=== PATIENT | male | born 1995 | race African-American/Black ===

== ENCOUNTER 2018-06-25 09:51 | Inpatient (IN) ==
[2018-06-25] MEDS ORDERED: ALBUT/IPRATROP 3MG/0.5MG NEB 3 ML VIAL INH STA (10:15)
[2018-06-25 10:41] LABS: Basophils # (auto) 0.03 K/uL (0-0.2); Basophils % (auto) 0.3 %; Eosinophils # (auto) 0.12 K/uL (0-0.5); Eosinophils % (auto) 1.2 %; Hematocrit (blood only) 40.5 % (42-52); Hemoglobin 12.8 g/dL (14.0-18.0); Immature Granulocytes # (auto) 0.03 K/uL (0.00-0.02); Immature Granulocytes % (auto) 0.3 %; Lymphocytes # (auto) 1.23 K/uL (1.2-3.4); Lymphocytes % (auto) 11.9 %; Mean Corpuscular Hgb Conc 31.6 g/dL (32-36); Mean Corpuscular Volume 82.3 fL (80-100); Mean Platelet Volume 8.8 fL (7.4-10.4); Monocytes # (auto) 0.84 K/uL (0.11-0.59); Monocytes % (auto) 8.1 %; Neutrophils # (auto) 8.06 K/uL (1.4-6.5); Neutrophils % (auto) 78.2 %; Platelet Count 241 K/uL (130-400); RDW Coefficient of Variation 14.3 % (11.5-14.5); RDW Standard Deviation 42.3 fL (36.4-46.3); Red Blood Count 4.92 M/uL (4.7-6.1); White Blood Count 10.31 K/uL (4.8-10.8)
[2018-06-25] MEDS: methylPREDNISolone 125 MG/2 ML VIAL IV STA ×2 (10:46→14:14)
[2018-06-25 10:47] LABS: Base Excess VBG 6.4 mEq/L; HCO3 VBG 36 mmol/L; PCO2 VBG 74 mmHg (38-50); PO2 VBG 30 mmHg
[2018-06-25 10:48] LABS: Oxygen Saturation VBG < 60.0 %
[2018-06-25 10:50] LABS: iSTAT Creatinine 0.5 mg/dl (0.6-1.3); iSTAT Hemoglobin 14.6 g/dl (14.0-18.0); iSTAT Ionized Calcium 1.01 mmol/l (1.12-1.32); iSTAT Potassium 4.1 mEq/L (3.3-5.0)
--- NOTE | 2018-06-25 10:53 | Emergency Department Note ---
History of Present Illness General Chief complaint: Shortness of Breath/Dyspnea Stated complaint: chest pain/ jose crawford Time Seen by Provider: 06/25/18 10:07 History of Present Illness Maximum Pain Intensity: 6 22-year-old male JOSE Crawford [place] inmate, history of cystic fibrosis, asthma and diabetes, who presents to emergency department with difficulty breathing and low oxygen saturation levels. The patient reports that he has had a mild nonproductive cough over the past 2 weeks. He did not have any wheezing at that time. After the ball dropped for celebration, the patient started to develop shortness of breath and chest pain. According to EMS personnel, the patient was administered a DuoNeb around 6 AM after he was found to have an O2 saturation of 68% on room air. When the patient's symptoms did not improve, EMS was called. He was given an additional DuoNeb treatment and placed on nasal cannula at 4 L/min, restoring his O2 saturation to 96%. The patient was brought to the emergency department, and as [facility], his oxygen saturation again dropped to 75% as they were transferring him from a portable oxygen tank to the [facility] unit. He was then placed on both nasal cannula and oxygen mask, maintaining his oxygen saturation at 96%. The patient initially reported that he has never been hospitalized for asthma or cystic fibrosis; however, through conversation in the room at a later time, the patient does admit that he has been intubated in the past. He currently denies any chest pain. Home Medications Home Medications Medication Instructions Recorded Confirmed Type azithromycin 500 mg PO DAILY 06/25/18 06/25/18 History dornase montez [Pulmozyme] 2.5 mg INHALATION DAILY PRN 06/25/18 06/25/18 History fluticasone-salmeterol [Advair 1 inh INHALATION BID 06/25/18 06/25/18 History Diskus] insulin NPH isoph U-100 human 5 unit SUBCUT QAM 06/25/18 06/25/18 History [Humulin N NPH U-100 Insulin] ipratropium-albuterol 3 ml INHALATION QID PRN 06/25/18 06/25/18 History levalbuterol tartrate [Xopenex HFA] 2 puff INHALATION QID PRN 06/25/18 06/25/18 History oumuhd-puxqsofr-qlsifwq [Creon] 3 cap PO UD 06/25/18 06/25/18 History cskgxp-uywvsqcl-sywwkmq [Creon] 5 cap PO TID 06/25/18 06/25/18 History montelukast [Singulair] 10 mg PO PM 06/25/18 06/25/18 History therapeutic multivitamin [Thera] 1 tab PO DAILY 06/25/18 06/25/18 History tobramycin 300 mg INHALATION BID PRN 06/25/18 06/25/18 History Allergies Allergy/AdvReac Type Severity Reaction Status Date / Time No Known Allergies Allergy Unverified 06/25/18 10:19 Past Med/Surg History Medical History Acute respiratory failure with hypoxia (Acute) Multifocal pneumonia (Acute) DM II (diabetes mellitus, type II), controlled (Acute) Asthma (Acute) Cystic fibrosis (Acute) Asthma Cystic fibrosis Diabetes Surgical History No significant past surgical history Family History Other No significant family history Social History marital status: Single Current Living Situation: Other Current Living Situation Comment: Incarcerated Other Information That Helps Us Care for You: No Feels Safe at Home: Yes Safety Concerns: Feels Safe At This Time Smoking Status: Never smoker Do You Dip or Chew Tobacco: No Second Hand Exposure: No Tobacco Cessation Education Requested by Patient: No Hx Alcohol Use: No Hx Substance Use: No Beliefs That Will Affect Care: None Preferred Language: Mosotho Communication Ability: Effective Distribution Dispatcher Required: No Review of Systems HEENT: Denies dizziness, visual problems, hearing loss, tinnitus. Denies difficulty swallowing or oral lesions. PULMONARY: See HPI. CARDIOVASCULAR: Reports mild generalized chest pain recent palpitations, dyspnea on exertion, orthopnea or peripheral edema. GASTROINTESTINAL: Denies diarrhea, constipation, nausea, vomiting, or abdominal pain. GENITOURINARY: Denies dysuria, frequency, urgency or nocturia. NEUROLOGIC: Denies history of epilepsy, CVA, TIA or chronic headaches. MUSCULOSKELETAL: Denies history of joint tenderness/swelling. SKIN: Denies rashes or lesions. PSYCHIATRIC: Denies history of depression or mental illness. ENDOCRINE: History of diabetes. Denies thyroid disorders. Physical Exam Vital Signs Vital Signs - 24 hr 06/25/18 10:00 06/25/18 10:01 06/25/18 10:05 Temperature 36.8 C Temperature Source Oral Sepsis Recent Fever Within 48 Hours No Sepsis New/Unexplained Change in Mental Status No Sepsis Action Taken by Nursing No Action Required Pulse Rate 98 H 101 H 96 H Pulse Rate [Apical] Respiratory Rate 26 H 37 H 32 H Respiratory Effort / Characteristics Respiratory Depth Respiratory Pattern Blood Pressure 129/80 129/75 129/80 Blood Pressure Mean 96 93 96 Pulse Oximetry 99 Oxygen Delivery Method Oxymask Oxygen Flow Rate 15 06/25/18 10:10 06/25/18 10:20 06/25/18 10:29 Temperature Temperature Source Sepsis Recent Fever Within 48 Hours Sepsis New/Unexplained Change in Mental Status Sepsis Action Taken by Nursing Pulse Rate 94 H 89 Pulse Rate [Apical] 97 H Respiratory Rate 41 H 33 H 24 Respiratory Effort / Characteristics Spontaneous Respiratory Depth Respiratory Pattern Blood Pressure Blood Pressure Mean Pulse Oximetry 98 98 97 Oxygen Delivery Method Oxymask Oxygen Flow Rate 15 06/25/18 10:30 06/25/18 10:31 06/25/18 10:40 Temperature Temperature Source Sepsis Recent Fever Within 48 Hours Sepsis New/Unexplained Change in Mental Status Sepsis Action Taken by Nursing Pulse Rate 104 H 98 H 105 H Pulse Rate [Apical] Respiratory Rate 33 H 37 H 28 H Respiratory Effort / Characteristics Respiratory Depth Respiratory Pattern Blood Pressure 119/79 Blood Pressure Mean 92 Pulse Oximetry 97 97 Oxygen Delivery Method Oxygen Flow Rate 06/25/18 10:50 06/25/18 11:00 06/25/18 11:01 Temperature Temperature Source Sepsis Recent Fever Within 48 Hours Sepsis New/Unexplained Change in Mental Status Sepsis Action Taken by Nursing Pulse Rate 102 H 101 H 100 H Pulse Rate [Apical] Respiratory Rate 48 H 20 22 Respiratory Effort / Characteristics Respiratory Depth Respiratory Pattern Blood Pressure 130/75 Blood Pressure Mean 93 Pulse Oximetry 93 95 93 Oxygen Delivery Method Oxygen Flow Rate 06/25/18 11:10 06/25/18 11:33 06/25/18 11:40 Temperature Temperature Source Sepsis Recent Fever Within 48 Hours Sepsis New/Unexplained Change in Mental Status Sepsis Action Taken by Nursing Pulse Rate 96 H 109 H 108 H Pulse Rate [Apical] Respiratory Rate 22 24 24 Respiratory Effort / Characteristics Respiratory Depth Respiratory Pattern Blood Pressure Blood Pressure Mean Pulse Oximetry 93 89 L 93 Oxygen Delivery Method Oxygen Flow Rate 06/25/18 11:48 06/25/18 11:50 06/25/18 12:00 Temperature Temperature Source Sepsis Recent Fever Within 48 Hours Sepsis New/Unexplained Change in Mental Status Sepsis Action Taken by Nursing Pulse Rate 101 H 101 H 105 H Pulse Rate [Apical] Respiratory Rate 20 22 24 Respiratory Effort / Characteristics Respiratory Depth Respiratory Pattern Blood Pressure 130/79 Blood Pressure Mean 96 Pulse Oximetry 93 93 93 Oxygen Delivery Method Oxygen Flow Rate 06/25/18 12:01 06/25/18 12:10 06/25/18 12:15 Temperature Temperature Source Sepsis Recent Fever Within 48 Hours Sepsis New/Unexplained Change in Mental Status Sepsis Action Taken by Nursing Pulse Rate 103 H 102 H Pulse Rate [Apical] Respiratory Rate 41 H 38 H 24 Respiratory Effort / Characteristics Accessory Muscle Use Labored Nasal Flaring Short of Breath SOB on Exertion Respiratory Depth Shallow Respiratory Pattern Regular Blood Pressure 124/75 Blood Pressure Mean 91 Pulse Oximetry 91 86 L 93 Oxygen Delivery Method Oxymask Oxygen Flow Rate 15 06/25/18 12:20 06/25/18 12:30 06/25/18 12:31 Temperature Temperature Source Sepsis Recent Fever Within 48 Hours Sepsis New/Unexplained Change in Mental Status Sepsis Action Taken by Nursing Pulse Rate 111 H 108 H 110 H Pulse Rate [Apical] Respiratory Rate 36 H 41 H 23 Respiratory Effort / Characteristics Respiratory Depth Respiratory Pattern Blood Pressure 127/76 Blood Pressure Mean 93 Pulse Oximetry 91 91 91 Oxygen Delivery Method Oxygen Flow Rate 06/25/18 12:40 06/25/18 12:50 06/25/18 13:00 Temperature Temperature Source Sepsis Recent Fever Within 48 Hours Sepsis New/Unexplained Change in Mental Status Sepsis Action Taken by Nursing Pulse Rate 110 H 108 H 112 H Pulse Rate [Apical] Respiratory Rate 36 H 24 24 Respiratory Effort / Characteristics Respiratory Depth Respiratory Pattern Blood Pressure Blood Pressure Mean Pulse Oximetry 91 Oxygen Delivery Method Oxygen Flow Rate 06/25/18 13:01 06/25/18 13:10 06/25/18 13:20 Temperature Temperature Source Sepsis Recent Fever Within 48 Hours Sepsis New/Unexplained Change in Mental Status Sepsis Action Taken by Nursing Pulse Rate 109 H Pulse Rate [Apical] Respiratory Rate 19 Respiratory Effort / Characteristics Respiratory Depth Respiratory Pattern Blood Pressure 134/88 Blood Pressure Mean 103 Pulse Oximetry 91 92 Oxygen Delivery Method Oxygen Flow Rate 06/25/18 13:32 Temperature Temperature Source Sepsis Recent Fever Within 48 Hours Sepsis New/Unexplained Change in Mental Status Sepsis Action Taken by Nursing Pulse Rate 106 H Pulse Rate [Apical] Respiratory Rate 22 Respiratory Effort / Characteristics Respiratory Depth Respiratory Pattern Blood Pressure 133/78 Blood Pressure Mean Pulse Oximetry 93 Oxygen Delivery Method Oxymask Oxygen Flow Rate 6 CONSTITUTIONAL: Healthy and well nourished. Alert and oriented X 3. Patient is currently wearing an oxygen mask with nasal cannula, and saturating at 96%. He does not appear in any acute respiratory distress. HEENT: Normocephalic, atraumatic. Pupils equal, round and reactive. Ears and nares are clear. No posterior pharyngeal erythema. No scleral icterus or conjunctival injection/pallor. NECK: Full active range of motion without discomfort. No JVD or obvious carotid bruits. RESPIRATORY: Patient has crackles chong, without any obvious wheezing, rhonchi or stridor. CARDIOVASCULAR: Regular rate and rhythm with no murmurs, rubs or gallops. GASTROINTESTINAL: Bowel sounds present in all quadrants. Abdomen is soft and nontender to palpation. MUSCULOSKELETAL: Full range of motion of all joints without discomfort. INTEGUMENTARY: No rash or other significant dermatologic conditions noted. HEMATOLOGIC: No ecchymosis or petechiae. NEUROLOGIC: Cranial nerves II-XII grossly intact. No focal neurologic deficits noted. PSYCHIATRIC: Positive affect. Course Patient history and physical exam were performed. Nurse's notes were reviewed. As indicated in the HPI section, the patient did have several episodes of hypoxia while at the intermediate, during transportation and in the emergency department. IV access was established prior to arrival. The patient was administered IV Solu-Medrol. Labs were drawn. An ECG was normal. The portable chest x-ray shows a possible left upper lobe pneumonia with notable bronchiectasis consistent with patient history of cystic fibrosis. Review of labs shows a hyponatremia of 128. White count is normal with left shift and bandemia. Glucose is stable at 120. [id number]-[id number] lactate is normal. Troponin was normal. The patient was administered an hour long DuoNeb treatment. D-dimer was elevated. Urine drug screen is negative. PCR influenza screen was negative. Venous blood gases shows respiratory acidosis. Chest CT angiography shows a multifocal pneumonia. The patient was started on cefepime and Levaquin IV antibiotics. The case was further discussed with Dr. Ventura, ED attending physician who recommended hospitalist consultation. The case was then discussed with Dr. Vann for further reevaluation. Please see hospitalist dictations for further treatment and final disposition. Administered Medications Ioversol (Optiray 320 125ml) 96 ml IV ONCE PRN PRN Reason: Interaction Checking Stop: 06/29/18 11:26 Last Admin: 06/25/18 11:28 Dose: 96 ml Discontinued Medications Albuterol (Duoneb) 12 ml INH ONE STA Stop: 06/25/18 10:16 Last Admin: 06/25/18 10:27 Dose: 12 ml Cefepime HCl (Maxipime) 2,000 mg in 12.5 mls @ 3.125 mls/min IV NOW STA Stop: 06/25/18 12:05 Last Admin: 06/25/18 12:12 Dose: 3.125 mls/min Levofloxacin/Dextrose (Levaquin/D5w) 750 mg in 150 mls @ 100 mls/hr IV NOW STA Stop: 06/25/18 13:31 Last Admin: 06/25/18 12:15 Dose: 100 mls/hr Methylprednisolone (Solumedrol) 125 mg IV NOW STA Stop: 06/25/18 10:16 Last Admin: 06/25/18 10:46 Dose: 125 mg Medical Decision Making Laboratory Data Result diagrams: 06/25/18 10:24 06/25/18 10:24 Lab Results 06/25/18 06/25/18 06/25/18 Range/Units 10:03 10:20 10:24 WBC 10.31 (4.8-10.8) K/uL RBC 4.92 (4.7-6.1) M/uL Hgb 12.8 L (14.0-18.0) g/dL POC Hgb (14.0-18.0) g/dl Hct 40.5 L (42-52) % POC Hct (42-52) % MCV 82.3 (80-100) fL MCH 26.0 (25-34) pg MCHC 31.6 L (32-36) g/dL RDW Std Deviation 42.3 (36.4-46.3) fL RDW Coeff of Jerry 14.3 (11.5-14.5) % Plt Count 241 (130-400) K/uL MPV 8.8 (7.4-10.4) fL Immature Gran % (Auto) 0.3 % Neut % (Auto) 78.2 % Lymph % (Auto) 11.9 % [place] % (Auto) 8.1 % Eos % (Auto) 1.2 % Baso % (Auto) 0.3 % Immature Gran # (Auto) 0.03 H (0.00-0.02) K/uL Neut # (Auto) 8.06 H (1.4-6.5) K/uL Lymph # (Auto) 1.23 (1.2-3.4) K/uL [place] # (Auto) 0.84 H (0.11-0.59) K/uL Eos # (Auto) 0.12 (0-0.5) K/uL Baso # (Auto) 0.03 (0-0.2) K/uL PT (9.0-12.0) Seconds INR (0.9-1.1) APTT (21.0-31.0) Seconds PTT Ratio POC D-Dimer (0-450) ng/mlFEU VBG pH (7.36-7.41) VBG pCO2 (38-50) mmHg VBG pO2 mmHg VBG HCO3 mmol/L VBG O2 Saturation % VBG Base Excess mEq/L Barometric Pressure mm/Hg POC Sodium (135-144) mEq/L Sodium (136-145) mmol/L POC Potassium (3.3-5.0) mEq/L Potassium (3.5-5.1) mmol/L POC Chloride (101-112) mEq/L Chloride (98-107) mmol/L Carbon Dioxide (21-32) mmol/L POC Total CO2 (24-31) mEq/l Anion Gap (3-11) POC Anion Gap (16-25) mmol/L POC BUN (7-18) mg/dl BUN (7-18) mg/dl Creatinine (0.6-1.4) mg/dl POC Creatinine (0.6-1.3) mg/dl Est Cr Clr Drug Dosing ml/min Est GFR ( Amer) Est GFR (Non-Af Amer) BUN/Creatinine Ratio (10-20) Glucose (70-99) mg/dl POC Glucose 107 H (70-99) POC Glucose (other) (70-99) mg/dl POC Lactic Acid Tato (0.90-1.70) mmol/L Calcium (8.5-10.1) mg/dl POC Ioniz Calcium Kalyani (1.12-1.32) mmol/l Magnesium (1.8-2.4) mg/dl Total Bilirubin (0.2-1) mg/dl AST (15-37) U/L ALT (12-78) U/L Alkaline Phosphatase (45-117) U/L POC Troponin I (0-0.045) ng/ml Total Protein (6.4-8.2) gm/dl Albumin (3.4-5.0) gm/dl Globulin (2.5-4.0) gm/dl Albumin/Globulin Ratio (0.9-2) Urine Opiates Screen (Neg) Ur Methadone, Qual (Neg) Urine Barbiturates (Neg) Ur Phencyclidine (PCP) (Neg) U Amphetamin/Meth Scrn (Neg) MDMA (Ecstasy) Screen (Neg) U Benzodiazepines Scrn (Neg) Ur Cocaine Metabolite (Neg) U Marijuana (THC) Screen (Neg) Influenza Type A (PCR) Neg for Influ A (Neg) Influenza Type B (PCR) Neg for Influ B (Neg) 06/25/18 06/25/18 06/25/18 Range/Units 10:24 10:24 10:24 WBC (4.8-10.8) K/uL RBC (4.7-6.1) M/uL Hgb (14.0-18.0) g/dL POC Hgb (14.0-18.0) g/dl Hct (42-52) % POC Hct (42-52) % MCV (80-100) fL MCH (25-34) pg MCHC (32-36) g/dL RDW Std Deviation (36.4-46.3) fL RDW Coeff of Jerry (11.5-14.5) % Plt Count (130-400) K/uL MPV (7.4-10.4) fL Immature Gran % (Auto) % Neut % (Auto) % Lymph % (Auto) % [place] % (Auto) % Eos % (Auto) % Baso % (Auto) % Immature Gran # (Auto) (0.00-0.02) K/uL Neut # (Auto) (1.4-6.5) K/uL Lymph # (Auto) (1.2-3.4) K/uL [place] # (Auto) (0.11-0.59) K/uL Eos # (Auto) (0-0.5) K/uL Baso # (Auto) (0-0.2) K/uL PT 11.9 (9.0-12.0) Seconds INR 1.2 H (0.9-1.1) APTT 27.9 (21.0-31.0) Seconds PTT Ratio 1.1 POC D-Dimer (0-450) ng/mlFEU VBG pH 7.30 L (7.36-7.41) VBG pCO2 74 H (38-50) mmHg VBG pO2 30 mmHg VBG HCO3 36 mmol/L VBG O2 Saturation < 60.0 % VBG Base Excess 6.4 mEq/L Barometric Pressure 731.7 mm/Hg POC Sodium (135-144) mEq/L Sodium 128 L (136-145) mmol/L POC Potassium (3.3-5.0) mEq/L Potassium 4.0 (3.5-5.1) mmol/L POC Chloride (101-112) mEq/L Chloride 91 L (98-107) mmol/L Carbon Dioxide 35 H (21-32) mmol/L POC Total CO2 (24-31) mEq/l Anion Gap 2.0 L (3-11) POC Anion Gap (16-25) mmol/L POC BUN (7-18) mg/dl BUN 5 L (7-18) mg/dl Creatinine 0.67 (0.6-1.4) mg/dl POC Creatinine (0.6-1.3) mg/dl Est Cr Clr Drug Dosing 144.0 ml/min Est GFR ( Amer) > 150.0 Est GFR (Non-Af Amer) 134.5 BUN/Creatinine Ratio 8.1 L (10-20) Glucose 120 H (70-99) mg/dl POC Glucose (70-99) POC Glucose (other) (70-99) mg/dl POC Lactic Acid Tato (0.90-1.70) mmol/L Calcium 8.2 L (8.5-10.1) mg/dl POC Ioniz Calcium Kalyani (1.12-1.32) mmol/l Magnesium 1.9 (1.8-2.4) mg/dl Total Bilirubin 0.3 (0.2-1) mg/dl AST 10 L (15-37) U/L ALT 17 (12-78) U/L Alkaline Phosphatase 101 (45-117) U/L POC Troponin I (0-0.045) ng/ml Total Protein 10.1 H (6.4-8.2) gm/dl Albumin 2.5 L (3.4-5.0) gm/dl Globulin 7.6 H (2.5-4.0) gm/dl Albumin/Globulin Ratio 0.3 L (0.9-2) Urine Opiates Screen (Neg) Ur Methadone, Qual (Neg) Urine Barbiturates (Neg) Ur Phencyclidine (PCP) (Neg) U Amphetamin/Meth Scrn (Neg) MDMA (Ecstasy) Screen (Neg) U Benzodiazepines Scrn (Neg) Ur Cocaine Metabolite (Neg) U Marijuana (THC) Screen (Neg) Influenza Type A (PCR) (Neg) Influenza Type B (PCR) (Neg) 06/25/18 06/25/18 06/25/18 Range/Units 10:31 10:33 10:35 WBC (4.8-10.8) K/uL RBC (4.7-6.1) M/uL Hgb (14.0-18.0) g/dL POC Hgb 14.6 (14.0-18.0) g/dl Hct (42-52) % POC Hct 43 (42-52) % MCV (80-100) fL MCH (25-34) pg MCHC (32-36) g/dL RDW Std Deviation (36.4-46.3) fL RDW Coeff of Jerry (11.5-14.5) % Plt Count (130-400) K/uL MPV (7.4-10.4) fL Immature Gran % (Auto) % Neut % (Auto) % Lymph % (Auto) % [place] % (Auto) % Eos % (Auto) % Baso % (Auto) % Immature Gran # (Auto) (0.00-0.02) K/uL Neut # (Auto) (1.4-6.5) K/uL Lymph # (Auto) (1.2-3.4) K/uL [place] # (Auto) (0.11-0.59) K/uL Eos # (Auto) (0-0.5) K/uL Baso # (Auto) (0-0.2) K/uL PT (9.0-12.0) Seconds INR (0.9-1.1) APTT (21.0-31.0) Seconds PTT Ratio POC D-Dimer > 450 H* (0-450) ng/mlFEU VBG pH (7.36-7.41) VBG pCO2 (38-50) mmHg VBG pO2 mmHg VBG HCO3 mmol/L VBG O2 Saturation % VBG Base Excess mEq/L Barometric Pressure mm/Hg POC Sodium 132 L (135-144) mEq/L Sodium (136-145) mmol/L POC Potassium 4.1 (3.3-5.0) mEq/L Potassium (3.5-5.1) mmol/L POC Chloride 89 L (101-112) mEq/L Chloride (98-107) mmol/L Carbon Dioxide (21-32) mmol/L POC Total CO2 32 H (24-31) mEq/l Anion Gap (3-11) POC Anion Gap 15.0 L (16-25) mmol/L POC BUN 4 L (7-18) mg/dl BUN (7-18) mg/dl Creatinine (0.6-1.4) mg/dl POC Creatinine 0.5 L (0.6-1.3) mg/dl Est Cr Clr Drug Dosing ml/min Est GFR ( Amer) Est GFR (Non-Af Amer) BUN/Creatinine Ratio (10-20) Glucose (70-99) mg/dl POC Glucose (70-99) POC Glucose (other) 129 H (70-99) mg/dl POC Lactic Acid Tato 1.05 (0.90-1.70) mmol/L Calcium (8.5-10.1) mg/dl POC Ioniz Calcium Kalyani 1.01 L (1.12-1.32) mmol/l Magnesium (1.8-2.4) mg/dl Total Bilirubin (0.2-1) mg/dl AST (15-37) U/L ALT (12-78) U/L Alkaline Phosphatase (45-117) U/L POC Troponin I < 0.03 (0-0.045) ng/ml Total Protein (6.4-8.2) gm/dl Albumin (3.4-5.0) gm/dl Globulin (2.5-4.0) gm/dl Albumin/Globulin Ratio (0.9-2) Urine Opiates Screen (Neg) Ur Methadone, Qual (Neg) Urine Barbiturates (Neg) Ur Phencyclidine (PCP) (Neg) U Amphetamin/Meth Scrn (Neg) MDMA (Ecstasy) Screen (Neg) U Benzodiazepines Scrn (Neg) Ur Cocaine Metabolite (Neg) U Marijuana (THC) Screen (Neg) Influenza Type A (PCR) (Neg) Influenza Type B (PCR) (Neg) 06/25/18 Range/Units 10:45 WBC (4.8-10.8) K/uL RBC (4.7-6.1) M/uL Hgb (14.0-18.0) g/dL POC Hgb (14.0-18.0) g/dl Hct (42-52) % POC Hct (42-52) % MCV (80-100) fL MCH (25-34) pg MCHC (32-36) g/dL RDW Std Deviation (36.4-46.3) fL RDW Coeff of Jerry (11.5-14.5) % Plt Count (130-400) K/uL MPV (7.4-10.4) fL Immature Gran % (Auto) % Neut % (Auto) % Lymph % (Auto) % [place] % (Auto) % Eos % (Auto) % Baso % (Auto) % Immature Gran # (Auto) (0.00-0.02) K/uL Neut # (Auto) (1.4-6.5) K/uL Lymph # (Auto) (1.2-3.4) K/uL [place] # (Auto) (0.11-0.59) K/uL Eos # (Auto) (0-0.5) K/uL Baso # (Auto) (0-0.2) K/uL PT (9.0-12.0) Seconds INR (0.9-1.1) APTT (21.0-31.0) Seconds PTT Ratio POC D-Dimer (0-450) ng/mlFEU VBG pH (7.36-7.41) VBG pCO2 (38-50) mmHg VBG pO2 mmHg VBG HCO3 mmol/L VBG O2 Saturation % VBG Base Excess mEq/L Barometric Pressure mm/Hg POC Sodium (135-144) mEq/L Sodium (136-145) mmol/L POC Potassium (3.3-5.0) mEq/L Potassium (3.5-5.1) mmol/L POC Chloride (101-112) mEq/L Chloride (98-107) mmol/L Carbon Dioxide (21-32) mmol/L POC Total CO2 (24-31) mEq/l Anion Gap (3-11) POC Anion Gap (16-25) mmol/L POC BUN (7-18) mg/dl BUN (7-18) mg/dl Creatinine (0.6-1.4) mg/dl POC Creatinine (0.6-1.3) mg/dl Est Cr Clr Drug Dosing ml/min Est GFR ( Amer) Est GFR (Non-Af Amer) BUN/Creatinine Ratio (10-20) Glucose (70-99) mg/dl POC Glucose (70-99) POC Glucose (other) (70-99) mg/dl POC Lactic Acid Tato (0.90-1.70) mmol/L Calcium (8.5-10.1) mg/dl POC Ioniz Calcium Kalyani (1.12-1.32) mmol/l Magnesium (1.8-2.4) mg/dl Total Bilirubin (0.2-1) mg/dl AST (15-37) U/L ALT (12-78) U/L Alkaline Phosphatase (45-117) U/L POC Troponin I (0-0.045) ng/ml Total Protein (6.4-8.2) gm/dl Albumin (3.4-5.0) gm/dl Globulin (2.5-4.0) gm/dl Albumin/Globulin Ratio (0.9-2) Urine Opiates Screen Neg (Neg) Ur Methadone, Qual Neg (Neg) Urine Barbiturates Neg (Neg) Ur Phencyclidine (PCP) Neg (Neg) U Amphetamin/Meth Scrn Neg (Neg) MDMA (Ecstasy) Screen Neg (Neg) U Benzodiazepines Scrn Neg (Neg) Ur Cocaine Metabolite Neg (Neg) U Marijuana (THC) Screen Neg (Neg) Influenza Type A (PCR) (Neg) Influenza Type B (PCR) (Neg) Imaging Data Attestation: I personally reviewed and interpreted this imaging study as follows : My Impression: My interpretation of a portable chest x-ray shows a left upper lobe consolidation. No obvious pneumothorax is noted. Radiologist report was reviewed. Chest CT angiography Radiologist's Impression: XR chest 1V portable CLINICAL HISTORY: Dyspnea. COMPARISON STUDY: Chest radiograph January 19, 2017. FINDINGS: There is no pneumothorax. There is a possible trace left pleural effusion. Diffuse bronchiectasis is noted. Left upper lobe volume loss with opacity has developed since exam of January 19, 2017. There may be patchy additional upper lobe opacities. Cardiac size is normal. Lucencies within the left lung apex could reflect cavities or bronchiectasis IMPRESSION: 1. Severe bronchiectasis. Although nonspecific, cystic fibrosis is favored. 2. Interval development of left upper lobe volume loss and airspace opacity since radiographs of January 19, 2017. This may reflect superimposed pneumonia. Lucencies within the opacity may reflect bronchiectasis or cavities. A central obstructing mass is considered unlikely given the patient's age however radiographic follow up is recommended. 3. Trace left pleural effusion. CT ANGIOGRAPHY OF THE CHEST, PULMONARY EMBOLUS PROTOCOL CLINICAL HISTORY: PE - hypoxia, SOB, h/o asthma, CF COMPARISON STUDY: Chest radiograph June 25, 2018 and January 11, 2017. TECHNIQUE: Following IV administration of 96 mL of Optiray-320, helical axial images of the chest were obtained utilizing the pulmonary embolus protocol. Maximal intensity projections and sagittal and coronal reformats were viewed on an independent 3D workstation. IV contrast was administered without complication. Automated exposure control was utilized for the study. A dose lowering technique was utilized adhering to the principles of ALARA. CT DOSE: 194.14 mGy.cm FINDINGS: No pulmonary emboli are identified. There is no evidence for thoracic aortic dissection. The size of the heart is normal. There is no pericardial effusion. Mild to moderate bilateral hilar and mediastinal lymphadenopathy is present. A 4 x 2.6 cm anterior mediastinal soft tissue density may reflect a prominent thymus. Severe upper lobe predominant bronchiectasis is noted. There are groundglass opacities throughout the lungs with multifocal irregular opacities as well. There is left upper lobe volume loss with severe bronchiectasis and cavity formation. A small left pleural effusion is present. There is no right pleural effusion. There is no pneumothorax. Bony thorax is unremarkable. Fatty replacement of visualized portions of the pancreas is noted within the upper abdomen. IMPRESSION: 1. No pulmonary emboli identified. 2. Severe upper lobe bronchiectasis consistent with history of cystic fibrosis. Left upper lobe volume loss, airspace opacity and severe bronchiectasis and multifocal cavity formation. 3. Multifocal irregular airspace opacities and groundglass opacities throughout the lungs which suggest superimposed multifocal pneumonia. 4. Small left pleural effusion. 5. Mild to moderate mediastinal and bilateral hilar lymphadenopathy which is likely reactive. 4 x 2.6 cm left anterior mediastinal soft tissue density which is nonspecific but may reflect a prominent thymus. A follow-up chest CT in 3 months to ensure stability is recommended. ECG Data Indication: chest pain and SOB/dyspnea Rate (beats per minute): 94 Rhythm: normal sinus Comparison ECG Date: no prior available MDM Narrative Patient presents to emergency department with complaint of difficulty breathing. He was found to be hypoxic at the intermediate. The patient reports that he has had a cough for the past [address] scan does show evidence for a multifocal pneumonia. Patient also has a significant history of cystic fibrosis. He is currently in acute respiratory failure with hypoxia. CT scan does not show any obvious pulmonary emboli. ECG and troponin are normal and not suggestive of myocardial infarction. Impression & Plan Acute respiratory failure with hypoxia, Cystic fibrosis, Asthma, DM II ( diabetes mellitus, type II), controlled, Multifocal pneumonia Critical Care Time I have personally spent greater than 30 minutes of critical care time in the direct management of this patient. This includes bedside care, interpretation of diagnostic studies, and testing, discussion with consultants, patient, and family members, and other required patient management activities. This 30 minutes is in excess of all separately billable procedures. The patient has had persistent stable hypoxia while in emergency department, and had to be supported with oxygen therapy. Critical Care Time: Yes Total Critical Care Time: 35 Discharge Plan Visit Data *Final* Discharge Date/Time: 06/25/18 13:32 Chief Complaint: Shortness of Breath/Dyspnea Stated Complaint: chest pain/ sci rudy ED Provider: Giovanni Ventura ED Midlevel Provider: Brendan Waite Discharge Problem: Acute respiratory failure with hypoxia, Cystic fibrosis, Asthma, DM II ( diabetes mellitus, type II), controlled, Multifocal pneumonia Patient Disposition: Admitted As Inpatient Discharge Instructions Interventions: ED Discharge Assessment Last Done: 06/25/18 13:32
[2018-06-25 10:55] LABS: INR 1.2 (0.9-1.1); Partial Thromboplastin Ratio 1.1; Partial Thromboplastin Time 27.9 Seconds (21.0-31.0); Prothrombin Time 11.9 Seconds (9.0-12.0)
--- NOTE | 2018-06-25 10:58 | XRay Report ---
XR chest 1V portable CLINICAL HISTORY: Dyspnea. COMPARISON STUDY: Chest radiograph January 19, 2017. FINDINGS: There is no pneumothorax. There is a possible trace left pleural effusion. Diffuse bronchie ctasis is noted. Left upper lobe volume loss with opacity has developed since exam of January 19, 2017. There may be patchy additional upper lobe opacities. Cardiac size is normal. Lucencies within the lef t lung apex could reflect cavities or bronchiectasis IMPRESSION: 1. Severe bronchiectasis. Although nonspecific, cystic fibrosis is favored. 2. Interval development of left upper lobe volume loss and airspace opacity since radiographs of January 19, 2017. This may reflect superimposed pneumonia. Lucencies within the opacity may reflect bronchie ctasis or cavities. A central obstructing mass is considered unlikely given the patient's age however radiographic follow up is recommended. 3. Trace left pleural effusion. Electronically signed by: Romario Estrada M.D. 06/25/2018 10:57 AM
[2018-06-25 10:59] LABS: Alanine Aminotransferase 17 U/L (12-78); Albumin Level 2.5 gm/dl (3.4-5.0); Aspartate Aminotransferase 10 U/L (15-37); BUN Creatinine Ratio 8.1 (10-20); Blood Urea Nitrogen 5 mg/dl (7-18); Calcium 8.2 mg/dl (8.5-10.1); Carbon Dioxide 35 mmol/L (21-32); Chloride 91 mmol/L (98-107); Est GFR (African American) > 150.0; Est GFR (Non-African American) 134.5; Glucose 120 mg/dl (70-99); Magnesium 1.9 mg/dl (1.8-2.4); Sodium 128 mmol/L (136-145)
[2018-06-25 11:02] LABS: Albumin Globulin Ratio 0.3 (0.9-2); Alkaline Phosphatase 101 U/L (45-117); Bilirubin,Total 0.3 mg/dl (0.2-1); Globulin 7.6 gm/dl (2.5-4.0); Total Protein 10.1 gm/dl (6.4-8.2)
[2018-06-25 11:17] LABS: Amphetamines+Metham, Urine Neg (Neg); Barbiturates, Urine Neg (Neg); Benzodiazepine, Urine Neg (Neg); Cocaine, Urine Neg (Neg); MDMA (Ecstacy), Urine Neg (Neg); Methadone, Urine Neg (Neg); Opiate, Urine Neg (Neg); Phencyclidine, Urine Neg (Neg)
[2018-06-25 11:23] LABS: Influenza A virus by PCR Neg for Influ A (Neg); Influenza B virus by PCR Neg for Influ B (Neg)
[2018-06-25] MEDS ORDERED: OPTIRAY 320 125ml IV PRN (11:27)
--- NOTE | 2018-06-25 11:45 | CT Scan Report ---
CT ANGIOGRAPHY OF THE CHEST, PULMONARY EMBOLUS PROTOCOL CLINICAL HISTORY: PE - hypoxia, SOB, h/o asthma, CF COMPARISON STUDY: Chest radiograph June 25, 2018 and January 11, 2017. TECHNIQUE: Following IV administration of 96 mL of Optiray-320, helical axial images of the chest wer e obtained utilizing the pulmonary embolus protocol. Maximal intensity projections and sagittal and coronal reformats were viewed on an independent 3D workstation. IV contrast was administered without complication. Automated exposure control was utilized for the study. A dose lowering technique was utilized adhering to the principles of ALARA. CT DOSE: 194.14 mGy.cm FINDINGS: No pulmonary emboli are identified. There is no evidence for thoracic aortic dissection. The size of the heart is normal. There is no pericardial effusion. Mild to moderate bilateral hilar and mediastin al lymphadenopathy is present. A 4 x 2.6 cm anterior mediastinal soft tissue density may reflect a pr ominent thymus. Severe upper lobe predominant bronchiectasis is noted. There are groundglass opacitie s throughout the lungs with multifocal irregular opacities as well. There is left upper lobe volume l oss with severe bronchiectasis and cavity formation. A small left pleural effusion is present. There is no right pleural effusion. There is no pneumothorax. Bony thorax is unremarkable. Fatty replacemen t of visualized portions of the pancreas is noted within the upper abdomen. IMPRESSION: 1. No pulmonary emboli identified. 2. Severe upper lobe bronchiectasis consistent with history of cystic fibrosis. Left upper lobe volum e loss, airspace opacity and severe bronchiectasis and multifocal cavity formation. 3. Multifocal irregular airspace opacities and groundglass opacities throughout the lungs which sugge st superimposed multifocal pneumonia. 4. Small left pleural effusion. 5. Mild to moderate mediastinal and bilateral hilar lymphadenopathy which is likely reactive. 4 x 2.6 cm left anterior mediastinal soft tissue density which is nonspecific but may reflect a prominent th ymus. A follow-up chest CT in 3 months to ensure stability is recommended. Electronically signed by: Romario Estrada M.D. 06/25/2018 11:43 AM
[2018-06-25] MEDS ORDERED: LEVOFLOXACIN/D5W 750 MG/150 ML BAG IV STA (12:02)
[2018-06-25] MEDS ORDERED: CEFEPIME 2,000 MG/12.5 ML VIAL IV STA (12:02)
--- NOTE | 2018-06-25 12:15 | History & Physical Report ---
Date of Service June 25, 2018 Assessment & Plan (1) Acute respiratory failure with hypoxia: (2) Multifocal pneumonia: - Admit to pcu/tele - Continue cefepime, levaquin and add vancomycin for MRSA coverage with current incarceration - pt has home med of azithromycin prescribed as well but does not have this. - Pt recieved dose of solumedrol 125 mg in the ER - will hold on further glucocorticoid at this time. - Supportive therapy with mucinex, O2 prn - Tobramycin inh., pulmozyme inh scheduled - pt has not been taking this as outpatient - Pulmonology consult - Dr. Nuñez . Pt does not follow with a CF specialist but needs to establish with someone upon discharge. (3) Cystic fibrosis: - Needs to establish care with a specialist as outpatient, would need to consider placement at different correctional facility if care not available? - Pt provides information for Dr. Terrell in [place] as outpatient but has not followed up as outpatient for over 4 years. (4) Asthma: - Cont supportive care and inhalers as above (5) DM II (diabetes mellitus, type II), controlled: - Continue insulin NPH 5 U - ISS with accuchecks - Check A1C with am labs - diabetic diet - Continue Creon capsules for supplementation, 5 Caps with meals and 3 Caps with snacks. (6) DVT prophylaxis: - lovenox subq History of Present Illness Chief Complaint: Shortness of breath Primary Care Provider: MARIO Crawford This is a 22 yo male with PMHx of asthma and cystic fibrosis, DM II, currently incarcerated at [facility], who presents with acute onset of shortness of breath last evening around midnight. He was reported to be hypoxic with O2 sats in the 60s at the care home, and upon transitioning him from DC to oximask he dropped down into the 70s in the ER here. Patient states "I feel like $h*!". Pt noticed an increased wheezing in his breath earlier in the day, and it progressed to where he was unable to fall asleep last night. He has a cough which is nonproductive but worsening, and has difficulty with deep breaths. He has a slight tightness in his chest which is worsened with deep inspiration. He denies any fever, chills, sweats, known sick contacts. He denies increased fatigue and decreased exercise tolerance. Diet has not changed, and is unaware if he has lost weight. Pt has not been taking home medications including Azithromycin, Pulmozyme or Tobramycin. He does take Creon capsules, Advair inhaler routinely, and the xopenex if needed. He also does use insulin NPH and got it this morning. Pt has not seen a cystic fibrosis specialist since 2013, but had followed with Dr. Terrell in [place] back then. He was once hospitalized for a CF exacerbation in 2013 where he was intubated for a 3 week period. The patient has 11 siblings, none of which have CF. He was diagnosed as an infant. He also has been incarcerated for 4 years, with a get out date set for 2022. Allergies Allergy/AdvReac Type Severity Reaction Status Date / Time No Known Allergies Allergy Unverified 06/25/18 10:19 Home Medications Home Medications Medication Instructions Recorded Confirmed Type azithromycin 500 mg PO DAILY 06/25/18 06/25/18 History dornase montez [Pulmozyme] 2.5 mg INHALATION DAILY PRN 06/25/18 06/25/18 History fluticasone-salmeterol [Advair 1 inh INHALATION BID 06/25/18 06/25/18 History Diskus] insulin NPH isoph U-100 human 5 unit SUBCUT QAM 06/25/18 06/25/18 History [Humulin N NPH U-100 Insulin] ipratropium-albuterol 3 ml INHALATION QID PRN 06/25/18 06/25/18 History levalbuterol tartrate [Xopenex HFA] 2 puff INHALATION QID PRN 06/25/18 06/25/18 History czgufh-vzqlnzkd-yaqvjla [Creon] 3 cap PO UD 06/25/18 06/25/18 History rlxzqx-jykbsixr-lzvnktj [Creon] 5 cap PO TID 06/25/18 06/25/18 History montelukast [Singulair] 10 mg PO PM 06/25/18 06/25/18 History therapeutic multivitamin [Thera] 1 tab PO DAILY 06/25/18 06/25/18 History tobramycin 300 mg INHALATION BID PRN 06/25/18 06/25/18 History Past Med/Surg History Medical History Acute respiratory failure with hypoxia (Acute) Multifocal pneumonia (Acute) DM II (diabetes mellitus, type II), controlled (Acute) Asthma (Acute) Cystic fibrosis (Acute) Asthma Cystic fibrosis Diabetes Surgical History No significant past surgical history Family History Other No significant family history Social History marital status: Single Current Living Situation: Other Current Living Situation Comment: Incarcerated Other Information That Helps Us Care for You: No Feels Safe at Home: Yes Safety Concerns: Feels Safe At This Time Smoking Status: Never smoker Do You Dip or Chew Tobacco: No Second Hand Exposure: No Tobacco Cessation Education Requested by Patient: No Hx Alcohol Use: No Hx Substance Use: No Beliefs That Will Affect Care: None Preferred Language: Irish Communication Ability: Effective Network Manager Required: No Review of Systems Constitutional: no fever, no chills, no sweats and no fatigue Eyes: no diplopia and no worsening vision Ear, Nose, Mouth, Throat: no dizziness, no nasal discharge, no facial pain and no sore throat Respiratory: as per Subjective / HPI, + cough, + dyspnea, + dyspnea on exertion , + pain on inspiration and + wheezing; no change in sputum and no hemoptysis Cardiovascular: no chest pain, no palpitations, no lightheadedness and no syncope Gastrointestinal: no nausea, no vomiting and no constipation no diarrhea Genitourinary (Male): no dysuria, no urinary frequency, no urinary hesitancy and no hematuria Musculoskeletal: no back pain, no joint pain, no swelling and no muscle weakness Integumentary: no rash, no lesions and no wounds Neurologic: no gait abnormality, no falls, no numbness, no dizziness and no syncope Psychiatric: no depression and no anxiety Endocrine: no fatigue Physical Exam 2 Vital Signs (Past 24 Hours): Last Vital Signs Temp 36.8 C 06/25/18 10:05 Pulse 105 H 06/25/18 12:00 Resp 24 06/25/18 12:00 BP 130/79 06/25/18 11:48 Pulse Ox 93 06/25/18 12:00 Physical Exam: General: awake, alert, no apparent distress, , multiple tattoos, thin Head: Normocephalic, atraumatic ENT: PERRL, EOMI, no pharyngeal exudate, mucous membranes slightly dry Chest: On an oximask at 15L/min, + cough, + coarse breath sounds in all chong Cardiac: Tachycardic, no murmur, no JVD, normal peripheral pulses, good capillary refill Abdominal: NABS x 4 quadrants, soft, nontender to palpation, no rebound, guarding or tenderness Extremities: Normal inspection, no peripheral edema or erythema, calfs nontender to palpation Psych: Normal mood and affect Neuro: AAO x 3, strength intact bilaterally and related 5/5, no motor deficits, speech is clear, no peripheral sensory deficits Results & Data Diagnostic Findings CT ANGIOGRAPHY OF THE CHEST, PULMONARY EMBOLUS PROTOCOL CLINICAL HISTORY: PE - hypoxia, SOB, h/o asthma, CF COMPARISON STUDY: Chest radiograph June 25, 2018 and January 11, 2017. TECHNIQUE: Following IV administration of 96 mL of Optiray-320, helical axial images of the chest were obtained utilizing the pulmonary embolus protocol. Maximal intensity projections and sagittal and coronal reformats were viewed on an independent 3D workstation. IV contrast was administered without complication. Automated exposure control was utilized for the study. A dose lowering technique was utilized adhering to the principles of ALARA. CT DOSE: 194.14 mGy.cm FINDINGS: No pulmonary emboli are identified. There is no evidence for thoracic aortic dissection. The size of the heart is normal. There is no pericardial effusion. Mild to moderate bilateral hilar and mediastinal lymphadenopathy is present. A 4 x 2.6 cm anterior mediastinal soft tissue density may reflect a prominent thymus. Severe upper lobe predominant bronchiectasis is noted. There are groundglass opacities throughout the lungs with multifocal irregular opacities as well. There is left upper lobe volume loss with severe bronchiectasis and cavity formation. A small left pleural effusion is present. There is no right pleural effusion. There is no pneumothorax. Bony thorax is unremarkable. Fatty replacement of visualized portions of the pancreas is noted within the upper abdomen. IMPRESSION: 1. No pulmonary emboli identified. 2. Severe upper lobe bronchiectasis consistent with history of cystic fibrosis. Left upper lobe volume loss, airspace opacity and severe bronchiectasis and multifocal cavity formation. 3. Multifocal irregular airspace opacities and groundglass opacities throughout the lungs which suggest superimposed multifocal pneumonia. 4. Small left pleural effusion. 5. Mild to moderate mediastinal and bilateral hilar lymphadenopathy which is likely reactive. 4 x 2.6 cm left anterior mediastinal soft tissue density which is nonspecific but may reflect a prominent thymus. A follow-up chest CT in 3 months to ensure stability is recommended. XR chest 1V portable CLINICAL HISTORY: Dyspnea. COMPARISON STUDY: Chest radiograph January 19, 2017. FINDINGS: There is no pneumothorax. There is a possible trace left pleural effusion. Diffuse bronchiectasis is noted. Left upper lobe volume loss with opacity has developed since exam of January 19, 2017. There may be patchy additional upper lobe opacities. Cardiac size is normal. Lucencies within the left lung apex could reflect cavities or bronchiectasis IMPRESSION: 1. Severe bronchiectasis. Although nonspecific, cystic fibrosis is favored. 2. Interval development of left upper lobe volume loss and airspace opacity since radiographs of January 19, 2017. This may reflect superimposed pneumonia. Lucencies within the opacity may reflect bronchiectasis or cavities. A central obstructing mass is considered unlikely given the patient's age however radiographic follow up is recommended. 3. Trace left pleural effusion. Code Status & VTE Plan Code Status Full Supervising Physician Co-Signing Physician Notes Patient seen and examined, chart reviewed, case discussed with GABRIEL Lopez and I agree with her assessment and plan as documented above. Briefly, patient is a 22yo male with history of CF, asthma, DM presenting with acute episode of SOB and hypoxia (sas in the 70's) as well as wheezing. Patient is non- compliant with his medication regimen. He does not follow routinely with CF specialist as he is presently incarcerated at [facility]. On physical exam he is afebrile, tachycardic at 105bpm, RR of 24 with 93% on 7L oxymask General: thin, resting comfortably, visibly tachypneic but speaking in complete sentences, no retractions or accessory muscle use Skin: no rash HEENT: NC/AT, PERRL, MMM, neck supple, no JVD Heart: +S1/S2, regular, tachycardic, no m/r/g Lungs: equal air entry bilaterally, coarse breath sounds and crackles in bilateral lung chong with diffuse wheezing Abd: soft, NT/ND Ext: clubbing of digits Labs and images reviewed. VB.3/74/30/36. Qp=544 Cl=89 CO2=35 CTA with severe upper lobe bronchiectasis, UMU volume loss, severe bronchiectasis and multifocal cavity formation. Multiple irregular airspace opacities and groundglass opacities througout the lungs suggesting multifocal PNA, small left pleural effusion. Assessment/Plan: 22yo male with CF presenting with SOB and hypoxia, most likely from CF exacerbation secondary to multifocal PNA -Admit to PCU, supplemental O2 as needed. -Duonebs. Pulmozyme. Inhaled tobramycin. Aggressive pulmonary toilet -Broad spectrum antibiotics -Pulmonary consultation - appreciate assistance with this case
[2018-06-25] MEDS ORDERED: BENZONATATE 100 MG CAPSULE PO SCH (14:00)
[2018-06-25] MEDS ORDERED: LEVALBUTEROL 1.25MG/0.5ML NEB NEB SCH (14:01)
[2018-06-25] MEDS ORDERED: VANCOMYCIN CONSULT ACTIVE PRN (14:01)
[2018-06-25] MEDS ORDERED: ONDANSETRON INJ 2 MG/ML 2 ML VIAL IV PRN (14:01)
[2018-06-25] MEDS: ALBUT/IPRATROP 3MG/0.5MG NEB 3 ML VIAL INH SCH ×3 (14:43→19:40)
[2018-06-25] MEDS ORDERED: LEVALBUTEROL 1.25MG/0.5ML NEB NEB PRN (14:51)
[2018-06-25] MEDS ORDERED: VANCOMYCIN HCL 1,500 MG in SODIUM CHLORIDE 0.9% 500 ML IV ONE (15:30)
[2018-06-25] MEDS ORDERED: DEXTROSE 50% 50 ML SYRINGE IV PRN (16:00)
[2018-06-25] MEDS ORDERED: GLUCAGON FOR INJ 1 MG VIAL SQ PRN (16:00)
[2018-06-25] MEDS ORDERED: GLUCOSE 10 TABS/TUBE PO PRN (16:00)
[2018-06-25] MEDS ORDERED: PANCREAZE (LIPASE 10,500U) CAP PO PRN (16:00)
--- NOTE | 2018-06-25 16:20 | Pharmacy Report ---
Pharmacy Abx Initial Consult - Date of Service June 25, 2018 - Pharmacy Dosing Scope Date of Consult: 06/25/18 Consultation requested by: Chanelle Lopez PA-C Pharmacy is consulted to initiate Vancomycin IV dosing therapy, order appropriate labs and adjust drug dose/frequency. - Subjective The patient is a 22 year old M admitted on 06/25/18 12:51. - Objective Height: 5 ft 11 in Weight: 59.9 kg Vital Signs (Past 12hrs): Vital Signs Temp Pulse Pulse Pulse Resp BP BP 06/25/18 15:30 36.8 C 103 H 18 137/73 06/25/18 14:46 94 H 18 06/25/18 14:00 36.6 C 105 H 26 H 06/25/18 13:32 106 H 22 133/78 06/25/18 13:20 06/25/18 13:10 06/25/18 13:01 109 H 19 134/88 06/25/18 13:00 112 H 24 06/25/18 12:50 108 H 24 06/25/18 12:40 110 H 36 H 06/25/18 12:31 110 H 23 127/76 06/25/18 12:30 108 H 41 H 06/25/18 12:20 111 H 36 H 06/25/18 12:15 24 06/25/18 12:10 102 H 38 H 06/25/18 12:01 103 H 41 H 124/75 06/25/18 12:00 105 H 24 06/25/18 11:50 101 H 22 06/25/18 11:48 101 H 20 130/79 06/25/18 11:40 108 H 24 06/25/18 11:33 109 H 24 06/25/18 11:10 96 H 22 06/25/18 11:01 100 H 22 130/75 06/25/18 11:00 101 H 20 06/25/18 10:50 102 H 48 H 06/25/18 10:40 105 H 28 H 06/25/18 10:31 98 H 37 H 119/79 06/25/18 10:30 104 H 33 H 06/25/18 10:29 97 H 24 06/25/18 10:20 89 33 H 06/25/18 10:10 94 H 41 H 06/25/18 10:05 36.8 C 96 H 32 H 129/80 01/01/19 10:01 101 H 37 H 129/75 06/25/18 10:00 98 H 26 H 129/80 BP Pulse Ox 06/25/18 15:30 93 06/25/18 14:46 94 06/25/18 14:00 115/71 90 06/25/18 13:32 93 06/25/18 13:20 92 06/25/18 13:10 91 06/25/18 13:01 06/25/18 13:00 06/25/18 12:50 91 06/25/18 12:40 06/25/18 12:31 91 06/25/18 12:30 91 06/25/18 12:20 91 06/25/18 12:15 93 06/25/18 12:10 86 L 06/25/18 12:01 91 06/25/18 12:00 93 06/25/18 11:50 93 06/25/18 11:48 93 06/25/18 11:40 93 06/25/18 11:33 89 L 06/25/18 11:10 93 06/25/18 11:01 93 06/25/18 11:00 95 06/25/18 10:50 93 06/25/18 10:40 06/25/18 10:31 97 06/25/18 10:30 97 06/25/18 10:29 97 06/25/18 10:20 98 06/25/18 10:10 98 06/25/18 10:05 99 06/25/18 10:01 06/25/18 10:00 Lab Results (24hrs): Laboratory Tests (24 Hours) 06/25/18 06/25/18 10:24 10:24 WBC 10.31 Neut # (Auto) 8.06 H Creatinine 0.67 Est Cr Clr Drug Dosing 144.0 Micro Results: 06/25/18 15:00 Gram Stain - Pending Sputum, Expectorated Sputum Culture - Pending - Risk Factors for Resistance * Patient currently incarcerated. * Patient has a history of cystic fibrosis but has not seen a specialist is over 4 years. He takes Pulmozyme and inhaled tobramycin. * Antibiotic use within the last 90 days; patient on Azithromycin daily as outpatient. - Assessment & Plan Assessment 22 year old M with h/o of asthma and cystic fibrosis, T2DM, currently incarcerated, presents with acute onset of SOB last night around midnight. Plan Vancomycin for empiric treatment of possible multi-focal pneumonia. Vancomycin IV * Estimated PK Parameters: Vd 0.7 L/kg, Alfredo 0.012 hr-1, t1/2 6 hr * Loading dose: 1500 mg (25 mg/kg) * Maintenance dose: 1000 mg IV (15 mg/kg) every 8 hours * Goal trough level : 15 to 20 mcg/mL * Trough/Random level ordered for 06/26/18 before 1600 dose. Pharmacy will continue to follow and will adjust dose/frequency as necessary. Thank you.
[2018-06-25] MEDS ORDERED: BENZONATATE 100 MG CAPSULE PO PRN (16:34)
[2018-06-25] MEDS ORDERED: PANCREAZE (LIPASE 16,800U) CAP PO PRN (16:55)
[2018-06-25] MEDS ORDERED: PANCREAZE (LIPASE 10,500U) CAP PO SCH (17:00)
[2018-06-25] MEDS: INSULIN ASPART 100 UNITS/ML 3 ML PEN SC SCH ×2 (17:03→21:11)
--- NOTE | 2018-06-25 17:07 | Pulmonary Consultation ---
Date of Consultation June 25, 2018 Assessment & Plan (1) Acute respiratory failure with hypoxia: Impression: 1. Acute exacerbation of cystic fibrosis, almost always related to infectious process. 2. Although the patient has a history of asthma, I am not sure if it is superimposed on his current illness. 3. 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 4. Acute on chronic hypercapnic respiratory failure. Plan: 1. Agree with your current management including Pulmozyme, total B, bronchodilators, broad-spectrum antibiotic. 2. Obtain sputum culture. 3. If the patient does not improve, a bronchoscopy for pulmonary toilet and sampling would be indicated. However it carries a risk of sedation given the fact that his PCO2 is already 70. 4. Hemoptysis is very common, usually is none gross, treatment of the pathogen should improve his overall picture. 5. Systemic steroids if his clinical picture persist and the wheezing sustained. 6. Once he is improved, will be beneficiary for him to follow in the pulmonary clinic to start him on CFTR modulator. Thank you for the kind referral, will follow. History of Present Illness Reason for Consultation: Multilobar pneumonia in a patient with cystic fibrosis. Requesting Physician: Dr. Vann. Attending Physician: Adrienne Vann, DO History of Present Illness Dear Dr. Vann: Thank you for the kind referral Mr. Sevilla to pulmonary service. This is a 22- year-old gentleman with history of cystic fibrosis, since , has been maintained on inhaled therapy with Pulmozyme and DELORES, has been treated in the past in 2014 for ARDS requiring intubation for 2 weeks, the patient has not had any follow-up as he was incarcerated in retirement for the past 4 years, he was followed at [facility] in [place]. The patient presented to the hospital with increasing shortness of breath accompanied with cough and blood- tinged sputum. He was found to be tachypneic and hypoxic requiring 6 L of oxygen via facemask. The patient did not have any chest pain according to him. He appeared to be acutely ill and using somewhat accessory muscles. He denies any abdominal pain or nausea or vomiting, no difficulty swallowing. He has no diarrhea and no increased swelling in his lower extremities. His ambulation level has been very limited in the past few months. The patient denies any admission to the hospital recently and he has not been taking antibiotics as I will than what being prescribed. He has not been on CFTR yet as he has been incarcerated. Did not have an access to follow with cystic fibrosis clinic. The rest of his review of system otherwise was unremarkable. His past medical history significant for asthma, chronic pancreatic insufficiency as part of his cystic fibrosis, secondary diabetes. His family history is not consistent with cystic fibrosis in the first-degree siblings. He denies any history of smoking, no secondhand exposure to smoking. No previous surgical history. Allergies Allergy/AdvReac Type Severity Reaction Status Date / Time No Known Allergies Allergy Unverified 06/25/18 10:19 Home Medications Home Medications Medication Instructions Recorded Confirmed Type azithromycin 500 mg PO DAILY 06/25/18 06/25/18 History dornase montez [Pulmozyme] 2.5 mg INHALATION DAILY PRN 06/25/18 06/25/18 History fluticasone-salmeterol [Advair 1 inh INHALATION BID 06/25/18 06/25/18 History Diskus] insulin NPH isoph U-100 human 5 unit SUBCUT QAM 06/25/18 06/25/18 History [Humulin N NPH U-100 Insulin] ipratropium-albuterol 3 ml INHALATION QID PRN 06/25/18 06/25/18 History levalbuterol tartrate [Xopenex HFA] 2 puff INHALATION QID PRN 06/25/18 06/25/18 History bwqjth-wzlqlqnm-vbjkofw [Creon] 3 cap PO UD 06/25/18 06/25/18 History mwswel-lhkpejmw-xiuanup [Creon] 5 cap PO TID 06/25/18 06/25/18 History montelukast [Singulair] 10 mg PO PM 06/25/18 06/25/18 History therapeutic multivitamin [Thera] 1 tab PO DAILY 06/25/18 06/25/18 History tobramycin 300 mg INHALATION BID PRN 06/25/18 06/25/18 History Patient History Medical History Acute respiratory failure with hypoxia (Acute) Multifocal pneumonia (Acute) DM II (diabetes mellitus, type II), controlled (Acute) Asthma (Acute) Cystic fibrosis (Acute) Asthma Cystic fibrosis Diabetes Surgical History No significant past surgical history Family History Other No significant family history Social History marital status: Single Current Living Situation: Other Current Living Situation Comment: Incarcerated Other Information That Helps Us Care for You: No Feels Safe at Home: Yes Safety Concerns: Feels Safe At This Time Smoking Status: Never smoker Do You Dip or Chew Tobacco: No Second Hand Exposure: No Tobacco Cessation Education Requested by Patient: No Hx Alcohol Use: No Hx Substance Use: No Beliefs That Will Affect Care: None Preferred Language: Slovenian Communication Ability: Effective 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 Physical Exam 2 Vital Signs (Past 24 Hours): Last Vital Signs Temp 36.8 C 06/25/18 15:30 Pulse 103 H 06/25/18 15:30 Resp 18 06/25/18 15:30 BP 137/73 06/25/18 15:30 Pulse Ox 93 06/25/18 15:30 Physical Exam: Young gentleman, appears to be in mild respiratory distress, bilateral wheezing and crackles, S1-S2 regular rate and rhythm, abdomen is benign, he has no edema in the periphery. Neurologically he is nonfocal. Clubbing was noted. No swelling in his joints and no rash. No mucosal changes. Results & Data Laboratory Results Labs were consistent with acute on chronic hypercapnic respiratory failure, no leukocytosis, left shift and mild bandemia. Diagnostic Findings CAT scan of the chest showed multiple cystic changes mainly affecting the left upper lobe, and bronchiectatic changes with groundglass opacities affecting almost all the segments bilaterally.
[2018-06-25] MEDS: PANCREAZE (LIPASE 16,800U) CAP PO SCH (17:11)
[2018-06-25] MEDS ORDERED: TOBRAMYCIN 300 MG/5 ML INH SCH (20:00)
[2018-06-25] MEDS ORDERED: INFLUENZA ADMINISTRATION CHARGE ONE (21:00)
[2018-06-25] MEDS ORDERED: INFLUENZA VIRUS QUAD VACCINE 0.5 ML SYR IM ONE (21:00)
[2018-06-25] MEDS: CEFEPIME 2,000 MG in SYRINGE 7.5 ML IV SCH (21:10)
[2018-06-25] MEDS: FLUTICASONE/SALMETEROL 250/50 (ADVAIR) 14 PUFF/1 INHALER INH SCH (21:10)
[2018-06-25] MEDS: MONTELUKAST SODIUM 10 MG TABLET PO SCH (21:11)
--- NOTE | 2018-06-25 21:17 | Progress Note ---
Date of Service June 25, 2018 9:12 pm Received text page that the patient was having some EKG changes on the monitor. Brief chart review: Admitted this evening for multifocal pneumonia in the setting of cystic fibrosis and asthma. Saw patient at bedside. He was sound asleep. Spoke with his guards who said before he fell asleep he said that his breathing felt better. They said he was not complaining of any pain. Spoke with patient's nurse as well. She also mentioned the patient was not complaining of any pain. Exam: Patient was sound asleep. He is satting 92% on his oxymask. +S1S2 regular but borderline tachycardic. Coarse breath sounds in all chong. Plan: - Discussed case with Dr. Vann, his admitting physician. Reviewed the stat EKG which showed a normal sinus rhythm, rate 96, with some questionable ST elevations in V3 through V6 more consistent with early repolarization. - Given his lack of chest pain and reported improvement in his breathing, we will not pursue any further cardiac evaluation at this time. - Of course, if any new chest pain, vital signs changes, or other signs of acute worsening will likely repeat EKG and obtain cardiac enzymes. Ortiz Campbell MD PGY2 overnight call Physical Exam 2 Vital Signs (Past 24 Hours): Last Vital Signs Temp 36.3 C L 06/25/18 19:21 Pulse 98 H 06/25/18 19:40 Resp 16 06/25/18 19:40 BP 113/73 06/25/18 19:21 Pulse Ox 94 06/25/18 19:40
[2018-06-25] MEDS: VANCOMYCIN HCL 1,000 MG in SODIUM CHLORIDE 0.9% 250 ML IV SCH (23:33)
[2018-06-26] MEDS: CEFEPIME 2,000 MG in SYRINGE 7.5 ML IV SCH ×3 (02:56→20:42)
[2018-06-26] MEDS: DORNASE ALFA 2.5 ML AMP INH SCH (06:54)
[2018-06-26] MEDS: ALBUT/IPRATROP 3MG/0.5MG NEB 3 ML VIAL INH SCH ×4 (06:54→19:04)
[2018-06-26] MEDS: TOBRAMYCIN SULFATE INH SCH ×3 (07:05→20:07)
[2018-06-26 07:21] LABS: Basophils # (auto) 0.01 K/uL (0-0.2); Basophils % (auto) 0.1 %; Hematocrit (blood only) 40.8 % (42-52); Hemoglobin 12.4 g/dL (14.0-18.0); Immature Granulocytes # (auto) 0.02 K/uL (0.00-0.02); Immature Granulocytes % (auto) 0.2 %; Lymphocytes # (auto) 1.23 K/uL (1.2-3.4); Lymphocytes % (auto) 13.4 %; Mean Corpuscular Hgb Conc 30.4 g/dL (32-36); Mean Corpuscular Volume 84.6 fL (80-100); Monocytes # (auto) 1.13 K/uL (0.11-0.59); Monocytes % (auto) 12.3 %; Neutrophils # (auto) 6.76 K/uL (1.4-6.5); Platelet Count 258 K/uL (130-400); RDW Coefficient of Variation 14.5 % (11.5-14.5); RDW Standard Deviation 44.4 fL (36.4-46.3); Red Blood Count 4.82 M/uL (4.7-6.1); White Blood Count 9.15 K/uL (4.8-10.8)
[2018-06-26 08:03] LABS: Alanine Aminotransferase 16 U/L (12-78); Albumin Level 2.2 gm/dl (3.4-5.0); Alkaline Phosphatase 77 U/L (45-117); Aspartate Aminotransferase 8 U/L (15-37); Bilirubin Direct < 0.1 mg/dl (0-0.2); Bilirubin,Total 0.2 mg/dl (0.2-1); Magnesium 2.2 mg/dl (1.8-2.4); Total Protein 9.6 gm/dl (6.4-8.2)
[2018-06-26] MEDS: INSULIN ASPART 100 UNITS/ML 3 ML PEN SC SCH ×4 (08:14→20:33)
[2018-06-26] MEDS: VANCOMYCIN HCL 1,000 MG in SODIUM CHLORIDE 0.9% 250 ML IV SCH ×3 (08:14→23:38)
[2018-06-26] MEDS: FLUTICASONE/SALMETEROL 250/50 (ADVAIR) 14 PUFF/1 INHALER INH SCH ×2 (08:15→20:34)
[2018-06-26] MEDS: ENOXAPARIN INJ 30 MG/0.3 ML SYR SQ SCH (08:16)
[2018-06-26] MEDS: PANCREAZE (LIPASE 16,800U) CAP PO SCH ×3 (08:17→16:50)
[2018-06-26] MEDS: CEROVITE ADV FORMULA TAB PO SCH (08:17)
[2018-06-26 08:24] LABS: Estimated Average Glucose 171 mg/dl; Hemoglobin A1C 7.6 % (4.5-5.6)
[2018-06-26] MEDS ORDERED: INSULIN HUMAN NPH SC SCH (09:00)
[2018-06-26] MEDS: CARBOHYDRATES FOR HYPOGLYCEMIA PO PRN (11:45)
[2018-06-26] MEDS: LEVOFLOXACIN/D5W 750 MG/150 ML BAG IV SCH (11:47)
--- NOTE | 2018-06-26 14:01 | Family Medicine Progress Note ---
Date of Service June 26, 2018 Assessment & Plan (1) Cystic fibrosis: Marv Sevilla is a 22 year old man here with a cystic fibrosis exacerbation CF exacerbation - Currently on double pseudomonal and single agent meth resistant staph coverage with Levofloxacin, cefepime, and vanc - Sputum culture showing gram negative rods and gram positive cocci - MRSA nasal swab negative will consider converting Vanc to normal staph coverage - Providing pulmonary exercise and good pulmonary toilet with mucolytics - Patient doing much better today Hypoxia - Doing much better today oxygenating 93 percent on 4L NC - Presented in the s Diabetes - Insulin sliding scale Pancreatic insufficiency - Continuing pancreatic enzyme with meals DVT prophylaxis - Lovenox (2) Multifocal pneumonia: (3) Acute respiratory failure with hypoxia: (4) DM II (diabetes mellitus, type II), controlled: (5) Asthma: (6) DVT prophylaxis: Supervising Physician Co-Signing Physician Notes Attending attestation Pt seen and examined in concert with Dr. Beckwith. In agreement with the documented findings as noted in the resident documentation with any exceptions or additions as noted here. Pt reports considerable improvement in shortness of breath and chest discomfort with abx, inhalers and chest PT. States that he only uses his inhalers if he needs them, but is able to play ~30 minutes of basketball without issue, though following that he may need some considerable recovery time and ?inhaler. Multiple siblings without similar. Unknown testing status. On examination, S1/S2 nl RRR no MCG. Abd NT/ND BS+ve. Lungs are diffusely rhonchorous with some rales at present bilateral LL. Cystic fibrosis exacerbation in the setting of multifocal PNA - continue cefepime, levofloxacin and vancomycin - will consider further taper Cystic fibrosis - continue tobramycin, pulmozyme and chest physiotherapy. Will need outpatient pulmonology w/ CF specialist on d/c Reactive airway disease - monitor for any worsening, continue therapy as noted above DMII - presently on NPH and ISS, would carefully monitor and encourage POI v. reduce NPH dosing while inpatient, likely overshoot 2/2 dietary changes from halfway to hospialization Else see resident documentation as noted. Subjective Marv Sevilla is a 22 year old man here for a cystic fibrosis exacerbation. He is currently a prisoner at [facility] and has very little disease management. He reports he can't recall the last time he saw pulmonology but it was likely after his last hospitalization with intubation in 2013. He reports he currently does not take any of his inhaled medications, but does take his insulin and pancreatic enzyme pills regularly. He has been well recently and his baseline functioning allows him to play basketball and use the track on a daily basis. Constitutional: no fever, no body aches, no fatigue and no weakness Respiratory: + chest congestion, + dyspnea, + pain with cough and + sputum production; no cough and no wheezing Cardiovascular: no chest pain (Occasionally with cough), no lightheadedness, no syncope and no calf pain Gastrointestinal: no abdominal pain, no bloating, no nausea and no vomiting Neurologic: + tremor(s) Physical Exam 2 Vital Signs (Past 24 Hours): Last Vital Signs Temp 36.9 C 06/26/18 11:32 Pulse 99 H 06/26/18 11:32 Resp 20 06/26/18 11:32 BP 97/62 L 06/26/18 11:32 Pulse Ox 94 06/26/18 11:32 Constitutional: + thin, cooperative and comfortable; no acute distress Eyes: PERRL, conjunctivae normal, anicteric sclerae Neck: normal visual inspection Respiratory: normal respiratory effort and able to speak in complete sentences ; no respiratory distress, no labored breathing, no retractions, does not use accessory muscles and no cough Auscultation: + crackles (Bilaterally); no rales, no rhonchi and no wheezes Cardiovascular: RRR, no murmur, no edema Gastrointestinal (Abdomen): normal bowel sounds, soft, nontender, no hepatosplenomegaly _ (1) DM II (diabetes mellitus, type II), controlled Chronic kidney disease stage: Diabetes mellitus complication detail: Diabetes mellitus complication status: Diabetes mellitus intermediate school teacher insulin use : Diabetes mellitus macular edema: Diabetic retinopathy severity: Laterality: Proliferative retinopathy type: (2) Asthma Asthma complication type: Asthma persistence: Asthma severity:
[2018-06-26] MEDS ORDERED: VANCOMYCIN TROUGH ONE (15:30)
--- NOTE | 2018-06-26 20:02 | Pulmonology Progress Note ---
Date of Service June 26, 2018 Assessment & Plan (1) Acute respiratory failure with hypoxia: Impression: 1. Acute exacerbation of cystic fibrosis, almost always related to infectious process. 2. Although the patient has a history of asthma, I am not sure if it is superimposed on his current illness. 3. 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 4. Acute on chronic hypercapnic respiratory failure. Plan: 1. Agree with your current management including Pulmozyme, total B, bronchodilators, broad-spectrum antibiotic. 2. Sputum culture with mixed gram-positive and gram-negative bacteria. Awaiting identification of the gram-negative bacteria mainly to rule out Burkholduria. 3. No need for bronchoscopy at this point. 4. Hemoptysis is improving. 5. If the bacteria is not growing then antibiotics can be downgraded to cefepime IV only. Complete for 7 days. 6. Once he is improved, will be beneficiary for him to follow in the pulmonary clinic to start him on CFTR modulator. Thank you for the kind referral, will follow. Subjective The patient is feeling better today, his sputum become more of a brownish color , no hemoptysis anymore. His O2 saturation has been on 2 L 91%. No new symptoms. No chest pain. No abdominal pain. Tolerating oral intake. No dysphagia. The rest of his review of system was unremarkable. Physical Exam 2 Vital Signs (Past 24 Hours): Last Vital Signs Temp 36.5 C 06/26/18 15:08 Pulse 91 H 06/26/18 19:09 Resp 16 06/26/18 19:09 BP 91/62 L 06/26/18 15:08 Pulse Ox 92 06/26/18 19:09 Physical Exam: Vital signs are stable, S1-S2 regular rate and rhythm, lungs with scattered rhonchi, abdomen is benign, no edema. Results & Data Laboratory Results Labs were reviewed, no leukocytosis. Micro profile showed mixed gram-negative and gram-positive bacteria in the sputum. Diagnostic Findings Chest x-ray was reviewed from previous unchanged from previous as well. Hyperinflated lungs with multiple infiltrates. Compatible with what seen on the CAT scan.
[2018-06-26] MEDS: MONTELUKAST SODIUM 10 MG TABLET PO SCH (20:34)
[2018-06-27] MEDS: CEFEPIME 2,000 MG in SYRINGE 7.5 ML IV SCH ×3 (04:08→20:49)
[2018-06-27] MEDS: ALBUT/IPRATROP 3MG/0.5MG NEB 3 ML VIAL INH SCH ×4 (07:24→19:17)
[2018-06-27] MEDS: VANCOMYCIN HCL 1,000 MG in SODIUM CHLORIDE 0.9% 250 ML IV SCH ×2 (07:58→16:38)
[2018-06-27] MEDS: CEROVITE ADV FORMULA TAB PO SCH (08:00)
[2018-06-27] MEDS: FLUTICASONE/SALMETEROL 250/50 (ADVAIR) 14 PUFF/1 INHALER INH SCH ×2 (08:00→20:50)
[2018-06-27] MEDS: PANCREAZE (LIPASE 16,800U) CAP PO SCH ×3 (08:00→17:01)
[2018-06-27] MEDS: INSULIN HUMAN NPH SC SCH (08:01)
[2018-06-27 08:05] LABS: Basophils # (auto) 0.05 K/uL (0-0.2); Basophils % (auto) 0.6 %; Eosinophils # (auto) 0.35 K/uL (0-0.5); Eosinophils % (auto) 4.2 %; Hematocrit (blood only) 40.2 % (42-52); Hemoglobin 12.6 g/dL (14.0-18.0); Immature Granulocytes # (auto) 0.01 K/uL (0.00-0.02); Immature Granulocytes % (auto) 0.1 %; Lymphocytes # (auto) 2.12 K/uL (1.2-3.4); Lymphocytes % (auto) 25.6 %; Mean Corpuscular Hgb Conc 31.3 g/dL (32-36); Mean Corpuscular Volume 85.5 fL (80-100); Mean Platelet Volume 9.3 fL (7.4-10.4); Monocytes # (auto) 0.71 K/uL (0.11-0.59); Monocytes % (auto) 8.6 %; Neutrophils # (auto) 5.04 K/uL (1.4-6.5); Neutrophils % (auto) 60.9 %; Platelet Count 240 K/uL (130-400); RDW Coefficient of Variation 14.6 % (11.5-14.5); RDW Standard Deviation 45.3 fL (36.4-46.3); White Blood Count 8.28 K/uL (4.8-10.8)
[2018-06-27] MEDS: INSULIN ASPART 100 UNITS/ML 3 ML PEN SC SCH ×4 (08:05→21:00)
[2018-06-27] MEDS: ENOXAPARIN INJ 30 MG/0.3 ML SYR SQ SCH (08:05)
[2018-06-27 08:26] LABS: BUN Creatinine Ratio 20.8 (10-20); Blood Urea Nitrogen 12 mg/dl (7-18); Calcium 8.4 mg/dl (8.5-10.1); Carbon Dioxide 34 mmol/L (21-32); Chloride 97 mmol/L (98-107); Creatinine Clr Calc Pharmacy 162.2 ml/min; Est GFR (African American) > 150.0; Est GFR (Non-African American) 141.7; Glucose 103 mg/dl (70-99); Potassium 4.5 mmol/L (3.5-5.1); Sodium 134 mmol/L (136-145)
--- NOTE | 2018-06-27 08:36 | Pharmacy Report ---
Pharmacy Abx Dose Short Note - Date of Service June 27, 2018 - Assessment & Plan Assessment 22 year old M receiving Vancomycin 1000mg IV Q8 for treatment of pneumonia Day #2 of antimicrobial therapy. Laboratory Tests 06/26/18 15:26 Vancomycin Trough 16.2 Plan Vancomycin * Trough level of 16.2 mcg/mL is therapeutic. * Continue dose of 1000 mg IV every 8 hours * Goal trough level : 15 to 20 mcg/mL * Trough or random level ordered for: 06/28/18 before 0800 dose. Pharmacy will continue to follow and will adjust dose/frequency as necessary. Thank you.
--- NOTE | 2018-06-27 09:18 | Family Medicine Progress Note ---
Date of Service June 27, 2018 Assessment & Plan (1) Cystic fibrosis: Marv Sevilla is a 22 year old man here with a cystic fibrosis exacerbation CF exacerbation - D/C'd Vanc continuing on levofloxacin and cefepime - Sputum culture showing gram negative rods and gram positive cocci - MRSA nasal swab negative - Providing pulmonary exercise and good pulmonary toilet with mucolytics - Patient continuing to improve Hypoxia - oxygen demand decreased 93 percent on 2L today Diabetes - Insulin sliding scale Pancreatic insufficiency - Continuing pancreatic enzyme with meals DVT prophylaxis - Lovenox (2) Multifocal pneumonia: (3) Acute respiratory failure with hypoxia: (4) DM II (diabetes mellitus, type II), controlled: (5) Asthma: (6) DVT prophylaxis: Supervising Physician Co-Signing Physician Notes Attending attestation Pt seen and examined in concert with Dr. Beckwith. In agreement with the documented findings as noted in the resident documentation with any exceptions or additions as noted here. Gradual improvement in oxygen dependance, cough and subjective SOB. Reports no RAMOS, lightheadedness, n/v/d/c, CP, sensation changes. On examination, S1/S2 nl RRR no MCG. Diffusely rhonchorus lung sounds with b/l LL rales, generally improved aeration. Abd NT/ND BS+ve. Hyperflexible thumb digits, apparent fingernail clubbing. Cystic fibrosis exacerbation with multifocal PNA - continue dual agent coverage (d/c vancomycin), tobramycin and pulmozyme. Pulmonology consultation appreciated. Duoneb q4P Reactive airway disease - monitor for any worsening, continue therapy as noted above DMII - presently on NPH and ISS, continue Else see resident documentation as noted. Subjective Marv Sevilla is a 22 year old man here for a cystic fibrosis exacerbation. Patient feels that he is doing much better than he was yesterday. He is coughing up more sputum and his breathing is noisier but he feels much less short of breath. No complaints at this time. Constitutional: no fever, no chills, no sweats, no body aches, no fatigue and no weakness Respiratory: + chest congestion, + dyspnea, + pain with cough and + sputum production; no cough and no wheezing Cardiovascular: no chest pain, no chest pain at rest, no radiating jaw, neck or arm pain and no palpitations Gastrointestinal: no abdominal pain, no nausea and no vomiting Neurologic: + tremor(s) Physical Exam 2 Vital Signs (Past 24 Hours): Last Vital Signs Temp 36.8 C 06/27/18 08:06 Pulse 90 06/27/18 08:06 Resp 18 06/27/18 08:06 BP 109/68 06/27/18 08:06 Pulse Ox 97 06/27/18 08:06 Constitutional: + thin, cooperative and comfortable; no acute distress Eyes: PERRL, conjunctivae normal, anicteric sclerae Neck: normal visual inspection Respiratory: normal respiratory effort and able to speak in complete sentences ; no respiratory distress, no labored breathing, no retractions, does not use accessory muscles and no cough Auscultation: + crackles (Bilaterally); no rales, no rhonchi and no wheezes Cardiovascular: RRR, no murmur, no edema Gastrointestinal (Abdomen): normal bowel sounds, soft, nontender, no hepatosplenomegaly _ (1) DM II (diabetes mellitus, type II), controlled Chronic kidney disease stage: Diabetes mellitus complication detail: Diabetes mellitus complication status: Diabetes mellitus half-way insulin use : Diabetes mellitus macular edema: Diabetic retinopathy severity: Laterality: Proliferative retinopathy type: (2) Asthma Asthma complication type: Asthma persistence: Asthma severity:
[2018-06-27] MEDS: DORNASE ALFA 2.5 ML AMP INH SCH (10:35)
[2018-06-27] MEDS: TOBRAMYCIN SULFATE INH SCH ×2 (10:44→19:18)
[2018-06-27] MEDS: LEVOFLOXACIN/D5W 750 MG/150 ML BAG IV SCH (11:52)
--- NOTE | 2018-06-27 19:51 | Pulmonology Progress Note ---
Date of Service June 27, 2018 Assessment & Plan (1) Acute respiratory failure with hypoxia: Impression: 1. Acute exacerbation of cystic fibrosis, almost always related to infectious process. 2. Although the patient has a history of asthma, I am not sure if it is superimposed on his current illness. 3. 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 4. Acute on chronic hypercapnic respiratory failure. Plan: 1. Agree with your current management including Pulmozyme, total B, bronchodilators, broad-spectrum antibiotic. 2. Sputum culture with mixed gram-positive and gram-negative bacteria. The gram-negative bacilli seems to grow while the gram-positive cocci did not. 3. I will hold off on bronchoscopy, risk of intubation is high. 4. Hemoptysis is resolved, the patient had brownish color sputum. 5. Continue with cefepime, May discontinue Levaquin. No need for double coverage. 6. Trending pulse oximetry on room air in the morning. 7. Treatment with CF TR modulator as an outpatient. Thank you for the kind referral, will follow. Subjective The patient is feeling better, his oxygen requirement continued to be at 6 L, he likes to facemask rather than the nasal cannula due to irritation of his nostrils, he has not been out of bed, denies any chest pain, he continued to have brownish colored sputum. No fever no constitutional symptoms. No leukocytosis. Physical Exam 2 Vital Signs (Past 24 Hours): Last Vital Signs Temp 36.6 C 06/27/18 15:30 Pulse 93 H 06/27/18 19:18 Resp 20 06/27/18 19:18 BP 105/68 06/27/18 15:30 Pulse Ox 89 L 06/27/18 19:18 Physical Exam: Vital signs are stable, S1-S2 regular rate and rhythm, bilateral rhonchi, abdomen is benign, no edema. Neurologically he is intact. Results & Data Laboratory Results His labs were reviewed and his micro profile revealed gram-negative bacilli in the sputum. Diagnostic Findings No new imaging.
[2018-06-27] MEDS: MONTELUKAST SODIUM 10 MG TABLET PO SCH (20:50)
[2018-06-28] MEDS: CEFEPIME 2,000 MG in SYRINGE 7.5 ML IV SCH ×2 (04:05→11:38)
[2018-06-28 06:40] LABS: Hematocrit (blood only) 40.9 % (42-52); Hemoglobin 12.4 g/dL (14.0-18.0); Mean Corpuscular Hgb Conc 30.3 g/dL (32-36); Mean Corpuscular Volume 84.5 fL (80-100); Platelet Count 235 K/uL (130-400); RDW Coefficient of Variation 14.7 % (11.5-14.5); RDW Standard Deviation 44.9 fL (36.4-46.3); Red Blood Count 4.84 M/uL (4.7-6.1); White Blood Count 6.74 K/uL (4.8-10.8)
[2018-06-28] MEDS: ALBUT/IPRATROP 3MG/0.5MG NEB 3 ML VIAL INH SCH ×4 (07:12→19:55)
[2018-06-28 07:24] LABS: Creatinine Clr Calc Pharmacy 142.8 ml/min; Est GFR (African American) > 150.0; Est GFR (Non-African American) 134.5
[2018-06-28] MEDS ORDERED: VANCOMYCIN TROUGH ONE (07:30)
[2018-06-28] MEDS: DORNASE ALFA 2.5 ML AMP INH SCH (07:50)
[2018-06-28] MEDS: TOBRAMYCIN SULFATE INH SCH ×2 (07:50→19:56)
[2018-06-28] MEDS: INSULIN ASPART 100 UNITS/ML 3 ML PEN SC SCH ×4 (08:43→20:51)
[2018-06-28] MEDS: CEROVITE ADV FORMULA TAB PO SCH (08:44)
[2018-06-28] MEDS: PANCREAZE (LIPASE 16,800U) CAP PO SCH ×3 (08:44→17:20)
[2018-06-28] MEDS: INSULIN HUMAN NPH SC SCH (08:45)
[2018-06-28] MEDS: FLUTICASONE/SALMETEROL 250/50 (ADVAIR) 14 PUFF/1 INHALER INH SCH ×2 (08:45→20:52)
[2018-06-28] MEDS: ENOXAPARIN INJ 30 MG/0.3 ML SYR SQ SCH (08:45)
[2018-06-28] MEDS: CARBOHYDRATES FOR HYPOGLYCEMIA PO PRN (11:39)
[2018-06-28] MEDS: LEVOFLOXACIN/D5W 750 MG/150 ML BAG IV SCH (11:40)
[2018-06-28] MEDS: POLYETHYLENE (MIRALAX) 17 GM PACK PO PRN (12:40)
--- NOTE | 2018-06-28 15:59 | Family Medicine Progress Note ---
Date of Service June 28, 2018 Assessment & Plan (1) Cystic fibrosis: Marv Sevilla is a 22 year old man here with a cystic fibrosis exacerbation CF exacerbation Continuing on levofloxacin and cefepime dual antipseudomonal coverage for this CF exacerbation. Currently day 4 of antibiotics Sputum culture showing gram negative rods and gram positive cocci grew out pseumonas and serratia which should be covered by both fluoroquinolone and cephalosporin MRSA nasal swab negative Providing pulmonary exercise and good pulmonary toilet with mucolytics Patient continuing to improve Hypoxia oxygen demand decreased 94 percent on room air today Diabetes Insulin sliding scale Pancreatic insufficiency Continuing pancreatic enzyme with meals DVT prophylaxis - Lovenox (2) Multifocal pneumonia: (3) Acute respiratory failure with hypoxia: (4) DM II (diabetes mellitus, type II), controlled: (5) Asthma: (6) DVT prophylaxis: Supervising Physician Co-Signing Physician Notes ATTENDING NOTE Attending attestation I saw and examined the patient with Dr. Beckwith. I confirmed sanz portions of the history and exam and I agree with the impression and plan as noted. Upon exam, speaks without shortness of breath or need to pause. Lungs B/L rhonchi CV regular CF Exacerbation Continue antibiotics, will discuss de-escalation with pulmonary medicine Continue resp treatments and supplemental oxygen Subjective Marv Sevilla is a 22 year old man here for a cystic fibrosis exacerbation. Patient complaining of abdominal pain and says he has yet to have a bowel movement since his admission. He is also complaining of a sore throat from all the coughing. He states that he is breathing well and hasn't had any shortness of breath overnight. Constitutional: no fever, no chills, no sweats, no body aches and no fatigue Respiratory: + chest congestion, + dyspnea, + pain with cough and + sputum production; no cough and no wheezing Cardiovascular: no chest pain, no orthopnea, no syncope and no edema Gastrointestinal: + abdominal pain and + constipation; no nausea and no vomiting Neurologic: + tremor(s) Physical Exam 2 Vital Signs (Past 24 Hours): Last Vital Signs Temp 36.7 C 06/28/18 11:52 Pulse 95 H 06/28/18 11:52 Resp 18 06/28/18 11:52 BP 128/63 06/28/18 11:52 Pulse Ox 95 06/28/18 11:52 Constitutional: + thin, cooperative and comfortable; no acute distress Eyes: PERRL, conjunctivae normal, anicteric sclerae Neck: normal visual inspection Respiratory: normal respiratory effort and able to speak in complete sentences ; no respiratory distress, no labored breathing, no retractions, does not use accessory muscles and no cough Auscultation: + crackles (Bilaterally); no rales, no rhonchi and no wheezes Cardiovascular: RRR, no murmur, no edema Gastrointestinal (Abdomen): Inspection/Auscultation: abdomen normal to inspection; abdomen not distended Percussion/Palpation: + abdomen tender (LLQ ) and abdomen soft _ (1) DM II (diabetes mellitus, type II), controlled Chronic kidney disease stage: Diabetes mellitus complication detail: Diabetes mellitus complication status: Diabetes mellitus fdc insulin use : Diabetes mellitus macular edema: Diabetic retinopathy severity: Laterality: Proliferative retinopathy type: (2) Asthma Asthma complication type: Asthma persistence: Asthma severity:
--- NOTE | 2018-06-28 19:19 | Pulmonology Progress Note ---
Date of Service June 28, 2018 Assessment & Plan (1) Acute respiratory failure with hypoxia: Impression: 1. Acute exacerbation of cystic fibrosis, almost always related to infectious process. 2. Although the patient has a history of asthma, I am not sure if it is superimposed on his current illness. 3. 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 4. Acute on chronic hypercapnic respiratory failure. Plan: 1. Continue with vibrating vest and Pulmozyme. 2. The sputum showed Serratia and Pseudomonas species which is pansensitive, more sensitive to Levaquin surprisingly then to cefepime. 3. I will hold off on bronchoscopy, risk of intubation is high. 4. Hemoptysis is resolved, the patient had brownish color sputum. 5. Discontinue cefepime and continue with Levaquin. 6. Desaturated on ambulation, he would need oxygen at 3 L/min continuously. Even upon discharge. The patient is reluctant to use it. 7. Treatment with CF TR modulator as an outpatient. Thank you for the kind referral, will follow. Subjective The patient continues to have cough with brownish colored sputum, he denies any increased shortness of breath, he is improving, he was ambulatory today and desaturated to 80%, he claimed that for the past 10 years this has been his norm. No new symptoms. No events overnight. Physical Exam 2 Vital Signs (Past 24 Hours): Last Vital Signs Temp 37.2 C 06/28/18 16:30 Pulse 93 H 06/28/18 16:30 Resp 18 06/28/18 16:30 BP 98/60 L 06/28/18 16:30 Pulse Ox 92 06/28/18 16:30 Physical Exam: Vital signs are stable, O2 saturation 92% on 3 L, S1-S2 regular rate and rhythm, lungs with bilateral rhonchi, abdomen is benign, no edema. Neurologically he is intact. No skin changes. No oral changes. Results & Data Laboratory Results Labs showed normal leukocytes. Diagnostic Findings No new imaging.
[2018-06-28] MEDS: MONTELUKAST SODIUM 10 MG TABLET PO SCH (20:52)
[2018-06-29 06:16] LABS: Basophils # (auto) 0.04 K/uL (0-0.2); Basophils % (auto) 0.5 %; Eosinophils # (auto) 0.51 K/uL (0-0.5); Eosinophils % (auto) 6.7 %; Hematocrit (blood only) 40.2 % (42-52); Hemoglobin 12.2 g/dL (14.0-18.0); Immature Granulocytes # (auto) 0.02 K/uL (0.00-0.02); Immature Granulocytes % (auto) 0.3 %; Lymphocytes # (auto) 1.79 K/uL (1.2-3.4); Lymphocytes % (auto) 23.4 %; Mean Corpuscular Hgb Conc 30.3 g/dL (32-36); Mean Corpuscular Volume 83.9 fL (80-100); Mean Platelet Volume 8.7 fL (7.4-10.4); Monocytes # (auto) 0.55 K/uL (0.11-0.59); Monocytes % (auto) 7.2 %; Neutrophils # (auto) 4.73 K/uL (1.4-6.5); Neutrophils % (auto) 61.9 %; Platelet Count 233 K/uL (130-400); RDW Coefficient of Variation 14.6 % (11.5-14.5); RDW Standard Deviation 44.7 fL (36.4-46.3); Red Blood Count 4.79 M/uL (4.7-6.1); White Blood Count 7.64 K/uL (4.8-10.8)
[2018-06-29 06:48] LABS: BUN Creatinine Ratio 18.6 (10-20); Blood Urea Nitrogen 13 mg/dl (7-18); Calcium 8.3 mg/dl (8.5-10.1); Carbon Dioxide 37 mmol/L (21-32); Chloride 95 mmol/L (98-107); Creatinine Clr Calc Pharmacy 132.9 ml/min; Est GFR (African American) > 150.0; Est GFR (Non-African American) 130.6; Glucose 105 mg/dl (70-99); Potassium 4.1 mmol/L (3.5-5.1); Sodium 133 mmol/L (136-145)
[2018-06-29] MEDS: ALBUT/IPRATROP 3MG/0.5MG NEB 3 ML VIAL INH SCH ×4 (07:06→19:16)
[2018-06-29] MEDS: DORNASE ALFA 2.5 ML AMP INH SCH (07:14)
[2018-06-29] MEDS: TOBRAMYCIN SULFATE INH SCH ×2 (07:20→19:17)
[2018-06-29] MEDS: FLUTICASONE/SALMETEROL 250/50 (ADVAIR) 14 PUFF/1 INHALER INH SCH ×2 (07:58→19:36)
[2018-06-29] MEDS: CEROVITE ADV FORMULA TAB PO SCH (07:58)
[2018-06-29] MEDS: PANCREAZE (LIPASE 16,800U) CAP PO SCH ×3 (07:59→17:28)
[2018-06-29] MEDS: ENOXAPARIN INJ 30 MG/0.3 ML SYR SQ SCH (07:59)
[2018-06-29] MEDS: INSULIN HUMAN NPH SC SCH (08:00)
[2018-06-29] MEDS: INSULIN ASPART 100 UNITS/ML 3 ML PEN SC SCH ×4 (08:00→20:47)
--- NOTE | 2018-06-29 08:20 | Family Medicine Progress Note ---
Date of Service June 29, 2018 Assessment & Plan (1) Cystic fibrosis: Marv Sevilla is a 22 year old man here with a cystic fibrosis exacerbation CF exacerbation Continuing on levofloxacin and cefepime dual antipseudomonal coverage for this CF exacerbation. Currently day 5 of antibiotics Sputum cultures grew out pseudomonas and serratia which should be covered by both fluoroquinolone and cephalosporin MRSA nasal swab negative Providing pulmonary exercise and good pulmonary toilet with mucolytics Patient continuing to improve Hypoxia oxygen demand increased 91 percent on 3 L overnight Diabetes Insulin sliding scale Pancreatic insufficiency Continuing pancreatic enzyme with meals Constipation Milk of Mag and Miralax FENA: DM Diet DVT PPX: Lovenox Dispo: Longterm FullCode Supervising Physician Co-Signing Physician Notes Attending Note I saw the patient with Dr. Vann and confirmed sanz portions of the history and exam.. I agree with the impression and plan as noted above. Upon exam, speaks without shortness of breath or need to pause. Lungs are improved today compared to yesterday; specifically diffuse rhonchi appreciated yesterday are only minimally auscultated on the right side. CV regular. CF Exacerbation Discontinue cefepime continue Levaquin Continue resp treatments Discussed with nursing to wean oxygen Subjective Patient sleeping in bed this a.m. Pt reports Breathing difficulties overnight requiring O2 requiring 3 l overnight. Now on room air. Still no bowel movement. Reports tolerating diet, and voiding appropriately. no current complaints Physical Exam 2 Vital Signs (Past 24 Hours): Last Vital Signs Temp 36.5 C 06/29/18 07:37 Pulse 79 06/29/18 07:37 Resp 18 06/29/18 07:37 BP 106/70 06/29/18 07:37 Pulse Ox 91 06/29/18 03:38 Constitutional: + thin, cooperative and comfortable; no acute distress Eyes: PERRL, conjunctivae normal, anicteric sclerae Neck: normal visual inspection Respiratory: normal respiratory effort and able to speak in complete sentences ; no respiratory distress, no labored breathing, no retractions, does not use accessory muscles and no cough Auscultation: + crackles (Bilaterally); no rales, no rhonchi and no wheezes Cardiovascular: RRR, no murmur, no edema Gastrointestinal (Abdomen): normal bowel sounds, soft, nontender, no hepatosplenomegaly Inspection/Auscultation: abdomen normal to inspection; abdomen not distended Percussion/Palpation: + abdomen tender (LLQ) and abdomen soft Results & Data Laboratory Results 06/29/18 06/29/18 06/29/18 Range/Units 07:22 06:04 06:04 WBC 7.64 (4.8-10.8) K/uL RBC 4.79 (4.7-6.1) M/uL Hgb 12.2 L (14.0-18.0) g/dL Hct 40.2 L (42-52) % MCV 83.9 (80-100) fL MCH 25.5 (25-34) pg MCHC 30.3 L (32-36) g/dL RDW Std Deviation 44.7 (36.4-46.3) fL RDW Coeff of Jerry 14.6 H (11.5-14.5) % Plt Count 233 (130-400) K/uL MPV 8.7 (7.4-10.4) fL Immature Gran % (Auto) 0.3 % Neut % (Auto) 61.9 % Lymph % (Auto) 23.4 % [place] % (Auto) 7.2 % Eos % (Auto) 6.7 % Baso % (Auto) 0.5 % Immature Gran # (Auto) 0.02 (0.00-0.02) K/uL Neut # (Auto) 4.73 (1.4-6.5) K/uL Lymph # (Auto) 1.79 (1.2-3.4) K/uL [place] # (Auto) 0.55 (0.11-0.59) K/uL Eos # (Auto) 0.51 H (0-0.5) K/uL Baso # (Auto) 0.04 (0-0.2) K/uL Sodium 133 L (136-145) mmol/L Potassium 4.1 (3.5-5.1) mmol/L Chloride 95 L (98-107) mmol/L Carbon Dioxide 37 H (21-32) mmol/L Anion Gap 2.0 L (3-11) BUN 13 (7-18) mg/dl Creatinine 0.72 (0.6-1.4) mg/dl Est Cr Clr Drug Dosing 132.9 ml/min Est GFR ( Amer) > 150.0 Est GFR (Non-Af Amer) 130.6 BUN/Creatinine Ratio 18.6 (10-20) Glucose 105 H (70-99) mg/dl POC Glucose 97 (70-99) Calcium 8.3 L (8.5-10.1) mg/dl 06/28/18 06/28/18 06/28/18 Range/Units 20:29 16:27 11:47 WBC (4.8-10.8) K/uL RBC (4.7-6.1) M/uL Hgb (14.0-18.0) g/dL Hct (42-52) % MCV (80-100) fL MCH (25-34) pg MCHC (32-36) g/dL RDW Std Deviation (36.4-46.3) fL RDW Coeff of Jerry (11.5-14.5) % Plt Count (130-400) K/uL MPV (7.4-10.4) fL Immature Gran % (Auto) % Neut % (Auto) % Lymph % (Auto) % [place] % (Auto) % Eos % (Auto) % Baso % (Auto) % Immature Gran # (Auto) (0.00-0.02) K/uL Neut # (Auto) (1.4-6.5) K/uL Lymph # (Auto) (1.2-3.4) K/uL [place] # (Auto) (0.11-0.59) K/uL Eos # (Auto) (0-0.5) K/uL Baso # (Auto) (0-0.2) K/uL Sodium (136-145) mmol/L Potassium (3.5-5.1) mmol/L Chloride (98-107) mmol/L Carbon Dioxide (21-32) mmol/L Anion Gap (3-11) BUN (7-18) mg/dl Creatinine (0.6-1.4) mg/dl Est Cr Clr Drug Dosing ml/min Est GFR ( Amer) Est GFR (Non-Af Amer) BUN/Creatinine Ratio (10-20) Glucose (70-99) mg/dl POC Glucose 94 101 H 70 (70-99) Calcium (8.5-10.1) mg/dl 06/28/18 06/28/18 Range/Units 11:25 11:24 WBC (4.8-10.8) K/uL RBC (4.7-6.1) M/uL Hgb (14.0-18.0) g/dL Hct (42-52) % MCV (80-100) fL MCH (25-34) pg MCHC (32-36) g/dL RDW Std Deviation (36.4-46.3) fL RDW Coeff of Jerry (11.5-14.5) % Plt Count (130-400) K/uL MPV (7.4-10.4) fL Immature Gran % (Auto) % Neut % (Auto) % Lymph % (Auto) % [place] % (Auto) % Eos % (Auto) % Baso % (Auto) % Immature Gran # (Auto) (0.00-0.02) K/uL Neut # (Auto) (1.4-6.5) K/uL Lymph # (Auto) (1.2-3.4) K/uL [place] # (Auto) (0.11-0.59) K/uL Eos # (Auto) (0-0.5) K/uL Baso # (Auto) (0-0.2) K/uL Sodium (136-145) mmol/L Potassium (3.5-5.1) mmol/L Chloride (98-107) mmol/L Carbon Dioxide (21-32) mmol/L Anion Gap (3-11) BUN (7-18) mg/dl Creatinine (0.6-1.4) mg/dl Est Cr Clr Drug Dosing ml/min Est GFR ( Amer) Est GFR (Non-Af Amer) BUN/Creatinine Ratio (10-20) Glucose (70-99) mg/dl POC Glucose 63 L* 58 L* (70-99) Calcium (8.5-10.1) mg/dl Medications Administered Current Inpatient Medications Albuterol (Duoneb) 3 ml INH QIDR JULIA Stop: 07/25/18 19:59 Last Admin: 06/29/18 07:06 Dose: 3 ml Lipase/Protease/Amylase (Pancreaze 99911 Unit) 7 cap PO TIDM JULIA Stop: 07/25/18 16:59 Last Admin: 06/29/18 07:59 Dose: 7 cap Lipase/Protease/Amylase (Pancreaze 18531 Unit) 4 cap PO BID PRN PRN Reason: SNACKS Stop: 07/25/18 16:54 Dextrose (Dextrose 50%) 25 - 50 ml IV UD PRN; Protocol PRN Reason: Hypoglycemia Protocol Stop: 07/25/18 15:59 Dornase Evans (Pulmozyme) 2.5 ml INH DAILY [facility] Stop: 07/26/18 08:59 Last Admin: 06/29/18 07:14 Dose: 2.5 ml Enoxaparin Sodium (Lovenox) 30 mg SQ QAM JULIA Stop: 07/26/18 08:59 Last Admin: 06/29/18 07:59 Dose: 30 mg Glucagon (Glucagen) 1 mg SQ UD PRN; Protocol PRN Reason: Hypoglycemia Protocol Stop: 07/25/18 15:59 Glucose (Glucose 40%) 15 - 30 gm PO UD PRN; Protocol PRN Reason: Hypoglycemia Protocol Stop: 07/25/18 15:59 Glucose (Dex4 Glucose) 4 - 8 tabs PO UD PRN; Protocol PRN Reason: Hypoglycemia Protocol Stop: 07/25/18 15:59 Levofloxacin/Dextrose (Levaquin/D5w) 750 mg in 150 mls @ 100 mls/hr IV Q24H [facility] Stop: 07/02/18 11:59 Last Infusion: 06/28/18 13:15 Dose: Infused Tobramycin Sulfate 300 mg/ (Syringe) 7.5 mls @ 30 mls/hr INH BIDR [facility] Stop: 07/25/18 19:59 Last Admin: 06/29/18 07:20 Dose: 30 mls/hr Insulin Aspart (Novolog Flexpen) 0 units SC ACHS [facility] Stop: 07/25/18 16:29 Last Admin: 06/29/18 08:00 Dose: 7 units Insulin Human NPH (Novolin N Nph) 5 units SC QAM [facility] Stop: 07/27/18 08:59 Last Admin: 06/29/18 08:00 Dose: 5 units Ioversol (Optiray 320 125ml) 96 ml IV ONCE PRN PRN Reason: Interaction Checking Stop: 06/29/18 11:26 Last Admin: 06/25/18 11:28 Dose: 96 ml Levalbuterol HCl (Xopenex 1.25mg/0.5ml Neb) 1.25 mg NEB Q6H PRN PRN Reason: Shortness Of Breath Stop: 07/25/18 14:50 Miscellaneous (Carbohydrates For Hypoglycemia) 15 - 30 gm PO UD PRN PRN Reason: Hypoglycemia Treatment Stop: 07/25/18 15:59 Last Admin: 06/28/18 11:39 Dose: 15 gm Montelukast Sodium (Singulair) 10 mg PO PM JULIA Stop: 07/25/18 20:59 Last Admin: 06/28/18 20:52 Dose: 10 mg Multivitamins/Minerals (Multivitamin W/ Minerals) 1 tab PO DAILY JULIA Stop: 07/26/18 08:59 Last Admin: 06/29/18 07:58 Dose: 1 tab Ondansetron HCl (Zofran) 4 mg IV Q4H PRN PRN Reason: Nausea And Vomiting Stop: 07/25/18 14:00 Polyethylene Glycol (Miralax Powder Packet) 17 gm PO DAILY PRN PRN Reason: Constipation Stop: 07/28/18 11:51 Last Admin: 06/28/18 12:40 Dose: 17 gm Fluticasone/Salmeterol (Advair Diskus 250/50) 1 puffs INH BID [facility] Stop: 07/25/18 20:59 Last Admin: 06/29/18 07:58 Dose: 1 puffs Resident Activity Tracking Resident Involvement: Resident Care Provided Care Provided: Adult Hospital Medicine
[2018-06-29] MEDS ORDERED: POLYETHYLENE (MIRALAX) 17 GM PACK PO PRN (10:20)
[2018-06-29] MEDS ORDERED: MAGNESIUM HYDROXIDE SUSP 30 ML UDC PO PRN (10:20)
[2018-06-29] MEDS: LEVOFLOXACIN/D5W 750 MG/150 ML BAG IV SCH (12:07)
[2018-06-29] MEDS: MONTELUKAST SODIUM 10 MG TABLET PO SCH (19:37)
[2018-06-29] MEDS: POLYETHYLENE (MIRALAX) 17 GM PACK PO PRN (19:44)
--- NOTE | 2018-06-29 20:53 | Pulmonology Progress Note ---
Date of Service June 29, 2018 Assessment & Plan (1) Acute respiratory failure with hypoxia: Impression: 1. Acute exacerbation of cystic fibrosis, almost always related to infectious process. 2. Although the patient has a history of asthma, I am not sure if it is superimposed on his current illness. 3. 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 4. Acute on chronic hypercapnic respiratory failure. Plan: 1. Continue with vibrating vest and Pulmozyme. 2. Levaquin can be changed to p.o. 750 mg to complete total 14 days course of antibiotics. 3. No need for bronchoscopy at this point. 4. Hemoptysis is resolved, the patient had brownish color sputum. 5. Long discussion took place with the patient in regard of using oxygen, apparently in the community hospital, the patient will not be able to carry a tank or portable oxygen, and he is not interested in staying in his incarcerating cell 15/01 to use oxygen. He declined using oxygen regularly. It would be better to check with the medical team at the correction facility to see what alternative given his condition. The patient will not be allowed to carry a portable oxygen nor portable condenser. 6. I will obtain overnight pulse oximetry on 2 L of oxygen, if he is responsive , he may use oxygen at least nocturnally. 7. Treatment with CF TR modulator as an outpatient. Once outpatient pulmonary follow-up is feasible. Thank you for the kind referral, will follow. Subjective The patient is improving clinically, his cough is much better, sputum production is less, no hemoptysis. No fever and no constitutional symptoms. Physical Exam 2 Vital Signs (Past 24 Hours): Last Vital Signs Temp 37 C 06/29/18 19:37 Pulse 89 06/29/18 19:37 Resp 18 06/29/18 19:37 BP 98/62 L 06/29/18 19:37 Pulse Ox 90 06/29/18 19:37 Physical Exam: Vital signs are stable, O2 saturation is 90% on 3 L, S1-S2 regular rate and rhythm, lungs with rhonchi, much better auscultation to previous. Abdomen is benign, no edema. Results & Data Laboratory Results Serratia and Pseudomonas both are pansensitive in the sputum. No leukocytosis. Diagnostic Findings No new imaging.
[2018-06-30 06:03] LABS: Basophils # (auto) 0.04 K/uL (0-0.2); Basophils % (auto) 0.5 %; Eosinophils # (auto) 0.36 K/uL (0-0.5); Eosinophils % (auto) 4.7 %; Hematocrit (blood only) 39.8 % (42-52); Hemoglobin 12.1 g/dL (14.0-18.0); Immature Granulocytes # (auto) 0.01 K/uL (0.00-0.02); Immature Granulocytes % (auto) 0.1 %; Lymphocytes # (auto) 1.97 K/uL (1.2-3.4); Lymphocytes % (auto) 25.5 %; Mean Corpuscular Hgb Conc 30.4 g/dL (32-36); Mean Corpuscular Volume 83.8 fL (80-100); Monocytes # (auto) 0.46 K/uL (0.11-0.59); Neutrophils # (auto) 4.89 K/uL (1.4-6.5); Neutrophils % (auto) 63.2 %; Platelet Count 231 K/uL (130-400); RDW Coefficient of Variation 14.6 % (11.5-14.5); RDW Standard Deviation 44.5 fL (36.4-46.3); Red Blood Count 4.75 M/uL (4.7-6.1); White Blood Count 7.73 K/uL (4.8-10.8)
[2018-06-30 06:36] LABS: BUN Creatinine Ratio 25.7 (10-20); Blood Urea Nitrogen 17 mg/dl (7-18); Calcium 8.4 mg/dl (8.5-10.1); Carbon Dioxide 35 mmol/L (21-32); Chloride 95 mmol/L (98-107); Creatinine Clr Calc Pharmacy 139.7 ml/min; Est GFR (African American) > 150.0; Est GFR (Non-African American) 134.5; Glucose 96 mg/dl (70-99); Sodium 132 mmol/L (136-145)
[2018-06-30] MEDS: TOBRAMYCIN SULFATE INH SCH (07:11)
[2018-06-30] MEDS: DORNASE ALFA 2.5 ML AMP INH SCH (07:15)
[2018-06-30] MEDS: ALBUT/IPRATROP 3MG/0.5MG NEB 3 ML VIAL INH SCH ×4 (07:15→19:09)
--- NOTE | 2018-06-30 07:44 | Family Medicine Progress Note ---
Date of Service June 30, 2018 Assessment & Plan (1) Cystic fibrosis: Marv Sevilla is a 22 year old man here with a cystic fibrosis exacerbation CF exacerbation Transitioned to oral Levaquin 750mg per pulm Currently day 6 of 14 Sputum cultures grew out pseudomonas and serratia MRSA nasal swab negative Providing pulmonary exercise and good pulmonary toilet with mucolytics, vibrating vest and Pulmozyme. Patient continuing to improve Pulm had discussion with pt regarding using oxygen all of the time, patient is refusing to use O2. Had overnight sleep study results pending. May need to arrange night time O2 for return to correction Will follow up with pulm as an oupt for CF TR modulator therapy Hypoxia oxygen 94 percent on 2 L overnight Diabetes Insulin sliding scale Pancreatic insufficiency Continuing pancreatic enzyme with meals Constipation PRNMilk of Mag and Miralax FENA: DM Diet DVT PPX: Lovenox Dispo: Nursing Home, likely Sunday Full Code Supervising Physician Co-Signing Physician Notes Attending Note I saw the patient with Dr. Vann and confirmed sanz portions of the history and exam. I agree with the impression and plan as noted in his documentation. Upon exam, speaks without shortness of breath or need to pause. He tells me that he feels better compared to yesterday. Lungs are essentially clear CV regular. CF Exacerbation Continue oral Levaquin Continue respiratory treatments Difficulty with discharge is the oxygen. He is currently residing in a state longterm and continuous oxygen will need to be provided in the infirmary. If the thought is this oxygen is going to be permanent he likely would need to be placed in a different longterm. If the thought is this supplemental oxygen is short-term he could likely go back to his current correction for a short infirmary stay before returning to the [facility]. We will see how he does with lower supplemental oxygen and discuss with pulmonary medicine. Subjective Patient doing well this am resting in bed during the exam. Pt reports no acute events overnight, tolerating diet, eating, voiding, and stooling appropriately. Pt reports constipation has resolved. He is reluctant to pursue oxygen therapy while incarcerated in [place]. States prior to incarceration while living on the streets this was his baseline lung function. Pt completes sleep study on 2L of o2 overnight. Physical Exam 2 Vital Signs (Past 24 Hours): Last Vital Signs Temp 37.0 C 06/30/18 06:49 Pulse 84 06/30/18 07:16 Resp 18 06/30/18 07:16 BP 104/62 06/30/18 06:49 Pulse Ox 94 06/30/18 07:16 Constitutional: + thin, cooperative and comfortable; no acute distress Eyes: PERRL, conjunctivae normal, anicteric sclerae Neck: normal visual inspection Respiratory: normal respiratory effort and able to speak in complete sentences ; no respiratory distress, no labored breathing, no retractions, does not use accessory muscles and no cough Auscultation: + crackles (Bilaterally); no rales, no rhonchi and no wheezes Cardiovascular: RRR, no murmur, no edema Gastrointestinal (Abdomen): normal bowel sounds, soft, nontender, no hepatosplenomegaly Inspection/Auscultation: abdomen normal to inspection; abdomen not distended Percussion/Palpation: + abdomen tender (LLQ) and abdomen soft Resident Activity Tracking Resident Involvement: Resident Care Provided Care Provided: Adult Hospital Medicine
[2018-06-30] MEDS: FLUTICASONE/SALMETEROL 250/50 (ADVAIR) 14 PUFF/1 INHALER INH SCH ×2 (08:06→20:31)
[2018-06-30] MEDS: PANCREAZE (LIPASE 16,800U) CAP PO SCH ×3 (08:06→16:55)
[2018-06-30] MEDS: ENOXAPARIN INJ 30 MG/0.3 ML SYR SQ SCH (08:07)
[2018-06-30] MEDS: CEROVITE ADV FORMULA TAB PO SCH (08:07)
[2018-06-30] MEDS: INSULIN ASPART 100 UNITS/ML 3 ML PEN SC SCH ×4 (08:10→20:32)
[2018-06-30] MEDS: INSULIN HUMAN NPH SC SCH (08:10)
[2018-06-30] MEDS: levoFLOXacin 750 MG TAB PO SCH (11:51)
--- NOTE | 2018-06-30 17:16 | Pulmonology Progress Note ---
Date of Service June 30, 2018 Assessment & Plan (1) Acute respiratory failure with hypoxia: Impression: 1. Acute exacerbation of cystic fibrosis, almost always related to infectious process. 2. Although the patient has a history of asthma, I am not sure if it is superimposed on his current illness. 3. 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 4. Acute on chronic hypercapnic respiratory failure. Plan: 1. Continue with vibrating vest and Pulmozyme. 2. Levaquin can be changed to p.o. 750 mg to complete total 14 days course of antibiotics. 3. No need for bronchoscopy at this point. 4. Hemoptysis is resolved, the patient had brownish color sputum. 5. Overnight pulse oximetry showed 14 events of desaturation, the patient will qualify for oxygen at least nocturnally, he declines it. Due to being incarcerated which will bound him to the long-term cell. 6. Discussed in details with the patient. 7. Treatment with CF TR modulator as an outpatient. Arrange for pulmonary appointment as an outpatient. 8. No need for inhaled tobramycin, patient does not show any signs of MDR Pseudomonas. Adding tobramycin code encouraged the development of anti- Pseudomonal resistance. 9. Discharge the patient back to the correctional facility. Thank you for the kind referral, will follow as needed. Subjective Improving clinically, denies any cough or shortness of breath, sputum has been subsiding. No hemoptysis. The patient did not keep the oxygen overnight, his overnight pulse oximetry was reviewed showing 14 events of hypoxia. Physical Exam 2 Vital Signs (Past 24 Hours): Last Vital Signs Temp 36.8 C 06/30/18 15:34 Pulse 91 H 06/30/18 15:34 Resp 18 06/30/18 15:34 BP 101/63 06/30/18 15:34 Pulse Ox 91 06/30/18 15:34 Physical Exam: Vital signs are stable, S1-S2 regular rate and rhythm, lungs are rhonchorous but much improved, abdomen is benign, no edema. Neurologically he is competent and intact. Results & Data Laboratory Results Lab results were reviewed. No evidence of MDR bacteria in the sputum. Diagnostic Findings No new imaging.
[2018-06-30] MEDS ORDERED: TOBRAMYCIN SULFATE 300 MG in SYRINGE 0 ML INH SCH (20:00)
[2018-06-30] MEDS: POLYETHYLENE (MIRALAX) 17 GM PACK PO PRN (20:32)
[2018-06-30] MEDS: MONTELUKAST SODIUM 10 MG TABLET PO SCH (20:32)
[2018-07-01 06:08] LABS: Basophils # (auto) 0.07 K/uL (0-0.2); Eosinophils # (auto) 0.35 K/uL (0-0.5); Eosinophils % (auto) 4.9 %; Hematocrit (blood only) 38.9 % (42-52); Hemoglobin 11.7 g/dL (14.0-18.0); Immature Granulocytes # (auto) 0.01 K/uL (0.00-0.02); Immature Granulocytes % (auto) 0.1 %; Lymphocytes # (auto) 2.21 K/uL (1.2-3.4); Lymphocytes % (auto) 30.8 %; Mean Corpuscular Hgb Conc 30.1 g/dL (32-36); Mean Platelet Volume 9.2 fL (7.4-10.4); Monocytes # (auto) 0.54 K/uL (0.11-0.59); Monocytes % (auto) 7.5 %; Neutrophils # (auto) 3.99 K/uL (1.4-6.5); Neutrophils % (auto) 55.7 %; Platelet Count 249 K/uL (130-400); RDW Coefficient of Variation 14.7 % (11.5-14.5); RDW Standard Deviation 44.8 fL (36.4-46.3); Red Blood Count 4.63 M/uL (4.7-6.1); White Blood Count 7.17 K/uL (4.8-10.8)
[2018-07-01 06:41] LABS: Blood Urea Nitrogen 14 mg/dl (7-18); Calcium 8.5 mg/dl (8.5-10.1); Carbon Dioxide 35 mmol/L (21-32); Chloride 97 mmol/L (98-107); Creatinine Clr Calc Pharmacy 143.5 ml/min; Est GFR (African American) > 150.0; Est GFR (Non-African American) 136.2; Glucose 106 mg/dl (70-99); Potassium 4.2 mmol/L (3.5-5.1); Sodium 134 mmol/L (136-145)
[2018-07-01] MEDS: DORNASE ALFA 2.5 ML AMP INH SCH (07:06)
[2018-07-01] MEDS: ALBUT/IPRATROP 3MG/0.5MG NEB 3 ML VIAL INH SCH ×3 (07:06→15:18)
[2018-07-01] MEDS: INSULIN ASPART 100 UNITS/ML 3 ML PEN SC SCH ×3 (08:04→17:08)
[2018-07-01] MEDS: PANCREAZE (LIPASE 16,800U) CAP PO SCH ×3 (08:05→17:08)
[2018-07-01] MEDS: FLUTICASONE/SALMETEROL 250/50 (ADVAIR) 14 PUFF/1 INHALER INH SCH (08:06)
[2018-07-01] MEDS: ENOXAPARIN INJ 30 MG/0.3 ML SYR SQ SCH (08:08)
[2018-07-01] MEDS: CEROVITE ADV FORMULA TAB PO SCH (08:09)
[2018-07-01] MEDS: INSULIN HUMAN NPH SC SCH (08:14)
[2018-07-01] MEDS: CARBOHYDRATES FOR HYPOGLYCEMIA PO PRN ×2 (11:25→11:40)
[2018-07-01] MEDS: GLUCOSE 40% GEL 15 GM TUBE PO PRN ×2 (11:25→11:40)
--- NOTE | 2018-07-01 11:35 | Family Medicine Progress Note ---
Date of Service July 01, 2018 Assessment & Plan (1) Cystic fibrosis: Mr. Marv Sevilla is a 22 year old man with a past medical history significant for CF with diabetes and pancreatic insufficiency who presents for a CF exacerbation. He is currently incarcerated. Cystic Fibrosis Exacerbation Cultures growing pseudomonas and serratia sensitive to levofloxacin Currently on levoquin 750mg PO daily Still requiring 2L O2 to maintain oxygen saturation (2) Acute respiratory failure with hypoxia: (3) DVT prophylaxis: (4) DM II (diabetes mellitus, type II), controlled: Physical Exam 2 Vital Signs (Past 24 Hours): Last Vital Signs Temp 36.8 C 07/01/18 11:04 Pulse 97 H 07/01/18 11:06 Resp 18 07/01/18 11:06 BP 104/61 07/01/18 11:04 Pulse Ox 98 07/01/18 11:06 _ (1) DM II (diabetes mellitus, type II), controlled Chronic kidney disease stage: Diabetes mellitus complication detail: Diabetes mellitus complication status: Diabetes mellitus long term care pharmacist insulin use : Diabetes mellitus macular edema: Diabetic retinopathy severity: Laterality: Proliferative retinopathy type:
[2018-07-01] MEDS: levoFLOXacin 750 MG TAB PO SCH (12:27)
--- NOTE | 2018-07-01 14:08 | Discharge Summary ---
Date of Service July 01, 2018 Admission HPI Per Admitting Provider This is a 22 yo male with PMHx of asthma and cystic fibrosis, DM II, currently incarcerated at [facility], who presents with acute onset of shortness of breath last evening around midnight. He was reported to be hypoxic with O2 sats in the 60s at the penitentiary, and upon transitioning him from NC to oximask he dropped down into the 70s in the ER here. Patient states "I feel like $h*!". Pt noticed an increased wheezing in his breath earlier in the day, and it progressed to where he was unable to fall asleep last night. He has a cough which is nonproductive but worsening, and has difficulty with deep breaths. He has a slight tightness in his chest which is worsened with deep inspiration. He denies any fever, chills, sweats, known sick contacts. He denies increased fatigue and decreased exercise tolerance. Diet has not changed, and is unaware if he has lost weight. Pt has not been taking home medications including Azithromycin, Pulmozyme or Tobramycin. He does take Creon capsules, Advair inhaler routinely, and the xopenex if needed. He also does use insulin NPH and got it this morning. Pt has not seen a cystic fibrosis specialist since 2013, but had followed with Dr. Terrell in [place] back then. He was once hospitalized for a CF exacerbation in 2013 where he was intubated for a 3 week period. The patient has 11 siblings, none of which have CF. He was diagnosed as an infant. He also has been incarcerated for 4 years, with a get out date set for 2022. Admission Exam Per Admitting Provider Last Vital Signs Temp 36.8 C 06/25/18 10:05 Pulse 105 H 06/25/18 12:00 Resp 24 06/25/18 12:00 BP 130/79 06/25/18 11:48 Pulse Ox 93 06/25/18 12:00 Physical Exam: General: awake, alert, no apparent distress, , multiple tattoos, thin Head: Normocephalic, atraumatic ENT: PERRL, EOMI, no pharyngeal exudate, mucous membranes slightly dry Chest: On an oximask at 15L/min, + cough, + coarse breath sounds in all chong Cardiac: Tachycardic, no murmur, no JVD, normal peripheral pulses, good capillary refill Abdominal: NABS x 4 quadrants, soft, nontender to palpation, no rebound, guarding or tenderness Extremities: Normal inspection, no peripheral edema or erythema, calfs nontender to palpation Psych: Normal mood and affect Neuro: AAO x 3, strength intact bilaterally and related 5/5, no motor deficits, speech is clear, no peripheral sensory deficits Principal Diagnosis CF exacerbation Discharge Exam Constitutional + thin, cooperative and comfortable; no acute distress Eyes PERRL, conjunctivae normal, anicteric sclerae Neck normal visual inspection Respiratory normal respiratory effort and able to speak in complete sentences; no respiratory distress, no labored breathing, no retractions, does not use accessory muscles and no cough Auscultation: + crackles (Bilaterally); no rales, no rhonchi and no wheezes Cardiovascular RRR, no murmur, no edema Gastrointestinal (Abdomen) normal bowel sounds, soft, nontender, no hepatosplenomegaly Inspection/Auscultation: abdomen normal to inspection; abdomen not distended Percussion/Palpation: + abdomen tender (LLQ) and abdomen soft Discharge Data Allergies Allergy/AdvReac Type Severity Reaction Status Date / Time No Known Allergies Allergy Unverified 06/25/18 10:19 Consultations 06/25/18 12:02 ED Decision to Admit Stat 06/25/18 14:01 Consult Pulmonology Routine Ordered Studies 06/25/18 10:56 CT angio chest PE protocol Stat Hospital Course (1) Cystic fibrosis: Mr. Marv Sevilla is a 22 year old man with a past medical history significant for CF with diabetes and pancreatic insufficiency who presented for a CF exacerbation. He is currently incarcerated. Cystic Fibrosis Exacerbation Initially started emprically on double antipseudomonal and single MRSA coverage with levaquin, cefepime, and vancomycin. Negative nasal swab for MRSA so continued on just levaquin and vanc for three days. Cultures growing pseudomonas and serratia sensitive to levofloxacin Currently on levoquin 750mg PO daily will finish fourteen total days of antibiotics with outpatient oral therapy. Still requiring 2L O2 to maintain oxygen saturation This [facility]. Expect his function to continue to improve. Stressed with patient importance of his maintenance therapies, pulmonary toilet, pulmozyme, and pulmonology follow up to preserve lung function. Fully expect patient to wean off of O2 in the near future as tolerated. (2) Acute respiratory failure with hypoxia: (3) DVT prophylaxis: (4) DM II (diabetes mellitus, type II), controlled: Total Time Total Time Spent Total Time Spent (In Minutes): <30 Discharge Plan Discharge Items [facility] Dis[facility] Reason For Visit: PNEUMONIA, CYSTIC FIBROSIS Discharge Diagnosis: Cystic Fibrosis exacerbation with multi focal pneumonia Discharge Goals: Improve disease control and Improve function Activity: Per 'Additional Instructions' section Non-emergency contact: Primary Care Provider Call non-emergency contact if: you have any medication questions Diet: Carb Count or DM1 Addtl Provider Instructions: Ms Marv Sevilla was evaluated and treated here at [facility] for a cystic fibrosis exacerbation with multifocal pneumonia. He was initially treated with IV antibiotics, (cefepime and levoquin for pseudomonal coverage and vanc for MRSA) and his sputum culture grew out pseudomonas and serratia bother sensitive to levoquin. He has been responding to treatment and his shortness of breath has improved tremendously and his oxygen demands have slowly decreased. He will need to be discharged on 2L of Oxygen particularly at night until he is able to maintain his oxygen saturation. He should be allowed to ambulate and recreate as desired as long as he maintains his oxygen saturation. He will continue the levoquin for seven more days for a total of fourteen days of antibiotic therapy. Prescriptions: New levofloxacin 750 mg Tablet 750 mg PO DAILY@1100 8 Days Qty: 8 RF: 0 Continue fluticasone-salmeterol [Advair Diskus] 250-50 mcg/dose Blister With Device 1 inh INHALATION BID RF: 0 ipratropium-albuterol 0.5 mg-3 mg(2.5 mg base)/3 mL Solution For Nebulization 3 ml INHALATION QID PRN (Reason: Shortness Of Breath Or Wheezing) RF: 0 therapeutic multivitamin [Thera] Tablet 1 tab PO DAILY RF: 0 dornase montez [Pulmozyme] 1 mg/mL Solution 2.5 mg INHALATION DAILY PRN (Reason: Shortness Of Breath Or Wheezing) RF: 0 insulin NPH isoph U-100 human [Humulin N NPH U-100 Insulin] 100 unit/mL Suspension 5 unit SUBCUT QAM RF: 0 montelukast [Singulair] 10 mg Tablet 10 mg PO PM RF: 0 azithromycin 500 mg Tablet 500 mg PO DAILY RF: 0 levalbuterol tartrate [Xopenex HFA] 45 mcg/actuation Hfa Aerosol Inhaler 2 puff INHALATION QID PRN (Reason: Shortness Of Breath) RF: 0 [id number]-jclkmojd-fsaunvi [Creon] 24,000-76,000 -120,000 unit Capsule,Delayed Release(Dr/Ec) 5 cap PO TID RF: 0 fxfpud-uukqhtsw-zxvqhml [Creon] 24,000-76,000 -120,000 unit Capsule,Delayed Release(Dr/Ec) 3 cap PO UD RF: 0 tobramycin 300 mg/4 mL Solution For Nebulization 300 mg INHALATION BID PRN (Reason: Shortness Of Breath Or Wheezing) RF: 0 Stand-Alone Forms: [facility] Discharge Orders: Discharge Order (Routine); Ordered 07/01/18 Ordered By: Ernesto Beckwith Admission Data Admit Date/Time: 06/25/18 12:51 Attending Provider: Vish Eastman Admit Provider: Adrienne Vann Primary Care Provider: Yvette MARTIN Other Providers: Sam Nuñez ; Adrienne Vann ; Hima Ellington Service: Telemetry Other Interventions: Discharge Summary Assessment (RN) Last Done: 07/01/18 16:52 DC Date/Time DO NOT enter until pt leaves facility: 07/01/18 17:54 Supervising Physician Co-Signing Physician Notes I personally examined the patient and verified all sanz points of history and exam, discussed case, and agree with decision making with Dr Beckwith. Feeling well enough to return to the present, he still dips his pulse ox on room air, we discussed the need for oxygen right now, but given that he had an acute flareup with culture positive findings, and he had a very high level of functioning prior to this hospitalization, I am optimistic that he will return to his baseline with ongoing treatment. In this I encouraged him to follow instructions in the [facility] and remain on oxygen until he is able to safely have it weaned. Vitals noted, in general he is fatigued appearing but otherwise in no acute distress. HEENT normocephalic atraumatic mucous membranes are moist. Lungs are unlabored no accessory muscle use good effort. Skin shows no rashes, no pallor, no icterus. CF exacerbation-stable to return to community hospital, antibiotics and treatment as above Hypoxiarelated to his CF but probably more due to the acute exacerbation. Continue oxygen for now wean as possible.
--- NOTE | 2018-07-03 11:12 | Coding Query ---
CODING QUERY To promote full compliance with coding requirements relating to patient care, provider participation is requested in all cases of medical biller coder uncertainty. Please assist us with the question(s) below: Coding Question(s): Cystic fibrosis patient admitted with exacerbation and pneumonia. Patient treated initially with IV antibiotics for pseudomonal coverag and vancomycin for MRSA. Sputum grew out pPlseudomonas and serratia. Please document, if known or suspected, the type of pneumonia you were treating. Thanks for your help!! Dilshad Calderon [facility] Physician's Response(s): Pneumonia specifically related to CF, caused by Pseudomonas and Serratia. If needing to fit into a more common overriding category of pneumonia, it would be reasonable to call it healthcare associated Principal Diagnosis: "that condition established after study, to be chiefly responsible for occasioning the admission of the patient to the hospital for care." Co-Existing Principal Diagnosis: "when two or more diagnoses equally meet the criteria for principal diagnosis as determined by the circumstances of admission , diagnostic work up, and/or therapy provided, and the Alphabetic Index, Tabular List, or another coding guideline does not provide sequencing direction , any one of the diagnoses may be sequenced first." "When the physician has documented what appears to be a current diagnosis in the body of the record, but has not included the diagnosis in the final diagnostic statement, the physician should be asked whether the diagnosis should be added." (Source Coding Clinic 2 QTR90. p3-4) LARISSA
== END 2018-07-01 17:54 | DRG 177 ==
LOC: ED 09:51 → 2S 12:51 → SUATTDRO 12:51 → 2S 13:32

== ENCOUNTER 2019-08-18 12:01 | Inpatient (IN) ==
--- OUTSIDE RECORDS SUMMARY | 2019-08-18 12:05 | External Medical Summary | Continuity of Care Document ---
:1995 Author Name Gene Chavez, Provider Address Unavailable Unavailable , Care Team Providers Name Role Phone Jacques Coppola DO Unavailable [email or web address] RYANN [place] Unavailable Unavailable Assessments Assessed Problems:Cystic fibrosisAsthma Problems Cystic fibrosis (277.00) (E84.9) Asthma (493.90) (J45.909) Allergies and Adverse Reactions No Known Drug Allergies (Allergy) Medications Multi-Vitamin TABS Refills: 0 Minocycline HCl CAPS Refills: 0 Creon CPEP Refills: 0 Procedures Procedures not documented Immunizations Immunizations not documented Social History - Smoking Status Occasional tobacco smoker Interventions Discussion/SummaryThe patient looks comfortable at rest. However he is not doing well. His pulmonary functions are severely abnormal and they have declined. His oxygenation is low. He definitively needs somewhat more aggressive treatment. My suggestions are the followin. It is advised that he be referred to a cystic fibrosis specialist as soon as possible. I personally do pulmonary Medicine but I do not have cystic fibrosis patients in my practice.2. I am suggesting that he be given nebulizer treatments with albuterol/ipratropium 4 times a day everardo regular basis.3. I advised that a new chest x-ray be done. He states he has not had 1 for a couple of years. The cards who accompanied him told me that the x- rays would need to be done at [facility].4. Advise sputum culture5. Recommended a trial of Singulair 10 milligrams 1 daily6. Recommend vibration vest to assist with sputum clearanceI did call [facility] an attempted to speak to Dr. Giovanni Batista. I was told that he was not on the premises. I was also told that the PA & SEO STRATEGIST for the medical division were not available. I was told that is not in tomorrow. I would like to speak with him as soon as feasible regarding this patient and discussed my recommendations as noted. Plan of Treatment Planned Observations Planned Goals not documented Results No Known Results Results not documented Encounters Appointment; Jacques Coppola DO 21-Dec-2016 14:30 Encounter Diagnosis: Problem not documented
[2019-08-18] MEDS ORDERED: SODIUM CHLORIDE 0.9% 500 ML IV ONE (12:16)
--- NOTE | 2019-08-18 12:31 | XRay Report ---
XR chest 1V portable CLINICAL HISTORY: SEPSIS COMPARISON STUDY: 06/25/2018 FINDINGS: There is persistent upper lobe bronchiectasis and volume loss. There are by apical airspace opacities left greater than right, similar to the preceding study.[The findings suggest underlying c ystic fibrosis. IMPRESSION: 1. Chest x-ray finding suggesting underlying cystic fibrosis. Clinical correlation in this regard is advocated 2. Bilateral upper lobe volume loss, bronchiectasis, and airspace opacities left greater than right. The findings remain similar to the prior June 2018 study. ACT 112: Negative or not required by law. Electronically signed by: Nick Douglas M.D. 08/18/2019 12:30 PM
[2019-08-18] MEDS ORDERED: ALBUT/IPRATROP 3MG/0.5MG NEB 3 ML VIAL NEB STA (12:34)
--- NOTE | 2019-08-18 12:37 | Emergency Department Note ---
Entered by Miguel Verdin acting as a scribe for Navjot Medley DO History of Present Illness General Chief complaint: Shortness of Breath/Dyspnea Stated complaint: sob Time Seen by Provider: 08/18/19 12:15 Source: patient Limitations: no limitations History of Present Illness Onset (ago): day(s) (earlier today) Location: chest Pain Consistency: + intermittent Quality: + other (blood from cough) Treatments prior to arrival: other (Levaquin and Solu-MEDROL) The patient is a 24 year old male who presents to the Emergency Room with complaints of a intermittent and worsening cough that started today. The patient states he has cystic fibrosis. He states he has a chronic cough, but states he started coughing up blood this morning. He states he got a TB test a couple months ago and states it was okay. He notes he was started on Levaquin yesterday and was recently started on Solu-MEDROL. He states the last time he got a CAT scan of his chest was over a year ago. He states he does not wear oxygen at home. He notes he did not get the flu shot this year. Home Medications Home Medications Medication Instructions Recorded Confirmed Type Creon 3 cap PO UD 06/25/18 08/18/19 History Creon 5 cap PO TID 06/25/18 08/18/19 History Pulmozyme 2.5 mg INHALATION DAILY PRN 06/25/18 08/18/19 History Thera 1 tab PO DAILY 06/25/18 08/18/19 History azithromycin 500 mg PO MOWEFR 06/25/18 08/18/19 History fluticasone propion-salmeterol 1 inh INHALATION BID 06/25/18 08/18/19 History [Advair Diskus] ipratropium-albuterol 3 ml INHALATION QID PRN 06/25/18 08/18/19 History levalbuterol tartrate [Xopenex HFA] 2 puff INHALATION QID PRN 06/25/18 08/18/19 History montelukast [Singulair] 10 mg PO HS 06/25/18 08/18/19 History tobramycin 300 mg INHALATION BID 06/25/18 08/18/19 History ergocalciferol (vitamin D2) 1,250 mcg PO MO@0700 08/18/19 08/18/19 History [Vitamin D2] insulin regular human [Novolin R 5 unit SUBCUT QAM 08/18/19 08/18/19 History Flexpen] levofloxacin [Levaquin] 500 mg PO DAILY 08/18/19 08/18/19 History methylprednisolone sod suc(PF) 40 mg IM QAM 08/18/19 08/18/19 History Allergies Allergy/AdvReac Type Severity Reaction Status Date / Time No Known Allergies Allergy Unverified 08/18/19 14:42 Past Med/Surg History Medical History Acute respiratory failure with hypoxia (Acute) Asthma Asthma (Acute) Cystic fibrosis Cystic fibrosis (Acute) Diabetes DM II (diabetes mellitus, type II), controlled (Acute) Multifocal pneumonia (Acute) Surgical History No significant past surgical history Family History Other No significant family history Social History Preferred Language: Greek Communication Ability: Effective Authors Motivational Required: No Beliefs That Will Affect Care: None marital status: Single Current Living Situation: Other Current Living Situation Comment: [facility] Other Information That Helps Us Care for You: No Feels Safe at Home: Yes Safety Concerns: Feels Safe At This Time Smoking Status: Former smoker Second Hand Exposure: No ; Hx Alcohol Use: No Hx Substance Use: No Review of Systems See HPI for pertinent positives & negatives. and A total of 10 systems reviewed and were otherwise negative Physical Exam Vital Signs Vital Signs - 24 hr 08/18/19 12:14 08/18/19 12:21 08/18/19 12:22 Temperature 36.8 C Temperature Source Oral Pulse Rate 110 H 95 H Pulse Rate [Apical] Pulse Rate from SpO2 Sensor 97 H Pulse Rhythm Regular Pulse Strength Normal Respiratory Rate 20 32 H Respiratory Effort / Characteristics Spontaneous Short of Breath Respiratory Depth Normal Respiratory Pattern Regular Blood Pressure 111/70 110/68 Blood Pressure Mean 83 81 Blood Pressure Position Lying Pulse Oximetry 92 89 L 92 Oxygen Delivery Method Nasal Cannula Nasal Cannula Nasal Cannula Oxygen Flow Rate 4 4 4 Sepsis Recent Fever Within 48 Hours No Sepsis New/Unexplained Change in Mental Status No Sepsis Action Taken by Nursing No Action Required 08/18/19 12:27 08/18/19 12:28 08/18/19 12:30 Temperature Temperature Source Pulse Rate 99 H 100 H 98 H Pulse Rate [Apical] Pulse Rate from SpO2 Sensor 101 H 98 H 101 H Pulse Rhythm Pulse Strength Respiratory Rate 25 H 25 H 18 Respiratory Effort / Characteristics Respiratory Depth Respiratory Pattern Blood Pressure 98/68 L 99/66 L Blood Pressure Mean 74 72 Blood Pressure Position Pulse Oximetry 89 L 90 Oxygen Delivery Method Nasal Cannula Nasal Cannula Oxygen Flow Rate 4 4 Sepsis Recent Fever Within 48 Hours Sepsis New/Unexplained Change in Mental Status Sepsis Action Taken by Nursing 08/18/19 12:31 08/18/19 12:45 08/18/19 12:48 Temperature Temperature Source Pulse Rate 96 H 94 H Pulse Rate [Apical] 100 H Pulse Rate from SpO2 Sensor 97 H 93 H Pulse Rhythm Pulse Strength Respiratory Rate 39 H 37 H 22 Respiratory Effort / Characteristics Non-Labored Spontaneous Respiratory Depth Respiratory Pattern Blood Pressure Blood Pressure Mean Blood Pressure Position Pulse Oximetry 93 91 92 Oxygen Delivery Method Nasal Cannula Nasal Cannula Nasal Cannula Oxygen Flow Rate 4 4 4 Sepsis Recent Fever Within 48 Hours Sepsis New/Unexplained Change in Mental Status Sepsis Action Taken by Nursing 08/18/19 13:00 08/18/19 13:15 08/18/19 13:48 Temperature Temperature Source Pulse Rate 95 H 95 H Pulse Rate [Apical] Pulse Rate from SpO2 Sensor 94 H 97 H 95 H Pulse Rhythm Pulse Strength Respiratory Rate 32 H 44 H Respiratory Effort / Characteristics Respiratory Depth Respiratory Pattern Blood Pressure 83/51 L Blood Pressure Mean 74 Blood Pressure Position Pulse Oximetry 94 96 94 Oxygen Delivery Method Nasal Cannula Nasal Cannula Nasal Cannula Oxygen Flow Rate 5 5 5 Sepsis Recent Fever Within 48 Hours Sepsis New/Unexplained Change in Mental Status Sepsis Action Taken by Nursing 08/18/19 13:49 08/18/19 14:00 08/18/19 14:01 Temperature Temperature Source Pulse Rate 95 H 87 89 Pulse Rate [Apical] Pulse Rate from SpO2 Sensor 94 H 87 90 Pulse Rhythm Pulse Strength Respiratory Rate 24 27 H 36 H Respiratory Effort / Characteristics Respiratory Depth Respiratory Pattern Blood Pressure 101/63 Blood Pressure Mean 73 Blood Pressure Position Pulse Oximetry 92 96 95 Oxygen Delivery Method Nasal Cannula Nasal Cannula Nasal Cannula Oxygen Flow Rate 5 4 4 Sepsis Recent Fever Within 48 Hours Sepsis New/Unexplained Change in Mental Status Sepsis Action Taken by Nursing 08/18/19 14:15 08/18/19 14:16 08/18/19 14:30 Temperature Temperature Source Pulse Rate 87 88 84 Pulse Rate [Apical] Pulse Rate from SpO2 Sensor 89 88 84 Pulse Rhythm Pulse Strength Respiratory Rate 31 H 36 H 33 H Respiratory Effort / Characteristics Respiratory Depth Respiratory Pattern Blood Pressure 101/66 101/66 Blood Pressure Mean 75 75 Blood Pressure Position Pulse Oximetry 96 96 98 Oxygen Delivery Method Nasal Cannula Nasal Cannula Nasal Cannula Oxygen Flow Rate 4 4 4 Sepsis Recent Fever Within 48 Hours Sepsis New/Unexplained Change in Mental Status Sepsis Action Taken by Nursing 08/18/19 14:31 08/18/19 14:45 08/18/19 14:46 Temperature Temperature Source Pulse Rate 84 81 87 Pulse Rate [Apical] Pulse Rate from SpO2 Sensor 86 81 83 Pulse Rhythm Pulse Strength Respiratory Rate 26 H 37 H 32 H Respiratory Effort / Characteristics Respiratory Depth Respiratory Pattern Blood Pressure 102/61 Blood Pressure Mean 73 Blood Pressure Position Pulse Oximetry 98 97 93 Oxygen Delivery Method Nasal Cannula Nasal Cannula Nasal Cannula Oxygen Flow Rate 4 4 4 Sepsis Recent Fever Within 48 Hours Sepsis New/Unexplained Change in Mental Status Sepsis Action Taken by Nursing 08/18/19 15:00 08/18/19 15:01 08/18/19 15:15 Temperature Temperature Source Pulse Rate 79 103 H 83 Pulse Rate [Apical] Pulse Rate from SpO2 Sensor 78 80 81 Pulse Rhythm Pulse Strength Respiratory Rate 34 H 25 H 38 H Respiratory Effort / Characteristics Respiratory Depth Respiratory Pattern Blood Pressure 95/68 L 103/64 Blood Pressure Mean 75 73 Blood Pressure Position Pulse Oximetry 95 98 96 Oxygen Delivery Method Nasal Cannula Nasal Cannula Nasal Cannula Oxygen Flow Rate 4 4 4 Sepsis Recent Fever Within 48 Hours Sepsis New/Unexplained Change in Mental Status Sepsis Action Taken by Nursing 08/18/19 15:16 08/18/19 15:30 08/18/19 15:31 Temperature Temperature Source Pulse Rate 80 82 83 Pulse Rate [Apical] Pulse Rate from SpO2 Sensor 82 83 81 Pulse Rhythm Pulse Strength Respiratory Rate 45 H 33 H 26 H Respiratory Effort / Characteristics Respiratory Depth Respiratory Pattern Blood Pressure 100/65 Blood Pressure Mean 77 Blood Pressure Position Pulse Oximetry 96 97 98 Oxygen Delivery Method Nasal Cannula Nasal Cannula Nasal Cannula Oxygen Flow Rate 4 4 4 Sepsis Recent Fever Within 48 Hours Sepsis New/Unexplained Change in Mental Status Sepsis Action Taken by Nursing 08/18/19 15:45 08/18/19 15:46 08/18/19 16:00 Temperature Temperature Source Pulse Rate 73 86 80 Pulse Rate [Apical] Pulse Rate from SpO2 Sensor 75 82 81 Pulse Rhythm Pulse Strength Respiratory Rate 36 H 26 H 27 H Respiratory Effort / Characteristics Respiratory Depth Respiratory Pattern Blood Pressure 96/61 L 97/57 L Blood Pressure Mean 74 69 Blood Pressure Position Pulse Oximetry 100 97 97 Oxygen Delivery Method Nasal Cannula Nasal Cannula Nasal Cannula Oxygen Flow Rate 4 4 4 Sepsis Recent Fever Within 48 Hours Sepsis New/Unexplained Change in Mental Status Sepsis Action Taken by Nursing 08/18/19 16:01 08/18/19 16:15 08/18/19 16:16 Temperature Temperature Source Pulse Rate 78 83 79 Pulse Rate [Apical] Pulse Rate from SpO2 Sensor 76 80 76 Pulse Rhythm Pulse Strength Respiratory Rate 36 H 39 H 38 H Respiratory Effort / Characteristics Respiratory Depth Respiratory Pattern Blood Pressure 99/60 L Blood Pressure Mean 87 Blood Pressure Position Pulse Oximetry 97 96 92 Oxygen Delivery Method Nasal Cannula Nasal Cannula Nasal Cannula Oxygen Flow Rate 4 4 4 Sepsis Recent Fever Within 48 Hours Sepsis New/Unexplained Change in Mental Status Sepsis Action Taken by Nursing 08/18/19 16:30 08/18/19 16:31 08/18/19 16:45 Temperature Temperature Source Pulse Rate 78 80 73 Pulse Rate [Apical] Pulse Rate from SpO2 Sensor 78 80 74 Pulse Rhythm Pulse Strength Respiratory Rate 35 H 34 H 36 H Respiratory Effort / Characteristics Respiratory Depth Respiratory Pattern Blood Pressure 101/55 L 102/59 L Blood Pressure Mean 67 74 Blood Pressure Position Pulse Oximetry 93 94 93 Oxygen Delivery Method Nasal Cannula Nasal Cannula Nasal Cannula Oxygen Flow Rate 4 4 4 Sepsis Recent Fever Within 48 Hours Sepsis New/Unexplained Change in Mental Status Sepsis Action Taken by Nursing 08/18/19 16:46 08/18/19 17:00 08/18/19 17:01 Temperature Temperature Source Pulse Rate 78 78 76 Pulse Rate [Apical] Pulse Rate from SpO2 Sensor 79 78 78 Pulse Rhythm Pulse Strength Respiratory Rate 29 H 37 H 44 H Respiratory Effort / Characteristics Respiratory Depth Respiratory Pattern Blood Pressure 94/63 L Blood Pressure Mean 76 Blood Pressure Position Pulse Oximetry 95 96 95 Oxygen Delivery Method Nasal Cannula Nasal Cannula Nasal Cannula Oxygen Flow Rate 4 4 4 Sepsis Recent Fever Within 48 Hours Sepsis New/Unexplained Change in Mental Status Sepsis Action Taken by Nursing 08/18/19 17:15 08/18/19 17:16 Temperature Temperature Source Pulse Rate 79 79 Pulse Rate [Apical] Pulse Rate from SpO2 Sensor 80 75 Pulse Rhythm Pulse Strength Respiratory Rate 33 H 37 H Respiratory Effort / Characteristics Respiratory Depth Respiratory Pattern Blood Pressure 104/68 Blood Pressure Mean 83 Blood Pressure Position Pulse Oximetry 95 94 Oxygen Delivery Method Nasal Cannula Nasal Cannula Oxygen Flow Rate 4 4 Sepsis Recent Fever Within 48 Hours Sepsis New/Unexplained Change in Mental Status Sepsis Action Taken by Nursing GENERAL: The patient is awake and alert. He is somewhat anxious appearing. EYES: The conjunctivae are clear. The pupils are round and reactive. EARS, NOSE, MOUTH AND THROAT: The nose is without any evidence of any deformity. Mucous membranes are moist. Tongue is midline. NECK: The neck is nontender and supple. RESPIRATORY: Rales are noted throughout. There were diminished breath sounds in the upper lung chong. Mild conversational dyspnea was appreciated. CARDIOVASCULAR: Tachycardic rate with regular rhythm was noted. There was no definite murmur. GASTROINTESTINAL: The abdomen is soft. Abdomen is nontender. MUSCULOSKELETAL/EXTREMITIES: There is no evidence of gross deformity full range of motion is noted in the hips and shoulders. SKIN: There is no obvious evidence of any rash. There are no petechiae, pallor or cyanosis noted. NEUROLOGIC: Patient is awake alert and oriented x3. Course Course 1229: The patient was evaluated in room B6, and a complete history and physical examination were performed. 1427: I updated the patient on his labs and imaging results. I recommended admission, and he agrees with the plan. 1430: I discussed the patient's case with Dr. Arellano - [facility] Hospitalist. He will evaluate the patient for further management Administered Medications Ioversol (Optiray 320 125ml) 120 ml IV ONCE PRN PRN Reason: Interaction Checking Stop: 08/22/19 13:38 Last Admin: 08/18/19 13:40 Dose: 120 ml Documented by: [id number] Discontinued Medications Albuterol (Duoneb) 3 ml NEB NOW STA Stop: 08/18/19 12:35 Last Admin: 08/18/19 12:46 Dose: 3 ml Documented by: [id number] Sodium Chloride (Nss) 500 mls @ 999 mls/hr IV .Q31M ONE Stop: 08/18/19 12:46 Last Infusion: 08/18/19 13:28 Dose: 0 mls/hr Documented by: [id number] Admin: 08/18/19 12:57 Dose: 999 mls/hr Documented by: [id number] Sodium Chloride (Nss 1000ml) 1,000 mls @ 999 mls/hr IV .Q1H1M ONE Stop: 08/18/19 14:56 Last Infusion: 08/18/19 14:59 Dose: 0 mls/hr Documented by: [id number] Admin: 08/18/19 13:58 Dose: 999 mls/hr Documented by: [id number] Piperacillin Sod/Tazobactam Sod (Zosyn) 4.5 gm in 120 mls @ 240 mls/hr IV NOW ONE Stop: 08/18/19 14:52 Last Infusion: 08/18/19 15:04 Dose: 0 mls/hr Documented by: [id number] Admin: 08/18/19 14:34 Dose: 240 mls/hr Documented by: [id number] Vancomycin HCl 1,250 mg/ (Sodium Chloride) 525 mls @ 200 mls/hr IV NOW ONE Stop: 08/18/19 17:00 Last Admin: 08/18/19 15:21 Dose: 200 mls/hr Documented by: [id number] Sodium Chloride (Nss 1000ml) 1,000 mls @ 999 mls/hr IV .Q1H1M ONE Stop: 08/18/19 15:24 Last Infusion: 08/18/19 16:22 Dose: 0 mls/hr Documented by: [id number] Admin: 08/18/19 15:21 Dose: 999 mls/hr Documented by: [id number] Medical Decision Making Differential Diagnosis Differential diagnoses includes but is not limited to pneumonia, bronchitis, COPD/Asthma exacerbation, pneumothorax, pulmonary embolism, congestive heart failure, acute coronary syndrome Medical Records Attestation: I reviewed the patient's medical records. Home Medications Current Medication List: was personally reviewed by me Laboratory Data Attestation: I reviewed the patient's lab results. Result diagrams: 08/18/19 12:49 08/18/19 12:49 Lab Results 08/18/19 08/18/19 08/18/19 Range/Units 12:36 12:49 12:49 WBC 10.52 (4.8-10.8) K/uL RBC 4.39 L (4.7-6.1) M/uL Hgb 11.4 L (14.0-18.0) g/dL Hct 36.8 L (42-52) % MCV 83.8 (80-100) fL MCH 26.0 (25-34) pg MCHC 31.0 L (32-36) g/dL RDW Std Deviation 38.7 (36.4-46.3) fL RDW Coeff of Jerry 12.8 (11.5-14.5) % Plt Count 245 (130-400) K/uL MPV 9.1 (7.4-10.4) fL Immature Gran % (Auto) 0.1 % Neut % (Auto) 87.0 % Lymph % (Auto) 6.7 % Hawkins % (Auto) 5.5 % Eos % (Auto) 0.5 % Baso % (Auto) 0.2 % Immature Gran # (Auto) 0.01 (0.00-0.02) K/uL Neut # (Auto) 9.15 H (1.4-6.5) K/uL Lymph # (Auto) 0.71 L (1.2-3.4) K/uL Hawkins # (Auto) 0.58 (0.11-0.59) K/uL Eos # (Auto) 0.05 (0-0.5) K/uL Baso # (Auto) 0.02 (0-0.2) K/uL PT 12.4 H (9.0-12.0) Seconds INR 1.2 H (0.9-1.1) APTT 27.8 (21.0-31.0) Seconds PTT Ratio 1.0 VBG pH (7.36-7.41) VBG pCO2 (38-50) mmHg VBG pO2 mmHg VBG HCO3 mmol/L VBG O2 Saturation % VBG Base Excess mEq/L Barometric Pressure mm/Hg Sodium (136-145) mmol/L Potassium (3.5-5.1) mmol/L Chloride (98-107) mmol/L Carbon Dioxide (21-32) mmol/L Anion Gap (3-11) BUN (7-18) mg/dl Creatinine (0.6-1.4) mg/dl Est Cr Clr Drug Dosing ml/min Est GFR ( Amer) Est GFR (Non-Af Amer) BUN/Creatinine Ratio (10-20) Glucose (70-99) mg/dl Lactate (0.4-2.0) mmol/L Calcium (8.5-10.1) mg/dl Magnesium (1.8-2.4) mg/dl Total Bilirubin (0.2-1) mg/dl AST (15-37) U/L ALT (12-78) U/L Alkaline Phosphatase (45-117) U/L Troponin I (0-0.045) ng/ml Total Protein (6.4-8.2) gm/dl Albumin (3.4-5.0) gm/dl Globulin (2.5-4.0) gm/dl Albumin/Globulin Ratio (0.9-2) Procalcitonin (0-0.5) ng/ml Influenza Type A (PCR) Neg for Influ A (Neg) Influenza Type B (PCR) Neg for Influ B (Neg) 08/18/19 08/18/19 08/18/19 Range/Units 12:49 12:49 13:02 WBC (4.8-10.8) K/uL RBC (4.7-6.1) M/uL Hgb (14.0-18.0) g/dL Hct (42-52) % MCV (80-100) fL MCH (25-34) pg MCHC (32-36) g/dL RDW Std Deviation (36.4-46.3) fL RDW Coeff of Jerry (11.5-14.5) % Plt Count (130-400) K/uL MPV (7.4-10.4) fL Immature Gran % (Auto) % Neut % (Auto) % Lymph % (Auto) % Hawkins % (Auto) % Eos % (Auto) % Baso % (Auto) % Immature Gran # (Auto) (0.00-0.02) K/uL Neut # (Auto) (1.4-6.5) K/uL Lymph # (Auto) (1.2-3.4) K/uL Hawkins # (Auto) (0.11-0.59) K/uL Eos # (Auto) (0-0.5) K/uL Baso # (Auto) (0-0.2) K/uL PT (9.0-12.0) Seconds INR (0.9-1.1) APTT (21.0-31.0) Seconds PTT Ratio VBG pH (7.36-7.41) VBG pCO2 (38-50) mmHg VBG pO2 mmHg VBG HCO3 mmol/L VBG O2 Saturation % VBG Base Excess mEq/L Barometric Pressure mm/Hg Sodium 135 L (136-145) mmol/L Potassium 4.0 (3.5-5.1) mmol/L Chloride 99 (98-107) mmol/L Carbon Dioxide 34 H (21-32) mmol/L Anion Gap 2.0 L (3-11) BUN 8 (7-18) mg/dl Creatinine 0.62 (0.6-1.4) mg/dl Est Cr Clr Drug Dosing 145.1 ml/min Est GFR ( Amer) > 150.0 Est GFR (Non-Af Amer) 136.9 BUN/Creatinine Ratio 13.7 (10-20) Glucose 97 (70-99) mg/dl Lactate 1.6 (0.4-2.0) mmol/L Calcium 8.3 L (8.5-10.1) mg/dl Magnesium 1.8 (1.8-2.4) mg/dl Total Bilirubin 0.2 (0.2-1) mg/dl AST 9 L (15-37) U/L ALT 11 L (12-78) U/L Alkaline Phosphatase 97 (45-117) U/L Troponin I < 0.015 (0-0.045) ng/ml Total Protein 8.9 H (6.4-8.2) gm/dl Albumin 2.3 L (3.4-5.0) gm/dl Globulin 6.6 H (2.5-4.0) gm/dl Albumin/Globulin Ratio 0.3 L (0.9-2) Procalcitonin < 0.05 (0-0.5) ng/ml Influenza Type A (PCR) (Neg) Influenza Type B (PCR) (Neg) 08/18/19 Range/Units 13:02 WBC (4.8-10.8) K/uL RBC (4.7-6.1) M/uL Hgb (14.0-18.0) g/dL Hct (42-52) % MCV (80-100) fL MCH (25-34) pg MCHC (32-36) g/dL RDW Std Deviation (36.4-46.3) fL RDW Coeff of Jerry (11.5-14.5) % Plt Count (130-400) K/uL MPV (7.4-10.4) fL Immature Gran % (Auto) % Neut % (Auto) % Lymph % (Auto) % Hawkins % (Auto) % Eos % (Auto) % Baso % (Auto) % Immature Gran # (Auto) (0.00-0.02) K/uL Neut # (Auto) (1.4-6.5) K/uL Lymph # (Auto) (1.2-3.4) K/uL Hawkins # (Auto) (0.11-0.59) K/uL Eos # (Auto) (0-0.5) K/uL Baso # (Auto) (0-0.2) K/uL PT (9.0-12.0) Seconds INR (0.9-1.1) APTT (21.0-31.0) Seconds PTT Ratio VBG pH 7.33 L (7.36-7.41) VBG pCO2 67 H (38-50) mmHg VBG pO2 32 mmHg VBG HCO3 35 mmol/L VBG O2 Saturation 62.0 % VBG Base Excess 6.5 mEq/L Barometric Pressure 731.1 mm/Hg Sodium (136-145) mmol/L Potassium (3.5-5.1) mmol/L Chloride (98-107) mmol/L Carbon Dioxide (21-32) mmol/L Anion Gap (3-11) BUN (7-18) mg/dl Creatinine (0.6-1.4) mg/dl Est Cr Clr Drug Dosing ml/min Est GFR ( Amer) Est GFR (Non-Af Amer) BUN/Creatinine Ratio (10-20) Glucose (70-99) mg/dl Lactate (0.4-2.0) mmol/L Calcium (8.5-10.1) mg/dl Magnesium (1.8-2.4) mg/dl Total Bilirubin (0.2-1) mg/dl AST (15-37) U/L ALT (12-78) U/L Alkaline Phosphatase (45-117) U/L Troponin I (0-0.045) ng/ml Total Protein (6.4-8.2) gm/dl Albumin (3.4-5.0) gm/dl Globulin (2.5-4.0) gm/dl Albumin/Globulin Ratio (0.9-2) Procalcitonin (0-0.5) ng/ml Influenza Type A (PCR) (Neg) Influenza Type B (PCR) (Neg) Imaging Data Radiologist's Impression: Radiology results as stated below per my review and the radiologist's interpretation: XR chest 1V portable CLINICAL HISTORY: SEPSIS COMPARISON STUDY: 06/25/2018 FINDINGS: There is persistent upper lobe bronchiectasis and volume loss. There are by apical airspace opacities left greater than right, similar to the preceding study.[The findings suggest underlying cystic fibrosis. IMPRESSION: 1. Chest x-ray finding suggesting underlying cystic fibrosis. Clinical correlation in this regard is advocated 2. Bilateral upper lobe volume loss, bronchiectasis, and airspace opacities left greater than right. The findings remain similar to the prior June 2018 study. ACT 112: Negative or not required by law. Electronically signed by: Nick Douglas M.D. 08/18/2019 12:[address] angio chest PE protocol CT DOSE: 267.94 mGycm HISTORY: 24 years-old Male with PE, hemoptyisis. Acute shortness of breath wit h hemoptysis. Reported clinical history of cystic fibrosis. TECHNIQUE: Multiple CTA images of the chest were obtained after the intravenous administration of 120 ml Optiray 320. Coronal and sagittal MIPS were obtained from the axial data set and were submitted for review. All measurements were ob tained according to NASCET criteria. A dose lowering technique was utilized adhering to the principles of ALARA. COMPARISON: Chest radiograph of same day, CTA chest 06/25/2018 FINDINGS: CTA: Heart is normal in size. No pericardial effusion. Reflux of contrast into the IVC and hepatic veins. There is no thoracic aortic aneurysm or dissection. There is patency of the imaged great vessels. Main pulmonary artery measures the upper limits of normal at 2.8 cm transversely. The pulmonary arterial tree is opacified to the level of the subsegmental branches and demonstrates no filling defects to suggest pulmonary thromboembolic disease. CT CHEST: No thyroid nodule identified. Left anterior mediastinal soft tissue density structure measuring 4.0 x 2.0 cm appears similar to slightly decreased in size from comparison May reflect residual thymic tissue versus conglomerate adenopathy. Pathologically enlarged subcarinal and right hilar lymph nodes measure up to approximately 1.4 cm in short axis. Trace left pleural effusion. A few foci of air within the subpleural space of the right lung apex is unchanged from comparison. Severe upper lobe predominant bronchiectasis with bronchial wall thickening redemonstrated. Left upper lobe volume loss with airspace consolidation and multifocal cavity formation redemonstrated. Multifocal patchy groundglass opacities within the bilateral lungs with multifocal tree-in-bud nodules. Irregular consolidation of the right upper lobe and superior segment right lower lobe redemonstrated. There are several scattered foci of pneumomediastinum noted within the paratracheal and subcarinal distributions (please see bookmarks). Fatty replacement of the pancreas. Soft tissues are unremarkable. Opacified venous collaterals of the posterior upper chest. Bones appear intact. IMPRESSION: 1. Mild pneumomediastinum of unknown etiology. Bronchoalveolar injury is considered the most likely cause with esophageal injury considered less likely. 2. No evidence of pulmonary thromboembolic disease. 3. Severe upper lung zone predominant bronchiectasis with left upper lobe volume loss, multifocal irregular opacities and left upper lobe cavity formation compatible with patient's clinical history of cystic fibrosis. 4. Multifocal groundglass opacities with tree-in-bud nodules suggests pneumonitis with bronchiolitis. 5. Mild mediastinal and hilar adenopathy, likely reactive. 6. Decreased size of the soft tissue density structure of the anterior mediastin um measuring up to 4.0 cm suggestive of residual thymic tissue versus conglomerate adenopathy. 7. Trace left pleural effusion. ACT 112: Negative or not required by law. The above report was generated using voice recognition software. It may contain grammatical, syntax or spelling errors. Electronically signed by: Ortiz Martinez M.D. 08/18/2019 2:00 PM ECG Data Attestation: I personally reviewed and interpreted this ECG as follows: Indication: + SOB/dyspnea Rate (beats per minute): 93 Rhythm: + normal sinus ECG Findings: + Other (Early repolarization noted); no PACs and no PVCs Comparison ECG Date: from (06/25/18) Change: no significant change Blood Pressure Blood Pressure Findings: Normal blood pressure Blood Pressure Disposition: further management by hospitalist KEEGAN Acuna The patient is a 24-year-old male who has a history of cystic fibrosis who presented to the emergency department for an evaluation of difficulty breathing. The patient has very abnormal lung sounds. He was hypoxic. He was treated with bronchodilator therapy as well as IV fluids and IV antibiotics. I discussed the patient's laboratory and radiographic studies with him. He appears to have pneumomediastinum. He also appears to have a cavitary pneumonia in the left upper lobe as well as diffuse infiltrative process. The patient was feeling much better on subsequent reevaluation. Given his laboratory and radiographic studies I did discuss his case with the on-call [facility] hospitalist group. They have agreed to evaluate the patient in the emergency department for further management and disposition. The patient was placed in respiratory isolation. He does state that he has had normal tuberculosis testing in the past. Impression & Plan Cavitary pneumonia, Cystic fibrosis, Hemoptysis, Pneumomediastinum, Hypoxia, Hypotension Discharge Plan Visit Data Chief Complaint: Shortness of Breath/Dyspnea Stated Complaint: sob ED Provider: Navjot Medley Discharge Problem: Cavitary pneumonia, Cystic fibrosis, Hemoptysis, Pneumomediastinum, Hypoxia, Hypotension Patient Disposition: Being Evaluated by Hospitalist Forms Stand Alone Forms: My [facility] Prescriptions Prescriptions: No Action fluticasone propion-salmeterol [Advair Diskus] 250-50 mcg/dose Blister With Device 1 inh INHALATION BID RF: 0 ipratropium-albuterol 0.5 mg-3 mg(2.5 mg base)/3 mL Solution For Nebulization 3 ml INHALATION QID PRN (Reason: Shortness Of Breath Or Wheezing) RF: 0 Thera Tablet 1 tab PO DAILY RF: 0 Pulmozyme 1 mg/mL Solution 2.5 mg INHALATION DAILY PRN (Reason: Shortness Of Breath Or Wheezing) RF: 0 montelukast [Singulair] 10 mg Tablet 10 mg PO HS RF: 0 azithromycin 500 mg Tablet 500 mg PO MOWEFR RF: 0 levalbuterol tartrate [Xopenex HFA] 45 mcg/actuation Hfa Aerosol Inhaler 2 puff INHALATION QID PRN (Reason: Shortness Of Breath) RF: 0 Creon 24,000-76,000 -120,000 unit Capsule,Delayed Release(Dr/Ec) 5 cap PO TID RF: 0 Creon 24,000-76,000 -120,000 unit Capsule,Delayed Release(Dr/Ec) 3 cap PO UD RF: 0 tobramycin 300 mg/4 mL Solution For Nebulization 300 mg INHALATION BID RF: 0 ergocalciferol (vitamin D2) [Vitamin D2] 1,250 mcg (50,000 unit) Capsule 1,250 mcg PO MO@0700 RF: 0 levofloxacin [Levaquin] 500 mg Tablet 500 mg PO DAILY RF: 0 methylprednisolone sod suc(PF) 40 mg/mL Recon Soln 40 mg IM QAM RF: 0 Novolin R Flexpen 100 unit/mL (3 mL) Insulin Pen 5 unit SUBCUT QAM RF: 0 Referrals Referrals: SCI,Rudy [Primary Care Provider] - Discharge Problem: Hypotension Qualifiers: Hypotension type: unspecified hypotension type Qualified Code(s): I95.9 - Hypotension, unspecified The scribe's documentation has been prepared under my direction and personally reviewed by me in its entirety. I confirm that the note above accurately reflects all work, treatment, procedures, and medical decision making performed by me.
[2019-08-18 13:00] LABS: Basophils # (auto) 0.02 K/uL (0-0.2); Basophils % (auto) 0.2 %; Eosinophils # (auto) 0.05 K/uL (0-0.5); Eosinophils % (auto) 0.5 %; Hematocrit (blood only) 36.8 % (42-52); Hemoglobin 11.4 g/dL (14.0-18.0); Immature Granulocytes # (auto) 0.01 K/uL (0.00-0.02); Immature Granulocytes % (auto) 0.1 %; Lymphocytes # (auto) 0.71 K/uL (1.2-3.4); Lymphocytes % (auto) 6.7 %; Mean Corpuscular Volume 83.8 fL (80-100); Mean Platelet Volume 9.1 fL (7.4-10.4); Monocytes # (auto) 0.58 K/uL (0.11-0.59); Monocytes % (auto) 5.5 %; Neutrophils # (auto) 9.15 K/uL (1.4-6.5); Platelet Count 245 K/uL (130-400); RDW Coefficient of Variation 12.8 % (11.5-14.5); RDW Standard Deviation 38.7 fL (36.4-46.3); Red Blood Count 4.39 M/uL (4.7-6.1); White Blood Count 10.52 K/uL (4.8-10.8)
[2019-08-18 13:15] LABS: Base Excess VBG 6.5 mEq/L; pH VBG 7.33 (7.36-7.41)
[2019-08-18 13:16] LABS: Alanine Aminotransferase 11 U/L (12-78); Albumin Level 2.3 gm/dl (3.4-5.0); BUN Creatinine Ratio 13.7 (10-20); Blood Urea Nitrogen 8 mg/dl (7-18); Calcium 8.3 mg/dl (8.5-10.1); Carbon Dioxide 34 mmol/L (21-32); Chloride 99 mmol/L (98-107); Creatinine Clr Calc Pharmacy 145.1 ml/min; Est GFR (African American) > 150.0; Est GFR (Non-African American) 136.9; Glucose 97 mg/dl (70-99); Magnesium 1.8 mg/dl (1.8-2.4); Sodium 135 mmol/L (136-145)
[2019-08-18 13:18] LABS: INR 1.2 (0.9-1.1); Partial Thromboplastin Time 27.8 Seconds (21.0-31.0); Prothrombin Time 12.4 Seconds (9.0-12.0)
[2019-08-18 13:22] LABS: Albumin Globulin Ratio 0.3 (0.9-2); Alkaline Phosphatase 97 U/L (45-117); Aspartate Aminotransferase 9 U/L (15-37); Bilirubin,Total 0.2 mg/dl (0.2-1); Globulin 6.6 gm/dl (2.5-4.0); Total Protein 8.9 gm/dl (6.4-8.2); Troponin I < 0.015 ng/ml (0-0.045)
[2019-08-18 13:33] LABS: Influenza A virus by PCR Neg for Influ A (Neg); Influenza B virus by PCR Neg for Influ B (Neg)
[2019-08-18] MEDS ORDERED: OPTIRAY 320 125ml IV PRN (13:39)
[2019-08-18] MEDS ORDERED: SODIUM CHLORIDE 0.9% 1000ML 1,000 ML IV ONE ×2 (13:56→14:24)
--- NOTE | 2019-08-18 14:01 | CT Scan Report ---
CT angio chest PE protocol CT DOSE: 267.94 mGycm HISTORY: 24 years-old Male with PE, hemoptyisis. Acute shortness of breath with hemoptysis. Reporte d clinical history of cystic fibrosis. TECHNIQUE: Multiple CTA images of the chest were obtained after the intravenous administration of 120 ml Optiray 320. Coronal and sagittal MIPS were obtained from the axial data set and were submitted for review. All measurements were obtained according to NASCET criteria. A dose lowering technique w as utilized adhering to the principles of ALARA. COMPARISON: Chest radiograph of same day, CTA chest 06/25/2018 FINDINGS: CTA: Heart is normal in size. No pericardial effusion. Reflux of contrast into the IVC and hepatic veins. There is no thoracic aortic aneurysm or dissection. There is patency of the imaged great vessels. Radha n pulmonary artery measures the upper limits of normal at 2.8 cm transversely. The pulmonary arterial tree is opacified to the level of the subsegmental branches and demonstrates no filling defects to s uggest pulmonary thromboembolic disease. CT CHEST: No thyroid nodule identified. Left anterior mediastinal soft tissue density structure measuring 4.0 x 2.0 cm appears similar to slightly decreased in size from comparison May reflect residual thymic tis trinh versus conglomerate adenopathy. Pathologically enlarged subcarinal and right hilar lymph nodes me asure up to approximately 1.4 cm in short axis. Trace left pleural effusion. A few foci of air within the subpleural space of the right lung apex is unchanged from comparison. Severe upper lobe predominant bronchiectasis with bronchial wall thickenin g redemonstrated. Left upper lobe volume loss with airspace consolidation and multifocal cavity forma tion redemonstrated. Multifocal patchy groundglass opacities within the bilateral lungs with multifoc al tree-in-bud nodules. Irregular consolidation of the right upper lobe and superior segment right lo wer lobe redemonstrated. There are several scattered foci of pneumomediastinum noted within the parat thelma and subcarinal distributions (please see bookmarks). Fatty replacement of the pancreas. Soft tissues are unremarkable. Opacified venous collaterals of the posterior upper chest. Bones appear intact. IMPRESSION: 1. Mild pneumomediastinum of unknown etiology. Bronchoalveolar injury is considered the most likely c ause with esophageal injury considered less likely. 2. No evidence of pulmonary thromboembolic disease. 3. Severe upper lung zone predominant bronchiectasis with left upper lobe volume loss, multifocal irr egular opacities and left upper lobe cavity formation compatible with patient's clinical history of c ystic fibrosis. 4. Multifocal groundglass opacities with tree-in-bud nodules suggests pneumonitis with bronchiolitis. 5. Mild mediastinal and hilar adenopathy, likely reactive. 6. Decreased size of the soft tissue density structure of the anterior mediastinum measuring up to 4. 0 cm suggestive of residual thymic tissue versus conglomerate adenopathy. 7. Trace left pleural effusion. ACT 112: Negative or not required by law. The above report was generated using voice recognition software. It may contain grammatical, syntax o r spelling errors. Electronically signed by: Ortiz Martinez M.D. 08/18/2019 2:00 PM
[2019-08-18] MEDS ORDERED: PIPERACILLIN/TAZOBACTAM 4.5 GM/120 ML BAG IV ONE (14:23)
[2019-08-18] MEDS ORDERED: VANCOMYCIN CONSULT ACTIVE PRN ×2 (14:23→19:17)
[2019-08-18] MEDS ORDERED: PIPERACILL/TAZOBAC CONSULT ACTIVE PRN ×2 (14:23→19:17)
[2019-08-18] MEDS ORDERED: VANCOMYCIN HCL 1,250 MG in SODIUM CHLORIDE 0.9% 500 ML IV ONE (14:23)
--- NOTE | 2019-08-18 15:04 | History & Physical Report ---
Date of Service August 18, 2019 Assessment & Plan (1) Multifocal pneumonia: Patient likely has multifocal pneumonia. Differential includes exact duration of bronchiolitis. Hemoptysis and cavitary lesion also concerning for possible tuberculosis in a [facility] inmate. Patient will be admitted to a general medical bed and should be placed in negative isolation. Check PPD. QuantiFERON ordered by ER physician. For now we will treat with Zosyn and vancomycin started in the emergency room. I will ask pulmonology to evaluate for further recommendations. (2) Cystic fibrosis: History of cystic fibrosis. Will keep patient on steroid injections and inhaled tobramycin along with his Pulmozyme. Further recommendations per pulmonology. (3) DM II (diabetes mellitus, type II), controlled: Glucose is 97 on BMP. Will put patient on low sliding scale insulin, hold Novolin R for now. History of Present Illness Chief Complaint: This is a 24-year-old -[place] inmate with past medical history of cystic fibrosis that presents today complaining of shortness of breath and hemoptysis. Patient is accompanied by [facility] guards. Patient tells me that for the past week he felt he has had "walking pneumonia ". This is cough accompanied by worsening dyspnea on exertion and shortness of breath. The cough is productive with purulent material although he does tell me he later has yury hemoptysis, which is consistent with his pneumonias. He has been compliant with his medication while in [facility] as detailed below. He denies any fever. His appetite is been diminished. He denies any other symptoms such as chest pain, vertigo, palpitations, diaphoresis, or bowel issues. Patient tells me that [facility] and was subsequently transferred here for further evaluation. He does not appear to be in acute cardiopulmonary distress. Primary Care Provider: MARIO Crawford Allergies Allergy/AdvReac Type Severity Reaction Status Date / Time No Known Allergies Allergy Unverified 08/18/19 14:42 Home Medications Home Medications Medication Instructions Recorded Confirmed Type Creon 3 cap PO UD 06/25/18 08/18/19 History Creon 5 cap PO TID 06/25/18 08/18/19 History Pulmozyme 2.5 mg INHALATION DAILY PRN 06/25/18 08/18/19 History Thera 1 tab PO DAILY 06/25/18 08/18/19 History azithromycin 500 mg PO MOWEFR 06/25/18 08/18/19 History fluticasone propion-salmeterol 1 inh INHALATION BID 06/25/18 08/18/19 History [Advair Diskus] ipratropium-albuterol 3 ml INHALATION QID PRN 06/25/18 08/18/19 History levalbuterol tartrate [Xopenex HFA] 2 puff INHALATION QID PRN 06/25/18 08/18/19 History montelukast [Singulair] 10 mg PO HS 06/25/18 08/18/19 History tobramycin 300 mg INHALATION BID 06/25/18 08/18/19 History ergocalciferol (vitamin D2) 1,250 mcg PO MO@0700 08/18/19 08/18/19 History [Vitamin D2] insulin regular human [Novolin R 5 unit SUBCUT QAM 08/18/19 08/18/19 History Flexpen] levofloxacin [Levaquin] 500 mg PO DAILY 08/18/19 08/18/19 History methylprednisolone sod suc(PF) 40 mg IM QAM 08/18/19 08/18/19 History Past Med/Surg History Medical History Acute respiratory failure with hypoxia (Acute) Asthma Asthma (Acute) Cystic fibrosis Cystic fibrosis (Acute) Diabetes DM II (diabetes mellitus, type II), controlled (Acute) Multifocal pneumonia (Acute) Surgical History No significant past surgical history Family History Other No significant family history Social History Preferred Language: Spanish Communication Ability: Effective 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 Beliefs That Will Affect Care: None marital status: Single Current Living Situation: Other Current Living Situation Comment: Incarcerated Feels Safe at Home: Yes Smoking Status: Former smoker Second Hand Exposure: No ; Hx Alcohol Use: No Hx Substance Use: No Review of Systems Constitutional: + fatigue; no fever, no chills, no weakness, no weight loss and no weight gain Eyes: as per Subjective / HPI Respiratory: + cough, + chest congestion, + dyspnea, + dyspnea on exertion, + hemoptysis and + sputum production Cardiovascular: no chest pain, no orthopnea, no palpitations, no lightheadedness and no edema Gastrointestinal: no abdominal pain, no nausea, no vomiting, no constipation and no diarrhea/loose stools Musculoskeletal: no back pain, no neck pain, no joint pain, no stiffness and no myalgia Integumentary: no rash Neurologic: no gait abnormality, no unsteadiness, no falls and no generalized weakness Physical Exam Constitutional: + thin and cooperative; no acute distress Neck: trachea midline, no thyromegaly Respiratory: normal respiratory effort Auscultation: + diminished lung sounds, + rales and + rhonchi; no crackles and no wheezes Cardiovascular: Rate/Rhythm: regular rate and regular rhythm Heart Sounds: normal S1 and normal S2 Gastrointestinal (Abdomen): Inspection/Auscultation: abdomen normal to inspection Percussion/Palpation: abdomen soft; abdomen nontender, no guarding, abdomen not rigid and no hepatosplenomegaly Musculoskeletal: Extremities: + clubbing Skin: no rashes, warm and dry Results & Data Vital Signs (Past 12 Hours) Vital Signs Temp Pulse Pulse Resp BP Pulse Ox 08/18/19 14:31 84 26 H 98 08/18/19 14:30 84 33 H 101/66 98 08/18/19 14:16 88 36 H 96 08/18/19 14:15 87 31 H 101/66 96 08/18/19 14:01 89 36 H 95 08/18/19 14:00 87 27 H 101/63 96 08/18/19 13:49 95 H 24 92 08/18/19 13:48 83/51 L 94 08/18/19 13:15 95 H 44 H 96 08/18/19 13:00 95 H 32 H 94 08/18/19 12:48 100 H 22 92 08/18/19 12:45 94 H 37 H 91 08/18/19 12:31 96 H 39 H 93 08/18/19 12:30 98 H 18 99/66 L 90 08/18/19 12:28 100 H 25 H 98/68 L 89 L 08/18/19 12:27 99 H 25 H 08/18/19 12:22 92 08/18/19 12:21 95 H 32 H 110/68 89 L 08/18/19 12:14 36.8 C 110 H 20 111/70 92 Laboratory Results WBC is 10.5. Hemoglobin is 11.4 with hematocrit of 36.8. INR is 1.2. Sodium is 135 with a potassium of 4. Renal function is normal. Albumin is diminished at 2.3 with a total protein 8.9. Influenza swabs are negative. Diagnostic Findings XR chest 1V portable CLINICAL HISTORY: SEPSIS COMPARISON STUDY: 06/25/2018 FINDINGS: There is persistent upper lobe bronchiectasis and volume loss. There are by apical airspace opacities left greater than right, similar to the preceding study.[The findings suggest underlying cystic fibrosis. IMPRESSION: 1. Chest x-ray finding suggesting underlying cystic fibrosis. Clinical correlation in this regard is advocated 2. Bilateral upper lobe volume loss, bronchiectasis, and airspace opacities left greater than right. The findings remain similar to the prior June 2018 study. ---- CT angio chest PE protocol CT DOSE: 267.94 mGycm HISTORY: 24 years-old Male with PE, hemoptyisis. Acute shortness of breath with hemoptysis. Reported clinical history of cystic fibrosis. TECHNIQUE: Multiple CTA images of the chest were obtained after the intravenous administration of 120 ml Optiray 320. Coronal and sagittal MIPS were obtained from the axial data set and were submitted for review. All measurements were obtained according to NASCET criteria. A dose lowering technique was utilized adhering to the principles of ALARA. COMPARISON: Chest radiograph of same day, CTA chest 06/25/2018 FINDINGS: CTA: Heart is normal in size. No pericardial effusion. Reflux of contrast into the IVC and hepatic veins. There is no thoracic aortic aneurysm or dissection. There is patency of the imaged great vessels. Main pulmonary artery measures the upper limits of normal at 2.8 cm transversely. The pulmonary arterial tree is opacified to the level of the subsegmental branches and demonstrates no filling defects to suggest pulmonary thromboembolic disease. CT CHEST: No thyroid nodule identified. Left anterior mediastinal soft tissue density structure measuring 4.0 x 2.0 cm appears similar to slightly decreased in size from comparison May reflect residual thymic tissue versus conglomerate adenopathy. Pathologically enlarged subcarinal and right hilar lymph nodes measure up to approximately 1.4 cm in short axis. Trace left pleural effusion. A few foci of air within the subpleural space of the right lung apex is unchanged from comparison. Severe upper lobe predominant bronchiectasis with bronchial wall thickening redemonstrated. Left upper lobe volume loss with airspace consolidation and multifocal cavity formation redemonstrated. Multifocal patchy groundglass opacities within the bilateral lungs with multifocal tree-in-bud nodules. Irregular consolidation of the right upper lobe and superior segment right lower lobe redemonstrated. There are several scattered foci of pneumomediastinum noted within the paratracheal and subcarinal distributions (please see bookmarks). Fatty replacement of the pancreas. Soft tissues are unremarkable. Opacified venous collaterals of the posterior upper chest. Bones appear intact. IMPRESSION: 1. Mild pneumomediastinum of unknown etiology. Bronchoalveolar injury is considered the most likely cause with esophageal injury considered less likely. 2. No evidence of pulmonary thromboembolic disease. 3. Severe upper lung zone predominant bronchiectasis with left upper lobe volume loss, multifocal irregular opacities and left upper lobe cavity formation compatible with patient's clinical history of cystic fibrosis. 4. Multifocal groundglass opacities with tree-in-bud nodules suggests pneumonitis with bronchiolitis. 5. Mild mediastinal and hilar adenopathy, likely reactive. 6. Decreased size of the soft tissue density structure of the anterior mediastinum measuring up to 4.0 cm suggestive of residual thymic tissue versus conglomerate adenopathy. 7. Trace left pleural effusion. PG Care Time/CCT Total # of Minutes Spent Total Time Spent with Patient: Total time spent is greater than 50% in coordination of care (as documented) at patient's floor/unit and/or counseling patient: Coding Level of Care Code 21775 Initial Inpt Care Lvl 3 Diagnoses Multifocal pneumonia J18.9 Cystic fibrosis E84.9 DM II (diabetes mellitus, type II), controlled E11.9
[2019-08-18] MEDS ORDERED: ONDANSETRON INJ 2 MG/ML 2 ML VIAL IV PRN (19:17)
[2019-08-18] MEDS ORDERED: CARBOHYDRATES FOR HYPOGLYCEMIA PO PRN (19:17)
[2019-08-18] MEDS ORDERED: ACETAMINOPHEN 325 MG TAB PO PRN (19:17)
[2019-08-18] MEDS ORDERED: GLUCOSE 10 TABS/TUBE PO PRN (19:17)
[2019-08-18] MEDS ORDERED: DORNASE ALFA 2.5 ML AMP INH PRN (19:17)
[2019-08-18] MEDS ORDERED: DEXTROSE 50% 50 ML SYRINGE IV PRN (19:17)
[2019-08-18] MEDS ORDERED: LEVALBUTEROL TARTRATE 15 GM HFA.AER.AD INH PRN (19:17)
[2019-08-18] MEDS ORDERED: ALBUT/IPRATROP 3MG/0.5MG NEB 3 ML VIAL INH PRN (19:17)
[2019-08-18] MEDS ORDERED: GLUCAGON FOR INJ 1 MG VIAL SQ PRN (19:17)
[2019-08-18] MEDS ORDERED: GLUCOSE 40% GEL 15 GM TUBE PO PRN (19:17)
[2019-08-18] MEDS ORDERED: TUBERCULIN SKIN TEST 5 TU in SYRINGE 0 ML ID ONE (20:00)
[2019-08-18] MEDS ORDERED: PPD CHECK ONE (20:00)
[2019-08-18] MEDS ORDERED: PANCREAZE (LIPASE 16,800U) CAP PO PRN (20:15)
[2019-08-18] MEDS: PIPERACILLIN/TAZOBACTAM 3.375 GM in DEXTROSE 5% 100 ML IV SCH (20:33)
[2019-08-18] MEDS ORDERED: Nursing to Pharmacy Communication ONE (20:49)
[2019-08-18] MEDS: INSULIN ASPART 100 UNITS/ML 3 ML PEN SC SCH (20:51)
[2019-08-18] MEDS ORDERED: TOBRAMYCIN 300 MG INH SCH (21:00)
[2019-08-18] MEDS: VANCOMYCIN HCL 1,000 MG in SODIUM CHLORIDE 0.9% 250 ML IV SCH (22:15)
[2019-08-18] MEDS: MONTELUKAST SODIUM 10 MG TABLET PO SCH (22:15)
[2019-08-18] MEDS ORDERED: PANCREAZE (LIPASE 16,800U) CAP PO STA (22:30)
--- NOTE | 2019-08-18 22:30 | Pharmacy Report ---
Pharmacy Abx Initial Consult - Date of Service August 18, 2019 - Pharmacy Dosing Scope Date of Consult: 08/18/19 Consultation requested by: Dr. Arellano Pharmacy is consulted to continue IV Vancomycin and Zosyn dosing therapy, order appropriate labs and adjust drug dose/frequency. - Subjective The patient is a 24 year old M admitted on 08/18/19 15:36 from [facility] where he complains of SOB and spitting up some blood. He has history of Cystic Fibrosis and Dr. Arellano admits him for Multifocal Pneumonia and continues the broad spectrum abx coverage with Zosyn and Vancomycin. He has some concern for TB and ordered a PPD. - Objective Height: 6 ft Weight: 56.8 kg Vital Signs (Past 12hrs): Vital Signs Temp Pulse Pulse Pulse Resp BP BP 08/18/19 19:17 36.7 C 67 22 96/56 L 08/18/19 18:15 75 37 H 08/18/19 18:01 82 24 08/18/19 18:00 74 19 96/52 L 08/18/19 17:46 81 37 H 08/18/19 17:45 81 36 H 103/60 08/18/19 17:31 81 20 08/18/19 17:30 73 36 H 96/57 L 08/18/19 17:16 79 37 H 08/18/19 17:15 79 33 H 104/68 08/18/19 17:01 76 44 H 08/18/19 17:00 78 37 H 94/63 L 08/18/19 16:46 78 29 H 08/18/19 16:45 73 36 H 102/59 L 08/18/19 16:31 80 34 H 08/18/19 16:30 78 35 H 101/55 L 08/18/19 16:16 79 38 H 08/18/19 16:15 83 39 H 99/60 L 08/18/19 16:01 78 36 H 08/18/19 16:00 80 27 H 97/57 L 08/18/19 15:46 86 26 H 08/18/19 15:45 73 36 H 96/61 L 08/18/19 15:31 83 26 H 08/18/19 15:30 82 33 H 100/65 08/18/19 15:16 80 45 H 08/18/19 15:15 83 38 H 103/64 08/18/19 15:01 103 H 25 H 08/18/19 15:00 79 34 H 95/68 L 08/18/19 14:46 87 32 H 08/18/19 14:45 81 37 H 102/61 08/18/19 14:31 84 26 H 08/18/19 14:30 84 33 H 101/66 08/18/19 14:16 88 36 H 08/18/19 14:15 87 31 H 101/66 08/18/19 14:01 89 36 H 08/18/19 14:00 87 27 H 101/63 08/18/19 13:49 95 H 24 08/18/19 13:48 83/51 L 08/18/19 13:15 95 H 44 H 08/18/19 13:00 95 H 32 H 08/18/19 12:48 100 H 22 08/18/19 12:45 94 H 37 H 08/18/19 12:31 96 H 39 H 08/18/19 12:30 98 H 18 99/66 L 08/18/19 12:28 100 H 25 H 98/68 L 08/18/19 12:27 99 H 25 H 08/18/19 12:22 08/18/19 12:21 95 H 32 H 110/68 08/18/19 12:14 36.8 C 110 H 20 111/70 Pulse Ox 08/18/19 19:17 94 08/18/19 18:15 95 08/18/19 18:01 97 08/18/19 18:00 95 08/18/19 17:46 98 08/18/19 17:45 95 08/18/19 17:31 91 08/18/19 17:30 96 08/18/19 17:16 94 08/18/19 17:15 95 08/18/19 17:01 95 08/18/19 17:00 96 08/18/19 16:46 95 08/18/19 16:45 93 08/18/19 16:31 94 08/18/19 16:30 93 08/18/19 16:16 92 08/18/19 16:15 96 08/18/19 16:01 97 08/18/19 16:00 97 08/18/19 15:46 97 08/18/19 15:45 100 08/18/19 15:31 98 02/24/20 15:30 97 08/18/19 15:16 96 08/18/19 15:15 96 08/18/19 15:01 98 08/18/19 15:00 95 08/18/19 14:46 93 08/18/19 14:45 97 08/18/19 14:31 98 08/18/19 14:30 98 08/18/19 14:16 96 08/18/19 14:15 96 08/18/19 14:01 95 08/18/19 14:00 96 08/18/19 13:49 92 08/18/19 13:48 94 08/18/19 13:15 96 08/18/19 13:00 94 08/18/19 12:48 92 08/18/19 12:45 91 08/18/19 12:31 93 08/18/19 12:30 90 08/18/19 12:28 89 L 08/18/19 12:27 08/18/19 12:22 92 08/18/19 12:21 89 L 08/18/19 12:14 92 Lab Results (24hrs): Laboratory Tests (24 Hours) 08/18/19 08/18/19 08/18/19 12:49 12:49 12:49 WBC 10.52 Neut # (Auto) 9.15 H Creatinine 0.62 Est Cr Clr Drug Dosing 145.1 Procalcitonin < 0.05 Micro Results: 08/18/19 12:56 Gram Stain - Final Sputum, Expectorated Sputum Culture - Pending 08/18/19 13:02 Aerobic Blood Culture - Pending Blood Anaerobic Blood Culture - Pending 08/18/19 12:49 Aerobic Blood Culture - Pending Blood Anaerobic Blood Culture - Pending - Risk Factors for Resistance * Resident in a fpc or extended-care facility (Incarcerated) - Assessment & Plan Assessment 24 year old M with multifocal Pneumonia Plan Vancomycin IV * Estimated PK Parameters: Vd 0.70 L/kg, Alfredo ~0.50 hr-1, t1/2~ 6.5 hr * Loading dose: 1250 mg (22 mg/kg) in ED * Maintenance dose: 1000 mg IV (17.6 mg/kg) every 8 hours * Goal trough level: 15 to 20 mcg/mL * Trough level ordered prior to 1400 dose on 2/25/20 Piperacillin/tazobactam * 4.5 g bolus administered over 30 minutes, then 3.375 g IV extended infusion every 8 hours for CrCl greater than 20 mL/min Pharmacy will continue to follow and will adjust dose/frequency as necessary. Thank you.
[2019-08-19] MEDS ORDERED: ALUM HYDROX/MAG TRISILICATE CHEW PO PRN (01:25)
[2019-08-19] MEDS: PIPERACILLIN/TAZOBACTAM 3.375 GM in DEXTROSE 5% 100 ML IV SCH (04:20)
[2019-08-19] MEDS: VANCOMYCIN HCL 1,000 MG in SODIUM CHLORIDE 0.9% 250 ML IV SCH (04:20)
[2019-08-19 04:41] LABS: Appearance Urine Clear (Clear); Bilirubin Urine Negative (Negative); Blood Urine Negative (Negative); Color Urine Yellow; Glucose Urine UA Negative (Negative); Ketones Urine Negative (Negative); Leukocyte Esterase Urine Negative (Negative); Nitrite Urine Negative (Negative); Protein Urine Negative (Negative); Specific Gravity Urine 1.018 (1.000-1.030); Urobilinogen Urine Negative (Negative)
[2019-08-19] MEDS: TOBRAMYCIN SULFATE 300 MG in SYRINGE 0 ML INH SCH ×2 (07:57→21:31)
[2019-08-19 08:06] LABS: Basophils # (auto) 0.04 K/uL (0-0.2); Basophils % (auto) 0.5 %; Eosinophils # (auto) 0.14 K/uL (0-0.5); Eosinophils % (auto) 1.9 %; Hematocrit (blood only) 37.2 % (42-52); Hemoglobin 11.4 g/dL (14.0-18.0); Immature Granulocytes # (auto) 0.01 K/uL (0.00-0.02); Immature Granulocytes % (auto) 0.1 %; Lymphocytes # (auto) 2.36 K/uL (1.2-3.4); Lymphocytes % (auto) 31.5 %; Mean Corpuscular Hemoglobin 25.8 pg (25-34); Mean Corpuscular Hgb Conc 30.6 g/dL (32-36); Mean Corpuscular Volume 84.2 fL (80-100); Monocytes # (auto) 0.78 K/uL (0.11-0.59); Monocytes % (auto) 10.4 %; Neutrophils # (auto) 4.17 K/uL (1.4-6.5); Neutrophils % (auto) 55.6 %; Platelet Count 252 K/uL (130-400); RDW Standard Deviation 39.2 fL (36.4-46.3); Red Blood Count 4.42 M/uL (4.7-6.1)
[2019-08-19 08:30] LABS: BUN Creatinine Ratio 11.5 (10-20); Blood Urea Nitrogen 8 mg/dl (7-18); Calcium 8.4 mg/dl (8.5-10.1); Carbon Dioxide 32 mmol/L (21-32); Chloride 101 mmol/L (98-107); Creatinine Clr Calc Pharmacy 134.2 ml/min; Est GFR (African American) > 150.0; Est GFR (Non-African American) 132.6; Glucose 83 mg/dl (70-99); Magnesium 1.8 mg/dl (1.8-2.4); Potassium 4.2 mmol/L (3.5-5.1); Sodium 136 mmol/L (136-145)
[2019-08-19] MEDS: FLUTICASONE/VILANTEROL 200/25MCG 14 PUFFS/INHALER INH SCH (08:30)
[2019-08-19] MEDS: CEROVITE ADV FORMULA TAB PO SCH (08:30)
[2019-08-19] MEDS: PANCREAZE (LIPASE 16,800U) CAP PO SCH ×3 (08:31→16:56)
[2019-08-19] MEDS ORDERED: methylPREDNISolone 40 MG in SYRINGE 0 ML IV SCH (09:00)
[2019-08-19] MEDS ORDERED: CEFEPIME CONSULT ACTIVE PRN (09:04)
[2019-08-19] MEDS ORDERED: TOBRAMYCIN CONSULT ACTIVE PRN (09:04)
[2019-08-19] MEDS: INSULIN ASPART 100 UNITS/ML 3 ML PEN SC SCH ×4 (09:22→21:35)
[2019-08-19] MEDS ORDERED: LACTATED RINGER'S 1,000 ML IV SCH (09:30)
--- NOTE | 2019-08-19 09:54 | Pulmonary Consultation ---
Date of Consultation August 19, 2019 Assessment & Plan (1) Cystic fibrosis with pulmonary exacerbation: This is a 24-year-old -[place] male with cystic fibrosis who has an unknown mutation and is generally noncompliant with therapy presenting to the hospital with an acute exacerbation of cystic fibrosis. He does have a history of pseudomonas aeruginosa and Serratia marcescens and a sputum culture on 06/25/2018. His MRSA screen is negative. - Vancomycin stopped 08/19/2019 - IV Zosyn stopped 08/19/2019 - Cefepime 2 g 3 times daily started 08/19/2019 - Tobramycin 10 mg/kg started on 08/19/2019. Will need appropriate peak and trough levels. Will coordinate with pharmacy. Continue dornase and duo nebs. I am also hydrating him gently with 125 mL of NS. Euvolemia is preferable in patients with thick inspissated secretions that have bronchiectasis. I have stopped his methylprednisone as there is no indication currently. He will need at least 2 weeks of IV antibiotics. I am holding his airway clearance (hypertonic saline and vest physiotherapy -we can reassess this daily) tt this time given his hemoptysis. Should his hemoptysis worsen, he will need transfer to a tertiary medical care center for interventional radiology and poss ible bronchial artery embolization. Avoid medical venous thromboembolism prophylaxis at this time. I did instruct him to ambulate around the room. He is currently on isolation for possible TB given his upper lobe cavitary lesions. I suspect this is just a sequelae of his underlying cystic fibrosis. QuantiFERON gold testing is pending. I am also sending for AFB sputum smears and cultures. Bacterial Gram stain and culture sputum also requested. Ideally, he should be seen at a tertiary Medical Center that is associated with a cystic fibrosis foundation. I am going to order routine labs for cystic fibrosis that he has not had an very long time. Vitamin A, D, E levels have been ordered as they are fat-soluble. INR is 1.2. I also ordered for nutrition consult. The patient will need double portions since he is a cystic fibrosis patient and has a low BMI. Lipase ordered as well. Continue with pancrelipase. Denies any bowel symptoms currently. Continue multivitamins. IgE level ordered as well given his history of asthma and cystic fibrosis. Needs hemoglobin A1c checked as well. Continue Breo Ellipta and montelukast for the time being. He is also having gastric reflux and have started him on famotidine twice daily. He does have mild pneumomediastinum for which the therapy is simply conservative. (2) Hemoptysis: (3) Acute respiratory failure with hypoxia: (4) Pseudomonas aeruginosa colonization: (5) Pneumomediastinum: (6) Gastric reflux: History of Present Illness Reason for Consultation: Cystic fibrosis with pulmonary exacerbation Requesting Physician: Dr. Neptali Irwin Attending Physician: Neptali Irwin MD History of Present Illness This is a 24-year-old -[place] male who is currently incarcerated with a history of cystic fibrosis (unknown mutation) who presented to the hospital yesterday due to increasing cough with bloody sputum. He was here June of last year and was seen by Dr. Nuñez for cystic fibrosis exacerbation. He notes that he has been having increasing cough with sputum and yesterday noticed about 100 mL of blood admixed with sputum. This morning he also had streaky blood in his sputum and he was able to show me a container. He denies any fevers. He notes that he is having chills in his back. No nausea or vomiting. He notes that his weight has been stable. He does have increasing shortness of breath. He is currently on 3-1/2 L of oxygen and saturating at 94%. He underwent a CT of his chest which demonstrated biapical fibrocavitary changes with cystic bronchiectasis. Diffuse groundglass opacities were also noted. the concern is been raised for possible tuberculosis. QuantiFERON gold and PPD have been sent. He has been incarcerated in [facility] alf for the last 5 years. He notes that he has a history of drug use and snorted various drugs in the past. He denies any smoking currently. His influenza testing was negative. He was initially started on vancomycin and Zosyn. Allergies Allergy/AdvReac Type Severity Reaction Status Date / Time No Known Allergies Allergy Unverified 08/18/19 14:42 Home Medications Home Medications Medication Instructions Recorded Confirmed Type Creon 3 cap PO UD 06/25/18 08/18/19 History Creon 5 cap PO TID 06/25/18 08/18/19 History Pulmozyme 2.5 mg INHALATION DAILY PRN 06/25/18 08/18/19 History Thera 1 tab PO DAILY 06/25/18 08/18/19 History azithromycin 500 mg PO MOWEFR 06/25/18 08/18/19 History fluticasone propion-salmeterol 1 inh INHALATION BID 06/25/18 08/18/19 History [Advair Diskus] ipratropium-albuterol 3 ml INHALATION QID PRN 06/25/18 08/18/19 History levalbuterol tartrate [Xopenex HFA] 2 puff INHALATION QID PRN 06/25/18 08/18/19 History montelukast [Singulair] 10 mg PO HS 06/25/18 08/18/19 History tobramycin 300 mg INHALATION BID 06/25/18 08/18/19 History ergocalciferol (vitamin D2) 1,250 mcg PO MO@0700 08/18/19 08/18/19 History [Vitamin D2] insulin regular human [Novolin R 5 unit SUBCUT QAM 08/18/19 08/18/19 History Flexpen] levofloxacin [Levaquin] 500 mg PO DAILY 08/18/19 08/18/19 History methylprednisolone sod suc(PF) 40 mg IM QAM 08/18/19 08/18/19 History Patient History Medical History Acute respiratory failure with hypoxia (Acute) Asthma Asthma (Acute) Cystic fibrosis Cystic fibrosis (Acute) Diabetes DM II (diabetes mellitus, type II), controlled (Acute) Multifocal pneumonia (Acute) Surgical History No significant past surgical history Family History Other No significant family history Social History Preferred Language: Nigerian Communication Ability: Effective Global Implementation Manager Required: No Beliefs That Will Affect Care: None marital status: Single Current Living Situation: Other Current Living Situation Comment: [facility] Other Information That Helps Us Care for You: No Feels Safe at Home: Yes Safety Concerns: Feels Safe At This Time Smoking Status: Former smoker Second Hand Exposure: No ; Hx Alcohol Use: No Hx Substance Use: No Review of Systems Review of Systems: All systems reviewed & are unremarkable except as noted in HPI & below Physical Exam Constitutional: Thin appearing -[place] male with numerous tattoos throughout his body. He is in no respiratory distress. He is lying in bed with a nasal cannula in place. There are 2 security guards around him. Eyes: PERRL, conjunctivae normal, anicteric sclerae ENMT: external ear and nose normal, oropharynx normal Neck: normal visual inspection Respiratory: Diffuse rhonchi bilaterally. Cardiovascular: RRR, no murmur, no edema Gastrointestinal (Abdomen): normal bowel sounds, soft, nontender, no hepatosplenomegaly Musculoskeletal: Head/Neck/Chest: head normal to inspection Significant acrocyanosis noted with clubbing. Skin: no rashes, warm and dry Neurologic: PERRL, EOMI, accommodation nl, no face palsy, no dysarthria Psychiatric: A+Ox3, euthymic affect Results & Data ([facility]) Vital Signs (Past 12 Hours) Vital Signs Temp Pulse Resp BP Pulse Ox 08/19/19 07:59 98.2 F 66 18 91/57 L 94 08/19/19 07:57 66 16 96 08/18/19 23:23 98.1 F 63 16 92/51 L 96 I personally reviewed his pertinent labs and chest imaging. I also reviewed his prior notes. PG Care Time/CCT Total # of Minutes Spent Total Time Spent with Patient: Total time spent is greater than 50% in coordination of care (as documented) at patient's floor/unit and/or counseling patient: Coding Level of Care Code 98678 Inpt Consult Level 5 Diagnoses Cystic fibrosis with pulmonary exacerbation E84.0 Hemoptysis R04.2 Acute respiratory failure with hypoxia J96.01 Pseudomonas aeruginosa colonization Z22.39 Pneumomediastinum J98.2 Gastric reflux K21.9
--- NOTE | 2019-08-19 10:22 | Pharmacy Report ---
Pharmacy Abx Dose Short Note - Date of Service August 19, 2019 - Assessment & Plan Assessment 24 year old M receiving vancomycin and zosyn initially on admission; Pulmonary consulted and antibiotics changed this AM to cefepime and tobramycin. Patient with cystic fibrosis with pulmonary exacerbation. Has history of PA and serratia from sputum cultures 06/2018. Plan Tobramycin: * Dosed 560 mg iv q 24 hrs (~10 mg/kg - actual bw). Cystic Fibrosis consensus guidelines recommend extended interval dosing as preferred method for patients with cystic fibrosis without renal insufficiency (CrCl >150 ml/min). The starting dose recommended is 10 mg/kg/24 hrs * Due to altered pharmacokinetics in patient's with CF, published nomograms available should not be used d/t possible suboptimal concentrations * Monitoring of serum levels twice following the first dose have been suggested to calculate pharmacokinetics * Will plan to obtain level 1 hour and 5 hours after the end of the one hour infusion dose today * Will follow up tomorrow to determine if dose/frequency appropriate Cefepime: * 2 gm iv q 8 hrs - appropriate for renal function / no change Pharmacy will continue to follow and will adjust dose/frequency as necessary. Thank you.
[2019-08-19 10:28] LABS: Estimated Average Glucose 160 mg/dl; Hemoglobin A1C 7.2 % (4.5-5.6)
[2019-08-19] MEDS: DEXTROSE 5% IV SCH (10:59)
[2019-08-19] MEDS: CEFEPIME 2,000 MG in SYRINGE 7.5 ML IV SCH ×2 (10:59→17:40)
[2019-08-19] MEDS: SODIUM CHLORIDE 0.9% 1000ML 1,000 ML IV SCH ×2 (10:59→21:28)
[2019-08-19] MEDS: TOBRAMYCIN SULFATE IV SCH (10:59)
[2019-08-19] MEDS ORDERED: VANCOMYCIN TROUGH ONE (13:30)
--- NOTE | 2019-08-19 14:27 | Electrocardiogram Report ---
Test Reason : Blood Pressure : / mmHG Vent. Rate : 093 BPM Atrial Rate : 093 BPM P-R Int : 134 ms QRS Dur : 072 ms QT Int : 318 ms P-R-T Axes : 083 082 071 degrees QTc Int : 395 ms Normal sinus rhythm Early repolarization Normal ECG When compared with ECG of 25-JUN-2018 20:35, No significant change was found Confirmed by Madi Robb ([id number]) on 08/19/2019 2:27:29 PM Referred By: REFERRED SELF Confirmed By:Brooks Robb
--- NOTE | 2019-08-19 14:56 | Hospitalist Progress Note ---
Date of Service August 19, 2019 Assessment & Plan (1) Cystic fibrosis with pulmonary exacerbation: - Presented with hypoxia c/w acute exacerbation of CF. - Chest CTA with multifocal groundglass opacities to suggest pneumonitis with bronchiolitis. - Continue Cefepime 2 gm IV TID and Tobramycin -- will need at least 2 weeks of IV abx. - Holding airway clearance per pulm due to hemoptysis; will need transferred to tertiary care if he begins to clinically deteriorate. - Continue Breo-Ellipta daily. - Dornase daily, Duonebs QID, Xopenex QID prn. - NS at 125 cc/hr for IV fluid hydration. (2) Hemoptysis: - PPD pending, will need to be completed on 08/20. - Quantiferon gold pending along with AFB sputum smears and cultures. - Airborne precautions due to concern for TB. - CTA was negative for pulmonary embolism. (3) Acute respiratory failure with hypoxia: - Currently requiring 4L via NC. - Wean oxygen if tolerating. (4) Pseudomonas aeruginosa colonization: - Currently on Tobramycin IV. (5) Cavitary pneumonia: - Concern for TB -- work up as noted above. (6) Hypotension: - BP has been low -- 90's. - IV fluids at 125 cc/hr. (7) Pneumomediastinum: - Conservative management. (8) Gastric reflux: - Pepcid BID. (9) Malnutrition: - BMI 17.0. - Vit A, D, E levels pending. - Consulting nutrition; recommend to double portion sizes due to low BMI. - Continue Creon & multivitamin as prescribed. (10) DVT prophylaxis: - SCDs; hold pharmacologic ppx in setting of hemoptysis. Dispo: Med/surg; discharge pending improvement in resp status. May require transfer to tertiary care center. Admission and Anticipated Discharge Date Admission Date: August 18, 2019 Subjective Pt. is currently requiring 4L via NC. C/o SOB at rest and with exertion. Has a cough with hemoptysis, no improvement. Denies chest pain. Review of Systems Review of Systems: All systems reviewed & are unremarkable except as noted in HPI & below Constitutional: + fatigue and + weakness; no fever, no chills and no anorexia Respiratory: + cough, + dyspnea, + dyspnea on exertion, + hemoptysis and + sputum production Cardiovascular: no chest pain, no palpitations and no edema Gastrointestinal: no abdominal pain, no nausea and no constipation Genitourinary: no difficulty urinating Musculoskeletal: no back pain and no joint pain Integumentary: no non-healing lesions Physical Exam Physical Exam: General: Resting comfortably HEENT: NC/AT; PERRLA with EOMI; [place] conjunctiva, MMM. No erythema of posterior pharynx Neck: Supple and nontender Cardiac: RRR Lungs: 4L via NC; diffuse rhonchi throughout Abdomen: Bowel normoactive X 4; Nontender to palpation Extremities: Warm. No edema present Neuro: No focal weakness Skin: No rash Results & Data ([facility]) Vital Signs (Past 12 Hours) Vital Signs Temp Pulse Resp BP Pulse Ox 08/19/19 07:59 36.8 C 66 18 91/57 L 94 08/19/19 07:57 66 16 96 Laboratory Results 08/19/19 08/19/19 08/19/19 Range/Units 12:48 12:07 09:52 WBC (4.8-10.8) K/uL RBC (4.7-6.1) M/uL Hgb (14.0-18.0) g/dL Hct (42-52) % MCV (80-100) fL MCH (25-34) pg MCHC (32-36) g/dL RDW Std Deviation (36.4-46.3) fL RDW Coeff of Jerry (11.5-14.5) % Plt Count (130-400) K/uL MPV (7.4-10.4) fL Immature Gran % (Auto) % Neut % (Auto) % Lymph % (Auto) % [place] % (Auto) % Eos % (Auto) % Baso % (Auto) % Immature Gran # (Auto) (0.00-0.02) K/uL Neut # (Auto) (1.4-6.5) K/uL Lymph # (Auto) (1.2-3.4) K/uL [place] # (Auto) (0.11-0.59) K/uL Eos # (Auto) (0-0.5) K/uL Baso # (Auto) (0-0.2) K/uL Sodium (136-145) mmol/L Potassium (3.5-5.1) mmol/L Chloride (98-107) mmol/L Carbon Dioxide (21-32) mmol/L Anion Gap (3-11) BUN (7-18) mg/dl Creatinine (0.6-1.4) mg/dl Est Cr Clr Drug Dosing ml/min Est GFR ( Amer) Est GFR (Non-Af Amer) BUN/Creatinine Ratio (10-20) Glucose (70-99) mg/dl POC Glucose 100 H (70-99) mg/dl Estimat Average Glucose 160 mg/dl Hemoglobin A1c 7.2 H (4.5-5.6) % Calcium (8.5-10.1) mg/dl Magnesium (1.8-2.4) mg/dl Lipase (73-393) U/L 25-OH Vitamin D Total (30-100) ng/ml Urine Color Urine Appearance (Clear) Urine pH (4.5-7.5) Ur Specific [place] (1.000-1.030) Urine Protein (Negative) Urine Glucose (UA) (Negative) Urine Ketones (Negative) Urine Blood (Negative) Urine Nitrite (Negative) Urine Bilirubin (Negative) Urine Urobilinogen (Negative) Ur Leukocyte Esterase (Negative) Nasal Screen MRSA (PCR) (Negative) Random Tobramycin 19.20 H* mcg/ml IgE TB Test (QFT) Gold Plus TB Test (QFT) Nil TB Test Mitogen - Nil TB Test Ag - Nil 1 TB Test Ag - Nil 2 08/19/19 08/19/19 08/19/19 Range/Units 09:52 09:52 09:52 WBC (4.8-10.8) K/uL RBC (4.7-6.1) M/uL Hgb (14.0-18.0) g/dL Hct (42-52) % MCV (80-100) fL MCH (25-34) pg MCHC (32-36) g/dL RDW Std Deviation (36.4-46.3) fL RDW Coeff of Jerry (11.5-14.5) % Plt Count (130-400) K/uL MPV (7.4-10.4) fL Immature Gran % (Auto) % Neut % (Auto) % Lymph % (Auto) % [place] % (Auto) % Eos % (Auto) % Baso % (Auto) % Immature Gran # (Auto) (0.00-0.02) K/uL Neut # (Auto) (1.4-6.5) K/uL Lymph # (Auto) (1.2-3.4) K/uL [place] # (Auto) (0.11-0.59) K/uL Eos # (Auto) (0-0.5) K/uL Baso # (Auto) (0-0.2) K/uL Sodium (136-145) mmol/L Potassium (3.5-5.1) mmol/L Chloride (98-107) mmol/L Carbon Dioxide (21-32) mmol/L Anion Gap (3-11) BUN (7-18) mg/dl Creatinine (0.6-1.4) mg/dl Est Cr Clr Drug Dosing ml/min Est GFR ( Amer) Est GFR (Non-Af Amer) BUN/Creatinine Ratio (10-20) Glucose (70-99) mg/dl POC Glucose (70-99) mg/dl Estimat Average Glucose mg/dl Hemoglobin A1c (4.5-5.6) % Calcium (8.5-10.1) mg/dl Magnesium (1.8-2.4) mg/dl Lipase < 10 L (73-393) U/L 25-OH Vitamin D Total 53.9 (30-100) ng/ml Urine Color Urine Appearance (Clear) Urine pH (4.5-7.5) Ur Specific [place] (1.000-1.030) Urine Protein (Negative) Urine Glucose (UA) (Negative) Urine Ketones (Negative) Urine Blood (Negative) Urine Nitrite (Negative) Urine Bilirubin (Negative) Urine Urobilinogen (Negative) Ur Leukocyte Esterase (Negative) Nasal Screen MRSA (PCR) (Negative) Random Tobramycin mcg/ml IgE Pending TB Test (QFT) Gold Plus TB Test (QFT) Nil TB Test Mitogen - Nil TB Test Ag - Nil 1 TB Test Ag - Nil 2 08/19/19 08/19/19 08/19/19 Range/Units 08:23 07:39 07:39 WBC 7.50 (4.8-10.8) K/uL RBC 4.42 L (4.7-6.1) M/uL Hgb 11.4 L (14.0-18.0) g/dL Hct 37.2 L (42-52) % MCV 84.2 (80-100) fL MCH 25.8 (25-34) pg MCHC 30.6 L (32-36) g/dL RDW Std Deviation 39.2 (36.4-46.3) fL RDW Coeff of Jerry 13.0 (11.5-14.5) % Plt Count 252 (130-400) K/uL MPV 9.0 (7.4-10.4) fL Immature Gran % (Auto) 0.1 % Neut % (Auto) 55.6 % Lymph % (Auto) 31.5 % [place] % (Auto) 10.4 % Eos % (Auto) 1.9 % Baso % (Auto) 0.5 % Immature Gran # (Auto) 0.01 (0.00-0.02) K/uL Neut # (Auto) 4.17 (1.4-6.5) K/uL Lymph # (Auto) 2.36 (1.2-3.4) K/uL [place] # (Auto) 0.78 H (0.11-0.59) K/uL Eos # (Auto) 0.14 (0-0.5) K/uL Baso # (Auto) 0.04 (0-0.2) K/uL Sodium 136 (136-145) mmol/L Potassium 4.2 (3.5-5.1) mmol/L Chloride 101 (98-107) mmol/L Carbon Dioxide 32 (21-32) mmol/L Anion Gap 3.0 (3-11) BUN 8 (7-18) mg/dl Creatinine 0.67 (0.6-1.4) mg/dl Est Cr Clr Drug Dosing 134.2 ml/min Est GFR ( Amer) > 150.0 Est GFR (Non-Af Amer) 132.6 BUN/Creatinine Ratio 11.5 (10-20) Glucose 83 (70-99) mg/dl POC Glucose 109 H (70-99) mg/dl Estimat Average Glucose mg/dl Hemoglobin A1c (4.5-5.6) % Calcium 8.4 L (8.5-10.1) mg/dl Magnesium 1.8 (1.8-2.4) mg/dl Lipase (73-393) U/L 25-OH Vitamin D Total (30-100) ng/ml Urine Color Urine Appearance (Clear) Urine pH (4.5-7.5) Ur Specific [place] (1.000-1.030) Urine Protein (Negative) Urine Glucose (UA) (Negative) Urine Ketones (Negative) Urine Blood (Negative) Urine Nitrite (Negative) Urine Bilirubin (Negative) Urine Urobilinogen (Negative) Ur Leukocyte Esterase (Negative) Nasal Screen MRSA (PCR) (Negative) Random Tobramycin mcg/ml IgE TB Test (QFT) Gold Plus TB Test (QFT) Nil TB Test Mitogen - Nil TB Test Ag - Nil 1 TB Test Ag - Nil 2 08/19/19 08/18/19 08/18/19 Range/Units 04:30 20:40 19:35 WBC (4.8-10.8) K/uL RBC (4.7-6.1) M/uL Hgb (14.0-18.0) g/dL Hct (42-52) % MCV (80-100) fL MCH (25-34) pg MCHC (32-36) g/dL RDW Std Deviation (36.4-46.3) fL RDW Coeff of Jerry (11.5-14.5) % Plt Count (130-400) K/uL MPV (7.4-10.4) fL Immature Gran % (Auto) % Neut % (Auto) % Lymph % (Auto) % [place] % (Auto) % Eos % (Auto) % Baso % (Auto) % Immature Gran # (Auto) (0.00-0.02) K/uL Neut # (Auto) (1.4-6.5) K/uL Lymph # (Auto) (1.2-3.4) K/uL [place] # (Auto) (0.11-0.59) K/uL Eos # (Auto) (0-0.5) K/uL Baso # (Auto) (0-0.2) K/uL Sodium (136-145) mmol/L Potassium (3.5-5.1) mmol/L Chloride (98-107) mmol/L Carbon Dioxide (21-32) mmol/L Anion Gap (3-11) BUN (7-18) mg/dl Creatinine (0.6-1.4) mg/dl Est Cr Clr Drug Dosing ml/min Est GFR ( Amer) Est GFR (Non-Af Amer) BUN/Creatinine Ratio (10-20) Glucose (70-99) mg/dl POC Glucose 115 H (70-99) mg/dl Estimat Average Glucose mg/dl Hemoglobin A1c (4.5-5.6) % Calcium (8.5-10.1) mg/dl Magnesium (1.8-2.4) mg/dl Lipase (73-393) U/L 25-OH Vitamin D Total (30-100) ng/ml Urine Color Yellow Urine Appearance Clear (Clear) Urine pH 6.0 (4.5-7.5) Ur Specific [place] 1.018 (1.000-1.030) Urine Protein Negative (Negative) Urine Glucose (UA) Negative (Negative) Urine Ketones Negative (Negative) Urine Blood Negative (Negative) Urine Nitrite Negative (Negative) Urine Bilirubin Negative (Negative) Urine Urobilinogen Negative (Negative) Ur Leukocyte Esterase Negative (Negative) Nasal Screen MRSA (PCR) Negative (Negative) Random Tobramycin mcg/ml IgE TB Test (QFT) Gold Plus TB Test (QFT) Nil TB Test Mitogen - Nil TB Test Ag - Nil 1 TB Test Ag - Nil 2 08/18/19 Range/Units 15:05 WBC (4.8-10.8) K/uL RBC (4.7-6.1) M/uL Hgb (14.0-18.0) g/dL Hct (42-52) % MCV (80-100) fL MCH (25-34) pg MCHC (32-36) g/dL RDW Std Deviation (36.4-46.3) fL RDW Coeff of Jerry (11.5-14.5) % Plt Count (130-400) K/uL MPV (7.4-10.4) fL Immature Gran % (Auto) % Neut % (Auto) % Lymph % (Auto) % [place] % (Auto) % Eos % (Auto) % Baso % (Auto) % Immature Gran # (Auto) (0.00-0.02) K/uL Neut # (Auto) (1.4-6.5) K/uL Lymph # (Auto) (1.2-3.4) K/uL [place] # (Auto) (0.11-0.59) K/uL Eos # (Auto) (0-0.5) K/uL Baso # (Auto) (0-0.2) K/uL Sodium (136-145) mmol/L Potassium (3.5-5.1) mmol/L Chloride (98-107) mmol/L Carbon Dioxide (21-32) mmol/L Anion Gap (3-11) BUN (7-18) mg/dl Creatinine (0.6-1.4) mg/dl Est Cr Clr Drug Dosing ml/min Est GFR ( Amer) Est GFR (Non-Af Amer) BUN/Creatinine Ratio (10-20) Glucose (70-99) mg/dl POC Glucose (70-99) mg/dl Estimat Average Glucose mg/dl Hemoglobin A1c (4.5-5.6) % Calcium (8.5-10.1) mg/dl Magnesium (1.8-2.4) mg/dl Lipase (73-393) U/L 25-OH Vitamin D Total (30-100) ng/ml Urine Color Urine Appearance (Clear) Urine pH (4.5-7.5) Ur Specific [place] (1.000-1.030) Urine Protein (Negative) Urine Glucose (UA) (Negative) Urine Ketones (Negative) Urine Blood (Negative) Urine Nitrite (Negative) Urine Bilirubin (Negative) Urine Urobilinogen (Negative) Ur Leukocyte Esterase (Negative) Nasal Screen MRSA (PCR) (Negative) Random Tobramycin mcg/ml IgE TB Test (QFT) Gold Plus Pending TB Test (QFT) Nil Pending TB Test Mitogen - Nil Pending TB Test Ag - Nil 1 Pending TB Test Ag - Nil 2 Pending PG Care Time/CCT Total # of Minutes Spent Total Time Spent with Patient: Total time spent is greater than 50% in coordination of care (as documented) at patient's floor/unit and/or counseling patient: Coding Level of Care Code 26633 Subseq Hosp Care Lvl 3 Diagnoses Cystic fibrosis with pulmonary exacerbation E84.0 Hemoptysis R04.2 Acute respiratory failure with hypoxia J96.01 Pseudomonas aeruginosa colonization Z22.39 Cavitary pneumonia J18.9; J98.4 Hypotension I95.9 Hypotension type: unspecified hypotension type Pneumomediastinum J98.2 Gastric reflux K21.9 Malnutrition E46 DVT prophylaxis Z29.9 (1) Hypotension Hypotension type: unspecified hypotension type Qualified Code(s): I95.9 - Hypotension, unspecified
[2019-08-19] MEDS ORDERED: SODIUM CHLOR 7% 4 ML NEB NEB SCH (19:00)
[2019-08-19] MEDS: MONTELUKAST SODIUM 10 MG TABLET PO SCH (21:27)
[2019-08-19] MEDS: FAMOTIDINE 20 MG TAB PO SCH (21:27)
[2019-08-20] MEDS: CEFEPIME 2,000 MG in SYRINGE 7.5 ML IV SCH ×3 (01:47→17:44)
[2019-08-20] MEDS: SODIUM CHLORIDE 0.9% 1000ML 1,000 ML IV SCH ×4 (03:12→23:56)
[2019-08-20 05:41] LABS: Estimated Average Glucose 160 mg/dl; Hemoglobin A1C 7.2 % (4.5-5.6)
[2019-08-20 06:54] LABS: Hematocrit (blood only) 36.7 % (42-52); Hemoglobin 11.4 g/dL (14.0-18.0); Mean Corpuscular Hemoglobin 25.8 pg (25-34); Mean Corpuscular Hgb Conc 31.1 g/dL (32-36); Mean Platelet Volume 9.1 fL (7.4-10.4); Platelet Count 275 K/uL (130-400); RDW Coefficient of Variation 12.9 % (11.5-14.5); RDW Standard Deviation 38.8 fL (36.4-46.3); Red Blood Count 4.42 M/uL (4.7-6.1)
[2019-08-20 07:02] LABS: Base Excess ABG 5.5 mEq/L (-9-1.8); HCO3 ABG 32 mmol/L (19-24); Oxygen Saturation ABG 89.6 % (90-95); PCO2 ABG 54 mmHg (35-46); PO2 ABG 60 mmHg (80-95); pH ABG 7.38 (7.35-7.45)
[2019-08-20 07:03] LABS: Allen Test Pos (Pos)
[2019-08-20 07:23] LABS: Blood Urea Nitrogen 16 mg/dl (7-18); Calcium 8.1 mg/dl (8.5-10.1); Carbon Dioxide 31 mmol/L (21-32); Chloride 101 mmol/L (98-107); Creatinine Clr Calc Pharmacy 149.9 ml/min; Est GFR (African American) > 150.0; Est GFR (Non-African American) 138.8; Glucose 95 mg/dl (70-99); Sodium 134 mmol/L (136-145)
[2019-08-20] MEDS: CEROVITE ADV FORMULA TAB PO SCH (08:34)
[2019-08-20] MEDS: FLUTICASONE/VILANTEROL 200/25MCG 14 PUFFS/INHALER INH SCH (08:35)
[2019-08-20] MEDS: FAMOTIDINE 20 MG TAB PO SCH ×2 (08:35→21:50)
[2019-08-20] MEDS: PANCREAZE (LIPASE 16,800U) CAP PO SCH ×3 (08:35→17:46)
[2019-08-20] MEDS: INSULIN ASPART 100 UNITS/ML 3 ML PEN SC SCH ×4 (09:35→21:03)
[2019-08-20] MEDS: TOBRAMYCIN SULFATE IV SCH (10:45)
[2019-08-20] MEDS: DEXTROSE 5% IV SCH (10:45)
[2019-08-20] MEDS ORDERED: DOCUSATE SODIUM/SENNA 50/8.6MG TAB PO PRN (10:59)
[2019-08-20 11:04] LABS: Quantiferon Mitogen-NIL 1.14 IU/mL; Quantiferon NIL 0.02 IU/mL; Quantiferon TB Gold Plus NEGATIVE (NEGATIVE); Quantiferon TB2-NIL 0.01 IU/mL
--- NOTE | 2019-08-20 11:10 | Pulmonology Progress Note ---
Date of Service August 20, 2019 Assessment & Plan (1) Cystic fibrosis with pulmonary exacerbation: This is a 24-year-old -[place]ic male with cystic fibrosis who has an unknown mutation and is generally noncompliant with therapy presenting to the hospital with an acute exacerbation of cystic fibrosis. He does have a history of pseudomonas aeruginosa and Serratia marcescens and a sputum culture on 06/25/2018. His MRSA screen is negative. - Vancomycin stopped 08/19/2019 - IV Zosyn stopped 08/19/2019 - Cefepime 2 g 3 times daily started 08/19/2019 - Tobramycin 10 mg/kg started on 08/19/2019. Will need appropriate peak and trough levels. Pharmacy aware. Following renal function. Continue dornase and duo nebs. I am also hydrating him gently with 125 mL of NS. Euvolemia is preferable in patients with thick inspissated secretions that have bronchiectasis. He will need at least 2 weeks of IV antibiotics. Hemoptysis has improved today. We can start him on vest percussive therapy 4 times a day for 15 minutes. Should his hemoptysis worsen, he will need transfer to a tertiary medical care center for interventional radiology and possible bronchial artery embolization. Avoid medical venous thromboembolism prophylaxis at this time. I did instruct him to ambulate around the room. I suspect this is just a sequelae of his underlying cystic fibrosis. QuantiFERON gold testing is negative. This does not rule out the possibility of nontuberculous Mycobacterium. Gram stain and culture is growing Pseudomonas aeruginosa that is largely pansensitive for gentamicin. AFB sputum and smear sputum culture has not been sent. Also going to order for an HIV test. He did consent for this. Ideally, he should be seen at a tertiary Medical Center that is associated with a cystic fibrosis foundation. I am going to order routine labs for cystic fibrosis that he has not had an very long time. Vitamin A, D, E levels have been ordered as they are fat-soluble, pending. INR is 1.2. Nutrition consult placed. The patient will need double portions since he is a cystic fibrosis patient and has a low BMI. Lipase <10. Continue with pancrelipase. He is having some constipation. I ordered for senna and docusate. Continue multivitamins. IgE level ordered as well given his history of asthma and cystic fibrosis. Hemoglobin A1c is 7.2. 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 He will need an oral glucose tolerance test as an outpatient. Please have the patient follow-up with endocrinology as an outpatient. Continue Breo Ellipta and montelukast for the time being. Continue famotidine for GERD He does have mild pneumomediastinum for which the therapy is simply conservative. (2) Hemoptysis: (3) Acute respiratory failure with hypoxia: (4) Pseudomonas aeruginosa colonization: (5) Pneumomediastinum: (6) Gastric reflux: Subjective Patient is laying in bed today. He is shackled to the bed. There is guardian family member by him. He notes that his hemoptysis has resolved today. His cough is been minimal. He continues to require 2 L of nasal cannula. Physical Exam Eyes: PERRL, conjunctivae normal, anicteric sclerae ENMT: external ear and nose normal, oropharynx normal Neck: normal visual inspection Cardiovascular: RRR, no murmur, no edema Gastrointestinal (Abdomen): normal bowel sounds, soft, nontender, no hepatosp lenomegaly Musculoskeletal: Head/Neck/Chest: head normal to inspection Skin: no rashes, warm and dry Neurologic: PERRL, EOMI, accommodation nl, no face palsy, no dysarthria Psychiatric: A+Ox3, euthymic affect Results & Data ([facility]) Vital Signs (Past 12 Hours) Vital Signs Temp Pulse Resp BP Pulse Ox 08/20/19 07:19 98.2 F 75 18 104/66 94 08/19/19 23:34 98.1 F 63 16 105/67 91 PG Care Time/CCT Total # of Minutes Spent Total Time Spent with Patient: Total time spent is greater than 50% in coordination of care (as documented) at patient's floor/unit and/or counseling patient: Coding Diagnoses Cystic fibrosis with pulmonary exacerbation E84.0 Hemoptysis R04.2 Acute respiratory failure with hypoxia J96.01 Pseudomonas aeruginosa colonization Z22.39 Pneumomediastinum J98.2 Gastric reflux K21.9
--- NOTE | 2019-08-20 16:12 | Hospitalist Progress Note ---
Date of Service August 20, 2019 Assessment & Plan (1) Cystic fibrosis with pulmonary exacerbation: - Presented with hypoxia c/w acute exacerbation of CF. - Chest CTA with multifocal groundglass opacities to suggest pneumonitis with bronchiolitis. - Sputum culture +Pseudomonas. - Continue Cefepime 2 gm IV TID and Tobramycin -- will need at least 2 weeks of IV abx. - Chest percussion therapy QID for 15 minutes. - Continue Breo-Ellipta daily. Dornase daily, Duonebs QID, Xopenex QID prn. - NS at 125 cc/hr for IV fluid hydration. (2) Hemoptysis: - PPD negative; Quantiferon gold negative. 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 - CTA was negative for pulmonary embolism. - HIV testing pending. - Airborne precautions. (3) Acute respiratory failure with hypoxia: - Currently requiring 2L via NC. - Wean oxygen if tolerating. (4) Pseudomonas aeruginosa colonization: - Currently on Tobramycin IV. - Pseudomonas +sputum culture. (5) Cavitary pneumonia: - TB work up negative as noted above. (6) Hypotension: - BP has been low, SBP 90-100's. - IV fluids at 125 cc/hr. (7) Pneumomediastinum: - Conservative management. (8) Gastric reflux: - Pepcid BID. (9) DM II (diabetes mellitus, type II), controlled: - A1C level 7.2 -- CF related DM. - F/u with endocrinology as outpatient. - SSI coverage. (10) Anemia: - Baseline hgb 11-12; will order iron studies in the morning, MCV is low. - Monitor CBC frequently. (11) Malnutrition: - BMI 17.0. - Vit A, D, E levels pending. - Consulted nutrition; recommend to double portion sizes due to low BMI. - Continue Creon & multivitamin as prescribed. (12) DVT prophylaxis: - SCDs; holding pharmacologic ppx in setting of hemoptysis. Dispo: Med/surg; discharge pending improvement in resp status. May require transfer to tertiary care center if he develops worsening hemoptysis. Admission and Anticipated Discharge Date Admission Date: August 18, 2019 Supervising Physician Co-Signing Physician Notes Attending Attestation: Chart reviewed, care plan d/w GABRIEL Martinez. I agree w/ the sanz components of her documentation. 24yo male - CF w/ exacerbation / superimposed pneumonia. Pulmonary recs appreciated. Cont double coverage IV abx (cefepime/tobramycin) for pseudomonas. Dwight Jimenez MD Subjective Pt. is weaned to 2L via NC today. Has cough, does report SOB is improving. Pulm following. Review of Systems Review of Systems: All systems reviewed & are unremarkable except as noted in HPI & below Constitutional: + fatigue and + weakness; no fever, no chills and no anorexia Respiratory: + cough, + dyspnea and + dyspnea on exertion; no wheezing Cardiovascular: no chest pain, no palpitations and no edema Gastrointestinal: no abdominal pain, no nausea, no vomiting and no constipation Genitourinary: no difficulty urinating Musculoskeletal: no back pain and no joint pain Integumentary: no non-healing lesions Physical Exam Physical Exam: General: Resting comfortably HEENT: NC/AT; PERRLA with EOMI; [place] conjunctiva, MMM. No erythema of posterior pharynx Neck: Supple and nontender Cardiac: RRR Lungs: 2 via NC; rhonchi throughout Abdomen: Bowel normoactive X 4; Nontender to palpation Extremities: Warm. No edema present Neuro: No focal weakness Skin: No rash Results & Data ([facility]) Vital Signs (Past 12 Hours) Vital Signs Temp Pulse Resp BP Pulse Ox 08/20/19 15:35 36.7 C 63 18 97/58 L 91 08/20/19 07:19 36.8 C 75 18 104/66 94 Laboratory Results 08/20/19 08/20/19 08/20/19 Range/Units 11:42 11:36 07:44 WBC (4.8-10.8) K/uL RBC (4.7-6.1) M/uL Hgb (14.0-18.0) g/dL Hct (42-52) % MCV (80-100) fL MCH (25-34) pg MCHC (32-36) g/dL RDW Std Deviation (36.4-46.3) fL RDW Coeff of Jerry (11.5-14.5) % Plt Count (130-400) K/uL MPV (7.4-10.4) fL ABG pH (7.35-7.45) ABG pCO2 (35-46) mmHg ABG pO2 (80-95) mmHg ABG HCO3 (19-24) mmol/L ABG O2 Saturation (90-95) % ABG Base Excess (-9-1.8) mEq/L Arnold Test (Pos) Barometric Pressure mm/Hg Oxygen Given Sodium (136-145) mmol/L Potassium (3.5-5.1) mmol/L Chloride (98-107) mmol/L Carbon Dioxide (21-32) mmol/L Anion Gap (3-11) BUN (7-18) mg/dl Creatinine (0.6-1.4) mg/dl Est Cr Clr Drug Dosing ml/min Est GFR ( Amer) Est GFR (Non-Af Amer) BUN/Creatinine Ratio (10-20) Glucose (70-99) mg/dl POC Glucose 135 H 132 H (70-99) mg/dl Estimat Average Glucose mg/dl Hemoglobin A1c (4.5-5.6) % Calcium (8.5-10.1) mg/dl Vitamin A Alpha-Tocopherol B- and G-Tocopherol Random Tobramycin mcg/ml IgE (<GU=499) kU/L HIV 1&2 Ab/P24 Ag 4thGn Neg (Neg) TB Test (QFT) Gold Plus (NEGATIVE) TB Test (QFT) Nil IU/mL TB Test Mitogen - Nil IU/mL TB Test Ag - Nil 1 IU/mL TB Test Ag - Nil 2 IU/mL 08/20/19 08/20/19 08/20/19 Range/Units 06:41 06:30 06:30 WBC 9.00 (4.8-10.8) K/uL RBC 4.42 L (4.7-6.1) M/uL Hgb 11.4 L (14.0-18.0) g/dL Hct 36.7 L (42-52) % MCV 83.0 (80-100) fL MCH 25.8 (25-34) pg MCHC 31.1 L (32-36) g/dL RDW Std Deviation 38.8 (36.4-46.3) fL RDW Coeff of Jerry 12.9 (11.5-14.5) % Plt Count 275 (130-400) K/uL MPV 9.1 (7.4-10.4) fL ABG pH 7.38 (7.35-7.45) ABG pCO2 54 H (35-46) mmHg ABG pO2 60 L (80-95) mmHg ABG HCO3 32 H (19-24) mmol/L ABG O2 Saturation 89.6 L (90-95) % ABG Base Excess 5.5 H (-9-1.8) mEq/L Arnold Test Pos (Pos) Barometric Pressure 728.2 mm/Hg Oxygen Given 2L Sodium 134 L (136-145) mmol/L Potassium 4.0 (3.5-5.1) mmol/L Chloride 101 (98-107) mmol/L Carbon Dioxide 31 (21-32) mmol/L Anion Gap 2.0 L (3-11) BUN 16 D (7-18) mg/dl Creatinine 0.60 (0.6-1.4) mg/dl Est Cr Clr Drug Dosing 149.9 ml/min Est GFR ( Amer) > 150.0 Est GFR (Non-Af Amer) 138.8 BUN/Creatinine Ratio 27.0 H (10-20) Glucose 95 (70-99) mg/dl POC Glucose (70-99) mg/dl Estimat Average Glucose mg/dl Hemoglobin A1c (4.5-5.6) % Calcium 8.1 L (8.5-10.1) mg/dl Vitamin A Alpha-Tocopherol B- and G-Tocopherol Random Tobramycin mcg/ml IgE (<AW=585) kU/L HIV 1&2 Ab/P24 Ag 4thGn (Neg) TB Test (QFT) Gold Plus (NEGATIVE) TB Test (QFT) Nil IU/mL TB Test Mitogen - Nil IU/mL TB Test Ag - Nil 1 IU/mL TB Test Ag - Nil 2 IU/mL 08/20/19 08/19/19 08/19/19 Range/Units 06:30 20:56 17:04 WBC (4.8-10.8) K/uL RBC (4.7-6.1) M/uL Hgb (14.0-18.0) g/dL Hct (42-52) % MCV (80-100) fL MCH (25-34) pg MCHC (32-36) g/dL RDW Std Deviation (36.4-46.3) fL RDW Coeff of Jerry (11.5-14.5) % Plt Count (130-400) K/uL MPV (7.4-10.4) fL ABG pH (7.35-7.45) ABG pCO2 (35-46) mmHg ABG pO2 (80-95) mmHg ABG HCO3 (19-24) mmol/L ABG O2 Saturation (90-95) % ABG Base Excess (-9-1.8) mEq/L Arnold Test (Pos) Barometric Pressure mm/Hg Oxygen Given Sodium (136-145) mmol/L Potassium (3.5-5.1) mmol/L Chloride (98-107) mmol/L Carbon Dioxide (21-32) mmol/L Anion Gap (3-11) BUN (7-18) mg/dl Creatinine (0.6-1.4) mg/dl Est Cr Clr Drug Dosing ml/min Est GFR ( Amer) Est GFR (Non-Af Amer) BUN/Creatinine Ratio (10-20) Glucose (70-99) mg/dl POC Glucose 90 (70-99) mg/dl Estimat Average Glucose mg/dl Hemoglobin A1c (4.5-5.6) % Calcium (8.5-10.1) mg/dl Vitamin A Pending Alpha-Tocopherol Pending B- and G-Tocopherol Pending Random Tobramycin 5.60 mcg/ml IgE (<TA=783) kU/L HIV 1&2 Ab/P24 Ag 4thGn (Neg) TB Test (QFT) Gold Plus (NEGATIVE) TB Test (QFT) Nil IU/mL TB Test Mitogen - Nil IU/mL TB Test Ag - Nil 1 IU/mL TB Test Ag - Nil 2 IU/mL 08/19/19 08/19/19 08/19/19 Range/Units 16:25 09:52 07:39 WBC (4.8-10.8) K/uL RBC (4.7-6.1) M/uL Hgb (14.0-18.0) g/dL Hct (42-52) % MCV (80-100) fL MCH (25-34) pg MCHC (32-36) g/dL RDW Std Deviation (36.4-46.3) fL RDW Coeff of Jerry (11.5-14.5) % Plt Count (130-400) K/uL MPV (7.4-10.4) fL ABG pH (7.35-7.45) ABG pCO2 (35-46) mmHg ABG pO2 (80-95) mmHg ABG HCO3 (19-24) mmol/L ABG O2 Saturation (90-95) % ABG Base Excess (-9-1.8) mEq/L Arnold Test (Pos) Barometric Pressure mm/Hg Oxygen Given Sodium (136-145) mmol/L Potassium (3.5-5.1) mmol/L Chloride (98-107) mmol/L Carbon Dioxide (21-32) mmol/L Anion Gap (3-11) BUN (7-18) mg/dl Creatinine (0.6-1.4) mg/dl Est Cr Clr Drug Dosing ml/min Est GFR ( Amer) Est GFR (Non-Af Amer) BUN/Creatinine Ratio (10-20) Glucose (70-99) mg/dl POC Glucose 211 H (70-99) mg/dl Estimat Average Glucose 160 mg/dl Hemoglobin A1c 7.2 H (4.5-5.6) % Calcium (8.5-10.1) mg/dl Vitamin A Cancelled Alpha-Tocopherol Cancelled B- and G-Tocopherol Cancelled Random Tobramycin mcg/ml IgE 114 (<UG=918) kU/L HIV 1&2 Ab/P24 Ag 4thGn (Neg) TB Test (QFT) Gold Plus (NEGATIVE) TB Test (QFT) Nil IU/mL TB Test Mitogen - Nil IU/mL TB Test Ag - Nil 1 IU/mL TB Test Ag - Nil 2 IU/mL 08/18/19 Range/Units 15:05 WBC (4.8-10.8) K/uL RBC (4.7-6.1) M/uL Hgb (14.0-18.0) g/dL Hct (42-52) % MCV (80-100) fL MCH (25-34) pg MCHC (32-36) g/dL RDW Std Deviation (36.4-46.3) fL RDW Coeff of Jerry (11.5-14.5) % Plt Count (130-400) K/uL MPV (7.4-10.4) fL ABG pH (7.35-7.45) ABG pCO2 (35-46) mmHg ABG pO2 (80-95) mmHg ABG HCO3 (19-24) mmol/L ABG O2 Saturation (90-95) % ABG Base Excess (-9-1.8) mEq/L Arnold Test (Pos) Barometric Pressure mm/Hg Oxygen Given Sodium (136-145) mmol/L Potassium (3.5-5.1) mmol/L Chloride (98-107) mmol/L Carbon Dioxide (21-32) mmol/L Anion Gap (3-11) BUN (7-18) mg/dl Creatinine (0.6-1.4) mg/dl Est Cr Clr Drug Dosing ml/min Est GFR ( Amer) Est GFR (Non-Af Amer) BUN/Creatinine Ratio (10-20) Glucose (70-99) mg/dl POC Glucose (70-99) mg/dl Estimat Average Glucose mg/dl Hemoglobin A1c (4.5-5.6) % Calcium (8.5-10.1) mg/dl Vitamin A Alpha-Tocopherol B- and G-Tocopherol Random Tobramycin mcg/ml IgE (<PR=301) kU/L HIV 1&2 Ab/P24 Ag 4thGn (Neg) TB Test (QFT) Gold Plus NEGATIVE (NEGATIVE) TB Test (QFT) Nil 0.02 IU/mL TB Test Mitogen - Nil 1.14 IU/mL TB Test Ag - Nil 1 0.00 IU/mL TB Test Ag - Nil 2 0.01 IU/mL PG Care Time/CCT Total # of Minutes Spent Total Time Spent with Patient: Total time spent is greater than 50% in coordination of care (as documented) at patient's floor/unit and/or counseling patient: Coding Level of Care Code 47036 Subseq Hosp Care Lvl 3 Diagnoses Cystic fibrosis with pulmonary exacerbation E84.0 Hemoptysis R04.2 Acute respiratory failure with hypoxia J96.01 Pseudomonas aeruginosa colonization Z22.39 Cavitary pneumonia J18.9; J98.4 Hypotension I95.9 Hypotension type: unspecified hypotension type Pneumomediastinum J98.2 Gastric reflux K21.9 DM II (diabetes mellitus, type II), controlled E11.9 Anemia D64.9 Malnutrition E46 DVT prophylaxis Z29.9 (1) Hypotension Hypotension type: unspecified hypotension type Qualified Code(s): I95.9 - Hypotension, unspecified
--- NOTE | 2019-08-20 16:33 | Pharmacy Report ---
Pharmacy Abx Dose Short Note - Date of Service August 20, 2019 - Assessment & Plan Assessment * 24 year old M receiving cefepime and tobramycin. Patient with cystic fibrosis with pulmonary exacerbation. Has history of PA and serratia from sputum cultures 06/2018. * Two random levels obtained yesterday with calculated t1/2 of 2.4 hr indicating q24h interval is appropriate. However, initial level drawn prior to completion of the distribution phase therefore calculated t/12 may be shorter than actual t1/2. * Will maintain 10 mg/kg *actual* BW dose (note: actual < ideal) and maintain q24h interval but re-draw two levels. Will obtain 2nd level 6 hours prior to next scheduled dose to help determine adequacy of post-antibiotic effect Plan * Continue tobramycin 560 mg IV q24h * Tobramycin random levels @ 1700 today and @ 0500 tomorrow Cefepime: * 2 gm iv q 8 hrs - appropriate for renal function / no change Pharmacy will continue to follow and will adjust dose/frequency as necessary. Thank you.
[2019-08-20] MEDS ORDERED: PPD CHECK ONE (20:30)
[2019-08-20] MEDS: MONTELUKAST SODIUM 10 MG TABLET PO SCH (21:51)
[2019-08-21] MEDS: CEFEPIME 2,000 MG in SYRINGE 7.5 ML IV SCH ×3 (01:30→17:09)
[2019-08-21 05:46] LABS: Hematocrit (blood only) 36.3 % (42-52); Hemoglobin 11.1 g/dL (14.0-18.0); Mean Corpuscular Hemoglobin 25.5 pg (25-34); Mean Corpuscular Hgb Conc 30.6 g/dL (32-36); Mean Corpuscular Volume 83.3 fL (80-100); Mean Platelet Volume 9.2 fL (7.4-10.4); Platelet Count 231 K/uL (130-400); RDW Coefficient of Variation 13.1 % (11.5-14.5); RDW Standard Deviation 39.1 fL (36.4-46.3); Red Blood Count 4.36 M/uL (4.7-6.1); White Blood Count 6.97 K/uL (4.8-10.8)
[2019-08-21 06:13] LABS: BUN Creatinine Ratio 18.5 (10-20); Blood Urea Nitrogen 13 mg/dl (7-18); Calcium 7.9 mg/dl (8.5-10.1); Carbon Dioxide 34 mmol/L (21-32); Chloride 101 mmol/L (98-107); Creatinine Clr Calc Pharmacy 126.7 ml/min; Est GFR (African American) > 150.0; Est GFR (Non-African American) 129.5; Glucose 97 mg/dl (70-99); Potassium 4.1 mmol/L (3.5-5.1); Sodium 136 mmol/L (136-145)
[2019-08-21 06:21] LABS: Ferritin 37.3 ng/ml (8-388); Iron 63 mcg/dl (35-175); Total Iron Binding Capacity 286 mcg/dl (250-450); Transferrin 242 mg/dl (200-360); Transferrin Percent Saturation 18 % (20-50)
[2019-08-21] MEDS ORDERED: Nursing to Pharmacy Communication ONE ×2 (06:36→11:09)
[2019-08-21] MEDS: SODIUM CHLORIDE 0.9% 1000ML 1,000 ML IV SCH ×3 (08:21→17:05)
[2019-08-21] MEDS: PANCREAZE (LIPASE 16,800U) CAP PO SCH ×3 (08:21→17:11)
[2019-08-21] MEDS: FLUTICASONE/VILANTEROL 200/25MCG 14 PUFFS/INHALER INH SCH (08:21)
[2019-08-21] MEDS: CEROVITE ADV FORMULA TAB PO SCH (08:22)
[2019-08-21] MEDS: FAMOTIDINE 20 MG TAB PO SCH ×2 (08:22→20:31)
--- NOTE | 2019-08-21 09:28 | Pharmacy Report ---
Pharmacy Abx Dose Short Note - Date of Service August 21, 2019 - Assessment & Plan Assessment 24 year old M on day 3 of cefepime and tobramycin IV for cystic fibrosis with pulmonary exacerbation. * BC negative to date. Sputum culture growing P. aeruginosa (intermediate to gent - sensitive to all other abx tested) * h/o PA and serratia from sputum cultures 06/2018. * Two tobramycin random levels were obtained after his 08/20 dose to determine dosing interval. Calculated half life indicates a 24h interval is appropriate. Drug was still detectable at 18 hours post infusion therefore post antibiotic effect should be adequate for the remainder of the 24 hour dosing interval. Plan Tobramycin * Continue tobramycin 560 mg (10 mg/kg actual body weight) IV q24h * Further levels will be ordered in 5 days or if warranted by change in clinical status Cefepime: * 2 gm iv q 8 hrs - appropriate for renal function / no change Pharmacy will continue to follow and will adjust dose/frequency as necessary. Thank you.
[2019-08-21] MEDS: DEXTROSE 5% IV SCH (10:50)
[2019-08-21] MEDS: TOBRAMYCIN SULFATE IV SCH (10:50)
[2019-08-21] MEDS: INSULIN ASPART 100 UNITS/ML 3 ML PEN SC SCH ×4 (10:58→20:32)
[2019-08-21] MEDS ORDERED: SODIUM CHLORIDE 0.65% NA SOLN 45 ML (OCEAN) PRN (14:06)
--- NOTE | 2019-08-21 17:32 | Pulmonology Progress Note ---
Date of Service August 21, 2019 Assessment & Plan (1) Cystic fibrosis with pulmonary exacerbation: This is a 24-year-old -[place] Islander male with cystic fibrosis who has an unknown mutation and is generally noncompliant with therapy presenting to the hospital with an acute exacerbation of cystic fibrosis. He does have a history of pseudomonas aeruginosa and Serratia marcescens and a sputum culture on 06/25/2018. His MRSA screen is negative. - Vancomycin stopped 08/19/2019 - IV Zosyn stopped 08/19/2019 - Cefepime 2 g 3 times daily started 08/19/2019 - Tobramycin 10 mg/kg started on 08/19/2019. Will need appropriate peak and trough levels. Pharmacy aware. Following renal function. Continue dornase and duo nebs. I am also hydrating him gently with 125 mL of NS. Euvolemia is preferable in patients with thick inspissated secretions that have bronchiectasis. Continue for total of 10 days of IV antibiotics and then 4 days of p.o. Levaquin. I suspect this is just a sequelae of his underlying cystic fibrosis. QuantiFERON gold testing is negative. This does not rule out the possibility of nontuberculous Mycobacterium. Gram stain and culture is growing Pseudomonas aeruginosa that is largely pansensitive except for gentamicin. AFB culture and smear sputum testing sent and pending. HIV testing was negative. Ideally, he should be seen at a tertiary Medical Center that is associated with a cystic fibrosis foundation. I am going to order routine labs for cystic fibrosis that he has not had an very long time. Vitamin A, D, E levels have been ordered as they are fat-soluble, pending. INR is 1.2. Nutrition consult placed. The patient will need double portions since he is a cystic fibrosis patient and has a low BMI. Lipase <10. Continue with pancrelipase. No further constipation. I ordered for senna and docusate. Continue multivitamins. IgE level is 114. No concerns for ABPA at this time.. Hemoglobin A1c is 7.2. 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 He will need an oral glucose tolerance test as an outpatient. Please have the patient follow-up with endocrinology as an outpatient. Continue Breo Ellipta and montelukast for the time being. Continue famotidine for GERD He does have mild pneumomediastinum for which the therapy is simply conservative. I did review his records from [facility]. He was followed by cystic fibrosis specialist. It appears that he had a hospitalization at the [facility] in 2015 with severe pneumonia and the need for tracheostomy with subsequent decannulation. He was diagnosed with cystic fibrosis at [facility] in [place] as a child. His cystic fibrosis genotype was completed by [facility] on 07/2017. 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 Ideally he would be a candidate for modulator therapy such as lumacaftor/ivacaftor. Apparently he was offered supplemental oxygen previously and other therapies which he has refused in the past as [place] [facility] His last spirometry was in 2019 indicated an FEV1 of approximately 20% predicted. He was told that he essentially has end-stage cystic fibrosis and would be very difficult scenario for lung transplant given his social issues currently as he is incarcerated. We will try to optimize him as much as we can this hospitalization and reiterate that he would benefit from supplemental oxygen and noninvasive ventilation especially in light of his recent ABG does suggest chronic hypercapnic and hypoxemic respiratory failure. (2) Hemoptysis: (3) Acute respiratory failure with hypoxia: (4) Pseudomonas aeruginosa colonization: (5) Pneumomediastinum: (6) Gastric reflux: Subjective Patient removed off airborne precautions due to negative QuantiFERON gold test. Patient notes that he has not had any hemoptysis for the last 2 days. He feels much better than he did on initial arrival. No fevers or chills. Diet has been good. No chest pain. Results & Data ([facility]) Vital Signs (Past 12 Hours) Vital Signs Temp Pulse Resp BP Pulse Ox 08/21/19 07:42 98.1 F 63 18 106/62 93 PG Care Time/CCT Total # of Minutes Spent Total Time Spent with Patient: Total time spent is greater than 50% in coordination of care (as documented) at patient's floor/unit and/or counseling patient: Coding Level of Care Code 98555 Subseq Hosp Care Lvl 3 Diagnoses Cystic fibrosis with pulmonary exacerbation E84.0 Hemoptysis R04.2 Acute respiratory failure with hypoxia J96.01 Pseudomonas aeruginosa colonization Z22.39 Pneumomediastinum J98.2 Gastric reflux K21.9
--- NOTE | 2019-08-21 18:36 | Hospitalist Progress Note ---
Date of Service August 21, 2019 Assessment & Plan (1) Cystic fibrosis with pulmonary exacerbation: - Presented with hypoxia c/w acute exacerbation of CF. - Chest CTA with multifocal ground glass opacities to suggest pneumonitis with bronchiolitis. - Sputum culture +Pseudomonas. - Continue Cefepime 2 gm IV TID and Tobramycin daily -- Plan for total of 10 days IV ABx (would finish 08/27) then complete 4 days Levaquin - Chest percussion therapy QID for 15 minutes. - Continue Breo-Ellipta daily. Dornase daily, Duonebs QID, Xopenex QID prn. - NS at 125 cc/hr for IV fluid hydration. (2) Hemoptysis: - RESOLVED - PPD negative; Quantiferon gold negative. 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 - CTA was negative for pulmonary embolism. - HIV testing negative (3) Acute respiratory failure with hypoxia: - Currently requiring 2L via NC; can wean as tolerated - Per pulms chart review - was offered supplemental O2 and other therapies but refused as he does not want to spend all of his time in the [facility]. 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 - Pseudomonas +sputum culture. (5) Cavitary pneumonia: - TB work up negative as noted above; airborne restrictions removed (6) Hypotension: - BP has been low, SBP 90-100's - appears rather chronic - IV fluids at 125 cc/hr. (7) Pneumomediastinum: - Conservative management. (8) Gastric reflux: - Pepcid BID. (9) DM II (diabetes mellitus, type II), controlled: - A1C level 7.2 -- CF related DM. - F/u with endocrinology as outpatient. - SSI coverage. (10) Anemia: - Baseline hgb 11-12 - Monitor CBC frequently. (11) Malnutrition: - BMI 17.0. - Vit A, D, E levels pending. - Consulted nutrition; recommend to double portion sizes due to low BMI. - Continue Creon & multivitamin as prescribed. (12) DVT prophylaxis: - SCDs; holding pharmacologic ppx in setting of hemoptysis. Dispo: Will need to see if [facility]x can be obtained at [facility]; continue to try and wean O2 but possibly needs O2 per documentation review; possible D/C next 1-2 days pending supply obtainment at [facility] Admission and Anticipated Discharge Date Admission Date: August 18, 2019 Supervising Physician Co-Signing Physician Notes Attending Attestation: Chart reviewed, care plan d/w GABRIEL Martinez. I agree w/ the sanz components of her documentation. 24yo male - CF w/ exacerbation / superimposed pneumonia. Cont double coverage IV abx (cefepime/tobramycin) for pseudomonas. Pneumomediastinum - no rx needed. Supportive care, dispo planning. Dwight Jimenez MD Subjective Reports feeling better today. No further hemoptysis. Percussion therapy seems to be helping and his is expectorating mucus easier. Denies SOB. Tolerating a diet. Verbalizes no new complaints Review of Systems Constitutional: no fever and no chills Ear, Nose, Mouth, Throat: no sore throat and no dysphagia Respiratory: + cough and + sputum production; no dyspnea and no hemoptysis Cardiovascular: no chest pain, no palpitations, no lightheadedness and no edema Gastrointestinal: no abdominal pain, no nausea, no vomiting, no constipation and no diarrhea/loose stools Genitourinary: no dysuria Musculoskeletal: no body aches Integumentary: no rash Physical Exam Constitutional: WD/WN, vitals as above + thin ENMT: Ears: no hearing impairment Neck: trachea midline Respiratory: normal respiratory effort Auscultation: + rhonchi (scattered but good aeration) Cardiovascular: RRR, no murmur, no edema Gastrointestinal (Abdomen): Inspection/Auscultation: normal bowel sounds Percussion/Palpation: abdomen soft; abdomen nontender Musculoskeletal: Head/Neck/Chest: normocephalic and head atraumatic Extremities: + clubbing Skin: no rashes, warm and dry Neurologic: moves all extremities Psychiatric: A+Ox3, euthymic affect Results & Data ([facility]) Vital Signs (Past 12 Hours) Vital Signs Temp Pulse Resp BP Pulse Ox 08/21/19 07:42 36.7 C 63 18 106/62 93 PG Care Time/CCT Total # of Minutes Spent Total Time Spent with Patient: Total time spent is greater than 50% in coordination of care (as documented) at patient's floor/unit and/or counseling patient: Coding Level of Care Code 43734 Subseq Hosp Care Lvl 3 Diagnoses Cystic fibrosis with pulmonary exacerbation E84.0 Hemoptysis R04.2 Acute respiratory failure with hypoxia J96.01 Pseudomonas aeruginosa colonization Z22.39 Cavitary pneumonia J18.9; J98.4 Hypotension I95.9 Hypotension type: unspecified hypotension type Pneumomediastinum J98.2 Gastric reflux K21.9 DM II (diabetes mellitus, type II), controlled E11.9 Anemia D64.9 Malnutrition E46 DVT prophylaxis Z29.9 (1) Hypotension Hypotension type: unspecified hypotension type Qualified Code(s): I95.9 - Hypotension, unspecified
[2019-08-21] MEDS: MONTELUKAST SODIUM 10 MG TABLET PO SCH (20:31)
[2019-08-22] MEDS: SODIUM CHLORIDE 0.9% 1000ML 1,000 ML IV SCH ×3 (00:01→18:01)
[2019-08-22] MEDS: CEFEPIME 2,000 MG in SYRINGE 7.5 ML IV SCH ×3 (02:22→18:01)
[2019-08-22 06:31] LABS: Creatinine Clr Calc Pharmacy 157.8 ml/min; Est GFR (African American) > 150.0; Est GFR (Non-African American) 141.7
[2019-08-22] MEDS: FAMOTIDINE 20 MG TAB PO SCH ×2 (08:29→20:35)
[2019-08-22] MEDS: FLUTICASONE/VILANTEROL 200/25MCG 14 PUFFS/INHALER INH SCH (08:29)
[2019-08-22] MEDS: PANCREAZE (LIPASE 16,800U) CAP PO SCH ×3 (08:29→17:35)
[2019-08-22] MEDS: INSULIN ASPART 100 UNITS/ML 3 ML PEN SC SCH ×4 (08:59→20:40)
[2019-08-22] MEDS: CEROVITE ADV FORMULA TAB PO SCH (09:30)
[2019-08-22] MEDS: TOBRAMYCIN SULFATE IV SCH (10:58)
[2019-08-22] MEDS: DEXTROSE 5% IV SCH (10:58)
[2019-08-22] MEDS ORDERED: ALBUT/IPRATROP 3MG/0.5MG NEB 3 ML VIAL NEB PRN ×2 (17:21→17:23)
--- NOTE | 2019-08-22 19:40 | Hospitalist Progress Note ---
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 - Sputum culture +Pseudomonas. - Continue Cefepime 2 gm IV TID and Tobramycin daily -- Plan for total of 10 days IV ABx (would finish 08/27) then complete 4 days Levaquin -- Will need troughs of Tobramycin - Chest percussion therapy QID for 15 minutes. - Continue Breo-Ellipta daily. Dornase daily, Duonebs QID, Xopenex QID prn. - NS at 125 cc/hr for IV fluid hydration. - Pulm following - discussed with team today - needs F/U as outpatient and as well endocrinology, follows with [facility] specialist - may be a candidate for modulator therapy such as lumacaftor/ivacaftor (2) Hemoptysis: - RESOLVED - PPD negative; Quantiferon gold negative. 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 - CTA was negative for pulmonary embolism. - HIV testing negative (3) Acute respiratory failure with hypoxia: - On RA but occ. places O2 back on - Per pulms chart review - was offered supplemental O2 and other therapies but refused as he does not want to spend all of his time in the [facility]. 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 - Pseudomonas +sputum culture. (5) Cavitary pneumonia: - TB work up negative as noted above; airborne restrictions removed (6) Hypotension: - BP has been low, SBP 90-100's - appears rather chronic - IV fluids at 125 cc/hr. (7) Pneumomediastinum: - Conservative management. (8) Gastric reflux: - Pepcid BID. (9) DM II (diabetes mellitus, type II), controlled: - A1C level 7.2 -- CF related DM. - F/u with endocrinology as outpatient. - SSI coverage. (10) Anemia: - Baseline hgb 11-12 - Monitor CBC frequently. (11) Malnutrition: - BMI 17.0. - Vit A, D, E levels pending. - Consulted nutrition; recommend to double portion sizes due to low BMI. - Continue Creon & multivitamin as prescribed. (12) DVT prophylaxis: - SCDs; holding pharmacologic ppx in setting of hemoptysis. Dispo: Faxed Rx for antibiotics that likely can be delivered Sunday but likely will need to remain in-hospital until Sunday pending delivery Admission and Anticipated Discharge Date Admission Date: August 18, 2019 Supervising Physician Co-Signing Physician Notes Attending Attestation: Chart reviewed, care plan d/w GABRIEL Hernandez. I agree w/ the sanz components of her documentation. 24yo male - CF w/ exacerbation / superimposed pneumonia. Cont double coverage IV abx (cefepime/tobramycin) for pseudomonas. Pneumomediastinum - no rx needed. [facility] anticipates IV abx will be available this Sunday; can [facility]/c [facility] to [facility] then. Dwight Jimenez MD Subjective No longer having hemoptysis. Feels like breathing is at baseline and overall feeling well. Tolerating diet without issue. Discussed transition back to [facility] and needing to await antibiotic arrival Review of Systems Constitutional: no fever, no chills and no fatigue Respiratory: + cough and + sputum production; no dyspnea and no hemoptysis Cardiovascular: no chest pain Gastrointestinal: no abdominal pain, no nausea, no vomiting, no constipation and no diarrhea/loose stools Genitourinary: no dysuria Physical Exam Constitutional: WD/WN, vitals as above + thin ENMT: Ears: no hearing impairment Neck: trachea midline Respiratory: normal respiratory effort Auscultation: + rhonchi (scattered but good aeration - less compared to exam on 08/21) Cardiovascular: RRR, no murmur, no edema Gastrointestinal (Abdomen): Inspection/Auscultation: normal bowel sounds Percussion/Palpation: abdomen soft; abdomen nontender Musculoskeletal: Head/Neck/Chest: normocephalic and head atraumatic Extremities: + clubbing Skin: no rashes, warm and dry Neurologic: moves all extremities Psychiatric: A+Ox3, euthymic affect Results & Data ([facility]) Vital Signs (Past 12 Hours) Vital Signs Temp Pulse Resp BP Pulse Ox 08/22/19 16:50 80 18 95 08/22/19 15:03 36.8 C 76 16 109/56 L 90 PG Care Time/CCT Total # of Minutes Spent Total Time Spent with Patient: Total time spent is greater than 50% in coordination of care (as documented) at patient's floor/unit and/or counseling patient: Coding Level of Care Code 07053 Subseq Hosp Care Lvl 2 Diagnoses Cystic fibrosis with pulmonary exacerbation E84.0 Hemoptysis R04.2 Acute respiratory failure with hypoxia J96.01 Pseudomonas aeruginosa colonization Z22.39 Cavitary pneumonia J18.9; J98.4 Hypotension I95.9 Hypotension type: unspecified hypotension type Pneumomediastinum J98.2 Gastric reflux K21.9 DM II (diabetes mellitus, type II), controlled E11.9 Anemia D64.9 Malnutrition E46 DVT prophylaxis Z29.9 (1) Hypotension Hypotension type: unspecified hypotension type Qualified Code(s): I95.9 - Hypotension, unspecified
[2019-08-22] MEDS: MONTELUKAST SODIUM 10 MG TABLET PO SCH (20:35)
[2019-08-22] MEDS: SODIUM CHLOR 7% 4 ML NEB NEB SCH (21:22)
[2019-08-22] MEDS: ALBUT/IPRATROP 3MG/0.5MG NEB 3 ML VIAL INH SCH (21:22)
[2019-08-23] MEDS: CEFEPIME 2,000 MG in SYRINGE 7.5 ML IV SCH ×3 (02:02→17:47)
[2019-08-23] MEDS: SODIUM CHLORIDE 0.9% 1000ML 1,000 ML IV SCH ×2 (02:02→10:15)
[2019-08-23] MEDS: SODIUM CHLOR 7% 4 ML NEB NEB SCH ×2 (07:45→20:54)
[2019-08-23] MEDS: ALBUT/IPRATROP 3MG/0.5MG NEB 3 ML VIAL INH SCH ×2 (07:45→20:54)
[2019-08-23] MEDS: DORNASE ALFA 2.5 ML AMP INH SCH (07:45)
[2019-08-23] MEDS: PANCREAZE (LIPASE 16,800U) CAP PO SCH ×3 (08:25→16:14)
[2019-08-23] MEDS: FLUTICASONE/VILANTEROL 200/25MCG 14 PUFFS/INHALER INH SCH (08:25)
[2019-08-23] MEDS: CEROVITE ADV FORMULA TAB PO SCH (08:25)
[2019-08-23] MEDS: FAMOTIDINE 20 MG TAB PO SCH ×2 (08:26→20:50)
[2019-08-23] MEDS: INSULIN ASPART 100 UNITS/ML 3 ML PEN SC SCH ×4 (08:29→22:09)
[2019-08-23] MEDS: TOBRAMYCIN SULFATE IV SCH (10:28)
[2019-08-23] MEDS: DEXTROSE 5% IV SCH (10:28)
--- NOTE | 2019-08-23 11:46 | Hospitalist Progress Note ---
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 - Sputum culture +Pseudomonas. - Continue Cefepime 2 gm IV TID and Tobramycin daily -- Plan for total of 10 days IV ABx (would finish 08/27) then complete 4 days po Levaquin -- Will need troughs of Tobramycin - seems to stay steady on 560 mg (10 mg/kg actual body weight) daily next trough here is due 08/25 - Chest percussion therapy QID for 15 minutes. - Continue Breo-Ellipta daily. Dornase daily, Duonebs, Xopenex QID prn. - Has received IVF - appears euvolemic - was used to help keep secretions thin - encourage oral intake of fluids - will stop IVF at this time given anticipation of discharge - Pulm following - - needs F/U as outpatient and as well endocrinology, follows with [facility] CF specialist - may be a candidate for modulator therapy such as lumacaftor/ivacaftor (2) Hemoptysis: - RESOLVED - PPD negative; Quantiferon gold negative. 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 - CTA was negative for pulmonary embolism. - HIV testing negative (3) Acute respiratory failure with hypoxia: - On RA but occ. places O2 back on - Per pulms chart review - was offered supplemental O2 and other therapies but refused as he does not want to spend all of his time in the [facility]. 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 - Pseudomonas +sputum culture. (5) Cavitary pneumonia: - TB work up negative as noted above; airborne restrictions removed (6) Hypotension: - BP has been low normal, SBP 90-100's - STABLE (7) Pneumomediastinum: - Conservative management. (8) Gastric reflux: - Pepcid BID. (9) DM II (diabetes mellitus, type II), controlled: - A1C level 7.2 -- CF related DM. - F/U with endocrinology as outpatient. - SSI coverage. (10) Anemia: - Baseline hgb 11-12 - Monitor CBC frequently. (11) Malnutrition: - BMI 17.0. - Vit A, D, E levels pending. - Consulted nutrition; recommend to double portion sizes due to low BMI. - Continue Creon & multivitamin as prescribed. (12) DVT prophylaxis: - SCDs; holding pharmacologic ppx in setting of hemoptysis. Dispo: Faxed Rx for antibiotics that likely can be delivered Sunday night. Case management to call Sunday morning to confirm delivery and their ability to accept patient back. Plan on D/C tomorrow Admission and Anticipated Discharge Date Admission Date: August 18, 2019 Supervising Physician Co-Signing Physician Notes Attending Attestation: Chart reviewed, care plan d/w GABRIEL Hernandez. I agree w/ the sanz components of her documentation. 24yo male - CF w/ exacerbation / superimposed pneumonia. Cont double coverage IV abx (cefepime/tobramycin) for pseudomonas. Pneumomediastinum - no rx needed. [facility] anticipates IV abx will be available tomorrow. D/c back to shelter with NC O2, IV abx, GERD meds, etc tomorrow (Sunday). Dwight Jimenez MD Subjective Reports feeling his normal self today. Continues to cough up mucous easily. No hemoptysis. Denies SOB. Was on RA during my visit. We are awaiting delivery of Abx to the shelter. Planning on D/C tomorrow Review of Systems Constitutional: no fever, no chills and no anorexia Respiratory: + cough and + sputum production; no dyspnea and no hemoptysis Cardiovascular: no chest pain and no lightheadedness Gastrointestinal: no abdominal pain, no nausea, no vomiting, no constipation and no diarrhea/loose stools Genitourinary: no dysuria Musculoskeletal: no body aches Integumentary: no rash Physical Exam Constitutional: WD/WN, vitals as above + thin ENMT: Ears: no hearing impairment Neck: trachea midline Respiratory: normal respiratory effort Rhonchi mostly heard at base of scapula b/l; more prevalent with anterior chest auscultation and improves with coughing; good aeration Cardiovascular: RRR, no murmur, no edema Gastrointestinal (Abdomen): Inspection/Auscultation: normal bowel sounds Percussion/Palpation: abdomen soft; abdomen nontender Musculoskeletal: Head/Neck/Chest: normocephalic and head atraumatic Extremities: + clubbing Skin: no rashes, warm and dry Neurologic: moves all extremities Psychiatric: A+Ox3, euthymic affect Results & Data ([facility]) Vital Signs (Past 12 Hours) Vital Signs Temp Pulse Resp BP Pulse Ox 08/23/19 11:31 74 16 90 08/23/19 07:48 67 18 94 08/23/19 07:39 37.0 C 58 L 16 91/47 L 93 08/22/19 23:48 36.9 C 61 18 97/55 L 96 PG Care Time/CCT Total # of Minutes Spent Total Time Spent with Patient: Total time spent is greater than 50% in coordination of care (as documented) at patient's floor/unit and/or counseling patient: Coding Level of Care Code 74237 Subseq Hosp Care Lvl 2 Diagnoses Cystic fibrosis with pulmonary exacerbation E84.0 Hemoptysis R04.2 Acute respiratory failure with hypoxia J96.01 Pseudomonas aeruginosa colonization Z22.39 Cavitary pneumonia J18.9; J98.4 Hypotension I95.9 Hypotension type: unspecified hypotension type Pneumomediastinum J98.2 Gastric reflux K21.9 DM II (diabetes mellitus, type II), controlled E11.9 Anemia D64.9 Malnutrition E46 DVT prophylaxis Z29.9 (1) Hypotension Hypotension type: unspecified hypotension type Qualified Code(s): I95.9 - Hypotension, unspecified
[2019-08-23 17:40] LABS: Alpha-Tocopherol 6.2 mg/L (5.7-19.9); Vitamin A 17 mcg/dL (38-98); Vitamin E Beta-Gam Tocopherol <1.0 mg/L (<=4.3)
[2019-08-23] MEDS: MONTELUKAST SODIUM 10 MG TABLET PO SCH (20:50)
[2019-08-24] MEDS: CEFEPIME 2,000 MG in SYRINGE 7.5 ML IV SCH ×2 (01:47→10:08)
[2019-08-24] MEDS ORDERED: PROCHLORPERAZINE 10 MG in SYRINGE 8 ML IV PRN (03:47)
[2019-08-24 06:04] LABS: Creatinine Clr Calc Pharmacy 128.5 ml/min; Est GFR (African American) > 150.0; Est GFR (Non-African American) 130.2
[2019-08-24] MEDS: SODIUM CHLOR 7% 4 ML NEB NEB SCH (08:06)
[2019-08-24] MEDS: PANCREAZE (LIPASE 16,800U) CAP PO SCH ×2 (08:06→13:01)
[2019-08-24] MEDS: ALBUT/IPRATROP 3MG/0.5MG NEB 3 ML VIAL INH SCH (08:06)
[2019-08-24] MEDS: DORNASE ALFA 2.5 ML AMP INH SCH (08:07)
[2019-08-24] MEDS: CEROVITE ADV FORMULA TAB PO SCH (08:07)
[2019-08-24] MEDS: FLUTICASONE/VILANTEROL 200/25MCG 14 PUFFS/INHALER INH SCH (08:08)
[2019-08-24] MEDS: FAMOTIDINE 20 MG TAB PO SCH (08:08)
[2019-08-24] MEDS: INSULIN ASPART 100 UNITS/ML 3 ML PEN SC SCH ×2 (09:08→13:03)
[2019-08-24] MEDS: DEXTROSE 5% IV SCH (12:26)
[2019-08-24] MEDS: TOBRAMYCIN SULFATE IV SCH (12:26)
--- NOTE | 2019-08-24 14:19 | Pulmonology Progress Note ---
Date of Service August 24, 2019 Assessment & Plan (1) Cystic fibrosis with pulmonary exacerbation: This is a 24-year-old -[place]izen [place] male with cystic fibrosis who has an unknown mutation and is generally noncompliant with therapy presenting to the hospital with an acute exacerbation of cystic fibrosis. He does have a history of pseudomonas aeruginosa and Serratia marcescens and a sputum culture on 06/25/2018. His MRSA screen is negative. - Vancomycin stopped 08/19/2019 - IV Zosyn stopped 08/19/2019 - Cefepime 2 g 3 times daily started 08/19/2019 - Tobramycin 10 mg/kg started on 08/19/2019. Will need appropriate peak and trough levels. Pharmacy aware. Following renal function which has been within normal limits. Continue dornase and duo nebs. I am also hydrating him gently with 125 mL of NS. Euvolemia is preferable in patients with thick inspissated secretions that have bronchiectasis. Continue for total of 10 days of IV antibiotics and then 4 days of p.o. Levaquin. It appears that [facility] will [facility] with [facility]. I suspect this is just a sequelae of his underlying cystic fibrosis. QuantiFERON gold testing is negative. This does not rule out the possibility of nontuberculous Mycobacterium. Gram stain and culture is growing Pseudomonas aeruginosa that is largely pansensitive except for gentamicin. AFB culture and smear sputum testing sent and pending. HIV testing was negative. Ideally, he should be seen at a tertiary Medical Center that is associated with a cystic fibrosis foundation. I am going to order routine labs for cystic fibrosis that he has not had an very long time. Vitamin A, D, E levels have been ordered as they are fat-soluble, pending. INR is 1.2. Nutrition consult placed. The patient will need double portions since he is a cystic fibrosis patient and has a low BMI. Lipase <10. Continue with pancrelipase. No further constipation. I ordered for senna and docusate. Continue multivitamins. IgE level is 114. No concerns for ABPA at this time.. Hemoglobin A1c is 7.2. 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 He will need an oral glucose tolerance test as an outpatient. Please have the patient follow-up with endocrinology as an outpatient. Continue Breo Ellipta and montelukast for the time being. Continue famotidine for GERD He does have mild pneumomediastinum for which the therapy is simply conservative. I did review his records from [facility]. He was followed by cystic fibrosis specialist. It appears that he had a hospitalization at the [facility] in 2015 with severe pneumonia and the need for tracheostomy with subsequent decannulation. He was diagnosed with cystic fibrosis at [facility] in [place] as a child. His cystic fibrosis genotype was completed by [facility] on 07/2017. 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 Ideally he would be a candidate for modulator therapy such as lumacaftor/ivacaftor. Apparently he was offered supplemental oxygen previously and other therapies which he has refused in the past as he does not want to [facility]. His last spirometry was in 2018 indicated an FEV1 of approximately 20% predicted. He was told that he essentially has end-stage cystic fibrosis and would be very difficult scenario for lung transplant given his social issues currently as he is incarcerated. I did discuss with him regarding supplemental oxygen and BiPAP therapy. He indicated to me that he would not want supplemental oxygen or BiPAP as he would have to [facility] the [facility]. He said he will "take his chances". (2) Hemoptysis: (3) Acute respiratory failure with hypoxia: (4) Pseudomonas aeruginosa colonization: (5) Pneumomediastinum: (6) Gastric reflux: Subjective Patient seen and examined today. He notes no hemoptysis. He feels better than he did since being admitted to the hospital. No fevers or chills. Minimal cough. No nausea or vomiting. Physical Exam Eyes: PERRL, conjunctivae normal, anicteric sclerae ENMT: external ear and nose normal, oropharynx normal Neck: normal visual inspection Cardiovascular: RRR, no murmur, no edema Gastrointestinal (Abdomen): normal bowel sounds, soft, nontender, no hepatosplenomegaly Musculoskeletal: Head/Neck/Chest: head normal to inspection Skin: no rashes, warm and dry Neurologic: PERRL, EOMI, accommodation nl, no face palsy, no dysarthria Psychiatric: A+Ox3, euthymic affect Results & Data ([facility]) Vital Signs (Past 12 Hours) Vital Signs Temp Pulse Resp BP Pulse Ox 08/24/19 08:11 74 16 91 03/01/20 07:41 97.5 F L 58 L 18 91/48 L 93 PG Care Time/CCT Total # of Minutes Spent Total Time Spent with Patient: Total time spent is greater than 50% in coordination of care (as documented) at patient's floor/unit and/or counseling patient: Coding Level of Care Code 84992 Subseq Hosp Care Lvl 2 Diagnoses Cystic fibrosis with pulmonary exacerbation E84.0 Hemoptysis R04.2 Acute respiratory failure with hypoxia J96.01 Pseudomonas aeruginosa colonization Z22.39 Pneumomediastinum J98.2 Gastric reflux K21.9
--- NOTE | 2019-08-24 14:57 | Discharge Summary ---
Date of Service August 24, 2019 Admission HPI Per Admitting Provider History of Present Illness Chief Complaint: This is a 24-year-old -[place] inmate with past medical history of cystic fibrosis that presents today complaining of shortness of breath and hemoptysis. Patient is accompanied by [facility] guards. Patient tells me that for the past week he felt he has had "walking pneumonia ". This is cough accompanied by worsening dyspnea on exertion and shortness of breath. The cough is productive with purulent material although he does tell me he later has yury hemoptysis, which is consistent with his pneumonias. He has been compliant with his medication while in [facility] as detailed below. He denies any fever. His appetite is been diminished. He denies any other symptoms such as chest pain, vertigo, palpitations, diaphoresis, or bowel issues. Patient tells me that he presented to the [facility] earlier today and was subsequently transferred here for further evaluation. He does not appear to be in acute cardiopulmonary distress. Primary Care Provider: MARIO Crawford Admission Exam Per Admitting Provider History of Present Illness Chief Complaint: This is a 24-year-old -[place] inmate with past medical history of cystic fibrosis that presents today complaining of shortness of breath and hemoptysis. Patient is accompanied by [facility] guards. Patient tells me that for the past week he felt he has had "walking pneumonia ". This is cough accompanied by worsening dyspnea on exertion and shortness of breath. The cough is productive with purulent material although he does tell me he later has yury hemoptysis, which is consistent with his pneumonias. He has been compliant with his medication while in [facility] as detailed below. He denies any fever. His appetite is been diminished. He denies any other symptoms such as chest pain, vertigo, palpitations, diaphoresis, or bowel issues. Patient tells me that he presented to the [facility] earlier today and was subsequently transferred here for further evaluation. He does not appear to be in acute cardiopulmonary distress. Primary Care Provider: MARIO Crawford Principal Diagnosis Cystic fibrosis with pulmonary exacerbation, Pseudomonas infection Discharge Exam General: awake, alert, no apparent distress, + thin -Hungarian male Head: Normocephalic, atraumatic ENT: PERRL, EOMI, no pharyngeal exudate, mucous membranes moist Chest: On 1 L via NC, appears comfortable, no respiratory distress, no cough, no sputum, no adventitious breath sounds Cardiac: Regular rate and rhythm, no murmur, no JVD, normal peripheral pulses, good capillary refill Abdominal: NABS x 4 quadrants, soft, nondistended, nontender to palpation, no rebound, guarding or tenderness Extremities: Normal inspection, no peripheral edema or erythema, calfs nontender to palpation Psych: Normal mood and affect Neuro: AAO x 3, strength intact bilaterally and rated 5/5, no motor deficits, speech is clear, no peripheral sensory deficits Discharge Data Allergies Allergy/AdvReac Type Severity Reaction Status Date / Time No Known Allergies Allergy Unverified 08/18/19 14:42 Consultations 08/18/19 14:30 ED Decision to Admit Stat 08/18/19 19:17 Consult Pulmonology Routine 08/19/19 09:30 Consult Nutrition Routine Ordered Studies 08/18/19 12:34 CT angio chest PE protocol Stat Hospital Course (1) Cystic fibrosis with pulmonary exacerbation: - Presented with hypoxia c/w acute exacerbation of CF; 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 - Sputum culture +Pseudomonas. - Continue Cefepime 2 gm IV TID and Tobramycin daily -- Plan for total of 10 days IV ABx (would finish 08/27) then complete 4 days po Levaquin -- Will need troughs of Tobramycin - seems to stay steady on 560 mg (10 mg/kg actual body weight) daily next trough here is due 3/ -- CM has confirmed correctional facility has both IV tobramycin and cefepime - Chest percussion therapy QID for 15 minutes. - Continue Breo-Ellipta daily. Dornase daily, Duonebs, Xopenex QID prn. - Has received IVF earlier in admission- appears euvolemic - was used to help keep secretions thin - encourage oral intake of fluids - Pulm following - - needs F/U as outpatient and as well endocrinology, follows with [facility] specialist - may be a candidate for modulator therapy such as lumacaftor/zyfvufrla-cazpfb-gn appointments have been requested by her nurse navigator, correctional facility to confirm these for the patient after discharge (2) Hemoptysis: - RESOLVED - PPD negative; Quantiferon gold negative. 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 - CTA was negative for pulmonary embolism. - HIV testing negative (3) Acute respiratory failure with hypoxia: - On RA but occ. places O2 back on - Per pulms chart review - was offered supplemental O2 and other therapies but refused as he does not want to spend all of his time in the [facility]. It appears he has end-stage cystic fibrosis and transplant would be difficult given social issues -- Appears he may need chronic O2 at times?; may also benefit from n oninvasive ventilation if this could be arranged and if he is willing - Should have F/U with Cystic Fibrosis specialist - followed in [place] previously (4) Pseudomonas aeruginosa colonization: - Currently on Tobramycin IV. - Pseudomonas +sputum culture. (5) Cavitary pneumonia: - TB work up negative as noted above; airborne restrictions removed (6) Hypotension: - BP has been low normal, SBP 90-100's - STABLE (7) Pneumomediastinum: - Conservative management. (8) Gastric reflux: - Pepcid BID. (9) DM II (diabetes mellitus, type II), controlled: - A1C level 7.2 -- CF related DM. - F/U with endocrinology as outpatient. - SSI coverage. (10) Anemia: - Baseline hgb 11-12 - Monitor CBC frequently. (11) Malnutrition: - BMI 17.0. - Vit A, D, E levels pending. - Consulted nutrition; recommend to double portion sizes due to low BMI. - Continue Creon & multivitamin as prescribed. (12) DVT prophylaxis: - SCDs; holding pharmacologic ppx in setting of hemoptysis. Dispo: DC today, stable, antibiotics have been received by correctional facility for continued treatment Total Time Total Time Spent Total Time Spent (In Minutes): 40 Discharge Plan Discharge Items Patient Disposition: [facility] Facility Reason For Visit: PNA,R/O TB Discharge Diagnosis: Cystic Fibrosis with hypoxia, pseudomonas infection Condition on Discharge: Good Activity: Resume your previous activity Exercise/Sports: Gradually increase as tolerated Weightbearing: Full weightbearing Non-emergency contact: Primary Care Provider Call non-emergency contact if: you have any medication questions, your pain is not controlled and you have a fever Follow-up/Referrals: Yvette MARTIN [Primary Care Provider] - Diet: Regular Addtl Attending Provider Instructions: You were admitted to [facility] due to difficulty breathing and diagnosed with cystic fibrosis exacerbation and found to have a Pseudomonas infection. During your stay here you were treated with supportive care, medications including IV antibiotics of cefepime and tobramycin and your symptoms improved. Imaging studies which were completed include CT of the chest, and were abnormal showing infection. Medications: Continue taking you medications as prescribed. IV antibiotics including cefepime and tobramycin should continue as scheduled for the next 5 days. You should then complete 4 more days of levaquin. Do not take azithromycin while you are taking these other antibiotics. Take Creon capsules as directed with meals and snacks Continue taking pepcid for acid reflux as scheduled and Gaviscon as needed for acid reflux Continue using inhalers including Breo ellipta and Pulmozyme as scheduled. Wear O2 at 1-2L at time of discharge, wean off this as you tolerate. You expressed that you would not want to wear oxygen at all times due [facility], it would be in the best interest of your health to stay on this recommended amount of oxygen at all times. Appointments: Follow up with physician as soon as you arrive back to [facility]. Follow-up with pulmonology, an appointment has been requested for you. Follow-up with endocrinology, an appointment has been requested for you. Pending Studies at Discharge: No Stand-Alone Forms: My [facility] Skilled Items Patient informed of condition?: Yes Discharge Level of Care: Acute rehab Communicable Disease: No Discharge Prognosis: Stable Lines: US Guided Peripheral IV Urinary Catheter: No Medications and DC Order Prescriptions: New cefepime 2 gram Recon Soln 2 gm IV TID 5 Days Qty: 12 RF: 0 Foaming Antacid 80-20 mg Tablet,Chewable 1 tab PO Q6H PRN (Reason: acid reflux) 7 Days Qty: 30 RF: 0 famotidine 20 mg Tablet 20 mg PO BID 30 Days Qty: 60 RF: 0 sennosides-docusate sodium [Senokot-S] 8.6-50 mg Tablet 1 tab PO QAM PRN (Reason: constipation) 30 Days Qty: 30 RF: 0 tobramycin in 0.9 % NaCl 60 mg/50 mL piggyback 568 mg IV Q8H 5 Days Qty: 7100 RF: 0 Continued fluticasone propion-salmeterol [Advair Diskus] 250-50 mcg/dose Blister With Device 1 inh INHALATION BID RF: 0 ipratropium-albuterol 0.5 mg-3 mg(2.5 mg base)/3 mL Solution For Nebulization 3 ml INHALATION QID PRN (Reason: Shortness Of Breath Or Wheezing) RF: 0 Thera Tablet 1 tab PO DAILY RF: 0 Pulmozyme 1 mg/mL Solution 2.5 mg INHALATION DAILY PRN (Reason: Shortness Of Breath Or Wheezing) RF: 0 montelukast [Singulair] 10 mg Tablet 10 mg PO HS RF: 0 levalbuterol tartrate [Xopenex HFA] 45 mcg/actuation Hfa Aerosol Inhaler 2 puff INHALATION QID PRN (Reason: Shortness Of Breath) RF: 0 Creon 24,000-76,000 -120,000 unit Capsule,Delayed Release(Dr/Ec) 5 cap PO TID RF: 0 Creon 24,000-76,000 -120,000 unit Capsule,Delayed Release(Dr/Ec) 3 cap PO UD RF: 0 tobramycin 300 mg/4 mL Solution For Nebulization 300 mg INHALATION BID RF: 0 ergocalciferol (vitamin D2) [Vitamin D2] 1,250 mcg (50,000 unit) Capsule 1,250 mcg PO MO@0700 RF: 0 methylprednisolone sod suc(PF) 40 mg/mL Recon Soln 40 mg IM QAM RF: 0 Novolin R Flexpen 100 unit/mL (3 mL) Insulin Pen 5 unit SUBCUT QAM RF: 0 levofloxacin [Levaquin] 500 mg Tablet 500 mg PO DAILY 4 Days Qty: 4 RF: 0 Discontinued azithromycin 500 mg Tablet 500 mg PO MOWEFR RF: 0 Discharge Orders: Discharge Order (Routine); Ordered 08/24/19 Ordered By: Kateryna Lopez Admission Data Admit Date/Time: 08/18/19 15:36 Attending Provider: Dwight Jimenez Admit Provider: Jonathan Arellano Primary Care Provider: Yvette MARTIN Other Providers: Jacques Coppola ; Neptali Irwin ; [id number],CAPPT Coding Level of Care Code D/C Day Management >30 mins Diagnoses Cystic fibrosis with pulmonary exacerbation E84.0 Hemoptysis R04.2 Acute respiratory failure with hypoxia J96.01 Pseudomonas aeruginosa colonization Z22.39 Cavitary pneumonia J18.9; J98.4 Hypotension I95.9 Hypotension type: unspecified hypotension type Pneumomediastinum J98.2 Gastric reflux K21.9 DM II (diabetes mellitus, type II), controlled E11.9 Anemia D64.9 Malnutrition E46 DVT prophylaxis Z29.9
[2019-08-25] MEDS ORDERED: ERGOCALCIFEROL 50,000 UNITS CAP PO SCH (07:00)
== END 2019-08-24 16:59 | DRG 177 ==
LOC: ED 12:01 → 4W 15:36 → SUATTDRO 15:36 → 4W 18:26

== ENCOUNTER 2020-02-06 09:59 | Inpatient (IN) ==
[2020-02-06] MEDS ORDERED: ALBUT/IPRATROP 3MG/0.5MG NEB 3 ML VIAL NEB ONE (10:21)
[2020-02-06] MEDS ORDERED: methylPREDNISolone 60 MG in SYRINGE 1 ML IV STA (10:21)
--- NOTE | 2020-02-06 10:24 | Emergency Department Note ---
Impression & Plan Respiratory distress, Cystic fibrosis with pulmonary exacerbation, Respiratory acidosis ED Provider Note NAME: NAYLA [id number] FAREED AGE: 24 SEX: M : 1995 ARRIVES VIA: Ambulance INFORMANT: [Patient][staff] ED PROVIDER(S): [Evans Tello MD] CHIEF COMPLAINT: Short of breath HISTORY OF PRESENT ILLNESS: The patient is a 24-year-old male presents to the ED with about 12 hours of shortness of breath. The patient is a prisoner at [facility]. The patient does have cystic fibrosis. The patient states that last night, he was given a DuoNeb. This morning, he was quite short of breath and his O2 saturations were low in the 60s. He was given a DuoNeb. He was sent to the hospital via EMS. The patient states that he has been coughing more lately. There has been some productive sputum with the cough. There has been some questionable fevers. 2 weeks ago, the patient finished a course of Levaquin, this seemed to help his breathing and he was okay until last night. The patient states that he has a cellmate, his cellmate has not been ill. There have been no coronavirus cases at the [facility]. REVIEW OF SYSTEMS: See HPI for pertinent positives and negatives. A total of ten systems were reviewed and were otherwise negative. PMHx/PSHx: See Below SOCIAL HISTORY: See Below. PHYSICAL EXAM: GENERAL: Patient is in mild respiratory distress. HEENT: No acute trauma, normocephalic atraumatic, mucous membranes moist, no nasal congestion, no scleral icterus. NECK: No stridor, no adenopathy, no meningismus, trachea is midline. LUNGS: Mild respiratory distress, increased respiratory rate, crackles bilaterally with diminished breath sounds bilaterally. HEART: Tachycardic, regular rhythm, no obvious murmurs. ABDOMEN: Soft, nontender, bowel sounds positive, no hernias, no peritonitis. EXTREMITIES: No cyanosis or edema, full range of motion of all the joints without pain or difficulty, no signs for acute trauma. NEUROLOGIC: Oriented x 3, no acute motor or sensory deficits, no focal weakness. SKIN: No rash, no jaundice, no diaphoresis. DIFFERENTIAL DIAGNOSIS: Reactive airway disease, pneumonia, pneumothorax, COPD, CHF, infections, coronavirus, bronchitis, cystic fibrosis flare, cardiac ischemia, pulmonary embolism, musculoskeletal, gastrointestinal, as well as other pathologies. EMERGENCY DEPARTMENT COURSE/PROCEDURES: ECG: Indication was shortness of breath. The ECG shows a sinus tachycardia with a rate of 113. There is significant baseline artifact. No obvious ST elevation, no PVCs. The QTc is 406. Continuous Cardiac Monitoring: An order was placed for continuous cardiac monitoring. The monitor shows a rate of 105 with sinus tachycardia. Critical Care Note: I have personally spent greater than 65 minutes of critical care time in the direct management of this patient. This includes bedside care, interpretation of diagnostic studies, and testing, discussion with consultants, patient, and family members, and other required patient management activities. This 65 minutes is in excess of all separately billable procedures. MEDICAL DECISION MAKING: There is no leukocytosis or concerning anemia. There is a normal platelet count. No concerning coagulopathy. VBG suggested some respiratory acidosis. No significant electrolyte abnormality or kidney failure. Lactic acid level was not elevated making sepsis less likely. No worrisome liver enzyme elevation. Procalcitonin level was not elevated. ECG shows a sinus rhythm, no acute ischemia. Cardiac enzyme testing x1 is not consistent with acute cardiac injury. Chest film shows some chronic findings consistent with his cystic fibrosis, no focal infiltrate, no pneumothorax was seen. ABG done sometime late r during his stay demonstrated the same respiratory acidosis. His O2 level was not low. The patient was initially placed on a 1 hour DuoNeb. He received IV Levaquin as empiric antibiotic coverage. He was given IV saline. He was given a dose of IV Solu-Medrol. The patient really did not have much improvement with the 1 hour DuoNeb. He still seemed quite short of breath and seemed less responsive than when he first arrived. I was able to get the patient to answer questions, he was adamant that he did not want to be intubated. The patient was placed on BiPAP. With this intervention, the patient did seem to make improvement. He was much less short of breath and much more awake and interactive. I spoke to the guards, I talked with case management. The patient definitely requires a hospital stay. He appears to have a flare of his cystic fibrosis. He may have an underlying pneumonia/bronchitis causing this flare. He is in no condition be discharged given his respiratory distress. I did speak to the on- call hospitalist. Of note, a rapid coronavirus test was performed and was negative. Bio fire testing was also negative. 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 Surgical History No significant past surgical history Family History Mother Quadriplegia, post-traumatic 2nd MVA Social History Smoking Status: Former smoker Tobacco Type: Cigarettes packs per day: 1; Years Smoked: 5; Second Hand Exposure: No; Hx Alcohol Use: No (None since he went to [facility]) Hx Substance Use: No (None since he went to [facility]) Preferred Language: Marshallese Communication Ability: Effective 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 Beliefs That Will Affect Care: None marital status: Unknown Current Living Situation: Other Current Living Situation Comment: Longterm How many Children do You have: 0 Other Information That Helps Us Care for You: No Feels Safe at Home: Yes Safety Concerns: Feels Safe At This Time Allergies Allergies Allergy/AdvReac Type Severity Reaction Status Date / Time No Known Allergies Allergy Unverified 02/06/20 10:41 Home Meds Home Medications Medication Instructions Recorded Confirmed Creon 3 cap PO UD 06/25/18 02/06/20 Creon 5 cap PO TID 06/25/18 02/06/20 Thera 1 tab PO DAILY 06/25/18 02/06/20 ipratropium-albuterol 3 ml INHALATION QID 06/25/18 02/06/20 levalbuterol tartrate [Xopenex HFA] 2 puff INHALATION QID PRN 06/25/18 02/06/20 montelukast [Singulair] 10 mg PO HS 06/25/18 02/06/20 tobramycin 300 mg INHALATION BID 06/25/18 02/06/20 ergocalciferol (vitamin D2) 1,250 mcg PO MO@0700 08/18/19 02/06/20 [Vitamin D2] acetaminophen [Acetaminophen Extra 1,000 mg PO TID PRN 11/21/19 02/06/20 Strength] azithromycin 500 mg PO MOWEFR 11/21/19 02/06/20 cetirizine 10 mg PO DAILY 11/21/19 02/06/20 dornase montez 2.5 mg INHALATION DAILY 11/21/19 02/06/20 diphenhydramine HCl [Benadryl] 25 mg PO HS 02/06/20 02/06/20 fluticasone propion-salmeterol 1 inh INHALATION BID 02/06/20 02/06/20 [Wixela Inhub] guaifenesin 1,200 mg PO BID PRN 02/06/20 02/06/20 insulin NPH isoph U-100 human 5 unit SUBCUT DAILY 02/06/20 02/06/20 [Novolin N Flexpen] naproxen 250 mg PO BID PRN 02/06/20 02/06/20 Results & Data (ED) Vital Signs Vital Signs - 24 hr 02/06/20 10:05 02/06/20 10:07 02/06/20 10:16 Temperature 37.3 C Temperature Source Oral Pulse Rate 113 H 111 H 112 H Pulse Rate [Right Finger] Pulse Rate from SpO2 Sensor 223 H 218 H Respiratory Rate 49 H 40 H 24 Respiratory Effort / Characteristics Respiratory Depth Respiratory Pattern Blood Pressure 146/77 H 146/77 H Blood Pressure [Left Arm] Blood Pressure Mean 113 100 Blood Pressure Mean [Left Arm] Pulse Oximetry 94 95 93 Oxygen Delivery Method Other Oxygen Flow Rate 6 Fraction of Inspired Oxygen Sepsis Recent Fever Within 48 Hours No Sepsis New/Unexplained Change in Mental Status No Sepsis Action Taken by Nursing No Action Required 02/06/20 10:30 02/06/20 10:31 02/06/20 10:38 Temperature Temperature Source Pulse Rate 104 H Pulse Rate [Right Finger] 107 H Pulse Rate from SpO2 Sensor 105 H Respiratory Rate 48 H 24 Respiratory Effort / Characteristics Spontaneous Respiratory Depth Respiratory Pattern Blood Pressure Blood Pressure [Left Arm] Blood Pressure Mean Blood Pressure Mean [Left Arm] Pulse Oximetry 97 98 96 Oxygen Delivery Method Other Nebulizer Oxygen Flow Rate 5 Fraction of Inspired Oxygen Sepsis Recent Fever Within 48 Hours Sepsis New/Unexplained Change in Mental Status Sepsis Action Taken by Nursing 02/06/20 11:00 02/06/20 11:29 02/06/20 11:30 Temperature Temperature Source Pulse Rate 106 H 112 H 115 H Pulse Rate [Right Finger] Pulse Rate from SpO2 Sensor 113 H 116 H Respiratory Rate 40 H 51 H 50 H Respiratory Effort / Characteristics Respiratory Depth Respiratory Pattern Blood Pressure 142/86 H 127/85 Blood Pressure [Left Arm] Blood Pressure Mean 110 96 Blood Pressure Mean [Left Arm] Pulse Oximetry 99 99 Oxygen Delivery Method Oxygen Flow Rate Fraction of Inspired Oxygen Sepsis Recent Fever Within 48 Hours Sepsis New/Unexplained Change in Mental Status Sepsis Action Taken by Nursing 02/06/20 11:31 02/06/20 11:32 02/06/20 11:45 Temperature Temperature Source Pulse Rate 113 H 121 H Pulse Rate [Right Finger] 114 H Pulse Rate from SpO2 Sensor 112 H Respiratory Rate 47 H 44 H 35 H Respiratory Effort / Characteristics Non-Labored Spontaneous Respiratory Depth Normal Respiratory Pattern Regular Blood Pressure Blood Pressure [Left Arm] 127/85 Blood Pressure Mean Blood Pressure Mean [Left Arm] 99 Pulse Oximetry 99 100 100 Oxygen Delivery Method Room Air Oxygen Flow Rate Fraction of Inspired Oxygen 60 Sepsis Recent Fever Within 48 Hours Sepsis New/Unexplained Change in Mental Status Sepsis Action Taken by Nursing 02/06/20 12:00 02/06/20 12:01 02/06/20 12:23 Temperature Temperature Source Pulse Rate 120 H 118 H 114 H Pulse Rate [Right Finger] Pulse Rate from SpO2 Sensor 120 H 116 H 113 H Respiratory Rate 45 H 33 H 38 H Respiratory Effort / Characteristics Respiratory Depth Respiratory Pattern Blood Pressure 119/82 129/70 Blood Pressure [Left Arm] Blood Pressure Mean 95 94 Blood Pressure Mean [Left Arm] Pulse Oximetry 99 99 92 Oxygen Delivery Method Oxygen Flow Rate Fraction of Inspired Oxygen Sepsis Recent Fever Within 48 Hours Sepsis New/Unexplained Change in Mental Status Sepsis Action Taken by Intermediate Medications Current Medication List: was personally reviewed by me Laboratory Data Attestation: I reviewed the patient's lab results. Result diagrams: 02/06/20 10:20 02/06/20 10:20 Lab Results 02/06/20 02/06/20 02/06/20 Range/Units 10:20 10:20 10:20 WBC 8.53 (4.8-10.8) K/uL RBC 5.45 (4.7-6.1) M/uL Hgb 14.2 (14.0-18.0) g/dL Hct 45.9 (42-52) % MCV 84.2 (80-100) fL MCH 26.1 (25-34) pg MCHC 30.9 L (32-36) g/dL RDW Std Deviation 43.5 (36.4-46.3) fL RDW Coeff of Jerry 14.3 (11.5-14.5) % Plt Count 232 (130-400) K/uL MPV 9.7 (7.4-10.4) fL Immature Gran % (Auto) 0.1 % Neut % (Auto) 78.5 % Lymph % (Auto) 10.6 % Hanson % (Auto) 9.5 % Eos % (Auto) 0.9 % Baso % (Auto) 0.4 % Neut # (Auto) 6.70 H (1.4-6.5) K/uL Lymph # (Auto) 0.90 L (1.2-3.4) K/uL Hanson # (Auto) 0.81 H (0.11-0.59) K/uL Eos # (Auto) 0.08 (0-0.5) K/uL Baso # (Auto) 0.03 (0-0.2) K/uL Immature Gran # (Auto) 0.01 (0.00-0.02) K/uL PT 12.5 H (9.0-12.0) Seconds INR 1.2 H (0.9-1.1) APTT 29.9 (21.0-31.0) Seconds PTT Ratio 1.1 ABG pH (7.35-7.45) ABG pCO2 (35-46) mmHg ABG pO2 (80-95) mmHg ABG HCO3 (19-24) mmol/L ABG O2 Saturation (90-95) % ABG Base Excess (-9-1.8) mEq/L Arnold Test (Pos) VBG pH (7.36-7.41) VBG pCO2 (38-50) mmHg VBG pO2 mmHg VBG HCO3 mmol/L VBG O2 Saturation % VBG Base Excess mEq/L Barometric Pressure mm/Hg Oxygen Given Sodium 131 L (136-145) mmol/L Potassium 4.2 (3.5-5.1) mmol/L Chloride 97 L (98-107) mmol/L Carbon Dioxide 31 (21-32) mmol/L Anion Gap 3.0 (3-11) BUN 10 (7-18) mg/dl Creatinine 0.85 (0.6-1.4) mg/dl Est Cr Clr Drug Dosing 114.2 ml/min Est GFR ( Amer) 139.4 Est GFR (Non-Af Amer) 120.3 BUN/Creatinine Ratio 11.5 (10-20) Glucose 144 H (70-99) mg/dl Lactate (0.4-2.0) mmol/L Calcium 8.5 (8.5-10.1) mg/dl Phosphorus (2.5-4.9) mg/dl Magnesium 2.1 (1.8-2.4) mg/dl Total Bilirubin 0.3 (0.2-1) mg/dl AST 11 L (15-37) U/L ALT 15 (12-78) U/L Alkaline Phosphatase 96 (45-117) U/L Troponin I < 0.015 (0-0.045) ng/ml Total Protein 10.1 H (6.4-8.2) gm/dl Albumin 2.7 L (3.4-5.0) gm/dl Globulin 7.4 H (2.5-4.0) gm/dl Albumin/Globulin Ratio 0.4 L (0.9-2) Procalcitonin (0-0.5) ng/ml Adenovirus (PCR) (NotDetected) B. pertussis DNA (PCR) (NotDetected) B.parapertussis DNA PCR (NotDetected) C. pneumoniae DNA (PCR) (NotDetected) Coronavirus OC43 (PCR) (NotDetected) Coronavirus HKU1 (PCR) (NotDetected) Coronavirus 229E (PCR) (NotDetected) COVID-19 Eval Order COVID-19 PCR (Negative) Coronavirus NL63 (PCR) (NotDetected) Human Metapneumovir PCR (NotDetected) Influenza Type A (PCR) (NotDetected) Influenza Type B (PCR) (NotDetected) M. pneumoniae (PCR) (NotDetected) Parainfluenza 1 (PCR) (NotDetected) Parainfluenza 2 (PCR) (NotDetected) Parainfluenza 3 (PCR) (NotDetected) Parainfluenza 4 (PCR) (NotDetected) RSV (PCR) (NotDetected) Entero/Rhino (PCR) (NotDetected) 02/06/20 02/06/20 02/06/20 Range/Units 10:20 10:20 10:32 WBC (4.8-10.8) K/uL RBC (4.7-6.1) M/uL Hgb (14.0-18.0) g/dL Hct (42-52) % MCV (80-100) fL MCH (25-34) pg MCHC (32-36) g/dL RDW Std Deviation (36.4-46.3) fL RDW Coeff of Jerry (11.5-14.5) % Plt Count (130-400) K/uL MPV (7.4-10.4) fL Immature Gran % (Auto) % Neut % (Auto) % Lymph % (Auto) % Hanson % (Auto) % Eos % (Auto) % Baso % (Auto) % Neut # (Auto) (1.4-6.5) K/uL Lymph # (Auto) (1.2-3.4) K/uL Hanson # (Auto) (0.11-0.59) K/uL Eos # (Auto) (0-0.5) K/uL Baso # (Auto) (0-0.2) K/uL Immature Gran # (Auto) (0.00-0.02) K/uL PT (9.0-12.0) Seconds INR (0.9-1.1) APTT (21.0-31.0) Seconds PTT Ratio ABG pH (7.35-7.45) ABG pCO2 (35-46) mmHg ABG pO2 (80-95) mmHg ABG HCO3 (19-24) mmol/L ABG O2 Saturation (90-95) % ABG Base Excess (-9-1.8) mEq/L Arnold Test (Pos) VBG pH (7.36-7.41) VBG pCO2 (38-50) mmHg VBG pO2 mmHg VBG HCO3 mmol/L VBG O2 Saturation % VBG Base Excess mEq/L Barometric Pressure mm/Hg Oxygen Given Sodium (136-145) mmol/L Potassium (3.5-5.1) mmol/L Chloride (98-107) mmol/L Carbon Dioxide (21-32) mmol/L Anion Gap (3-11) BUN (7-18) mg/dl Creatinine (0.6-1.4) mg/dl Est Cr Clr Drug Dosing ml/min Est GFR ( Amer) Est GFR (Non-Af Amer) BUN/Creatinine Ratio (10-20) Glucose (70-99) mg/dl Lactate 0.8 (0.4-2.0) mmol/L Calcium (8.5-10.1) mg/dl Phosphorus 4.1 (2.5-4.9) mg/dl Magnesium (1.8-2.4) mg/dl Total Bilirubin (0.2-1) mg/dl AST (15-37) U/L ALT (12-78) U/L Alkaline Phosphatase (45-117) U/L Troponin I (0-0.045) ng/ml Total Protein (6.4-8.2) gm/dl Albumin (3.4-5.0) gm/dl Globulin (2.5-4.0) gm/dl Albumin/Globulin Ratio (0.9-2) Procalcitonin < 0.05 (0-0.5) ng/ml Adenovirus (PCR) (NotDetected) B. pertussis DNA (PCR) (NotDetected) B.parapertussis DNA PCR (NotDetected) C. pneumoniae DNA (PCR) (NotDetected) Coronavirus OC43 (PCR) (NotDetected) Coronavirus HKU1 (PCR) (NotDetected) Coronavirus 229E (PCR) (NotDetected) COVID-19 Eval Order COVID-19 PCR (Negative) Coronavirus NL63 (PCR) (NotDetected) Human Metapneumovir PCR (NotDetected) Influenza Type A (PCR) (NotDetected) Influenza Type B (PCR) (NotDetected) M. pneumoniae (PCR) (NotDetected) Parainfluenza 1 (PCR) (NotDetected) Parainfluenza 2 (PCR) (NotDetected) Parainfluenza 3 (PCR) (NotDetected) Parainfluenza 4 (PCR) (NotDetected) RSV (PCR) (NotDetected) Entero/Rhino (PCR) (NotDetected) 02/06/20 02/06/20 02/06/20 Range/Units 10:32 11:44 11:45 WBC (4.8-10.8) K/uL RBC (4.7-6.1) M/uL Hgb (14.0-18.0) g/dL Hct (42-52) % MCV (80-100) fL MCH (25-34) pg MCHC (32-36) g/dL RDW Std Deviation (36.4-46.3) fL RDW Coeff of Jerry (11.5-14.5) % Plt Count (130-400) K/uL MPV (7.4-10.4) fL Immature Gran % (Auto) % Neut % (Auto) % Lymph % (Auto) % Hanson % (Auto) % Eos % (Auto) % Baso % (Auto) % Neut # (Auto) (1.4-6.5) K/uL Lymph # (Auto) (1.2-3.4) K/uL Hanson # (Auto) (0.11-0.59) K/uL Eos # (Auto) (0-0.5) K/uL Baso # (Auto) (0-0.2) K/uL Immature Gran # (Auto) (0.00-0.02) K/uL PT (9.0-12.0) Seconds INR (0.9-1.1) APTT (21.0-31.0) Seconds PTT Ratio ABG pH 7.22 L (7.35-7.45) ABG pCO2 78 H (35-46) mmHg ABG pO2 126 H (80-95) mmHg ABG HCO3 31 H (19-24) mmol/L ABG O2 Saturation 98.1 H (90-95) % ABG Base Excess 1.1 (-9-1.8) mEq/L Arnold Test Pos (Pos) VBG pH 7.26 L (7.36-7.41) VBG pCO2 74 H (38-50) mmHg VBG pO2 56 mmHg VBG HCO3 32 mmol/L VBG O2 Saturation 81.4 % VBG Base Excess 2.9 mEq/L Barometric Pressure 733.6 733.1 mm/Hg Oxygen Given 7L Sodium (136-145) mmol/L Potassium (3.5-5.1) mmol/L Chloride (98-107) mmol/L Carbon Dioxide (21-32) mmol/L Anion Gap (3-11) BUN (7-18) mg/dl Creatinine (0.6-1.4) mg/dl Est Cr Clr Drug Dosing ml/min Est GFR ( Amer) Est GFR (Non-Af Amer) BUN/Creatinine Ratio (10-20) Glucose (70-99) mg/dl Lactate (0.4-2.0) mmol/L Calcium (8.5-10.1) mg/dl Phosphorus (2.5-4.9) mg/dl Magnesium (1.8-2.4) mg/dl Total Bilirubin (0.2-1) mg/dl AST (15-37) U/L ALT (12-78) U/L Alkaline Phosphatase (45-117) U/L Troponin I (0-0.045) ng/ml Total Protein (6.4-8.2) gm/dl Albumin (3.4-5.0) gm/dl Globulin (2.5-4.0) gm/dl Albumin/Globulin Ratio (0.9-2) Procalcitonin (0-0.5) ng/ml Adenovirus (PCR) (NotDetected) B. pertussis DNA (PCR) (NotDetected) B.parapertussis DNA PCR (NotDetected) C. pneumoniae DNA (PCR) (NotDetected) Coronavirus OC43 (PCR) (NotDetected) Coronavirus HKU1 (PCR) (NotDetected) Coronavirus 229E (PCR) (NotDetected) COVID-19 Eval Order Covid19 Done at [facility] COVID-19 PCR (Negative) Coronavirus NL63 (PCR) (NotDetected) Human Metapneumovir PCR (NotDetected) Influenza Type A (PCR) (NotDetected) Influenza Type B (PCR) (NotDetected) M. pneumoniae (PCR) (NotDetected) Parainfluenza 1 (PCR) (NotDetected) Parainfluenza 2 (PCR) (NotDetected) Parainfluenza 3 (PCR) (NotDetected) Parainfluenza 4 (PCR) (NotDetected) RSV (PCR) (NotDetected) Entero/Rhino (PCR) (NotDetected) 02/06/20 02/06/20 Range/Units 11:45 11:45 WBC (4.8-10.8) K/uL RBC (4.7-6.1) M/uL Hgb (14.0-18.0) g/dL Hct (42-52) % MCV (80-100) fL MCH (25-34) pg MCHC (32-36) g/dL RDW Std Deviation (36.4-46.3) fL RDW Coeff of Jerry (11.5-14.5) % Plt Count (130-400) K/uL MPV (7.4-10.4) fL Immature Gran % (Auto) % Neut % (Auto) % Lymph % (Auto) % Hanson % (Auto) % Eos % (Auto) % Baso % (Auto) % Neut # (Auto) (1.4-6.5) K/uL Lymph # (Auto) (1.2-3.4) K/uL Hanson # (Auto) (0.11-0.59) K/uL Eos # (Auto) (0-0.5) K/uL Baso # (Auto) (0-0.2) K/uL Immature Gran # (Auto) (0.00-0.02) K/uL PT (9.0-12.0) Seconds INR (0.9-1.1) APTT (21.0-31.0) Seconds PTT Ratio ABG pH (7.35-7.45) ABG pCO2 (35-46) mmHg ABG pO2 (80-95) mmHg ABG HCO3 (19-24) mmol/L ABG O2 Saturation (90-95) % ABG Base Excess (-9-1.8) mEq/L Arnold Test (Pos) VBG pH (7.36-7.41) VBG pCO2 (38-50) mmHg VBG pO2 mmHg VBG HCO3 mmol/L VBG O2 Saturation % VBG Base Excess mEq/L Barometric Pressure mm/Hg Oxygen Given Sodium (136-145) mmol/L Potassium (3.5-5.1) mmol/L Chloride (98-107) mmol/L Carbon Dioxide (21-32) mmol/L Anion Gap (3-11) BUN (7-18) mg/dl Creatinine (0.6-1.4) mg/dl Est Cr Clr Drug Dosing ml/min Est GFR ( Amer) Est GFR (Non-Af Amer) BUN/Creatinine Ratio (10-20) Glucose (70-99) mg/dl Lactate (0.4-2.0) mmol/L Calcium (8.5-10.1) mg/dl Phosphorus (2.5-4.9) mg/dl Magnesium (1.8-2.4) mg/dl Total Bilirubin (0.2-1) mg/dl AST (15-37) U/L ALT (12-78) U/L Alkaline Phosphatase (45-117) U/L Troponin I (0-0.045) ng/ml Total Protein (6.4-8.2) gm/dl Albumin (3.4-5.0) gm/dl Globulin (2.5-4.0) gm/dl Albumin/Globulin Ratio (0.9-2) Procalcitonin (0-0.5) ng/ml Adenovirus (PCR) Not Detected (NotDetected) B. pertussis DNA (PCR) Not Detected (NotDetected) B.parapertussis DNA PCR Not Detected (NotDetected) C. pneumoniae DNA (PCR) Not Detected (NotDetected) Coronavirus OC43 (PCR) Not Detected (NotDetected) Coronavirus HKU1 (PCR) Not Detected (NotDetected) Coronavirus 229E (PCR) Not Detected (NotDetected) COVID-19 Eval Order COVID-19 PCR NEGATIVE (Negative) Coronavirus NL63 (PCR) Not Detected (NotDetected) Human Metapneumovir PCR Not Detected (NotDetected) Influenza Type A (PCR) Not Detected (NotDetected) Influenza Type B (PCR) Not Detected (NotDetected) M. pneumoniae (PCR) Not Detected (NotDetected) Parainfluenza 1 (PCR) Not Detected (NotDetected) Parainfluenza 2 (PCR) Not Detected (NotDetected) Parainfluenza 3 (PCR) Not Detected (NotDetected) Parainfluenza 4 (PCR) Not Detected (NotDetected) RSV (PCR) Not Detected (NotDetected) Entero/Rhino (PCR) Not Detected (NotDetected) Administered Medications Albuterol (Albut/Ipratrop 3mg/0.5mg Neb 3 Ml Vial) 3 ml INH QIDR JULIA Stop: 03/07/20 14:59 Last Admin: 02/06/20 15:15 Dose: 3 ml Documented by: [id number] Lipase/Protease/Amylase (Pancreaze (Lipase 16,800u) Cap) 5 cap PO TIDM JULIA Stop: 03/07/20 16:59 Last Admin: 02/06/20 17:04 Dose: Not Given Documented by: [id number] Sodium Chloride (Nss 1000ml) 1,000 mls @ 100 mls/hr IV .Q10H JULIA Stop: 02/07/20 09:48 Last Admin: 02/06/20 14:17 Dose: 100 mls/hr Documented by: [id number] Methylprednisolone 40 mg/ (Syringe) 0.64 mls @ 1.5 mls/min IV Q6H JULIA Stop: 03/07/20 17:59 Last Admin: 02/06/20 18:08 Dose: 1.5 mls/min Documented by: [id number] Insulin Aspart (Insulin Aspart 100 Units/Ml 3 Ml Pen) 0 units SC Q6 JULIA Stop: 03/07/20 17:59 Last Admin: 02/06/20 18:08 Dose: Not Given Documented by: [id number] Cosigned by: [id number] Discontinued Medications Albuterol (Albut/Ipratrop 3mg/0.5mg Neb 3 Ml Vial) 12 ml NEB ONE ONE Stop: 02/06/20 10:22 Last Admin: 02/06/20 10:30 Dose: 12 ml Documented by: [id number] Levofloxacin/Dextrose (Levaquin/D5w) 750 mg in 150 mls @ 100 mls/hr IV Q24H JULIA Stop: 02/13/20 10:29 Last Infusion: 02/06/20 12:50 Dose: 0 mls/hr Documented by: [id number] Admin: 02/06/20 11:02 Dose: 100 mls/hr Documented by: [id number] Methylprednisolone 60 mg/ (Syringe) 1.96 mls @ 1.5 mls/min IV NOW STA Stop: 02/06/20 10:22 Last Admin: 02/06/20 11:06 Dose: 1.5 mls/min Documented by: [id number] Cefepime HCl (Maxipime) 2,000 mg in 20 mls @ 5 mls/min IV NOW STA; Protocol Stop: 02/06/20 11:40 Last Admin: 02/06/20 12:07 Dose: 5 mls/min Documented by: [id number] Vancomycin HCl 1,250 mg/ (Sodium Chloride) 275 mls @ 125 mls/hr IV ONE ONE Stop: 02/06/20 17:56 Last Infusion: 02/06/20 18:11 Dose: 0 mls/hr Documented by: [id number] Admin: 02/06/20 15:50 Dose: 125 mls/hr Documented by: [id number] Pneumococcal Polyvalent Vaccine (Pneumococcal Polysaccharides 25 Mcg/0.5 Ml Vial/Syr) 25 mcg IM .ONCE ONE Stop: 02/06/20 17:01 Last Admin: 02/06/20 17:46 Dose: Not Given Documented by: [id number] Imaging Data Radiologist's Impression: XR chest 1V portable HISTORY: Shortness of breath. COMPARISON: Chest CT 11/21/2019. Chest 11/21/2019. FINDINGS: No pneumothorax. No pleural effusions. The heart is normal in size. Bronchiectasis and upper lobe airspace opacities are similar to the prior study and consistent with the patient's known history of cystic fibrosis. The suprahilar retraction, unchanged. Reticulonodular perihilar densities are also unchanged. No new focal lung consolidations. No evidence for pulmonary edema. IMPRESSION: No significant change compared to the prior study. Bronchiectasis, upper lobe opacities, and reticulonodular interstitial thickening persists consistent with the patient's history of cystic fibrosis. No new focal lung consolidations identified. Blood Pressure Blood Pressure Findings: Elevated blood pressure Blood Pressure Disposition: further management by hospitalist Discharge Plan Visit Data Chief Complaint: Shortness of Breath/Dyspnea ED Provider: Evans Tello Discharge Problem: Respiratory distress, Cystic fibrosis with pulmonary exacerbation, Respiratory acidosis Patient Disposition: Admitted As Inpatient Condition: Serious Discharge Instructions Interventions: ED Discharge Assessment Last Done: 02/06/20 13:14
[2020-02-06] MEDS ORDERED: LEVOFLOXACIN/D5W 750 MG/150 ML BAG IV SCH (10:30)
[2020-02-06 10:34] LABS: Basophils # (auto) 0.03 K/uL (0-0.2); Basophils % (auto) 0.4 %; Eosinophils # (auto) 0.08 K/uL (0-0.5); Eosinophils % (auto) 0.9 %; Hematocrit (blood only) 45.9 % (42-52); Hemoglobin 14.2 g/dL (14.0-18.0); Immature Granulocytes # (auto) 0.01 K/uL (0.00-0.02); Immature Granulocytes % (auto) 0.1 %; Lymphocytes % (auto) 10.6 %; Mean Corpuscular Hemoglobin 26.1 pg (25-34); Mean Corpuscular Hgb Conc 30.9 g/dL (32-36); Mean Corpuscular Volume 84.2 fL (80-100); Mean Platelet Volume 9.7 fL (7.4-10.4); Monocytes # (auto) 0.81 K/uL (0.11-0.59); Monocytes % (auto) 9.5 %; Neutrophils % (auto) 78.5 %; Platelet Count 232 K/uL (130-400); RDW Coefficient of Variation 14.3 % (11.5-14.5); RDW Standard Deviation 43.5 fL (36.4-46.3); Red Blood Count 5.45 M/uL (4.7-6.1); White Blood Count 8.53 K/uL (4.8-10.8)
[2020-02-06 10:48] LABS: INR 1.2 (0.9-1.1); Partial Thromboplastin Ratio 1.1; Partial Thromboplastin Time 29.9 Seconds (21.0-31.0); Prothrombin Time 12.5 Seconds (9.0-12.0)
[2020-02-06 10:51] LABS: Base Excess VBG 2.9 mEq/L; Oxygen Saturation VBG 81.4 %; pH VBG 7.26 (7.36-7.41)
[2020-02-06 10:52] LABS: Alanine Aminotransferase 15 U/L (12-78); Albumin Level 2.7 gm/dl (3.4-5.0); Aspartate Aminotransferase 11 U/L (15-37); BUN Creatinine Ratio 11.5 (10-20); Blood Urea Nitrogen 10 mg/dl (7-18); Calcium 8.5 mg/dl (8.5-10.1); Carbon Dioxide 31 mmol/L (21-32); Chloride 97 mmol/L (98-107); Creatinine Clr Calc Pharmacy 114.2 ml/min; Est GFR (African American) 139.4; Est GFR (Non-African American) 120.3; Glucose 144 mg/dl (70-99); Magnesium 2.1 mg/dl (1.8-2.4); Potassium 4.2 mmol/L (3.5-5.1); Sodium 131 mmol/L (136-145)
[2020-02-06 10:56] LABS: Albumin Globulin Ratio 0.4 (0.9-2); Alkaline Phosphatase 96 U/L (45-117); Bilirubin,Total 0.3 mg/dl (0.2-1); Globulin 7.4 gm/dl (2.5-4.0); Total Protein 10.1 gm/dl (6.4-8.2); Troponin I < 0.015 ng/ml (0-0.045)
--- NOTE | 2020-02-06 11:04 | XRay Report ---
XR chest 1V portable HISTORY: Shortness of breath. COMPARISON: Chest CT 11/21/2019. Chest 11/21/2019. FINDINGS: No pneumothorax. No pleural effusions. The heart is normal in size. Bronchiectasis and uppe r lobe airspace opacities are similar to the prior study and consistent with the patient's known hist ory of cystic fibrosis. The suprahilar retraction, unchanged. Reticulonodular perihilar densities are also unchanged. No new focal lung consolidations. No evidence for pulmonary edema. IMPRESSION: No significant change compared to the prior study. Bronchiectasis, upper lobe opacities, and reticulo nodular interstitial thickening persists consistent with the patient's history of cystic fibrosis. No new focal lung consolidations identified. ACT 112: Negative or not required by law. Electronically signed by: Neo Govea M.D. 02/06/2020 11:03 AM
[2020-02-06] MEDS ORDERED: CEFEPIME 2,000 MG/20 ML VIAL IV STA (11:37)
--- NOTE | 2020-02-06 11:38 | History & Physical Report ---
Date of Service February 06, 2020 Assessment & Plan (1) Acute and chronic respiratory failure with hypercapnia: Severe hypercarbic resp failure 2nd to CF exacerbation. Chest x-ray without obvious changes/pneumonia relative to previous chest films. COVID-19 and [employer] resp panel dispatched. MRSA swab pending. h/o Pseudomonas colonization - thus, cefepime and levaquin ordered IV. Defer on MRSA coverage unless MRSA swab is +. IV steroids q6h. Nebs qid. Supportive care including BIPAP. Patient has consistently told the ER staff, myself, and ER attending that he would NOT want intubation/mech ventilation if respiratory status worsens. I spoke with Dr Lang from ICU who has accepted the patient to the ICU for ongoing care given the severity of this CF exacerbation. (2) Cystic fibrosis with pulmonary exacerbation: as above in "resp failure" (3) Pseudomonas aeruginosa colonization: double coverage IV cefepime/levaquin ordered in light of the severity of his exacerbation. (4) Pancreatic insufficiency due to cystic fibrosis: Creon TID w/ meals along with vitamin supplementation once off BIPAP and eating. (5) Hyponatremia: Suspect due to mild volume depletion. NS x 2 l then saline lock. Check BMP am. (6) DM II (diabetes mellitus, type II), controlled: Pharmacy consult for management while in ICU. (7) DVT prophylaxis: lovenox 40mg daily 60 minutes of critical care time including assessing patient, speaking with hairspring cutter, BiPAP management, addressing code status, etc History of Present Illness Chief Complaint: difficulty breathing Primary Care Provider: [facility] Yvette 24yo AA male with cystic fibrosis and pancreatic insufficiency along with DM presents from [facility] with severe respiratory distress, cough, sputum production (green-yellow), headache, and worsening shortness of breath. Patient states that over the last couple of days he had mild cough and slight MAI but otherwise felt well. These symptoms worsened yesterday afternoon and by nightfall on 02/04 he was very short of breath with any activity. He tried taking his albuterol prn but this did not provide relief. He was short of breath all night and had the correction send him to [facility] for evaluation. Denies any loss of taste or smell. Denies fevers or chills. Denies nasal congestion, sore throat, abdominal pain, nausea, emesis, or diarrhea. No myalgias or arthralgias. The guards at bedside state there have been no cases of COVID-19 at [facility] in the inmate population or employees. Mr Sevilla denies any obvious sick contacts at the correction. In the ER the patient was initially on facemask but continued with severe dyspnea. His mentation also worsened briefly. Thus, he was placed on BiPAP 10/5. By the time of my assessment he could provide history but was still very dyspneic. Allergies Allergy/AdvReac Type Severity Reaction Status Date / Time No Known Allergies Allergy Unverified 02/06/20 10:41 Home Medications Home Medications Medication Instructions Recorded Confirmed Type Creon 3 cap PO UD 06/25/18 02/06/20 History Creon 5 cap PO TID 06/25/18 02/06/20 History Thera 1 tab PO DAILY 06/25/18 02/06/20 History ipratropium-albuterol 3 ml INHALATION QID 06/25/18 02/06/20 History levalbuterol tartrate [Xopenex HFA] 2 puff INHALATION QID PRN 06/25/18 02/06/20 History montelukast [Singulair] 10 mg PO HS 06/25/18 02/06/20 History tobramycin 300 mg INHALATION BID 06/25/18 02/06/20 History ergocalciferol (vitamin D2) 1,250 mcg PO MO@0700 08/18/19 02/06/20 History [Vitamin D2] acetaminophen [Acetaminophen Extra 1,000 mg PO TID PRN 11/21/19 02/06/20 History Strength] azithromycin 500 mg PO MOWEFR 11/21/19 02/06/20 History cetirizine 10 mg PO DAILY 11/21/19 02/06/20 History dornase montez 2.5 mg INHALATION DAILY 11/21/19 02/06/20 History diphenhydramine HCl [Benadryl] 25 mg PO HS 02/06/20 02/06/20 History fluticasone propion-salmeterol 1 inh INHALATION BID 02/06/20 02/06/20 History [Wixela Inhub] guaifenesin 1,200 mg PO BID PRN 02/06/20 02/06/20 History insulin NPH isoph U-100 human 5 unit SUBCUT DAILY 02/06/20 02/06/20 History [Novolin N Flexpen] naproxen 250 mg PO BID PRN 02/06/20 02/06/20 History Past Med/Surg History Medical History Acute respiratory failure with hypoxia s/p intubation/mech ventilation -- 2015 -- [place] [facility] Cystic fibrosis Diabetes DM II (diabetes mellitus, type II), controlled Gastric reflux Multifocal pneumonia Pancreatic insufficiency due to cystic fibrosis Pneumomediastinum history of Pseudomonas aeruginosa colonization Surgical History No significant past surgical history Family History Mother Quadriplegia, post-traumatic 2nd MVA Social History Smoking Status: Former smoker Tobacco Type: Cigarettes packs per day: 1; Years Smoked: 5; Second Hand Exposure: No; Hx Alcohol Use: No (None since he went to correction) Hx Substance Use: No (None since he went to correction) Preferred Language: Maltese Communication Ability: Effective Radiology Interventional Physician Required: No Beliefs That Will Affect Care: None marital status: Unknown Current Living Situation: Other Current Living Situation Comment: [facility] How many Children do You have: 0 Other Information That Helps Us Care for You: No Feels Safe at Home: Yes Safety Concerns: Feels Safe At This Time Review of Systems Constitutional: + fatigue; no fever, no chills, no anorexia and no weight loss Eyes: no worsening vision Ear, Nose, Mouth, Throat: no nasal congestion and no sore throat no loss of taste or smell Respiratory: + cough, + dyspnea, + dyspnea on exertion, + sputum production and + wheezing; no hemoptysis Cardiovascular: + chest pain (tightness ), + dyspnea at rest and + dyspnea on exertion; no edema Gastrointestinal: no abdominal pain, no nausea, no vomiting, no diarrhea/loose stools and no blood in stools Genitourinary: no dysuria Musculoskeletal: no joint pain and no myalgia Integumentary: no rash Neurologic: no loss of sensation Psychiatric: no depression Endocrine: hasn't been checking sugars at [facility] Hematologic / Lymphatic: no easy bruising Physical Exam Constitutional: + acute distress (respiratory distress), + ill appearing and + frail appearing; no altered mental status Eyes: + conjunctival abnormality (injected - right eye) ENMT: Ears: no TM abnormality Mouth: no oropharynx abnormality and oral mucous membranes not dry Neck: trachea midline, no thyromegaly Respiratory: + respiratory distress, + retractions, + uses accessory muscles, + cough and + tachypneic; + not able to speak in complete sentence Auscultation: + crackles (diffuse - all lung segments except RLL ) and + wheezes (scattered) Cardiovascular: Rate/Rhythm: regular rhythm and + tachycardic Heart Sounds: normal S1 and normal S2; no murmur Vessels: posterior tibial pulses present and dorsalis pedis pulses present; no JVD Extremities: no edema Gastrointestinal (Abdomen): normal bowel sounds, soft, nontender, no hepatosplenomegaly Musculoskeletal: Extremities: + clubbing (severe all fingers) Skin: no rashes, warm and dry tattoos Neurologic: moves all extremities; no focal motor deficits Psychiatric: Orientation: alert and oriented x 3 Lymphatic: no cervical lymphadenopathy Results & Data Results & Data ([facility]) Vital Signs (Past 12 Hours) Vital Signs Temp Pulse Pulse Resp BP BP Pulse Ox 02/06/20 11:32 114 H 44 H 127/85 100 02/06/20 10:38 96 02/06/20 10:31 107 H 24 98 02/06/20 10:16 37.3 C 112 H 24 146/77 H 93 Laboratory Results Laboratory Results - last 24 hr 02/06/20 02/06/20 02/06/20 10:20 10:20 10:20 WBC 8.53 RBC 5.45 Hgb 14.2 Hct 45.9 MCV 84.2 MCH 26.1 MCHC 30.9 L RDW Std Deviation 43.5 RDW Coeff of Jerry 14.3 Plt Count 232 MPV 9.7 Immature Gran % (Auto) 0.1 Neut % (Auto) 78.5 Lymph % (Auto) 10.6 [place] % (Auto) 9.5 Eos % (Auto) 0.9 Baso % (Auto) 0.4 Neut # (Auto) 6.70 H Lymph # (Auto) 0.90 L [place] # (Auto) 0.81 H Eos # (Auto) 0.08 Baso # (Auto) 0.03 Immature Gran # (Auto) 0.01 PT 12.5 H INR 1.2 H APTT 29.9 PTT Ratio 1.1 ABG pH ABG pCO2 ABG pO2 ABG HCO3 ABG O2 Saturation ABG Base Excess Arnold Test VBG pH VBG pCO2 VBG pO2 VBG HCO3 VBG O2 Saturation VBG Base Excess Barometric Pressure Oxygen Given Sodium 131 L Potassium 4.2 Chloride 97 L Carbon Dioxide 31 Anion Gap 3.0 BUN 10 Creatinine 0.85 Est Cr Clr Drug Dosing 114.2 Est GFR ( Amer) 139.4 Est GFR (Non-Af Amer) 120.3 BUN/Creatinine Ratio 11.5 Glucose 144 H Lactate Calcium 8.5 Phosphorus Magnesium 2.1 Total Bilirubin 0.3 AST 11 L ALT 15 Alkaline Phosphatase 96 Troponin I < 0.015 Total Protein 10.1 H Albumin 2.7 L Globulin 7.4 H Albumin/Globulin Ratio 0.4 L Procalcitonin Adenovirus (PCR) B. pertussis DNA (PCR) B.parapertussis DNA PCR C. pneumoniae DNA (PCR) Coronavirus OC43 (PCR) Coronavirus HKU1 (PCR) Coronavirus 229E (PCR) COVID-19 Eval Order COVID-19 PCR Coronavirus NL63 (PCR) Human Metapneumovir PCR Influenza Type B (PCR) M. pneumoniae (PCR) Parainfluenza 1 (PCR) Parainfluenza 2 (PCR) Parainfluenza 3 (PCR) Parainfluenza 4 (PCR) RSV (PCR) Entero/Rhino (PCR) 02/06/20 02/06/20 02/06/20 10:20 10:20 10:32 WBC RBC Hgb Hct MCV MCH MCHC RDW Std Deviation RDW Coeff of Jerry Plt Count MPV Immature Gran % (Auto) Neut % (Auto) Lymph % (Auto) [place] % (Auto) Eos % (Auto) Baso % (Auto) Neut # (Auto) Lymph # (Auto) [place] # (Auto) Eos # (Auto) Baso # (Auto) Immature Gran # (Auto) PT INR APTT PTT Ratio ABG pH ABG pCO2 ABG pO2 ABG HCO3 ABG O2 Saturation ABG Base Excess Arnold Test VBG pH VBG pCO2 VBG pO2 VBG HCO3 VBG O2 Saturation VBG Base Excess Barometric Pressure Oxygen Given Sodium Potassium Chloride Carbon Dioxide Anion Gap BUN Creatinine Est Cr Clr Drug Dosing Est GFR ( Amer) Est GFR (Non-Af Amer) BUN/Creatinine Ratio Glucose Lactate 0.8 Calcium Phosphorus Pending Magnesium Total Bilirubin AST ALT Alkaline Phosphatase Troponin I Total Protein Albumin Globulin Albumin/Globulin Ratio Procalcitonin Pending Adenovirus (PCR) B. pertussis DNA (PCR) B.parapertussis DNA PCR C. pneumoniae DNA (PCR) Coronavirus OC43 (PCR) Coronavirus HKU1 (PCR) Coronavirus 229E (PCR) COVID-19 Eval Order COVID-19 PCR Coronavirus NL63 (PCR) Human Metapneumovir PCR Influenza Type B (PCR) M. pneumoniae (PCR) Parainfluenza 1 (PCR) Parainfluenza 2 (PCR) Parainfluenza 3 (PCR) Parainfluenza 4 (PCR) RSV (PCR) Entero/Rhino (PCR) 02/06/20 02/06/20 02/06/20 10:32 11:44 11:45 WBC RBC Hgb Hct MCV MCH MCHC RDW Std Deviation RDW Coeff of Jerry Plt Count MPV Immature Gran % (Auto) Neut % (Auto) Lymph % (Auto) [place] % (Auto) Eos % (Auto) Baso % (Auto) Neut # (Auto) Lymph # (Auto) [place] # (Auto) Eos # (Auto) Baso # (Auto) Immature Gran # (Auto) PT INR APTT PTT Ratio ABG pH 7.22 L ABG pCO2 78 H ABG pO2 126 H ABG HCO3 31 H ABG O2 Saturation 98.1 H ABG Base Excess 1.1 Arnold Test Pos VBG pH 7.26 L VBG pCO2 74 H VBG pO2 56 VBG HCO3 32 VBG O2 Saturation 81.4 VBG Base Excess 2.9 Barometric Pressure 733.6 733.1 Oxygen Given 7L Sodium Potassium Chloride Carbon Dioxide Anion Gap BUN Creatinine Est Cr Clr Drug Dosing Est GFR ( Amer) Est GFR (Non-Af Amer) BUN/Creatinine Ratio Glucose Lactate Calcium Phosphorus Magnesium Total Bilirubin AST ALT Alkaline Phosphatase Troponin I Total Protein Albumin Globulin Albumin/Globulin Ratio Procalcitonin Adenovirus (PCR) B. pertussis DNA (PCR) B.parapertussis DNA PCR C. pneumoniae DNA (PCR) Coronavirus OC43 (PCR) Coronavirus HKU1 (PCR) Coronavirus 229E (PCR) COVID-19 Eval Order Covid19 Done at [facility] COVID-19 PCR Coronavirus NL63 (PCR) Human Metapneumovir PCR Influenza Type B (PCR) M. pneumoniae (PCR) Parainfluenza 1 (PCR) Parainfluenza 2 (PCR) Parainfluenza 3 (PCR) Parainfluenza 4 (PCR) RSV (PCR) Entero/Rhino (PCR) 02/06/20 02/06/20 11:45 11:45 WBC RBC Hgb Hct MCV MCH MCHC RDW Std Deviation RDW Coeff of Jerry Plt Count MPV Immature Gran % (Auto) Neut % (Auto) Lymph % (Auto) [place] % (Auto) Eos % (Auto) Baso % (Auto) Neut # (Auto) Lymph # (Auto) [place] # (Auto) Eos # (Auto) Baso # (Auto) Immature Gran # (Auto) PT INR APTT PTT Ratio ABG pH ABG pCO2 ABG pO2 ABG HCO3 ABG O2 Saturation ABG Base Excess Arnold Test VBG pH VBG pCO2 VBG pO2 VBG HCO3 VBG O2 Saturation VBG Base Excess Barometric Pressure Oxygen Given Sodium Potassium Chloride Carbon Dioxide Anion Gap BUN Creatinine Est Cr Clr Drug Dosing Est GFR ( Amer) Est GFR (Non-Af Amer) BUN/Creatinine Ratio Glucose Lactate Calcium Phosphorus Magnesium Total Bilirubin AST ALT Alkaline Phosphatase Troponin I Total Protein Albumin Globulin Albumin/Globulin Ratio Procalcitonin Adenovirus (PCR) Pending B. pertussis DNA (PCR) Pending B.parapertussis DNA PCR Pending C. pneumoniae DNA (PCR) Pending Coronavirus OC43 (PCR) Pending Coronavirus HKU1 (PCR) Pending Coronavirus 229E (PCR) Pending COVID-19 Eval Order COVID-19 PCR Pending Coronavirus NL63 (PCR) Pending Human Metapneumovir PCR Pending Influenza Type B (PCR) Pending M. pneumoniae (PCR) Pending Parainfluenza 1 (PCR) Pending Parainfluenza 2 (PCR) Pending Parainfluenza 3 (PCR) Pending Parainfluenza 4 (PCR) Pending RSV (PCR) Pending Entero/Rhino (PCR) Pending Diagnostic Findings cxr: FINDINGS: No pneumothorax. No pleural effusions. The heart is normal in size. Bronchiectasis and upper lobe airspace opacities are similar to the prior study and consistent with the patient's known history of cystic fibrosis. The suprahilar retraction, unchanged. Reticulonodular perihilar densities are also unchanged. No new focal lung consolidations. No evidence for pulmonary edema. IMPRESSION: No significant change compared to the prior study. Bronchiectasis, upper lobe opacities, and reticulonodular interstitial thickening persists consistent with the patient's history of cystic fibrosis. No new focal lung consolidations identified. Code Status & VTE Plan Code Status conditional - all measures are acceptable EXCEPT intubation/mech ventilation VTE Prophylaxis Plan VTE Prophylaxis will be ordered: Yes Critical Care Time Critical Care Time: Yes Total Critical Care Time: 60 PG Care Time/CCT Total # of Minutes Spent Total Time Spent with Patient: Total time spent is greater than 50% in coordination of care (as documented) at patient's floor/unit and/or counseling patient: Critical Care Time: Yes Total Critical Care Time: 60 Coding Level of Care Code None Diagnoses Acute and chronic respiratory failure with hypercapnia J96.22 Cystic fibrosis with pulmonary exacerbation E84.0 Pseudomonas aeruginosa colonization Z22.39 Pancreatic insufficiency due to cystic fibrosis E84.8; K86.89 Hyponatremia E87.1 DM II (diabetes mellitus, type II), controlled E11.9 DVT prophylaxis Z29.9 Additional Codes Critical Care Time - Critical Care Time: Yes ([id number])
[2020-02-06 12:02] LABS: Allen Test Pos (Pos); Base Excess ABG 1.1 mEq/L (-9-1.8); HCO3 ABG 31 mmol/L (19-24); Oxygen Saturation ABG 98.1 % (90-95); PCO2 ABG 78 mmHg (35-46); PO2 ABG 126 mmHg (80-95); pH ABG 7.22 (7.35-7.45)
[2020-02-06 13:01] LABS: Adenovirus PCR Not Detected (NotDetected); Bordetella parapertussis PCR Not Detected (NotDetected); Bordetella pertussis PCR Not Detected (NotDetected); Chlamydia pneumoniae PCR Not Detected (NotDetected); Coronavirus 229E PCR Not Detected (NotDetected); Coronavirus HKU1 PCR Not Detected (NotDetected); Coronavirus NL63 PCR Not Detected (NotDetected); Coronavirus OC43PCR Not Detected (NotDetected); Human Metapneumovirus PCR Not Detected (NotDetected); Influenza A PCR Not Detected (NotDetected); Influenza B PCR Not Detected (NotDetected); Mycoplasma pneumoniae PCR Not Detected (NotDetected); Parainfluenza Virus 1 PCR Not Detected (NotDetected); Parainfluenza Virus 2 PCR Not Detected (NotDetected); Parainfluenza Virus 3 PCR Not Detected (NotDetected); Parainfluenza Virus 4 PCR Not Detected (NotDetected); Respiratory Syncytial VirusPCR Not Detected (NotDetected); Rhinovirus/Enterovirus PCR Not Detected (NotDetected)
[2020-02-06] MEDS ORDERED: ICU PROTOCOL FOR HYPERGLYCEMIA PRN (13:49)
[2020-02-06] MEDS ORDERED: LEVALBUTEROL TARTRATE 15 GM HFA.AER.AD INH PRN (13:49)
[2020-02-06] MEDS ORDERED: PANCREAZE (LIPASE 16,800U) CAP PO PRN (14:15)
[2020-02-06] MEDS: SODIUM CHLORIDE 0.9% 1000ML 1,000 ML IV SCH (14:17)
--- NOTE | 2020-02-06 14:33 | Critical Care Consultation ---
Date of Consultation February 06, 2020 Assessment & Plan (1) Acute and chronic respiratory failure with hypercapnia: Reason Critically Ill: 24 yo M PMHx cystic fibrosis, pancreatic insufficiency, DM2, former smoker presents from [facility] for worsening SOB and who was admitted for acute hyp ercapnic respiratory failure. Neuro - [facility] ICU: negative Sedation: none Analgesia: none Cardiac Abnormal EKG: - Patient is without complaints of CP, palpitations. - EKG with some ? ST elevations in inferolateral leads without elevated troponin or chest pain. - Potassium is normal at 4.2. - Continuous cardiac monitoring. - EKG AM and PRN worsening symptoms. Tachycardia: - Likely due to respiratory distress and pulmonary infection. - Anticipate improvement with improvement in respiratory status. Respiratory - Acute hypercapnic respiratory failure in patient with cystic fibrosis: - History of CF with history of multiple CF exacerbations in the past requiring antibiotics and respiratory support. - On arrival with tachypnea and dyspnea with report that his O2 saturation at the correctional facility was in the 60s this AM. - Placed on BiPAP 06/12 at FiO2 40% with improvement in SOB but not in tachypnea. - CXR performed this admission without significant change from prior study in 10/2019. No focal consolidations or pulmonary edema. - Biofire and Rapid COVID 19 testing were both negative. 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 - Started on levofloxacin/cefepime for Pseudomonas double-coverage. - Vancomycin started as MRSA nares positive. - Methylprednisolone 40mg IV q6h, Nebs q6h. - Patient is adamant that he does not desire intubation, even in a life or situation. GI - - NPO at this time given respiratory distress. - DM2 diet when can tolerate PO. - No current GI concerns. RENAL/LYTES - - No significant electrolyte derangement. - Replace lytes as needed. - Normal renal function. - - Cao in place. - No concerns. - Strict Is/Os. ENDO - - No history of thyroid disease. DM2: - On arrival with BSG 144. - ICU hyperglycemia protocol. - Novolog parameters as below: - Goal BSG Range: Low 120 mg/dL, High 160 mg/dL - Correction Factor: 40 mg/dL/unit - INS:CHO Ratio: 1unit per 25 gms CHO consumed - BSGs ACHS if eating, q6h if npo Pancreatic insufficiency: - History of 2/2 cystic fibrosis, on Creon TID with meals at home. - Continue Creon, multivitamin once able to tolerate PO. HEME - - Stable H/H. ID - ? Pneumonia: - On arrival with respiratory failure with a PMHx of cystic fibrosis. - CXR relatively unchanged from last admission: - Bronchiectasis, upper lobe opacities, and reticulonodular interstitial thickening persists consistent with the patient's history of cystic fibrosis. No new focal lung consolidations identified. - Currently on cefepime/levofloxacin for double coverage of Pseudomonas, vancomycin for positive MRSA nares. - BCx x2 drawn prior to antibiotics. - Repeat CXR tomorrow AM. - Monitor fever curve. INTEGUMENTARY - - No present concerns. LINES/IV ACCESS - - PIVs intact. - Cao in place. DVT PROPHYLAXIS - - Enoxaparin 40mg SQ daily. Code Status - Conditional - DNI, other interventions okay. Thank you for allowing us to be part of this patient's care. Please refer to Dr. Lang's documentation for any further recommendations. (2) Pancreatic insufficiency due to cystic fibrosis: (3) Hyponatremia: (4) Cystic fibrosis: (5) DM II (diabetes mellitus, type II), controlled: Supervising Physician Co-Signing Physician Notes Mariel Morfin was the resident-physician during care of patient. I separately evaluated patient for sanz portions of the history and the exam. I was present during the critical portion of medical decision making, and I discussed the case with the resident. I generally agree with the findings and plan except for any additions/exceptions noted. Patient seen and examined at bedside in the ICU. Was in respiratory distress at the time of examination. He was on BiPAP 10/6 40% getting tidal volume of only 250 tachypneic in the 30s. BiPAP setting was changed to appropriate tidal volume of 400-450. Mask was also adjusted there was a high leak. Patient was asked multiple times regarding intubation if need be he said no matter what happens he does not want to be intubated. Given the patient has cystic fibrosis would cover him for 2 antipseudomonal medi cations which is levofloxacin as well as cefepime. Covid-19 for the patient was negative. Along with bio fire. Patient is a prisoner. No positive cases of COVID in the [facility] where he is coming from AB.22/78/126/on 7 L O2 Would give the patient dornase montez and duo nebs. Patient did have [place] from test on his previous admission back in August which was negative. Sputum culture from 08/21/2019 was positive for Pseudomonas fluoresc/putida which was pansensitive. Will reorder sputum culture this admission. Patient also grew DAVID from sputum culture 08/20/2019. Given the cystic fibrosis he will likely be needing to be treated with for his DAVID. Given he is in acute exacerbation I would not start the treatment right now. Given he has cystic fibrosis he should be pancreatic enzyme replacement once he starts eating. Go down Solu-Medrol to 40 mg twice daily and gradually titrated off. No eosinophilia on the peripheral smear. I have personally spent 62 minutes of critical care time in the direct management of this patient. This is a life/limb threatening event. This includes time spent evaluating patient, direct bedside care, chart review, placi ng orders, interpretation of diagnostic studies, discussion with consultants, patient, and/or family members regarding treatment decisions, as well as other required patient management activities. This time is exclusive of all separately billable procedures, and teaching time and separate from and in addition to any other critical care service time. History of Present Illness Reason for Consultation: acute hypercapnic respiratory failure Requesting Physician: Dr. Jimenez Attending Physician: Dwight Jimenez History of Present Illness 24 yo M M PMHx cystic fibrosis, pancreatic insufficiency, DM2, former smoker presented from correctional facility with SOB and complaints of hypoxia on pulse ox at the correctional facility. Stated that for 24 hours he had some intermitte nt dyspnea with activities, and light cough.Overnight had worsening of shortness of breath, and despite albuterol treatment at the facility his oxygen saturation was in the 60s. Confirms some subjective fevers but denies chest pains, palpitations, nausea or vomiting, headaches or dizziness. Was recently treated for pneumonia with levofloxacin, which he completed 2 weeks ago and had been without symptoms until this current illness. No sick contacts, no current COVID 19 positive cases at his correctional facility. ED Course: EKG showed ? ST changes in inferolateral leads, without elevated troponin or complaints of chest pain. CXR without significant change from 10/2019, BCx drawn x2, levofloxacin/cefepime started. Bar Assistant service consulted by primary team for close monitoring of respiratory status. Patient has stated that he absolutely does not want to be intubated, even in a life or scenario. Allergies Allergy/AdvReac Type Severity Reaction Status Date / Time No Known Allergies Allergy Unverified 02/06/20 10:41 Home Medications Home Medications Medication Instructions Recorded Confirmed Type Creon 3 cap PO UD 06/25/18 02/06/20 History Creon 5 cap PO TID 06/25/18 02/06/20 History Thera 1 tab PO DAILY 06/25/18 02/06/20 History ipratropium-albuterol 3 ml INHALATION QID 06/25/18 02/06/20 History levalbuterol tartrate [Xopenex HFA] 2 puff INHALATION QID PRN 06/25/18 02/06/20 History montelukast [Singulair] 10 mg PO HS 06/25/18 02/06/20 History tobramycin 300 mg INHALATION BID 06/25/18 02/06/20 History ergocalciferol (vitamin D2) 1,250 mcg PO MO@0700 08/18/19 02/06/20 History [Vitamin D2] acetaminophen [Acetaminophen Extra 1,000 mg PO TID PRN 11/21/19 02/06/20 History Strength] azithromycin 500 mg PO MOWEFR 11/21/19 02/06/20 History cetirizine 10 mg PO DAILY 11/21/19 02/06/20 History dornase montez 2.5 mg INHALATION DAILY 11/21/19 02/06/20 History diphenhydramine HCl [Benadryl] 25 mg PO HS 02/06/20 02/06/20 History fluticasone propion-salmeterol 1 inh INHALATION BID 02/06/20 02/06/20 History [Wixela Inhub] guaifenesin 1,200 mg PO BID PRN 02/06/20 02/06/20 History insulin NPH isoph U-100 human 5 unit SUBCUT DAILY 02/06/20 02/06/20 History [Novolin N Flexpen] naproxen 250 mg PO BID PRN 02/06/20 02/06/20 History Patient History Medical History Acute respiratory failure with hypoxia s/p intubation/mech ventilation -- 2015 -- [facility] Cystic fibrosis Diabetes DM II (diabetes mellitus, type II), controlled Gastric reflux Multifocal pneumonia Pancreatic insufficiency due to cystic fibrosis Pneumomediastinum history of Pseudomonas aeruginosa colonization Surgical History No significant past surgical history Family History Mother Quadriplegia, post-traumatic 2nd MVA Social History Smoking Status: Former smoker Tobacco Type: Cigarettes packs per day: 1; Years Smoked: 5; Second Hand Exposure: No; Hx Alcohol Use: No (None since he went to [facility]) Hx Substance Use: No (None since he went to [facility]) Preferred Language: Guinean Communication Ability: Effective Title Clerk Automobile Required: No Beliefs That Will Affect Care: None marital status: Unknown Current Living Situation: Other Current Living Situation Comment: Skilled Nursing How many Children do You have: 0 Other Information That Helps Us Care for You: No Feels Safe at Home: Yes Safety Concerns: Feels Safe At This Time Review of Systems Review of Systems: All systems reviewed & are unremarkable except as noted in HPI & below Physical Exam Constitutional: well developed, + acute distress (respiratory), + ill appearing and + thin Eyes: PERRL, conjunctivae normal, anicteric sclerae ENMT: external ear and nose normal, oropharynx normal Neck: normal visual inspection Respiratory: + respiratory distress, + cough (intermittent) and + tachypneic (RR 30s); + not able to speak in complete sentence Auscultation: + crackles (diffuse) and + wheezes (intermittent) BiPAP at 14/6, 40% FiO2 Cardiovascular: Rate/Rhythm: regular rhythm and + tachycardic Heart Sounds: no murmur Extremities: no edema palpable pulses radial/DP bilaterally Gastrointestinal (Abdomen): normal bowel sounds, soft, nontender, no hepatosplenomegaly Musculoskeletal: Extremities: + clubbing Skin: no rashes, warm and dry Neurologic: moves all extremities; no focal motor deficits Speech / Cognition: normal speech Motor/Sensory: no tremor Psychiatric: Orientation: alert and oriented x 3 Lymphatic: no cervical lymphadenopathy Results & Data Results & Data ([facility]) Vital Signs (Past 12 Hours) Vital Signs Temp Pulse Pulse Resp BP BP Pulse Ox 02/06/20 13:50 105 H 38 H 96 02/06/20 13:49 107 H 02/06/20 13:45 107 H 39 H 128/85 96 02/06/20 13:30 114 H 39 H 90 02/06/20 13:14 113 H 22 124/81 91 02/06/20 12:47 113 H 22 124/81 91 02/06/20 12:23 114 H 38 H 129/70 92 02/06/20 12:01 118 H 33 H 99 02/06/20 12:00 120 H 45 H 119/82 99 02/06/20 11:45 121 H 35 H 100 02/06/20 11:32 114 H 44 H 127/85 100 02/06/20 11:31 113 H 47 H 99 02/06/20 11:30 115 H 50 H 127/85 99 02/06/20 11:29 112 H 51 H 142/86 H 99 02/06/20 11:00 106 H 40 H 02/06/20 10:38 96 02/06/20 10:31 107 H 24 98 02/06/20 10:30 104 H 48 H 97 02/06/20 10:16 37.3 C 112 H 24 146/77 H 93 02/06/20 10:07 111 H 40 H 95 02/06/20 10:05 113 H 49 H 146/77 H 94 02/06/20 10:20 02/06/20 10:20 Resident Activity Tracking Resident Involvement: Resident Care Provided Care Provided: Adult [facility] Medicine
[2020-02-06] MEDS ORDERED: ICU ELECTROLYTE REPLACEMENT PROTOCOL PRN (14:51)
[2020-02-06] MEDS ORDERED: PHARMACY GLYCEMIC MGMT CONSULT PRN (14:52)
[2020-02-06] MEDS ORDERED: GLUCOSE 40% GEL 15 GM TUBE PO PRN (15:00)
[2020-02-06] MEDS ORDERED: GLUCOSE 10 TABS/TUBE PO PRN (15:00)
[2020-02-06] MEDS ORDERED: DEXTROSE 50% 50 ML SYRINGE IV PRN (15:00)
[2020-02-06] MEDS ORDERED: GLUCAGON FOR INJ 1 MG VIAL SQ PRN (15:00)
[2020-02-06] MEDS ORDERED: CARBOHYDRATES FOR HYPOGLYCEMIA PO PRN (15:00)
--- NOTE | 2020-02-06 15:07 | Pharmacy Report ---
Pharmacy Glycemic Short Note 2 - Date of Service February 06, 2020 - Glycemic Short BSG Results (Last 24 hours): 02/06/20 10:20 Glucose 144 H OUTPATIENT ANTIDIABETIC REGIMEN: * NPH 5 UNITS * A1C PENDING ASSESSMENT: * Mr. Sevilla is admitted for cystic fibrosis exacerbation, currently being treated with cefepime and levofloxacin * Blood sugar this am 144. Previous admissions BSGs decently controlled with some hypoglycemic events * Outpatient regimen reportedly 5 units of NPH- will start correction factor at weight based stress of 2, patient is currently NPO but will start with weight based stress of 1 * Will hold on basal insulin at this time- will initiate if fasting elevated PLAN FOR INPATIENT GLYCEMIC CONTROL: * Bolus insulin * NovoLog per scale ACHS or Q6hrs while NPO * Goal Range: Low 120 mg/dL - High 160 mg/dL * Correction Factor: 40 mg/dL/unit * Nutritional / Prandial insulin per carb ratio of 1 unit per 25 grams CHO consumed
[2020-02-06] MEDS: ALBUT/IPRATROP 3MG/0.5MG NEB 3 ML VIAL INH SCH ×2 (15:15→19:11)
[2020-02-06] MEDS ORDERED: VANCOMYCIN CONSULT ACTIVE PRN (15:25)
[2020-02-06] MEDS ORDERED: VANCOMYCIN HCL 1,250 MG in SODIUM CHLORIDE 0.9% 250 ML IV ONE (15:45)
--- NOTE | 2020-02-06 16:23 | Pharmacy Report ---
Pharmacy Abx Initial Consult - Date of Service February 06, 2020 - Pharmacy Dosing Scope Date of Consult: 02/06/20 Consultation requested by: Dr. Da Silav Pharmacy is consulted to initiate vancomycin IV dosing therapy, order appropriate labs and adjust drug dose/frequency. - Subjective The patient is a 24 year old M admitted on 02/06/20 12:25. - Objective Height: 5 ft 11 in Weight: 58.1 kg Vital Signs (Past 12hrs): Vital Signs Temp Pulse Pulse Resp BP BP Pulse Ox 02/06/20 15:15 105 H 38 H 93 02/06/20 14:50 36.7 C 02/06/20 14:45 103 H 37 H 125/80 96 02/06/20 14:00 105 H 16 88 L 02/06/20 13:50 105 H 38 H 96 02/06/20 13:49 107 H 02/06/20 13:45 107 H 39 H 128/85 96 02/06/20 13:30 114 H 39 H 90 02/06/20 13:14 113 H 22 124/81 91 02/06/20 12:47 113 H 22 124/81 91 02/06/20 12:23 114 H 38 H 129/70 92 02/06/20 12:01 118 H 33 H 99 02/06/20 12:00 120 H 45 H 119/82 99 02/06/20 11:45 121 H 35 H 100 02/06/20 11:32 114 H 44 H 127/85 100 02/06/20 11:31 113 H 47 H 99 02/06/20 11:30 115 H 50 H 127/85 99 02/06/20 11:29 112 H 51 H 142/86 H 99 02/06/20 11:00 106 H 40 H 02/06/20 10:38 96 02/06/20 10:31 107 H 24 98 02/06/20 10:30 104 H 48 H 97 02/06/20 10:16 37.3 C 112 H 24 146/77 H 93 02/06/20 10:07 111 H 40 H 95 02/06/20 10:05 113 H 49 H 146/77 H 94 Lab Results (24hrs): Laboratory Tests (24 Hours) 02/06/20 02/06/20 02/06/20 10:20 10:20 10:20 WBC 8.53 Neut # (Auto) 6.70 H Creatinine 0.85 Est Cr Clr Drug Dosing 114.2 Procalcitonin < 0.05 Micro Results: 02/06/20 Unknown Aerobic Blood Culture - Pending Blood Anaerobic Blood Culture - Pending 02/06/20 10:20 Aerobic Blood Culture - Pending Blood Anaerobic Blood Culture - Pending - Risk Factors for Resistance * [facility] * Cystic fibrosis, type 2 DM * 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 Vancomycin specifically added for positive MRSA nasal swab. Patient has multiple risk factors for MDRO (i.e. inmate at [facility] and PMH of cystic fibrosis, type 2 DM) and has history of Pseudomonas colonization. Double coverage for pseudomonas with cefepime and levofloxacin indicated at this time. Renal function intact. Plan Vancomycin IV * Loading dose of 1250 mg (22 mg/kg) IV x 1 * Patient meets criteria for vancomycin AUC dosing nomogram * 1 g IV q8h * AUC/MARYBEL is the preferred PK/PD target for vancomycin * Target AUC/MARYBEL = 400-600 * AUC guided dosing is effective and associated with decreased risk of nephrotoxicity Cefepime IV * 2 g IV q8h is appropriate - no change needed based on renal function Levofloxacin IV * 750 mg IV q24h is appropriate - no change needed based on renal function Pharmacy will continue to follow and will adjust dose/frequency as necessary. Thank you.
[2020-02-06] MEDS ORDERED: PNEUMOCOCCAL ADMINISTRATION CHARGE ONE (17:00)
[2020-02-06] MEDS ORDERED: PNEUMOCOCCAL POLYSACCHARIDES 25 MCG/0.5 ML VIAL/SYR IM ONE (17:00)
[2020-02-06] MEDS: PANCREAZE (LIPASE 16,800U) CAP PO SCH (17:04)
[2020-02-06] MEDS ORDERED: methylPREDNISolone 40 MG in SYRINGE 0 ML IV SCH (18:00)
[2020-02-06] MEDS: INSULIN ASPART 100 UNITS/ML 3 ML PEN SC SCH (18:08)
--- NOTE | 2020-02-06 19:00 | Billing Data ---
Date of Service February 06, 2020 Coding Level of Care Code Critical Care 1st 30-74 mins Time Spent (min) 62
[2020-02-06] MEDS: ENOXAPARIN INJ 40 MG/0.4 ML SYR SQ SCH (20:36)
[2020-02-06] MEDS: methylPREDNISolone 40 MG in SYRINGE 0 ML IV SCH (20:36)
[2020-02-06] MEDS: guaiFENesin 600 MG TABCR PO SCH ×2 (20:37→20:42)
[2020-02-06] MEDS: MONTELUKAST SODIUM 10 MG TABLET PO SCH ×2 (20:37→20:42)
[2020-02-06] MEDS: CEFEPIME 2,000 MG in SYRINGE 7.5 ML IV SCH (20:39)
[2020-02-07] MEDS: SODIUM CHLORIDE 0.9% 1000ML 1,000 ML IV SCH ×4 (00:17→14:42)
[2020-02-07] MEDS: INSULIN ASPART 100 UNITS/ML 3 ML PEN SC SCH ×4 (00:18→17:13)
[2020-02-07] MEDS: VANCOMYCIN HCL 1,000 MG in SODIUM CHLORIDE 0.9% 250 ML IV SCH ×3 (00:22→16:13)
[2020-02-07] MEDS: CEFEPIME 2,000 MG in SYRINGE 7.5 ML IV SCH ×3 (04:36→21:00)
[2020-02-07 04:38] LABS: Hemoglobin 14.1 g/dL (14.0-18.0); Immature Granulocytes # (auto) 0.01 K/uL (0.00-0.02); Immature Granulocytes % (auto) 0.2 %; Lymphocytes # (auto) 0.67 K/uL (1.2-3.4); Mean Corpuscular Hemoglobin 26.2 pg (25-34); Mean Corpuscular Volume 87.4 fL (80-100); Monocytes # (auto) 0.13 K/uL (0.11-0.59); Monocytes % (auto) 2.5 %; Neutrophils # (auto) 4.34 K/uL (1.4-6.5); Neutrophils % (auto) 84.3 %; Platelet Count 187 K/uL (130-400); RDW Coefficient of Variation 14.2 % (11.5-14.5); RDW Standard Deviation 44.7 fL (36.4-46.3); Red Blood Count 5.38 M/uL (4.7-6.1); White Blood Count 5.15 K/uL (4.8-10.8)
[2020-02-07 05:14] LABS: iSTAT Allen Test Pass; iSTAT Art Bld Gas pCO2 Correct 91 mmHg (35-46); iSTAT Art Bld Gas pH Corrected 7.173 (7.35-7.45); iSTAT Arterial Blood Gas HCO3 34 meg/L (19-24); iSTAT Arterial Blood Gas pCO2 94 mmHg (35-46); iSTAT Arterial Blood Gas pH 7.16 (7.35-7.45); iSTAT Arterial Blood Gas pO2 87 mmHg (80-95); iSTAT Arterial Blood Gas pO2 C 84; iSTAT Carbon Dioxide 36 mmol/L (24-31); iSTAT FiO2 40 %; iSTAT Hematocrit 46 % (42-52); iSTAT Hemoglobin 15.6 g/dl (14.0-18.0); iSTAT Potassium 4.8 mmol/L (3.3-5.0); iSTAT Site L Radial; iSTAT Sodium 136 mmol/L (135-144)
[2020-02-07 05:33] LABS: BUN Creatinine Ratio 14.5 (10-20); Calcium 7.6 mg/dl (8.5-10.1); Est GFR (African American) 145.9; Est GFR (Non-African American) 125.9; Magnesium 2.1 mg/dl (1.8-2.4); Phosphorus 4.6 mg/dl (2.5-4.9); Potassium 5.3 mmol/L (3.5-5.1)
[2020-02-07 06:55] LABS: Estimated Average Glucose 148 mg/dl; Hemoglobin A1C 6.8 % (4.5-5.6)
[2020-02-07] MEDS: ALBUT/IPRATROP 3MG/0.5MG NEB 3 ML VIAL INH SCH ×4 (06:55→19:15)
[2020-02-07] MEDS: DORNASE ALFA 2.5 ML AMP INH SCH (06:55)
--- NOTE | 2020-02-07 07:29 | XRay Report ---
XR chest 1V portable HISTORY: 24 years-old Male resp failure acute respiratory failure COMPARISON: Chest radiograph 02/06/2020, chest CT 11/21/2019 TECHNIQUE: Portable AP view of the chest FINDINGS: Cardiac silhouette is unchanged. Upper lung zone predominant bronchiectasis with bilateral mixed inte rstitial and alveolar opacities. No pneumothorax, pleural effusion, overt pulmonary edema or new airs pace consolidation. There is mildly improved aeration of the upper lung zones. Bones appear normal. N o opaque foreign body. IMPRESSION: Slightly improved aeration of the upper lung zones with persistent bronchiectasis, mixed interstitial and alveolar opacities compatible with patient's history of cystic fibrosis. ACT 112: Negative or not required by law. The above report was generated using voice recognition software. It may contain grammatical, syntax o r spelling errors. Electronically signed by: Ortiz Martinez M.D. 02/07/2020 7:28 AM
[2020-02-07] MEDS: guaiFENesin 600 MG TABCR PO SCH ×2 (07:50→20:55)
[2020-02-07] MEDS: FLUTICASONE/VILANTEROL 200/25MCG 14 PUFFS/INHALER INH SCH (07:50)
[2020-02-07] MEDS: PANCREAZE (LIPASE 16,800U) CAP PO SCH ×3 (07:50→15:34)
[2020-02-07] MEDS: CEROVITE ADV FORMULA TAB PO SCH (07:50)
[2020-02-07] MEDS: CETIRIZINE HCL 10 MG TABLET PO SCH (07:50)
[2020-02-07] MEDS: methylPREDNISolone 40 MG in SYRINGE 0 ML IV SCH ×2 (07:57→21:00)
[2020-02-07] MEDS ORDERED: FUROSEMIDE 20 MG in SYRINGE 0 ML IV ONE (08:00)
--- NOTE | 2020-02-07 08:09 | Hospitalist Progress Note ---
Date of Service February 07, 2020 Assessment & Plan (1) Acute and chronic respiratory failure with hypercapnia: Severe hypercarbic resp failure 2nd to Cystic Fibrosis exacerbation. Chest x-ray without obvious changes/pneumonia relative to previous chest films. COVID-19 and BioFire resp panel dispatched. MRSA swab pending. h/o Pseudomonas colonization - thus, cefepime and levaquin ordered IV. Defer on MRSA coverage unless MRSA swab is +. IV steroids q6h. Nebs qid. Supportive care including BIPAP. Patient has consistently told the ER staff, Dr. Lang and ER attending that he would NOT want intubation/mech ventilation if respiratory status worsens. I spoke with Dr Lang from ICU who asked me to call [facility] for possible transfer for ECMO however after I spoke with the [facility] attending Dr. Luis(sp?) He states that he typically will not perform ecmo unless s omeone is intubated with the patient refusing intubation he would not be appropriate for transfer and we are providing as much supportive care as they can provide. This is unfortunate as Dr. Lang feels that the patient would not survive without further interventional ventilatory support (2) Cystic fibrosis with pulmonary exacerbation: as above in "resp failure" (3) Pseudomonas aeruginosa colonization: double coverage IV cefepime/levaquin ordered in light of the severity of his exacerbation. (4) Pancreatic insufficiency due to cystic fibrosis: Creon TID w/ meals along with vitamin supplementation once off BIPAP and eating. (5) Hyponatremia: Suspect due to mild volume depletion. Supported with IV fluid which is normal tonic saline. Check BMP am. (6) DM II (diabetes mellitus, type II), controlled: Pharmacy consult for management while in ICU. (7) DVT prophylaxis: lovenox 40mg daily This patient is outlook is extremely poor he remains very acidotic with respiratory acidosis due to inability to ventilate appropriately while on BiPAP likely because of large prehospital existing lung injury from cystic fibrosis and increased space Admission and Anticipated Discharge Date Admission Date: February 06, 2020 Subjective pt is mortally ill on bipap without correcting ventilation, reportedly did refuse intubation, and is continuing to do poorly Review of Systems Review of Systems: Unobtainable due to cognitive status Physical Exam Physical Exam: The patient appeared moderately ill Vital signs as documented. Head exam is normocephalic atraumatic no scleral icterus patient is wearing BiPAP device Neck trachea is midline no stridor Lungs are coarse throughout with poor air movement Cardiac exam, Rhythm is regular.. No murmurs, rubs or gallops. Abdominal exam reveals normal bowel sounds, soft non tender Neurologic exam is not predictable Results & Data Results & Data ([facility]) Vital Signs (Past 12 Hours) Vital Signs Pulse Pulse Resp BP Pulse Ox 02/07/20 06:58 90 90 20 94 02/07/20 04:48 104 H 17 92 02/07/20 01:36 87 27 H 93 02/06/20 22:11 90 31 H 98 02/06/20 20:45 93 H 26 H 101/64 95 PG Care Time/CCT Total # of Minutes Spent Total Time Spent with Patient: Total time spent is greater than 50% in coordination of care (as documented) at patient's floor/unit and/or counseling patient: Coding Level of Care Code 00382 Subseq Hosp Care Lvl 3 Diagnoses Acute and chronic respiratory failure with hypercapnia J96.22 Cystic fibrosis with pulmonary exacerbation E84.0 Pseudomonas aeruginosa colonization Z22.39 Pancreatic insufficiency due to cystic fibrosis E84.8; K86.89 Hyponatremia E87.1 DM II (diabetes mellitus, type II), controlled E11.9 DVT prophylaxis Z29.9
[2020-02-07 08:31] LABS: iSTAT Allen Test Pass; iSTAT Arterial Blood Gas HCO3 33 meg/L (19-24); iSTAT Arterial Blood Gas pCO2 87 mmHg (35-46); iSTAT Arterial Blood Gas pH 7.19 (7.35-7.45); iSTAT Arterial Blood Gas pO2 90 mmHg (80-95); iSTAT Carbon Dioxide 36 mmol/L (24-31); iSTAT FiO2 40 %; iSTAT Site R Radial
--- NOTE | 2020-02-07 09:40 | Critical Care Progress Note ---
Date of Service February 07, 2020 Assessment & Plan (1) Acute and chronic respiratory failure with hypercapnia: 24 yo M PMHx cystic fibrosis, pancreatic insufficiency, DM2, former smoker presents from [facility] for worsening SOB and who was admitted for acute hypercapnic respiratory failure. Neuro - CAM ICU: negative Sedation: none Analgesia: none Cardiac Abnormal EKG: Early liberalization, unchanged compared to EKG done 11/21/2019 - Patient is without complaints of CP, palpitations. - Continuous cardiac monitoring. Respiratory - Acute hypercapnic respiratory failure in patient with cystic fibrosis: - History of CF with history of multiple CF exacerbations in the past requiring antibiotics and respiratory support. - On arrival with tachypnea and dyspnea with report that his O2 saturation at the correctional facility was in the 60s - CXR performed this admission without significant change from prior study in 10/2019. No focal consolidations or pulmonary edema. - Biofire and Rapid COVID 19 testing were both negative. - Sputum culture from 08/21/2019 was positive for Pseudomonas fluoresc/putida which was pansensitive. Will reorder sputum culture this admission. - Patient also grew DAVID from sputum culture 08/20/2019. Given the cystic fibrosis he will likely be needing to be treated with for his DAVID. Given he is in acute exacerbation I would not start the treatment right now. - Started on levofloxacin/cefepime for Pseudomonas double-coverage. - Patient did have gold QuantiFERON test on his previous admission back in August which was negative. - Vancomycin started as MRSA nares positive. - Methylprednisolone 40mg IV q6h, Nebs q6h. - Patient is adamant that he does not desire intubation, even in a life or situation. -Patient's hypercapnia still worsening while on BiPAP, adjustment to IPAP made to give higher tidal volume as patient is very high space from his underlying CF GI - - NPO at this time given respiratory distress. - DM2 diet when can tolerate PO. - No current GI concerns. RENAL/LYTES - -mild hyperkalemia - Replace lytes as needed. - Normal renal function. - - Cao in place. - No concerns. - Strict Is/Os. ENDO - - No history of thyroid disease. DM2: - ICU hyperglycemia protocol. Pancreatic insufficiency: - History of 2/2 cystic fibrosis, on Creon TID with meals at home. - Continue Creon, multivitamin once able to tolerate PO. HEME - - Stable H/H. ID - - On arrival with respiratory failure with a PMHx of cystic fibrosis. - CXR relatively unchanged from last admission: - Bronchiectasis, upper lobe opacities, and reticulonodular interstitial thickening persists consistent with the patient's history of cystic fibrosis. No new focal lung consolidations identified. - Currently on cefepime/levofloxacin for double coverage of Pseudomonas, vancomycin for positive MRSA nares. - BCx x2 drawn prior to antibiotics. - Repeat CXR tomorrow AM. - Monitor fever curve. INTEGUMENTARY - - No present concerns. LINES/IV ACCESS - - PIVs intact. - Cao in place. DVT PROPHYLAXIS - - Enoxaparin 40mg SQ daily. Code Status - Conditional - DNI, other interventions okay. Plan: In/out: Positive for 70, urine output 1225 AB./ Will increase the IPAP to 24 keep the EPAP at 6 is increasing the EPAP might cause pneumothorax especially in a patient with cystic fibrosis. Patient has significant space because of his underlying CF. It will be very difficult to ventilate him with BiPAP or even with intubation. ECMO could be thought off to take care of PCO2 in a patient who is not able to be ventilated. I spoke with Dr. Manzo to see if he can get in touch with [facility] or [facility] and speak with 1 of the internet marketing consultant if they will be willing to take him for possible ECMO keeping in mind that patient does not want to be intubated. Continue with dornase montez and duo nebs. Given he has cystic fibrosis he should be pancreatic enzyme replacement once he starts eating. Continue with Solu-Medrol 40 mg twice daily and gradually titrated off. For the mild hyperkalemia has been unable to give him any medications p.o. I will give him bolus 500 NS and increase his rate 150 mL/h followed by Lasix and repeat BMP at 3 PM. I have personally spent 32 minutes of critical care time in the direct management of this patient. This is a life/limb threatening event. This includes time spent evaluating patient, direct bedside care, chart review, placing orders, interpretation of diagnostic studies, discussion with consultants, patient, and family members, as well as other required patient management activities. This time is exclusive of all separately billable procedures, and teaching time and separate from and in addition to any other critical care service time. Please note the above document was generated using voice recognition software. It may contain grammatical, syntax or spelling errors. (2) Pancreatic insufficiency due to cystic fibrosis: (3) Hyponatremia: (4) Cystic fibrosis: (5) DM II (diabetes mellitus, type II), controlled: Admission and Anticipated Discharge Date Admission Date: February 06, 2020 Subjective Patient seen and examined at bedside. Mildly somnolent likely secondary to hypercapnia. On ventilator was getting tidal volume of 700 with settings 20/6. Saturating we ll Answering question moving yes and no Review of Systems Review of Systems: Unobtainable due to cognitive status Physical Exam Physical Exam: Constitutional: In respiratory distress HEENT: EOMI, PERRLA Respiratory system: Decreased air entry bilaterally, no wheeze, positive rhonchi, positive crackles anteriorly and posteriorly CVS: S1-S2 positive, no murmurs or gallops, tachycardia Abdomen: Soft, nontender, nondistended, positive bowel sounds x4 Extremities: +2 pulses bilaterally radialis/ dorsalis pedis, no cyanosis, no edema Neuro: Somnolent, moves all extremities on command, knows his name Psych: Unable to assess G/U: Positive Cao Skin: no rashes, warm and dry Lymphatic: no cervical or axillary lymphadenopathy Results & Data Results & Data ([facility]) Vital Signs (Past 12 Hours) Vital Signs Temp Pulse Pulse Resp BP Pulse Ox 02/07/20 08:00 37.3 C 91 H 20 98 02/07/20 07:46 92 H 20 108/71 98 02/07/20 07:00 86 19 99 02/07/20 06:58 90 90 20 94 02/07/20 04:48 104 H 17 92 02/07/20 01:36 87 27 H 93 02/06/20 22:11 90 31 H 98 02/07/20 04:07 02/07/20 04:07 Coding Level of Care Code Critical Care 1st 30-74 mins Diagnoses Acute and chronic respiratory failure with hypercapnia J96.22 Pancreatic insufficiency due to cystic fibrosis E84.8; K86.89 Hyponatremia E87.1 Cystic fibrosis E84.9 DM II (diabetes mellitus, type II), controlled E11.9 Time Spent (min) 32
[2020-02-07] MEDS ORDERED: Nursing to Pharmacy Communication SCH ×2 (09:45→15:15)
--- NOTE | 2020-02-07 10:50 | Procedure Note ---
Procedure Note Date of Service February 07, 2020 ARTERIAL LINE PROCEDURE NOTE: Procedure: Arterial Line Placement Attending: Dr. Beulah Lang MD Indication: Frequent ABG monitoring Anesthesia: None Emergent consent was applied. A time-out was completed verifying correct patient, procedure, site, positioning, and implant or special equipment if applicable. Allens test was performed to ensure adequate perfusion. Patients right wrist was prepped and draped in the usual sterile fashion. Ultrasound guidance was used to aid needle placement. A 20g Arrow arterial line was introduced into the right radial artery. Catheter was threaded, and the needle was removed with appropriate pulsatile blood return. Good waveform was observed on the monitor. The patient tolerated the procedure well. Confirmation of placement with ultrasound. Blood Loss: Minimal Complications: None Coding CPT Codes Tubes, Drains, and Vasc Access - Tubes, Drains, and Vasc Access: [id number] Place Catheter In Artery ([id number]) Tubes, Drains, and Vasc Access - Tubes, Drains, and Vasc Access: [id number] Ultrasound Guidance For Vascular ([id number]) [facility] [place] Procedure Codes (Charges) Tubes, Drains, and Vasc Access Procedure 1: Tubes, Drains, and Vasc Access: [id number] Place Catheter In Artery Procedure 2: Tubes, Drains, and Vasc Access: [id number] Ultrasound Guidance For Vascular
[2020-02-07] MEDS: LEVOFLOXACIN/D5W 750 MG/150 ML BAG IV SCH (11:01)
[2020-02-07] MEDS: PANTOprazole 40 MG in SYRINGE 0 ML IV SCH (11:01)
[2020-02-07 11:23] LABS: iSTAT Arterial Blood Gas HCO3 34 meg/L (19-24); iSTAT Arterial Blood Gas pCO2 89 mmHg (35-46); iSTAT Arterial Blood Gas pH 7.19 (7.35-7.45); iSTAT Arterial Blood Gas pO2 116 mmHg (80-95); iSTAT Carbon Dioxide 36 mmol/L (24-31); iSTAT FiO2 40 %; iSTAT Site Art Line
[2020-02-07] MEDS: D5W AND 1/2NSS 1,000 ML IV SCH (15:33)
[2020-02-07 15:46] LABS: iSTAT Arterial Blood Gas HCO3 34 meg/L (19-24); iSTAT Arterial Blood Gas pCO2 85 mmHg (35-46); iSTAT Arterial Blood Gas pO2 100 mmHg (80-95); iSTAT Carbon Dioxide 36 mmol/L (24-31); iSTAT FiO2 40 %; iSTAT Site Art Line
[2020-02-07 16:15] LABS: BUN Creatinine Ratio 21.5 (10-20); Blood Urea Nitrogen 14 mg/dl (7-18); Calcium 7.6 mg/dl (8.5-10.1); Carbon Dioxide 32 mmol/L (21-32); Chloride 103 mmol/L (98-107); Creatinine Clr Calc Pharmacy 137.3 ml/min; Est GFR (African American) > 150.0; Est GFR (Non-African American) 132.6; Glucose 117 mg/dl (70-99); Potassium 4.7 mmol/L (3.5-5.1); Sodium 136 mmol/L (136-145)
[2020-02-07 16:17] LABS: Phosphorus 3.7 mg/dl (2.5-4.9)
[2020-02-07 19:32] LABS: iSTAT Art Bld Gas pCO2 Correct 80 mmHg (35-46); iSTAT Art Bld Gas pH Corrected 7.238 (7.35-7.45); iSTAT Arterial Blood Gas HCO3 34 meg/L (19-24); iSTAT Arterial Blood Gas pCO2 82 mmHg (35-46); iSTAT Arterial Blood Gas pH 7.23 (7.35-7.45); iSTAT Arterial Blood Gas pO2 108 mmHg (80-95); iSTAT Arterial Blood Gas pO2 C 105; iSTAT Carbon Dioxide 37 mmol/L (24-31); iSTAT FiO2 40 %; iSTAT Hematocrit 44 % (42-52); iSTAT Potassium 4.7 mmol/L (3.3-5.0); iSTAT Site Art Line; iSTAT Sodium 136 mmol/L (135-144)
[2020-02-07] MEDS: MONTELUKAST SODIUM 10 MG TABLET PO SCH (20:55)
[2020-02-07] MEDS: ENOXAPARIN INJ 40 MG/0.4 ML SYR SQ SCH (21:00)
[2020-02-08] MEDS: VANCOMYCIN HCL 1,000 MG in SODIUM CHLORIDE 0.9% 250 ML IV SCH ×3 (00:43→16:16)
[2020-02-08] MEDS: INSULIN ASPART 100 UNITS/ML 3 ML PEN SC SCH ×4 (00:44→16:47)
[2020-02-08] MEDS: SODIUM CHLORIDE 0.9% 1000ML 1,000 ML IV SCH ×3 (00:44→18:05)
[2020-02-08] MEDS: CEFEPIME 2,000 MG in SYRINGE 7.5 ML IV SCH ×3 (04:31→20:18)
[2020-02-08 04:42] LABS: Hematocrit (blood only) 41.3 % (42-52); Hemoglobin 12.2 g/dL (14.0-18.0); Immature Granulocytes # (auto) 0.02 K/uL (0.00-0.02); Immature Granulocytes % (auto) 0.3 %; Lymphocytes # (auto) 0.63 K/uL (1.2-3.4); Lymphocytes % (auto) 10.3 %; Mean Corpuscular Hgb Conc 29.5 g/dL (32-36); Mean Corpuscular Volume 87.9 fL (80-100); Mean Platelet Volume 9.5 fL (7.4-10.4); Monocytes # (auto) 0.59 K/uL (0.11-0.59); Monocytes % (auto) 9.6 %; Neutrophils # (auto) 4.88 K/uL (1.4-6.5); Neutrophils % (auto) 79.8 %; Platelet Count 171 K/uL (130-400); RDW Coefficient of Variation 14.2 % (11.5-14.5); RDW Standard Deviation 45.7 fL (36.4-46.3); White Blood Count 6.12 K/uL (4.8-10.8)
[2020-02-08 05:03] LABS: Alanine Aminotransferase 11 U/L (12-78); Aspartate Aminotransferase 8 U/L (15-37); BUN Creatinine Ratio 25.4 (10-20); Blood Urea Nitrogen 16 mg/dl (7-18); Calcium 7.1 mg/dl (8.5-10.1); Carbon Dioxide 31 mmol/L (21-32); Chloride 104 mmol/L (98-107); Est GFR (African American) > 150.0; Glucose 132 mg/dl (70-99); Magnesium 2.2 mg/dl (1.8-2.4); Potassium 4.7 mmol/L (3.5-5.1); Sodium 137 mmol/L (136-145)
[2020-02-08 05:19] LABS: Albumin Globulin Ratio 0.3 (0.9-2); Alkaline Phosphatase 61 U/L (45-117); Bilirubin,Total 0.3 mg/dl (0.2-1); Globulin 5.8 gm/dl (2.5-4.0); Phosphorus 2.7 mg/dl (2.5-4.9); Total Protein 7.8 gm/dl (6.4-8.2)
[2020-02-08 05:53] LABS: iSTAT Art Bld Gas pCO2 Correct 78 mmHg (35-46); iSTAT Art Bld Gas pH Corrected 7.256 (7.35-7.45); iSTAT Arterial Blood Gas HCO3 35 meg/L (19-24); iSTAT Arterial Blood Gas pCO2 80 mmHg (35-46); iSTAT Arterial Blood Gas pH 7.25 (7.35-7.45); iSTAT Arterial Blood Gas pO2 83 mmHg (80-95); iSTAT Arterial Blood Gas pO2 C 80; iSTAT Carbon Dioxide 37 mmol/L (24-31); iSTAT FiO2 35 %; iSTAT Hematocrit 41 % (42-52); iSTAT Hemoglobin 13.9 g/dl (14.0-18.0); iSTAT Potassium 4.7 mmol/L (3.3-5.0); iSTAT Site Art Line; iSTAT Sodium 135 mmol/L (135-144)
[2020-02-08] MEDS: DORNASE ALFA 2.5 ML AMP INH SCH (07:10)
[2020-02-08] MEDS: ALBUT/IPRATROP 3MG/0.5MG NEB 3 ML VIAL INH SCH ×4 (07:10→18:56)
[2020-02-08] MEDS ORDERED: VANCOMYCIN TROUGH ONE (07:30)
[2020-02-08] MEDS: CETIRIZINE HCL 10 MG TABLET PO SCH (07:35)
[2020-02-08] MEDS: CEROVITE ADV FORMULA TAB PO SCH (07:35)
[2020-02-08] MEDS: FLUTICASONE/VILANTEROL 200/25MCG 14 PUFFS/INHALER INH SCH (07:35)
[2020-02-08] MEDS: guaiFENesin 600 MG TABCR PO SCH ×2 (07:35→20:21)
[2020-02-08] MEDS: methylPREDNISolone 40 MG in SYRINGE 0 ML IV SCH ×2 (07:35→20:23)
[2020-02-08] MEDS: PANCREAZE (LIPASE 16,800U) CAP PO SCH ×3 (07:35→16:15)
[2020-02-08] MEDS ORDERED: Nursing to Pharmacy Communication SCH (07:45)
--- NOTE | 2020-02-08 09:26 | Critical Care Progress Note ---
Date of Service February 08, 2020 Assessment & Plan (1) Acute and chronic respiratory failure with hypercapnia: 24 yo M PMHx cystic fibrosis, pancreatic insufficiency, DM2, former smoker presents from [facility] for worsening SOB and who was admitted for acute hypercapnic respiratory failure. Neuro - CAM ICU: negative Sedation: none Analgesia: none Cardiac Abnormal EKG: Early repolarization, unchanged compared to EKG done 11/21/2019 - Patient is without complaints of CP, palpitations. - Continuous cardiac monitoring. Respiratory - Acute hypercapnic respiratory failure in patient with cystic fibrosis: - History of CF with history of multiple CF exacerbations in the past requiring antibiotics and respiratory support. - On arrival with tachypnea and dyspnea with report that his O2 saturation at the correctional facility was in the 60s - CXR performed this admission without significant change from prior study in 10/2019. No focal consolidations or pulmonary edema. - Biofire and Rapid COVID 19 testing were both negative. - Sputum culture from 08/21/2019 was positive for Pseudomonas fluoresc/putida which was pansensitive. Will reorder sputum culture this admission. - Patient also grew DAVID from sputum culture 08/20/2019. Given the cystic fibrosis he will likely be needing to be treated with for his DAVID. Given he is in acute exacerbation I would not start the treatment right now. - Started on levofloxacin/cefepime for Pseudomonas double-coverage. - Patient did have gold QuantiFERON test on his previous admission back in August which was negative. - Vancomycin started as MRSA nares positive. -Titrate Solu-Medrol off gradually - Patient is adamant that he does not desire intubation, even in a life or situation. GI - - NPO at this time given respiratory distress. - DM2 diet when can tolerate PO. - No current GI concerns. RENAL/LYTES - - Replace lytes as needed. - Normal renal function. - - Cao in place. - No concerns. - Strict Is/Os. ENDO - - No history of thyroid disease. DM2: - ICU hyperglycemia protocol. Pancreatic insufficiency: - History of 2/2 cystic fibrosis, on Creon TID with meals at home. - Continue Creon, multivitamin once able to tolerate PO. HEME - - Stable H/H. ID - - On arrival with respiratory failure with a PMHx of cystic fibrosis. - CXR relatively unchanged from last admission: - Bronchiectasis, upper lobe opacities, and reticulonodular interstitial thickening persists consistent with the patient's history of cystic fibrosis. No new focal lung consolidations identified. - Currently on cefepime/levofloxacin for double coverage of Pseudomonas, vancomycin for positive MRSA nares. - BCx x2 drawn prior to antibiotics. INTEGUMENTARY - - No present concerns. LINES/IV ACCESS - - PIVs intact. - Cao in place. DVT PROPHYLAXIS - - Enoxaparin 40mg SQ daily. Code Status - Conditional - DNI, other interventions okay. Plan: In/out: +1307, urine output 2325 AB.25/79/83 on BiPAP 24/6 with backup respiratory rate of 24 Patient responded appropriately to increasing IPAP and increasing the backup respiratory rate to 24. Patient is getting good tidal volumes on BiPAP around 600-700. Patient is more alert responding to questions and answering them appropriately. We will keep the patient on BiPAP for another 10 hours we will repeat an ABG at that time if it is still improving then will take the BiPAP for a little bit so that he can eat and put him back on it once he is done that. While he is eating high flow can be used. Dr. Manzo spoke with [facility] doctor of optometry regarding possible transfer for ECMO. The doctor of optometry over there said that they would only accept the patient if the patient was intubated. Given that we are making progress with his respiratory status I do not think patient needs to be transferred anywhere. Continue with dornase montez and duo nebs. Given he has cystic fibrosis he should be pancreatic enzyme replacement once he starts eating. Continue with Solu-Medrol 40 mg twice daily and gradually titrated off. I have personally spent 33 minutes of critical care time in the direct management of this patient. This is a life/limb threatening event. This includes time spent evaluating patient, direct bedside care, chart review, placing orders, interpretation of diagnostic studies, discussion with consultants, patient, and family members, as well as other required patient management activities. This time is exclusive of all separately billable procedures, and teaching time and separate from and in addition to any other critical care service time. Please note the above document was generated using voice recognition software. It may contain grammatical, syntax or spelling errors. (2) Pancreatic insufficiency due to cystic fibrosis: (3) Hyponatremia: (4) Cystic fibrosis: (5) DM II (diabetes mellitus, type II), controlled: Admission and Anticipated Discharge Date Admission Date: February 06, 2020 Subjective Patient seen and examined at bedside. No acute distress, no adverse events overnight. Patient is more alert today. His ventilator is status has improved PCO2 is trending down and pH is improving on the ABG. He denies any chest pain, no headache, no nausea or vomiting. Cough has decreased in intensity. Review of Systems Review of Systems: All systems reviewed & are unremarkable except as noted in Subjective Physical Exam Physical Exam: Constitutional: In spitty distress HEENT: EOMI, PERRLA Respiratory system: Decreased air entry bilaterally, no wheeze, positive rhonchi, positive crackles anteriorly and posteriorly CVS: S1-S2 positive, no murmurs or gallops Abdomen: Soft, nontender, nondistended, positive bowel sounds x4 Extremities: +2 pulses bilaterally radialis/ dorsalis pedis, no cyanosis, no edema, positive clubbing Neuro: Awake alert oriented x3 Psych: Normal mood and affect G/U: Positive Cao Skin: no rashes, warm and dry Lymphatic: no cervical or axillary lymphadenopathy Results & Data Results & Data ([facility]) Vital Signs (Past 12 Hours) Vital Signs Temp Pulse Pulse Resp BP Pulse Ox 02/08/20 08:00 36.2 C L 70 22 125/57 L 97 02/08/20 07:46 69 27 H 106/66 100 02/08/20 07:18 68 26 H 96 02/08/20 07:15 68 26 H 96 02/08/20 07:00 65 25 H 99 02/08/20 06:46 72 31 H 108/66 100 02/08/20 06:00 67 25 H 98 02/08/20 05:46 66 25 H 102/60 97 02/08/20 05:00 74 25 H 93 02/08/20 04:46 75 25 H 104/56 L 93 02/08/20 04:00 36.4 C L 68 25 H 114/59 L 95 02/08/20 03:46 76 26 H 102/63 94 02/08/20 03:00 76 27 H 96 02/08/20 02:46 79 22 106/62 97 08/16/20 02:32 75 26 H 96 08/16/20 02:00 78 20 95 02/08/20 01:47 79 25 H 94 02/08/20 01:46 79 24 108/58 L 95 02/08/20 01:00 87 28 H 95 02/08/20 00:46 80 37 H 109/65 96 02/08/20 00:00 36.3 C L 78 26 H 129/57 L 95 02/07/20 23:46 88 27 H 107/63 96 02/07/20 23:00 72 25 H 98 02/07/20 22:46 73 21 109/69 99 02/07/20 22:18 74 25 H 100 02/07/20 22:00 69 30 H 100 02/07/20 21:46 70 25 H 104/73 100 02/08/20 04:26 02/08/20 04:26 Coding Level of Care Code Critical Care 1st 30-74 mins Diagnoses Acute and chronic respiratory failure with hypercapnia J96.22 Pancreatic insufficiency due to cystic fibrosis E84.8; K86.89 Hyponatremia E87.1 Cystic fibrosis E84.9 DM II (diabetes mellitus, type II), controlled E11.9 Time Spent (min) 33
[2020-02-08] MEDS: D5W AND 1/2NSS 1,000 ML IV SCH (10:28)
[2020-02-08] MEDS: PANTOprazole 40 MG in SYRINGE 0 ML IV SCH (10:28)
[2020-02-08] MEDS: LEVOFLOXACIN/D5W 750 MG/150 ML BAG IV SCH (10:28)
--- NOTE | 2020-02-08 14:25 | Hospitalist Progress Note ---
Date of Service February 08, 2020 Assessment & Plan (1) Acute and chronic respiratory failure with hypercapnia: Severe hypercarbic resp failure 2nd to Cystic Fibrosis exacerbation. Chest x-ray without obvious changes/pneumonia relative to previous chest films. COVID-19 and BioFire resp panel dispatched. MRSA swab pending. h/o Pseudomonas colonization - thus, cefepime and levaquin ordered IV. Defer on MRSA coverage unless MRSA swab is +. IV steroids q6h. Nebs qid. Supportive care including BIPAP, however if improves may move to high flow oxygen in afternoon 02/08/20. Patient has consistently told the ER staff, Dr. Lang and ER attending that he would NOT want intubation/mech ventilation if respiratory status worsens. I did call [facility] 02/07/20 for possible transfer for ECMO however after I spoke with the [facility] attending Dr. Luis(sp?) He states that he typically will not perform ecmo unless someone is intubated with the patient refusing intubation he would not be appropriate for transfer and we are providing as much supportive care as they can provide. (2) Cystic fibrosis with pulmonary exacerbation: as above in "resp failure" (3) Pseudomonas aeruginosa colonization: IV cefepime/vancomycin ordered in light of the severity of his exacerbation. (4) Pancreatic insufficiency due to cystic fibrosis: Creon TID w/ meals along with vitamin supplementation once off BIPAP and eating. (5) Hyponatremia: Suspect due to mild volume depletion. Supported with IV fluid which is normal tonic saline. Check BMP am. (6) DM II (diabetes mellitus, type II), controlled: Pharmacy consult for management while in ICU. (7) DVT prophylaxis: lovenox 40mg daily This patient is outlook is extremely poor he remains very acidotic with respiratory acidosis due to inability to ventilate appropriately while on BiPAP likely because of large prehospital existing lung injury from cystic fibrosis and increased space Admission and Anticipated Discharge Date Admission Date: February 06, 2020 Subjective pt has improved and may try to get off bipap later this afternoon, reportedly did refuse intubation he states he is hungry Review of Systems Review of Systems: Moderate to severe respiratory distress currently requiring BiPAP no headache, blurry or double vision no speech or swallowing issues Complain of pleuritic chest pain Significant feeling of shortness of breath, still with some mild cough no abdominal pain, nausea or vomiting, diarrhea or constipation Review of systems is limited due to his BiPAP dependence Physical Exam Physical Exam: The patient continues to appear seriously ill Vital signs as documented. Head exam is normocephalic atraumatic no scleral icterus patient is wearing BiPAP device Neck trachea is midline no stridor Lungs are coarse rhonchi throughout with poor air movement Cardiac exam, Rhythm is regular.. No murmurs, rubs or gallops. Abdominal exam reveals normal bowel sounds, soft non tender Neurologic exam patient is interactive he can say yes or no questions he can purposely move his extremities Results & Data Results & Data ([facility]) Vital Signs (Past 12 Hours) Vital Signs Temp Pulse Pulse Pulse Resp BP BP 02/08/20 14:00 67 18 106/61 02/08/20 13:55 90 27 H 02/08/20 11:03 86 26 H 02/08/20 11:00 86 26 H 02/08/20 10:15 64 28 H 02/08/20 10:00 68 24 02/08/20 09:46 89 33 H 118/85 02/08/20 09:00 64 25 H 02/08/20 08:46 67 25 H 96/68 L 02/08/20 08:00 97.2 F L 70 22 125/57 L 02/08/20 07:46 69 27 H 106/66 02/08/20 07:18 68 26 H 02/08/20 07:15 68 26 H 02/08/20 07:00 65 25 H 02/08/20 06:46 72 31 H 108/66 02/08/20 06:00 67 25 H 02/08/20 05:46 66 25 H 102/60 02/08/20 05:00 74 25 H 02/08/20 04:46 75 25 H 104/56 L 02/08/20 04:00 97.5 F L 68 25 H 114/59 L 02/08/20 03:46 76 26 H 102/63 02/08/20 03:00 76 27 H 02/08/20 02:46 79 22 106/62 02/08/20 02:32 75 26 H Pulse Ox 02/08/20 14:00 93 02/08/20 13:55 96 02/08/20 11:03 98 02/08/20 11:00 98 02/08/20 10:15 97 02/08/20 10:00 96 02/08/20 09:46 96 02/08/20 09:00 95 02/08/20 08:46 98 02/08/20 08:00 97 02/08/20 07:46 100 02/08/20 07:18 96 02/08/20 07:15 96 02/08/20 07:00 99 02/08/20 06:46 100 02/08/20 06:00 98 02/08/20 05:46 97 02/08/20 05:00 93 02/08/20 04:46 93 02/08/20 04:00 95 02/08/20 03:46 94 02/08/20 03:00 96 02/08/20 02:46 97 02/08/20 02:32 96 PG Care Time/CCT Total # of Minutes Spent Total Time Spent with Patient: Total time spent is greater than 50% in coordination of care (as documented) at patient's floor/unit and/or counseling patient: Coding Level of Care Code 63374 Subseq Hosp Care Lvl 3 Diagnoses Acute and chronic respiratory failure with hypercapnia J96.22 Cystic fibrosis with pulmonary exacerbation E84.0 Pseudomonas aeruginosa colonization Z22.39 Pancreatic insufficiency due to cystic fibrosis E84.8; K86.89 Hyponatremia E87.1 DM II (diabetes mellitus, type II), controlled E11.9 DVT prophylaxis Z29.9
--- NOTE | 2020-02-08 15:59 | Pharmacy Report ---
Pharmacy Abx Dose Progress Nt - Date of Service February 08, 2020 - Pharmacy Dosing Scope The patient is currently receiving the following antimicrobial agents per Pharmacy consult: Vancomycin 1000 mg IV every 8 hours - Objective Vital Signs (Past 12hrs): Vital Signs Temp Pulse Pulse Pulse Resp BP BP 02/08/20 15:51 68 26 H 02/08/20 15:49 68 26 H 02/08/20 14:00 67 18 106/61 02/08/20 13:55 90 27 H 02/08/20 11:03 86 26 H 02/08/20 11:00 86 26 H 02/08/20 10:15 64 28 H 02/08/20 10:00 68 24 02/08/20 09:46 89 33 H 118/85 02/08/20 09:00 64 25 H 02/08/20 08:46 67 25 H 96/68 L 02/08/20 08:00 36.2 C L 70 22 125/57 L 02/08/20 07:46 69 27 H 106/66 02/08/20 07:18 68 26 H 02/08/20 07:15 68 26 H 02/08/20 07:00 65 25 H 02/08/20 06:46 72 31 H 108/66 02/08/20 06:00 67 25 H 02/08/20 05:46 66 25 H 102/60 02/08/20 05:00 74 25 H 02/08/20 04:46 75 25 H 104/56 L 02/08/20 04:00 36.4 C L 68 25 H 114/59 L Pulse Ox 02/08/20 15:51 98 02/08/20 15:49 98 02/08/20 14:00 93 02/08/20 13:55 96 02/08/20 11:03 98 02/08/20 11:00 98 02/08/20 10:15 97 02/08/20 10:00 96 02/08/20 09:46 96 02/08/20 09:00 95 02/08/20 08:46 98 02/08/20 08:00 97 02/08/20 07:46 100 02/08/20 07:18 96 02/08/20 07:15 96 02/08/20 07:00 99 02/08/20 06:46 100 02/08/20 06:00 98 02/08/20 05:46 97 02/08/20 05:00 93 02/08/20 04:46 93 02/08/20 04:00 95 Lab Results (24hrs): Laboratory Tests (24 Hours) 02/08/20 02/08/20 02/08/20 07:21 04:26 04:26 WBC 6.12 Neut # (Auto) 4.88 Creatinine 0.63 Est Cr Clr Drug Dosing 146.0 Vancomycin Trough 18.0 02/07/20 15:47 WBC Neut # (Auto) Creatinine 0.67 Est Cr Clr Drug Dosing 137.3 Vancomycin Trough - Risk Factors for Resistance * Resident in longterm system * History of infection with a multidrug-resistant organism: sputum culture--> Pseudomonas aeruginosa, MAC - Assessment & Plan Assessment 24 year old M receiving Vancomycin for treatment of Pneumonia. Nasal swab positive for MRSA. Day #3 of antimicrobial therapy Patient received 4 doses of Vancomycin 1000 mg IV q8h and a trough level was obtained this AM. Blood cultures show no growth to date. Plan Vancomycin IV * Trough level of 18 mcg/mL is therapeutic. * Continue dose of Vancomycin 1000 mg IV every 8 hours. * Goal trough level for Pneumonia: 15 to 20 mcg/mL Pharmacy will continue to follow and will adjust dose/frequency as necessary. Thank you.
--- NOTE | 2020-02-08 16:33 | Electrocardiogram Report ---
Test Reason : Blood Pressure : / mmHG Vent. Rate : 091 BPM Atrial Rate : 091 BPM P-R Int : 146 ms QRS Dur : 070 ms QT Int : 342 ms P-R-T Axes : 083 077 063 degrees QTc Int : 420 ms Normal sinus rhythm ST elevation, consider early repolarization Borderline ECG When compared with ECG of 06-FEB-2020 15:31, No significant change was found Confirmed by Sean Weaver ([id number]) on 02/08/2020 4:32:43 PM Referred By: Yvette MARTIN Confirmed By:Sean Weaver
[2020-02-08 17:10] LABS: iSTAT Arterial Blood Gas HCO3 32 meg/L (19-24); iSTAT Arterial Blood Gas pCO2 63 mmHg (35-46); iSTAT Arterial Blood Gas pH 7.32 (7.35-7.45); iSTAT Arterial Blood Gas pO2 90 mmHg (80-95); iSTAT Carbon Dioxide 34 mmol/L (24-31); iSTAT FiO2 35 %; iSTAT Site Art Line
[2020-02-08] MEDS: MONTELUKAST SODIUM 10 MG TABLET PO SCH (20:19)
[2020-02-08] MEDS: ENOXAPARIN INJ 40 MG/0.4 ML SYR SQ SCH (20:23)
[2020-02-09] MEDS: INSULIN ASPART 100 UNITS/ML 3 ML PEN SC SCH ×2 (00:40→05:15)
[2020-02-09] MEDS: VANCOMYCIN HCL 1,000 MG in SODIUM CHLORIDE 0.9% 250 ML IV SCH ×2 (00:42→07:41)
[2020-02-09 01:05] VITALS: TEMP 97.9
[2020-02-09] MEDS: CEFEPIME 2,000 MG in SYRINGE 7.5 ML IV SCH ×2 (04:28→11:07)
[2020-02-09 04:49] LABS: Hematocrit (blood only) 40.2 % (42-52); Hemoglobin 11.9 g/dL (14.0-18.0); Immature Granulocytes # (auto) 0.01 K/uL (0.00-0.02); Immature Granulocytes % (auto) 0.2 %; Lymphocytes # (auto) 0.66 K/uL (1.2-3.4); Lymphocytes % (auto) 11.3 %; Mean Corpuscular Hemoglobin 25.5 pg (25-34); Mean Corpuscular Hgb Conc 29.6 g/dL (32-36); Mean Corpuscular Volume 86.3 fL (80-100); Monocytes # (auto) 0.51 K/uL (0.11-0.59); Monocytes % (auto) 8.7 %; Neutrophils # (auto) 4.66 K/uL (1.4-6.5); Neutrophils % (auto) 79.8 %; Platelet Count 193 K/uL (130-400); RDW Coefficient of Variation 14.2 % (11.5-14.5); RDW Standard Deviation 44.9 fL (36.4-46.3); Red Blood Count 4.66 M/uL (4.7-6.1); White Blood Count 5.84 K/uL (4.8-10.8)
[2020-02-09 05:08] LABS: Blood Urea Nitrogen 13 mg/dl (7-18); Calcium 7.2 mg/dl (8.5-10.1); Carbon Dioxide 33 mmol/L (21-32); Chloride 104 mmol/L (98-107); Creatinine Clr Calc Pharmacy 151.1 ml/min; Est GFR (African American) > 150.0; Est GFR (Non-African American) 133.4; Glucose 120 mg/dl (70-99); Magnesium 2.3 mg/dl (1.8-2.4); Potassium 4.6 mmol/L (3.5-5.1); Sodium 135 mmol/L (136-145)
[2020-02-09 05:09] LABS: iSTAT Art Bld Gas pCO2 Correct 57 mmHg (35-46); iSTAT Art Bld Gas pH Corrected 7.379 (7.35-7.45); iSTAT Arterial Blood Gas HCO3 34 meg/L (19-24); iSTAT Arterial Blood Gas pCO2 58 mmHg (35-46); iSTAT Arterial Blood Gas pH 7.37 (7.35-7.45); iSTAT Arterial Blood Gas pO2 94 mmHg (80-95); iSTAT Arterial Blood Gas pO2 C 91; iSTAT Carbon Dioxide 35 mmol/L (24-31); iSTAT FiO2 35 %; iSTAT Hematocrit 40 % (42-52); iSTAT Hemoglobin 13.6 g/dl (14.0-18.0); iSTAT Potassium 4.5 mmol/L (3.3-5.0); iSTAT Site Art Line; iSTAT Sodium 135 mmol/L (135-144)
[2020-02-09 05:24] LABS: Phosphorus 1.9 mg/dl (2.5-4.9)
[2020-02-09] MEDS ORDERED: ERGOCALCIFEROL 50,000 UNITS CAP PO SCH (07:00)
[2020-02-09] MEDS: ALBUT/IPRATROP 3MG/0.5MG NEB 3 ML VIAL INH SCH ×2 (07:03→10:45)
[2020-02-09] MEDS: DORNASE ALFA 2.5 ML AMP INH SCH (07:05)
[2020-02-09] MEDS: CETIRIZINE HCL 10 MG TABLET PO SCH (07:33)
[2020-02-09] MEDS: CEROVITE ADV FORMULA TAB PO SCH (07:34)
[2020-02-09] MEDS: PANCREAZE (LIPASE 16,800U) CAP PO SCH ×2 (07:34→11:31)
[2020-02-09] MEDS: FLUTICASONE/VILANTEROL 200/25MCG 14 PUFFS/INHALER INH SCH (07:35)
[2020-02-09] MEDS: guaiFENesin 600 MG TABCR PO SCH (07:36)
[2020-02-09] MEDS: SODIUM CHLORIDE 0.9% 1000ML 1,000 ML IV SCH (07:39)
[2020-02-09] MEDS: methylPREDNISolone 40 MG in SYRINGE 0 ML IV SCH (07:41)
[2020-02-09] MEDS: D5W AND 1/2NSS 1,000 ML IV SCH (07:42)
[2020-02-09] MEDS ORDERED: Nursing to Pharmacy Communication SCH ×2 (09:15→10:45)
--- NOTE | 2020-02-09 10:24 | Hospitalist Progress Note ---
Date of Service February 09, 2020 Assessment & Plan (1) Acute and chronic respiratory failure with hypercapnia: Severe hypercarbic resp failure 2nd to Cystic Fibrosis exacerbation. Chest x-ray without obvious changes/pneumonia relative to previous chest films. COVID-19 and BioFire resp panel negative MRSA swab positive 02/05 HIV testing from 08/14 negative h/o Pseudomonas colonization - thus, cefepime and levaquin ordered IV. IV steroids q6h. Nebs qid. Supportive care including BIPAP, however if improves may move to high flow oxygen in afternoon 02/08/20. Patient has consistently told the ER staff, Dr. Lang and ER attending that he would NOT want intubation/mech ventilation if respiratory status worsens. I did call [facility] 02/07/20 for possible transfer for ECMO however after I spoke with the [facility] attending Dr. Luis(sp?) He states that he typically will not perform ecmo unless someone is intubated with the patient refusing intubation he would not be appropriate for transfer and we are providing as much supportive care as they can provide. (2) Cystic fibrosis with pulmonary exacerbation: as above in "resp failure" (3) Pseudomonas aeruginosa colonization: IV cefepime/vancomycin ordered in light of the severity of his exacerbation. (4) Pancreatic insufficiency due to cystic fibrosis: Creon TID w/ meals along with vitamin supplementation once off BIPAP and eating. (5) Hyponatremia: Suspect due to mild volume depletion. Supported with IV fluid which is normal tonic saline. Check BMP am. (6) DM II (diabetes mellitus, type II), controlled: Pharmacy consult for management while in ICU. (7) DVT prophylaxis: lovenox 40mg daily This patient is outlook is extremely poor he remains very acidotic with respiratory acidosis due to inability to ventilate appropriately while on BiPAP likely because of large prehospital existing lung injury from cystic fibrosis and increased space Admission and Anticipated Discharge Date Admission Date: February 06, 2020 Subjective pt has improved and may try to get off bipap later this afternoon, reportedly did refuse intubation he states he is hungry Review of Systems Review of Systems: Moderate to severe respiratory distress currently requiring BiPAP no headache, blurry or double vision no speech or swallowing issues Complain of pleuritic chest pain Significant feeling of shortness of breath, still with some mild cough no abdominal pain, nausea or vomiting, diarrhea or constipation Review of systems is limited due to his BiPAP dependence Ear, Nose, Mouth, Throat: no loss of taste or smell Physical Exam Physical Exam: The patient continues to appear seriously ill Vital signs as documented. Head exam is normocephalic atraumatic no scleral icterus patient is wearing BiPAP device Neck trachea is midline no stridor Lungs are coarse rhonchi throughout with poor air movement Cardiac exam, Rhythm is regular.. No murmurs, rubs or gallops. Abdominal exam reveals normal bowel sounds, soft non tender Neurologic exam patient is interactive he can say yes or no questions he can purposely move his extremities Results & Data Results & Data ([facility]) Vital Signs (Past 12 Hours) Vital Signs Temp Pulse Pulse Resp BP Pulse Ox 02/09/20 09:00 75 20 96 02/09/20 08:46 62 27 H 98/56 L 96 02/09/20 08:00 97.9 F 62 27 H 100 02/09/20 07:46 59 L 22 112/65 98 02/09/20 07:05 54 L 15 97 02/09/20 07:03 54 L 15 97 02/09/20 07:00 54 L 12 96 02/09/20 05:25 54 L 27 H 99 02/09/20 03:28 57 L 25 H 96 02/09/20 01:00 60 6 L 96 02/09/20 00:46 65 23 111/66 96 02/09/20 00:34 57 L 12 96 02/09/20 00:00 97.9 F 58 L 14 87/42 L 96 02/08/20 23:46 58 L 23 100/66 95 02/08/20 23:00 58 L 13 95 02/08/20 22:46 60 21 110/66 95 PG Care Time/CCT Total # of Minutes Spent Total Time Spent with Patient: Total time spent is greater than 50% in coordination of care (as documented) at patient's floor/unit and/or counseling patient: Coding Diagnoses Acute and chronic respiratory failure with hypercapnia J96.22 Cystic fibrosis with pulmonary exacerbation E84.0 Pseudomonas aeruginosa colonization Z22.39 Pancreatic insufficiency due to cystic fibrosis E84.8; K86.89 Hyponatremia E87.1 DM II (diabetes mellitus, type II), controlled E11.9 DVT prophylaxis Z29.9
--- NOTE | 2020-02-09 10:55 | Critical Care Progress Note ---
Date of Service February 09, 2020 Assessment & Plan (1) Cystic fibrosis with pulmonary exacerbation: 24-year-old black male with a past medical history of cystic fibrosis and upper lobe cavitary lesions who presented to the hospital in acute hypoxemic respiratory failure. Patient currently on high flow nasal cannula. Patient previous urine cultures positive for DAVID. He is currently on vancomycin, cefepime and Levaquin. We are restarting his airway clearance therapies including vest therapy, hypertonic saline, nebulizations, dornase alpha. Also starting him on double food portions. He should be getting his vitamins and Creon supplementation. Oxygenation requirements are improving slightly. He will likely need outpatient treatment for his DAVID. Unfortunately, given his complex whole situation as he is a prisoner, he has refused oxygen and BiPAP therapy in the past as he does not want to be in the [facility]. I told him that he will likely have a much worse outcome without continue with supplemental oxygen and noninvasive ventilation. I do think that he would likely be a lung transplant candidate at this point, however, his social situation may preclude him getting a lung transplant. I discussed the case with the hospitalist and we both decided that the patient would benefit from a transfer to tertiary [facility] care center such as [facility] as he has been followed by their CF team in the past. Bessie madsen did agree to accepting transfer. Appreciate the hospitalist assistance in this matter. I have personally spent 33 minutes of critical care time in the direct management of this patient. This is a life/limb threatening event. This includes time spent evaluating patient, direct bedside care, chart review, placing orders, interpretation of diagnostic studies, discussion with consultants, patient, and family members, as well as other required patient management activities. This time is exclusive of all separately billable procedures, and teaching time and separate from and in addition to any other critical care service time. Thank you for allowing us to participate in the care of this patient. (2) Respiratory distress: (3) Hyponatremia: (4) Acute and chronic respiratory failure with hypercapnia: (5) Malnutrition: (6) Pseudomonas aeruginosa colonization: Admission and Anticipated Discharge Date Admission Date: February 06, 2020 Subjective Patient seen and examined this morning. He notes that he is feeling better overall from a breathing standpoint. He denies any significant hemoptysis. No chest pain. No significant fevers overnight. Currently on 35 L of oxygen at 40% FiO2 saturating 96%. Review of Systems Review of Systems: All systems reviewed & are unremarkable except as noted in HPI & below Physical Exam Physical Exam: Constitutional: In spitty distress HEENT: EOMI, PERRLA Respiratory system: Diffuse wheezes or rhonchi bilaterally. CVS: S1-S2 positive, no murmurs or gallops Abdomen: Soft, nontender, nondistended, positive bowel sounds x4 Extremities: +2 pulses bilaterally radialis/ dorsalis pedis, no cyanosis, no edema, positive clubbing Neuro: Awake alert oriented x3 Psych: Normal mood and affect G/U: Positive Cao Skin: no rashes, warm and dry Lymphatic: no cervical or axillary lymphadenopathy Results & Data Results & Data ([facility]) Vital Signs (Past 12 Hours) Vital Signs Temp Pulse Pulse Resp BP Pulse Ox 02/09/20 09:00 75 20 96 02/09/20 08:46 62 27 H 98/56 L 96 02/09/20 08:00 97.9 F 62 27 H 100 02/09/20 07:46 59 L 22 112/65 98 02/09/20 07:05 54 L 15 97 02/09/20 07:03 54 L 15 97 02/09/20 07:00 54 L 12 96 02/09/20 05:25 54 L 27 H 99 02/09/20 03:28 57 L 25 H 96 02/09/20 01:00 60 6 L 96 02/09/20 00:46 65 23 111/66 96 02/09/20 00:34 57 L 12 96 02/09/20 00:00 97.9 F 58 L 14 87/42 L 96 02/08/20 23:46 58 L 23 100/66 95 02/08/20 23:00 58 L 13 95 02/08/20 22:46 60 21 110/66 95 I personally reviewed labs, vital signs and chest imaging. Coding Level of Care Code Critical Care 1st 30-74 mins Diagnoses Cystic fibrosis with pulmonary exacerbation E84.0 Respiratory distress R06.03 Hyponatremia E87.1 Acute and chronic respiratory failure with hypercapnia J96.22 Malnutrition E46 Pseudomonas aeruginosa colonization Z22.39 Time Spent (min) 33
[2020-02-09] MEDS ORDERED: SODIUM PHOSPHATE 21 MMOL in SODIUM CHLORIDE 0.9% 500 ML IV ONE (11:00)
--- NOTE | 2020-02-09 11:05 | Discharge Summary ---
Date of Service February 09, 2020 Admission HPI Per Admitting Provider 24yo AA male with cystic fibrosis and pancreatic insufficiency along with DM presents from [facility] with severe respiratory distress, cough, sputum production (green-yellow), headache, and worsening shortness of breath. Patient states that over the last couple of days he had mild cough and slight MAI but otherwise felt well. These symptoms worsened yesterday afternoon and by nightfall on 02/04 he was very short of breath with any activity. He tried taking his albuterol prn but this did not provide relief. He was short of breath all night and had the [facility] send him to [facility] for evaluation. Denies any loss of taste or smell. Denies fevers or chills. Denies nasal congestion, sore throat, abdominal pain, nausea, emesis, or diarrhea. No myalgias or arthralgias. The guards at bedside state there have been no cases of COVID-[address] at [facility] in the inmate population or employees. Mr Sevilla denies any obvious sick contacts at the [facility]. In the ER the patient was initially on facemask but continued with severe dyspnea. His mentation also worsened briefly. Thus, he was placed on BiPAP 10/. By the time of my assessment he could provide history but was still very dyspneic. Principal Diagnosis Acute on chronic respiratory failure with hypoxia and hypercapnia Cystic fibrosis DAVID colonization unclear whether acute infection Discharge Exam The patient appeared with less respiratory distress he is able to tolerate high flow oxygen able to speak and eat Vital signs as documented. Lungs are coarse markedly abnormal in all lung chong Cardiac exam, Rhythm is regular.. No murmurs, rubs or gallops. Discharge Data Allergies Allergy/AdvReac Type Severity Reaction Status Date / Time No Known Allergies Allergy Unverified 02/06/20 10:41 Consultations 02/06/20 11:37 ED Decision to Admit Stat 02/06/20 13:49 Consult Case Management - Discharge Planning Routine Consult Piping Supervisor Routine 02/09/20 10:54 Burn CD for patient Routine Hospital Course (1) Acute and chronic respiratory failure with hypercapnia: Severe hypercarbic resp failure 2nd to Cystic Fibrosis exacerbation. Chest x-ray without obvious changes/pneumonia relative to previous chest films. COVID-19 and BioFire resp panel negative MRSA swab positive 02/05-> vancomycin added HIV testing from 08/14 negative, quanterferon gold negative 08/14 h/o Pseudomonas colonization - thus, cefepime and levaquin ordered IV. Previous DAVID colonization also IV steroids q6h. Nebs qid. Supportive care including BIPAP, has had improvement now on high flow oxygen in afternoon 02/08/20. 35 liters/min, 50% Patient has consistently told the ER staff, Dr. Lang and ER attending that he would NOT want intubation/mech ventilation if respiratory status worsens. I did call [facility] 02/07/20 for possible transfer for ECMO however after I spoke with the [facility] attending Dr. Villatoro(sp?) He states that he typically will not perform ecmo unless someone is intubated with the patient refusing intubation at that time. Called [facility] on 08 February once again spoke with Dr. Villatoro they said that the patient in transfer for the cystic fibrosis expertise this pt has improved now to high flow oxygen now on 35 L 50% and with conversation this am has now voiced a decision to be a full code (2) Cystic fibrosis with pulmonary exacerbation: as above in "resp failure" (3) Pseudomonas aeruginosa colonization: IV cefepime/levaquin/vancomycin ordered in light of the severity of his exacerbation. (4) Pancreatic insufficiency due to cystic fibrosis: Creon TID w/ meals along with vitamin supplementation once off BIPAP and eating. (5) Hyponatremia: Suspect due to mild volume depletion. Supported with IV fluid which is normal tonic saline. Check BMP am. (6) DM II (diabetes mellitus, type II), controlled: Pharmacy consult for management while in ICU. (7) DVT prophylaxis: lovenox 40mg daily Patient is transferred acutely to [facility] likely may need BiPAP ventilatory support in route Total Time Total Time Spent Total Time Spent (In Minutes): It required greater than 30 minutes to prepare this patient for discharge Discharge Plan Discharge Items Patient Disposition: Transfer Acute Care Hospital Reason For Visit: ACUTE/CHRONIC RESPIRATORY FAILURE;CYSTIC FIBROSIS Discharge Diagnosis: acute on chronic respiratory failure with Cystic fibrosis Condition on Discharge: Serious Activity: As commented below Activity Comment: limitation due to pulmonary illness Non-emergency contact: Specialist and Infant Room Teacher Call non-emergency contact if: you have any medication questions and your symptoms worsen Follow-up/Referrals: Yvette MARTIN [Primary Care Provider] - Diet: Regular Addtl Attending Provider Instructions: please follow as per Fina Cystic fibrosis instructions Pending Studies at Discharge: Yes Stand-Alone Forms: My [facility] Skilled Items Patient informed of condition?: Yes DNR: No Discharge Level of Care: Other Communicable Disease: No Discharge Prognosis: Stable Lines: Peripheral IV Urinary Catheter: Yes Medications and DC Order Prescriptions: New pantoprazole 40 mg Tablet,Delayed Release (Dr/Ec) 40 mg PO DAILY Qty: 30 RF: 0 Continued ipratropium-albuterol 0.5 mg-3 mg(2.5 mg base)/3 mL Solution For Nebulization 3 ml INHALATION QID RF: 0 Thera Tablet 1 tab PO DAILY RF: 0 montelukast [Singulair] 10 mg Tablet 10 mg PO HS RF: 0 levalbuterol tartrate [Xopenex HFA] 45 mcg/actuation Hfa Aerosol Inhaler 2 puff INHALATION QID PRN (Reason: Shortness Of Breath) RF: 0 Creon 24,000-76,000 -120,000 unit Capsule,Delayed Release(Dr/Ec) 5 cap PO TID RF: 0 Creon 24,000-76,000 -120,000 unit Capsule,Delayed Release(Dr/Ec) 3 cap PO UD RF: 0 ergocalciferol (vitamin D2) [Vitamin D2] 1,250 mcg (50,000 unit) Capsule 1,250 mcg PO MO@0700 RF: 0 cetirizine 10 mg Tablet 10 mg PO DAILY RF: 0 dornase montez 1 mg/mL Solution 2.5 mg INHALATION DAILY RF: 0 fluticasone propion-salmeterol [Wixela Inhub] 250-50 mcg/dose Blister With Device 1 inh INHALATION BID RF: 0 guaifenesin 200 mg Tablet 1,200 mg PO BID PRN (Reason: Congestion) RF: 0 Novolin N Flexpen 100 unit/mL (3 mL) Insulin Pen 5 unit SUBCUT DAILY RF: 0 Discontinued tobramycin 300 mg/4 mL Solution For Nebulization 300 mg INHALATION BID RF: 0 acetaminophen [Acetaminophen Extra Strength] 500 mg Tablet 1,000 mg PO TID PRN (Reason: Pain) RF: 0 azithromycin 500 mg Tablet 500 mg PO MOWEFR RF: 0 naproxen 250 mg Tablet 250 mg PO BID PRN (Reason: Pain) RF: 0 diphenhydramine HCl [Benadryl] 25 mg Capsule 25 mg PO HS RF: 0 Discharge Orders: Discharge Order (Routine); Ordered 02/09/20 Ordered By: Tony Austin Admission Data Admit Date/Time: 02/06/20 12:25 Attending Provider: Tony Austin Admit Provider: Dwight Jimenez Primary Care Provider: Yvette MARTIN Other Providers: Dwight Jimenez ; Beulah Lang Other Interventions: Discharge Summary Assessment (RN) Last Done: 02/09/20 12:24 Coding Level of Care Code D/C Day Management >30 mins Diagnoses Acute and chronic respiratory failure with hypercapnia J96.22 Cystic fibrosis with pulmonary exacerbation E84.0 Pseudomonas aeruginosa colonization Z22.39 Pancreatic insufficiency due to cystic fibrosis E84.8; K86.89 Hyponatremia E87.1 DM II (diabetes mellitus, type II), controlled E11.9 DVT prophylaxis Z29.9
[2020-02-09] MEDS: PANTOprazole 40 MG in SYRINGE 0 ML IV SCH (11:06)
[2020-02-09] MEDS: LEVOFLOXACIN/D5W 750 MG/150 ML BAG IV SCH (11:06)
[2020-02-09] MEDS ORDERED: CEROVITE ADV FORMULA TAB PO STA (11:11)
[2020-02-09] MEDS ORDERED: VITAMIN A 25,000 UNIT CAP PO STA (11:12)
[2020-02-09] MEDS ORDERED: TOCOPHERYL, DL-ALPHA 100 UNITS CAP PO SCH (11:15)
[2020-02-09] MEDS ORDERED: PHYTONADIONE PED 1 MG, ORA-SWEET SYRUP 2.25 ML, ORA-PLUS SUSP VEHICLE 2.25 ML, BARCODE ... PO ONE (11:15)
[2020-02-09] MEDS ORDERED: INSULIN ASPART 100 UNITS/ML 3 ML PEN SC SCH ×2 (11:30→12:00)
--- NOTE | 2020-02-09 12:24 | Electrocardiogram Report ---
Test Reason : Blood Pressure : / mmHG Vent. Rate : 113 BPM Atrial Rate : 113 BPM P-R Int : 160 ms QRS Dur : 068 ms QT Int : 296 ms P-R-T Axes : 077 081 062 degrees QTc Int : 406 ms Poor data quality, interpretation may be adversely affected Sinus tachycardia Right atrial enlargement Borderline ECG When compared with ECG of 21-NOV-2019 16:01, Vent. rate has increased BY [address] no longer elevated in Inferior leads Confirmed by Navjot Geiger ([id number]) on 02/09/2020 12:23:32 PM Referred By: Yvette SCI Confirmed By:Navjot Geiger
[2020-02-09 12:33] VITALS: BP 106/61
[2020-02-09 13:21] VITALS: PULSE 66; O2SAT 98
[2020-02-09] MEDS ORDERED: VANCOMYCIN TROUGH ONE (15:30)
[2020-02-09] MEDS ORDERED: SODIUM CHLOR 7% 4 ML NEB NEB SCH (19:00)
[2020-02-10] MEDS ORDERED: PANTOprazole 40 MG TAB PO SCH (09:00)
== END 2020-02-09 14:30 | disposition short-term general hospital (02) | DRG 177 ==
LOC: ED 09:59 → 1E 12:25 → SUATTDRO 12:25 → 1E 13:14

== ENCOUNTER 2020-03-22 10:41 | Inpatient (IN) ==
--- NOTE | 2020-03-22 11:18 | Emergency Department Note ---
History of Present Illness General Chief complaint: Shortness of Breath/Dyspnea Time Seen by Provider: 03/22/20 11:03 Source: patient History of Present Illness Provider complaint: Difficulty breathing Onset (ago): day(s) Location: chest Severity: severe Quality: + other (Short of breath) Relieved By: + other (Oxygen) Associated symptoms: + chest pain, + cough (Productive cough), + fever/chills (Tactile fevers) and + nausea/vomiting This is a 24-year-old male with a history of cystic fibrosis who presents to the emergency department with difficulty breathing since yesterday. The patient developed chest pain 4 days ago. He states it felt like a sharp pain in the middle of his chest. He states this is normal for him because of his cystic fibrosis he often gets chest pain like this. He is currently not having any chest discomfort but does feel short of breath. He states his shortness of breath is improved with oxygen. He has been coughing with brown sputum pro duction. He has had no recorded temperatures but felt warm. 2 days ago he started vomiting and having some abdominal pain but that has since resolved. He is not nauseous at this time. He denies any loss of taste or smell or diarrhea. He has had no urinary symptoms. He has been in [facility] for 5 years and has had no exposure to COVID-19. According to the guards accompanying him there are no reported cases of COVID-19 at the present. He denies any history of cocaine use. He did quit smoking 4 years ago. No significant history of VA in the family. The patient states that this is the fourth time this year that his oxygen level has dropped significantly. He was admitted to the hospital in January for the same. He also states that his chest pain is chronic and has had it for years as well. Home Medications Home Medications Medication Instructions Recorded Confirmed Type ipratropium-albuterol 3 ml INHALATION QID 06/25/18 03/22/20 History levalbuterol tartrate [Xopenex HFA] 2 puff INHALATION QID PRN 06/25/18 03/22/20 History tobramycin 300 mg INHALATION BID 06/25/18 02/06/20 History ergocalciferol (vitamin D2) 1,250 mcg PO MO@0700 08/18/19 03/22/20 History [Vitamin D2] acetaminophen [Acetaminophen Extra 1,000 mg PO TID PRN 11/21/19 03/22/20 History Strength] cetirizine 10 mg PO DAILY 11/21/19 03/22/20 History dornase montez 2.5 mg INHALATION DAILY 11/21/19 03/22/20 History diphenhydramine HCl [Benadryl] 25 mg PO HS 02/06/20 03/22/20 History fluticasone propion-salmeterol 1 inh INHALATION BID 02/06/20 03/22/20 History [Wixela Inhub] insulin NPH isoph U-100 human 5 unit SUBCUT DAILY 02/06/20 03/22/20 History [Novolin N Flexpen] naproxen 250 mg PO BID PRN 02/06/20 03/22/20 History pantoprazole 40 mg PO DAILY #30 tab 02/09/20 Rx lactase [Lactaid Fast Act] 9,000 unit PO AC 03/22/20 03/22/20 History levofloxacin [Levaquin] 750 mg PO HS 03/22/20 03/22/20 History Allergies Allergy/AdvReac Type Severity Reaction Status Date / Time No Known Allergies Allergy Unverified 03/22/20 11:37 Past Med/Surg History Medical History Acute respiratory failure with hypoxia s/p intubation/mech ventilation -- 2014 -- [place] Asthma Cystic fibrosis Diabetes DM II (diabetes mellitus, type II), controlled Gastric reflux Multifocal pneumonia Pancreatic insufficiency due to cystic fibrosis Pneumomediastinum history of Pseudomonas aeruginosa colonization Respiratory acidosis Surgical History No significant past surgical history Family History Mother Quadriplegia, post-traumatic 2nd MVA Social History Smoking Status: Former smoker Tobacco Type: Cigarettes packs per day: 1; Second Hand Exposure: No; Hx Alcohol Use: No (None since he went to [facility]) Hx Substance Use: No (None since he went to [facility]) Preferred Language: [place] Communication Ability: Effective Desk Assistant Required: No Beliefs That Will Affect Care: None marital status: Unknown Current Living Situation: Other Current Living Situation Comment: [facility] How many Children do You have: 0 Feels Safe at Home: Yes Assistive Devices: Oxygen - Continuous Review of Systems See HPI for pertinent positives & negatives. and A total of 10 systems reviewed and were otherwise negative Physical Exam Vital Signs Vital Signs - 24 hr 03/22/20 10:51 03/22/20 10:53 03/22/20 11:00 Temperature Temperature Source Pulse Rate 95 H 85 84 Pulse Rate from SpO2 Sensor 88 84 84 Respiratory Rate 22 18 20 Respiratory Effort / Characteristics Respiratory Depth Respiratory Pattern Blood Pressure 117/71 Blood Pressure Mean 81 Pulse Oximetry 92 92 90 Oxygen Delivery Method Nasal Cannula Nasal Cannula Nasal Cannula Oxygen Flow Rate 6 6 6 Fraction of Inspired Oxygen Sepsis Recent Fever Within 48 Hours Sepsis New/Unexplained Change in Mental Status Sepsis Action Taken by Nursing 03/22/20 11:12 03/22/20 11:16 03/22/20 11:30 Temperature 37.1 C Temperature Source Oral Pulse Rate 84 84 86 Pulse Rate from SpO2 Sensor 83 85 Respiratory Rate 24 20 24 Respiratory Effort / Characteristics Non-Labored Spontaneous Respiratory Depth Normal Respiratory Pattern Regular Blood Pressure 117/71 123/72 Blood Pressure Mean 86 81 Pulse Oximetry 93 95 92 Oxygen Delivery Method Room Air Nasal Cannula Oxygen Flow Rate 6 6 Fraction of Inspired Oxygen Sepsis Recent Fever Within 48 Hours No Sepsis New/Unexplained Change in Mental Status N/A Sepsis Action Taken by Nursing No Action Required 03/22/20 12:00 03/22/20 12:10 03/22/20 12:30 Temperature Temperature Source Pulse Rate 86 83 84 Pulse Rate from SpO2 Sensor 85 86 84 Respiratory Rate 22 20 24 Respiratory Effort / Characteristics Respiratory Depth Respiratory Pattern Blood Pressure 122/67 115/75 Blood Pressure Mean 92 88 Pulse Oximetry 90 91 93 Oxygen Delivery Method Nasal Cannula Nasal Cannula Oxygen Flow Rate 6 6 Fraction of Inspired Oxygen Sepsis Recent Fever Within 48 Hours Sepsis New/Unexplained Change in Mental Status Sepsis Action Taken by Nursing 03/22/20 13:00 03/22/20 13:30 03/22/20 13:50 Temperature Temperature Source Pulse Rate 85 86 85 Pulse Rate from SpO2 Sensor 85 86 Respiratory Rate 24 23 22 Respiratory Effort / Characteristics Non-Labored Spontaneous Respiratory Depth Normal Respiratory Pattern Regular Blood Pressure 134/75 114/79 Blood Pressure Mean 92 88 Pulse Oximetry 91 91 97 Oxygen Delivery Method Nasal Cannula Nasal Cannula Oxygen Flow Rate 6 6 Fraction of Inspired Oxygen 40 Sepsis Recent Fever Within 48 Hours Sepsis New/Unexplained Change in Mental Status Sepsis Action Taken by Nursing 03/22/20 14:00 03/22/20 14:05 Temperature Temperature Source Pulse Rate 87 Pulse Rate from SpO2 Sensor 85 Respiratory Rate 18 Respiratory Effort / Characteristics Respiratory Depth Respiratory Pattern Blood Pressure 119/75 Blood Pressure Mean 87 Pulse Oximetry 97 Oxygen Delivery Method BiPAP Room Air Oxygen Flow Rate Fraction of Inspired Oxygen 40 Sepsis Recent Fever Within 48 Hours Sepsis New/Unexplained Change in Mental Status Sepsis Action Taken by Nursing Constitutional: Vital signs reviewed. Hypoxic. Eyes: Pupils are equal round reactive to light. Conjunctiva are noninjected. ENT: Pharynx is clear without erythema or exudate. Mucous membranes are moist. Neck supple without meningeal signs. Respiratory: Clear to auscultation bilaterally. Breath sounds are equal nydia aterally. Tachypneic. Cardiovascular: Regular rate and rhythm. No rubs or gallops. GI: Soft, nondistended and nontender. Bowel sounds are present. Musculoskeletal: No peripheral edema. No lower extremity tenderness. Integumentary: No cyanosis. or jaundice. Neurological: The patient is awake and alert. No focal deficits. Psychiatric: Normal affect. Not anxious appearing. Course Administered Medications Vancomycin HCl 1,250 mg/ (Sodium Chloride) 275 mls @ 125 mls/hr IV NOW ONE Stop: 03/22/20 16:11 Last Admin: 03/22/20 14:17 Dose: 125 mls/hr Documented by: [id number] Levofloxacin/Dextrose (Levaquin/D5w) 750 mg in 150 mls @ 100 mls/hr IV NOW STA Stop: 03/22/20 14:54 Last Admin: 03/22/20 14:17 Dose: 100 mls/hr Documented by: [id number] Discontinued Medications Piperacillin Sod/Tazobactam Sod (Zosyn) 4.5 gm in 120 mls @ 240 mls/hr IV NOW ONE Stop: 03/22/20 12:57 Last Infusion: 03/22/20 14:18 Dose: 0 mls/hr Documented by: [id number] Admin: 03/22/20 13:43 Dose: 240 mls/hr Documented by: [id number] Critical Care Time Critical Care Time: Yes Total Critical Care Time: 40 I have personally spent more than approximately 40 minutes of critical care time in the direct management of this patient. This includes bedside care, interpretation of diagnostic studies and testing, discussion with consultants and patient, and other required patient management activities. This time is in excess of all separately billable procedures. Medical Decision Making Differential Diagnosis Cystic fibrosis, pericarditis, myocarditis, pneumonia, viral syndrome Medical Records Attestation: I reviewed the patient's medical records. The patient was just admitted to the hospital last month for similar symptoms. He had a negative COVID-19 test at that time. His O2 saturations were in the 60s at that time he was placed on BiPAP and then subsequently high flow oxygen. Home Medications Current Medication List: was personally reviewed by me Laboratory Data Attestation: I reviewed the patient's lab results. Result diagrams: 03/22/20 11:05 03/22/20 11:05 Lab Results 03/22/20 03/22/20 03/22/20 Range/Units 11:05 11:05 11:05 WBC 6.52 (4.8-10.8) K/uL RBC 5.52 (4.7-6.1) M/uL Hgb 14.2 (14.0-18.0) g/dL POC Hgb (14.0-18.0) g/dl Hct 45.8 (42-52) % POC Hct (42-52) % MCV 83.0 (80-100) fL MCH 25.7 (25-34) pg MCHC 31.0 L (32-36) g/dL RDW Std Deviation 43.2 (36.4-46.3) fL RDW Coeff of Jerry 14.4 (11.5-14.5) % Plt Count 176 (130-400) K/uL MPV 10.0 (7.4-10.4) fL Immature Gran % (Auto) 0.2 % Neut % (Auto) 60.3 % Lymph % (Auto) 24.7 % [place] % (Auto) 9.7 % Eos % (Auto) 4.8 % Baso % (Auto) 0.3 % Neut # (Auto) 3.94 (1.4-6.5) K/uL Lymph # (Auto) 1.61 (1.2-3.4) K/uL [place] # (Auto) 0.63 H (0.11-0.59) K/uL Eos # (Auto) 0.31 (0-0.5) K/uL Baso # (Auto) 0.02 (0-0.2) K/uL Immature Gran # (Auto) 0.01 (0.00-0.02) K/uL PT 12.1 H (9.0-12.0) Seconds INR 1.2 H (0.9-1.1) APTT 30.4 (21.0-31.0) Seconds PTT Ratio 1.1 ABG pH (7.35-7.45) ABG pCO2 (35-46) mmHg ABG pO2 (80-95) mmHg ABG HCO3 (19-24) mmol/L ABG O2 Saturation (90-95) % ABG Base Excess (-9-1.8) mEq/L Arnold Test (Pos) Barometric Pressure mm/Hg Oxygen Given POC Sodium (135-144) mmol/L Sodium 136 (136-145) mmol/L POC Potassium (3.3-5.0) mmol/L Potassium 4.1 (3.5-5.1) mmol/L POC Chloride (101-112) mmol/L Chloride 100 (98-107) mmol/L Carbon Dioxide 32 (21-32) mmol/L POC Total CO2 (24-31) mmol/L Anion Gap 4.0 (3-11) POC Anion Gap (16-25) mmol/L POC BUN (7-18) mg/dl BUN 9 (7-18) mg/dl Creatinine 0.83 (0.6-1.4) mg/dl POC Creatinine (0.6-1.3) mg/dl Est Cr Clr Drug Dosing 118.7 ml/min Est GFR ( Amer) 140.7 Est GFR (Non-Af Amer) 121.4 BUN/Creatinine Ratio 10.8 (10-20) Glucose 81 (70-99) mg/dl POC Glucose (other) (70-99) mg/dl Calcium 9.0 (8.5-10.1) mg/dl POC Ioniz Calcium Kalyani (1.12-1.32) mmol/l Total Bilirubin 0.3 (0.2-1) mg/dl AST 18 (15-37) U/L ALT 23 (12-78) U/L Alkaline Phosphatase 113 (45-117) U/L Troponin I < 0.015 (0-0.045) ng/ml Total Protein 9.0 H (6.4-8.2) gm/dl Albumin 3.0 L (3.4-5.0) gm/dl Globulin 6.0 H (2.5-4.0) gm/dl Albumin/Globulin Ratio 0.5 L (0.9-2) COVID-19 Eval Order COVID-19 PCR (Negative) 03/22/20 03/22/20 03/22/20 Range/Units 11:09 11:44 12:10 WBC (4.8-10.8) K/uL RBC (4.7-6.1) M/uL Hgb (14.0-18.0) g/dL POC Hgb 16.7 (14.0-18.0) g/dl Hct (42-52) % POC Hct 49 (42-52) % MCV (80-100) fL MCH (25-34) pg MCHC (32-36) g/dL RDW Std Deviation (36.4-46.3) fL RDW Coeff of Jerry (11.5-14.5) % Plt Count (130-400) K/uL MPV (7.4-10.4) fL Immature Gran % (Auto) % Neut % (Auto) % Lymph % (Auto) % [place] % (Auto) % Eos % (Auto) % Baso % (Auto) % Neut # (Auto) (1.4-6.5) K/uL Lymph # (Auto) (1.2-3.4) K/uL [place] # (Auto) (0.11-0.59) K/uL Eos # (Auto) (0-0.5) K/uL Baso # (Auto) (0-0.2) K/uL Immature Gran # (Auto) (0.00-0.02) K/uL PT (9.0-12.0) Seconds INR (0.9-1.1) APTT (21.0-31.0) Seconds PTT Ratio ABG pH 7.35 (7.35-7.45) ABG pCO2 59 H (35-46) mmHg ABG pO2 65 L (80-95) mmHg ABG HCO3 32 H (19-24) mmol/L ABG O2 Saturation 91.0 (90-95) % ABG Base Excess 4.6 H (-9-1.8) mEq/L Arnold Test Pos (Pos) Barometric Pressure 728.4 mm/Hg Oxygen Given 6L POC Sodium 138 (135-144) mmol/L Sodium (136-145) mmol/L POC Potassium 4.2 (3.3-5.0) mmol/L Potassium (3.5-5.1) mmol/L POC Chloride 96 L (101-112) mmol/L Chloride (98-107) mmol/L Carbon Dioxide (21-32) mmol/L POC Total CO2 30 (24-31) mmol/L Anion Gap (3-11) POC Anion Gap 17.0 (16-25) mmol/L POC BUN 8 (7-18) mg/dl BUN (7-18) mg/dl Creatinine (0.6-1.4) mg/dl POC Creatinine 0.7 (0.6-1.3) mg/dl Est Cr Clr Drug Dosing ml/min Est GFR ( Amer) Est GFR (Non-Af Amer) BUN/Creatinine Ratio (10-20) Glucose (70-99) mg/dl POC Glucose (other) 85 (70-99) mg/dl Calcium (8.5-10.1) mg/dl POC Ioniz Calcium Kalyani 1.13 (1.12-1.32) mmol/l Total Bilirubin (0.2-1) mg/dl AST (15-37) U/L ALT (12-78) U/L Alkaline Phosphatase (45-117) U/L Troponin I (0-0.045) ng/ml Total Protein (6.4-8.2) gm/dl Albumin (3.4-5.0) gm/dl Globulin (2.5-4.0) gm/dl Albumin/Globulin Ratio (0.9-2) COVID-19 Eval Order Covid19 Done at [facility] COVID-19 PCR (Negative) 03/22/20 Range/Units 12:10 WBC (4.8-10.8) K/uL RBC (4.7-6.1) M/uL Hgb (14.0-18.0) g/dL POC Hgb (14.0-18.0) g/dl Hct (42-52) % POC Hct (42-52) % MCV (80-100) fL MCH (25-34) pg MCHC (32-36) g/dL RDW Std Deviation (36.4-46.3) fL RDW Coeff of Jerry (11.5-14.5) % Plt Count (130-400) K/uL MPV (7.4-10.4) fL Immature Gran % (Auto) % Neut % (Auto) % Lymph % (Auto) % [place] % (Auto) % Eos % (Auto) % Baso % (Auto) % Neut # (Auto) (1.4-6.5) K/uL Lymph # (Auto) (1.2-3.4) K/uL [place] # (Auto) (0.11-0.59) K/uL Eos # (Auto) (0-0.5) K/uL Baso # (Auto) (0-0.2) K/uL Immature Gran # (Auto) (0.00-0.02) K/uL PT (9.0-12.0) Seconds INR (0.9-1.1) APTT (21.0-31.0) Seconds PTT Ratio ABG pH (7.35-7.45) ABG pCO2 (35-46) mmHg ABG pO2 (80-95) mmHg ABG HCO3 (19-24) mmol/L ABG O2 Saturation (90-95) % ABG Base Excess (-9-1.8) mEq/L Arnold Test (Pos) Barometric Pressure mm/Hg Oxygen Given POC Sodium (135-144) mmol/L Sodium (136-145) mmol/L POC Potassium (3.3-5.0) mmol/L Potassium (3.5-5.1) mmol/L POC Chloride (101-112) mmol/L Chloride (98-107) mmol/L Carbon Dioxide (21-32) mmol/L POC Total CO2 (24-31) mmol/L Anion Gap (3-11) POC Anion Gap (16-25) mmol/L POC BUN (7-18) mg/dl BUN (7-18) mg/dl Creatinine (0.6-1.4) mg/dl POC Creatinine (0.6-1.3) mg/dl Est Cr Clr Drug Dosing ml/min Est GFR ( Amer) Est GFR (Non-Af Amer) BUN/Creatinine Ratio (10-20) Glucose (70-99) mg/dl POC Glucose (other) (70-99) mg/dl Calcium (8.5-10.1) mg/dl POC Ioniz Calcium Kalyani (1.12-1.32) mmol/l Total Bilirubin (0.2-1) mg/dl AST (15-37) U/L ALT (12-78) U/L Alkaline Phosphatase (45-117) U/L Troponin I (0-0.045) ng/ml Total Protein (6.4-8.2) gm/dl Albumin (3.4-5.0) gm/dl Globulin (2.5-4.0) gm/dl Albumin/Globulin Ratio (0.9-2) COVID-19 Eval Order COVID-19 PCR NEGATIVE (Negative) Imaging Data Radiologist's Impression: SINGLE VIEW CHEST CLINICAL HISTORY: Dyspnea. FINDINGS: An AP, portable, upright chest radiograph is compared to study dated dyspnea.. The cardiomediastinal silhouette is unremarkable. Chronic interstitial thickening and bronchiectasis are somewhat a previous and consistent with a history of cystic fibrosis. Fibrosis of the left upper lobe and foci of parenchymal scarring are unchanged from previous. Question superimposed airspace consolidation in the right lower lobe. Suspect trace pleural effusions. Cavitation is seen at the left apex. No definite pneumothorax is identified. The bony thorax is grossly intact. IMPRESSION: 1. Chronic parenchymal changes and findings of cystic fibrosis are similar to previous. 2. Question superimposed airspace consolidation in the right lower lobe. Correlate clinically for evidence of an infectious/inflammatory pneumonitis. 3. Trace pleural effusions. ACT 112: Negative or not required by law. Electronically signed by: Evans Donahue M.D. 03/22/2020 11:38 AM ECG Data Attestation: I personally reviewed and interpreted this ECG as follows: Indication: + chest pain Rate (beats per minute): 85 Rhythm: + normal sinus ECG [place]: + Normal ECG ST segments: + ST elevation (V3 to V6 and likely in the inferior leads although baseline is wavy.) ECG Findings: no PVCs Comparison ECG Date: from (November 21, 2019 and February 07, 2020) Change: no significant change Blood Pressure Blood Pressure Findings: Normal blood pressure MDM Narrative I did evaluate the patient as noted above. Patient is presenting with intermittent chest pain which is now resolved. He also has dyspnea and flulike symptoms with a pulse ox in the 60s. He was given supplemental oxygen with a facemask. He was placed in respiratory isolation. IV access was established. I did place an order for continuous cardiac monitoring. The monitor showed normal sinus rhythm at a rate of 80 bpm. I did order and personally review the patient's 12-lead EKG as described above. He has significant ST elevations in leads V3 to V6. There is some questionable ST elevations also in the inferior leads. No reciprocal changes are noted. I compared this to his prior EKGs and he had similar findings on several other EKGs. He is currently not having any chest discomfort or pain. He states the pain that he was having is typical for him when he gets his cystic fibrosis exacerbations. I did order and personally reviewed the images of the patient's chest x-ray as described above. He has some chronic parenchymal changes but there is a superimposed consolidation in the right lower lobe. Blood cultures were obtained. I did treat the patient with Zosyn IV. I did order and review the patient's blood work as noted in the electronic medical record. Blood gas shows a PaO2 in the 60s despite being on oxygen. He was therefore placed on BiPAP. COVID-19 testing was negative. I did reassess the patient multiple times. I did discuss the case with the hospitalist and director case. Impression & Plan Acute respiratory failure with hypoxia, Cystic fibrosis, Right lower lobe pneumonia Discharge Plan Visit Data Chief Complaint: Shortness of Breath/Dyspnea ED Provider: Tony Holland Discharge Problem: Acute respiratory failure with hypoxia, Cystic fibrosis, Right lower lobe pneumonia Patient Disposition: Being Evaluated by Hospitalist Discharge Instructions Interventions: ED Discharge Assessment Last Done: 03/22/20 14:05 Forms Stand Alone Forms: My [facility] Prescriptions Prescriptions: No Action ipratropium-albuterol 0.5 mg-3 mg(2.5 mg base)/3 mL Solution For Nebulization 3 ml INHALATION QID RF: 0 levalbuterol tartrate [Xopenex HFA] 45 mcg/actuation Hfa Aerosol Inhaler 2 puff INHALATION QID PRN (Reason: Shortness Of Breath) RF: 0 tobramycin 300 mg/4 mL Solution For Nebulization 300 mg INHALATION BID RF: 0 ergocalciferol (vitamin D2) [Vitamin D2] 1,250 mcg (50,000 unit) Capsule 1,250 mcg PO MO@0700 RF: 0 cetirizine 10 mg Tablet 10 mg PO DAILY RF: 0 acetaminophen [Acetaminophen Extra Strength] 500 mg Tablet 1,000 mg PO TID PRN (Reason: Pain) RF: 0 dornase montez 1 mg/mL Solution 2.5 mg INHALATION DAILY RF: 0 fluticasone propion-salmeterol [Wixela Inhub] 250-50 mcg/dose Blister With Device 1 inh INHALATION BID RF: 0 naproxen 250 mg Tablet 250 mg PO BID PRN (Reason: Pain) RF: 0 diphenhydramine HCl [Benadryl] 25 mg Capsule 25 mg PO HS RF: 0 Novolin N Flexpen 100 unit/mL (3 mL) Insulin Pen 5 unit SUBCUT DAILY RF: 0 pantoprazole 40 mg Tablet,Delayed Release (Dr/Ec) 40 mg PO DAILY Qty: 30 RF: 0 levofloxacin [Levaquin] 750 mg Tablet 750 mg PO HS RF: 0 Lactaid Fast Act 9,000 unit Tablet,Chewable 9,000 unit PO AC RF: 0 Referrals Referrals: Yvette MARTIN [Primary Care Provider] -
[2020-03-22 11:21] LABS: iSTAT Creatinine 0.7 mg/dl (0.6-1.3); iSTAT Hemoglobin 16.7 g/dl (14.0-18.0); iSTAT Ionized Calcium 1.13 mmol/l (1.12-1.32); iSTAT Potassium 4.2 mmol/L (3.3-5.0)
[2020-03-22 11:26] LABS: Basophils # (auto) 0.02 K/uL (0-0.2); Basophils % (auto) 0.3 %; Eosinophils # (auto) 0.31 K/uL (0-0.5); Eosinophils % (auto) 4.8 %; Hematocrit (blood only) 45.8 % (42-52); Hemoglobin 14.2 g/dL (14.0-18.0); Immature Granulocytes # (auto) 0.01 K/uL (0.00-0.02); Immature Granulocytes % (auto) 0.2 %; Lymphocytes # (auto) 1.61 K/uL (1.2-3.4); Lymphocytes % (auto) 24.7 %; Mean Corpuscular Hemoglobin 25.7 pg (25-34); Monocytes # (auto) 0.63 K/uL (0.11-0.59); Monocytes % (auto) 9.7 %; Neutrophils # (auto) 3.94 K/uL (1.4-6.5); Neutrophils % (auto) 60.3 %; Platelet Count 176 K/uL (130-400); RDW Coefficient of Variation 14.4 % (11.5-14.5); RDW Standard Deviation 43.2 fL (36.4-46.3); Red Blood Count 5.52 M/uL (4.7-6.1); White Blood Count 6.52 K/uL (4.8-10.8)
[2020-03-22 11:38] LABS: INR 1.2 (0.9-1.1); Partial Thromboplastin Ratio 1.1; Partial Thromboplastin Time 30.4 Seconds (21.0-31.0); Prothrombin Time 12.1 Seconds (9.0-12.0)
--- NOTE | 2020-03-22 11:39 | XRay Report ---
SINGLE VIEW CHEST CLINICAL HISTORY: Dyspnea. FINDINGS: An AP, portable, upright chest radiograph is compared to study dated dyspnea.. The cardiome diastinal silhouette is unremarkable. Chronic interstitial thickening and bronchiectasis are somewhat a previous and consistent with a history of cystic fibrosis. Fibrosis of the left upper lobe and foc i of parenchymal scarring are unchanged from previous. Question superimposed airspace consolidation i n the right lower lobe. Suspect trace pleural effusions. Cavitation is seen at the left apex. No defi nite pneumothorax is identified. The bony thorax is grossly intact. IMPRESSION: 1. Chronic parenchymal changes and findings of cystic fibrosis are similar to previous. 2. Question superimposed airspace consolidation in the right lower lobe. Correlate clinically for emma dence of an infectious/inflammatory pneumonitis. 3. Trace pleural effusions. ACT 112: Negative or not required by law. Electronically signed by: Evans Donahue M.D. 03/22/2020 11:38 AM
[2020-03-22 11:42] LABS: Alanine Aminotransferase 23 U/L (12-78); Aspartate Aminotransferase 18 U/L (15-37); BUN Creatinine Ratio 10.8 (10-20); Blood Urea Nitrogen 9 mg/dl (7-18); Carbon Dioxide 32 mmol/L (21-32); Chloride 100 mmol/L (98-107); Creatinine Clr Calc Pharmacy 118.7 ml/min; Est GFR (African American) 140.7; Est GFR (Non-African American) 121.4; Glucose 81 mg/dl (70-99); Potassium 4.1 mmol/L (3.5-5.1); Sodium 136 mmol/L (136-145)
[2020-03-22 11:46] LABS: Albumin Globulin Ratio 0.5 (0.9-2); Alkaline Phosphatase 113 U/L (45-117); Bilirubin,Total 0.3 mg/dl (0.2-1); Troponin I < 0.015 ng/ml (0-0.045)
[2020-03-22 12:05] LABS: Base Excess ABG 4.6 mEq/L (-9-1.8); HCO3 ABG 32 mmol/L (19-24); PCO2 ABG 59 mmHg (35-46); PO2 ABG 65 mmHg (80-95); pH ABG 7.35 (7.35-7.45)
[2020-03-22 12:11] LABS: Allen Test Pos (Pos)
[2020-03-22] MEDS ORDERED: PIPERACILLIN/TAZOBACTAM 4.5 GM/120 ML BAG IV ONE (12:28)
[2020-03-22] MEDS ORDERED: PIPERACILL/TAZOBAC CONSULT ACTIVE PRN (12:28)
[2020-03-22] MEDS ORDERED: VANCOMYCIN CONSULT ACTIVE PRN (13:23)
[2020-03-22] MEDS ORDERED: LEVOFLOXACIN/D5W 750 MG/150 ML BAG IV STA (13:25)
--- NOTE | 2020-03-22 13:41 | History & Physical Report ---
Date of Service March 22, 2020 Assessment & Plan (1) Right lower lobe pneumonia: Concern for possible aspiration given multiple vomiting episodes - coverage for this with Zosyn. Aspiration precautions. [facility] therefore will cover MRSA with vancomycin. Levaquin for double Pseudomonas coverage due to previous colonization with this. Procalcitonin pending this time. Consult pulmonology. (2) Hypoxia: Aim O2 sats > 94% with BiPAP PRN to avoid CO2 retention. (3) Cystic fibrosis with pulmonary exacerbation: Consult pulmonology. (4) Pseudomonas aeruginosa colonization: Notable history of this hence double pseudomonas coverage as above. (5) DM II (diabetes mellitus, type II), controlled: HbA1C 6.8 [02/06] NovoLog sliding scale as per prior hospitalization aim 120-160, correction 40 mg/dL/unit, carb ratio 1 unit per 25 g (6) Nausea and vomiting: s/p influenza vaccination. No abdominal pain on exam to suggest SBO. No current nausea. No BM for 2 days. ?Ileus. (7) Gastric reflux: Continue pantoprazole 40 mg p.o. daily (8) Abnormal EKG: Widespread ST elevations vs. early repolarization. Appears to be consistent with prior EKGs, no significant acute change. No current chest pain to suggest pericarditis. Initial troponin negative, trend troponin overnight. Admission and Anticipated Discharge Date Admission Date: March 22, 2020 History of Present Illness Chief Complaint: Shortness of breath, hypoxia Primary Care Provider: MARIO Gomezner Marv Sevilla is a 18-year-old male with cystic fibrosis from [facility] who presents to the ER with shortness of breath and hypoxia. He reports mild hypoxia when he had his influenza vaccination 6 days ago. The day following this he felt generally unwell with a low-grade fever. Started having loss of appetite with associated nausea, vomiting. No significant abdominal pain, diarrhea, hematemesis or coffee-ground vomiting. Due to worsening shortness of breath he was started on Levaquin 4 days ago. Despite this he continued to have vomiting episodes with increased brown mucus production, hypoxia with associated shortness of breath. No hemoptysis. He was discharged with oxygen back in January but reports he is normally on room air. Currently requiring 6 L O2 to maintain saturations 93%. He denies any significant shortness of breath at rest but is very symptomatic on exertion. Allergies Allergy/AdvReac Type Severity Reaction Status Date / Time No Known Allergies Allergy Unverified 03/22/20 11:37 Home Medications Home Medications Medication Instructions Recorded Confirmed Type ipratropium-albuterol 3 ml INHALATION QID 06/25/18 03/22/20 History levalbuterol tartrate [Xopenex HFA] 2 puff INHALATION QID PRN 06/25/18 03/22/20 History tobramycin 300 mg INHALATION BID 06/25/18 02/06/20 History ergocalciferol (vitamin D2) 1,250 mcg PO MO@0700 08/18/19 03/22/20 History [Vitamin D2] acetaminophen [Acetaminophen Extra 1,000 mg PO TID PRN 11/21/19 03/22/20 History Strength] cetirizine 10 mg PO DAILY 11/21/19 03/22/20 History dornase montez 2.5 mg INHALATION DAILY 11/21/19 03/22/20 History diphenhydramine HCl [Benadryl] 25 mg PO HS 02/06/20 03/22/20 History fluticasone propion-salmeterol 1 inh INHALATION BID 02/06/20 03/22/20 History [Wixela Inhub] insulin NPH isoph U-100 human 5 unit SUBCUT DAILY 02/06/20 03/22/20 History [Novolin N Flexpen] naproxen 250 mg PO BID PRN 02/06/20 03/22/20 History pantoprazole 40 mg PO DAILY #30 tab 02/09/20 Rx lactase [Lactaid Fast Act] 9,000 unit PO AC 03/22/20 03/22/20 History levofloxacin [Levaquin] 750 mg PO HS 03/22/20 03/22/20 History Past Med/Surg History Medical History Acute respiratory failure with hypoxia s/p intubation/mech ventilation -- 2015 -- [facility] Cystic fibrosis Diabetes DM II (diabetes mellitus, type II), controlled Gastric reflux History of MRSA infection Multifocal pneumonia Pancreatic insufficiency due to cystic fibrosis Pneumomediastinum history of Pseudomonas aeruginosa colonization Respiratory acidosis Surgical History No significant past surgical history Family History Mother Quadriplegia, post-traumatic 2nd MVA Social History Smoking Status: Former smoker Tobacco Type: Cigarettes packs per day: 1; Second Hand Exposure: No; Do You Dip or Chew Tobacco: No; Tobacco Cessation Education Requested by Patient: No Hx Alcohol Use: No Hx Substance Use: Yes Last Used Substance: Unknown Last Used Substance Other:: years ago Preferred Language: Stateless Communication Ability: Effective Car Changer Required: No Beliefs That Will Affect Care: None marital status: Unknown Current Living Situation: Other Current Living Situation Comment: Incarceration at [facility] [place] How many Children do You have: 0 Other Information That Helps Us Care for You: No Feels Safe at Home: Yes Safety Concerns: Feels Safe At This Time Assistive Devices: Glasses Assistive Devices Comment: glasses not with patient Review of Systems Review of Systems: All systems reviewed & are unremarkable except as noted in HPI & below Gastrointestinal: as per Subjective / HPI, + nausea and + vomiting; no abdominal pain, no belching and no heartburn No bowel movement for 2 days. Physical Exam Constitutional: well developed; + not well nourished and no acute distress Eyes: + anicteric sclerae; normal pupil size ENMT: external ear and nose normal, oropharynx normal Neck: trachea midline, no thyromegaly Respiratory: normal respiratory effort and able to speak in complete sentences; no respiratory distress, no labored breathing, no retractions, does not use accessory muscles, no cough and no stridor Auscultation: + crackles (Fine throughout) and + rhonchi (Bilateral, anterior > posterior); breath sounds present, no diminished lung sounds and no wheezes Cardiovascular: RRR, no murmur, no edema Gastrointestinal (Abdomen): Inspection/Auscultation: abdomen normal to inspection and normal bowel sounds; abdomen not distended Percussion/Palpation: abdomen soft; abdomen nontender, no guarding and abdomen not rigid Musculoskeletal: no cyanosis or clubbing, extremities motor strength 5/5 Skin: no rashes, warm and dry Neurologic: moves all extremities and awake; not confused Psychiatric: A+Ox3, euthymic affect Genitourinary: no CVA tenderness Lymphatic: no cervical or axillary lymphadenopathy Results & Data Results & Data ([facility]) Vital Signs (Past 12 Hours) Vital Signs Temp Pulse Resp BP Pulse Ox 03/22/20 11:12 37.1 C 84 24 117/71 93 Diagnostic Findings SINGLE VIEW CHEST IMPRESSION: 1. Chronic parenchymal changes and findings of cystic fibrosis are similar to previous. 2. Question superimposed airspace consolidation in the right lower lobe. Correlate clinically for evidence of an infectious/inflammatory pneumonitis. 3. Trace pleural effusions. ECG Indication: SOB/dyspnea Rate (beats per minute): 85 Rhythm: normal sinus Findings: + other (Widespread ST elevations versus early repolarization) Comparison ECG Date: from (February 07, 2020) Change: no significant change (Multiple EKGs reviewed with varying degrees of early repolarization consistent with current EKG) Code Status & VTE Plan Code Status Full as discussed with the patient VTE Prophylaxis Plan VTE Prophylaxis will be ordered: No PG Care Time/CCT Total # of Minutes Spent Total Time Spent with Patient: Total time spent is greater than 50% in coordination of care (as documented) at patient's floor/unit and/or counseling patient: Coding Level of Care Code 66398 Initial Inpt Care Lvl 3 Diagnoses Right lower lobe pneumonia J18.9 Hypoxia R09.02 Cystic fibrosis with pulmonary exacerbation E84.0 Pseudomonas aeruginosa colonization Z22.39 DM II (diabetes mellitus, type II), controlled E11.9 Nausea and vomiting R11.2 Gastric reflux K21.9 Abnormal EKG R94.31
[2020-03-22] MEDS ORDERED: VANCOMYCIN HCL 1,250 MG in SODIUM CHLORIDE 0.9% 250 ML IV ONE (14:00)
[2020-03-22] MEDS ORDERED: ACETAMINOPHEN 500 MG TAB PO PRN (14:58)
[2020-03-22] MEDS ORDERED: LEVALBUTEROL TARTRATE 15 GM HFA.AER.AD INH PRN (14:58)
[2020-03-22] MEDS ORDERED: ONDANSETRON INJ 2 MG/ML 2 ML VIAL IV PRN (14:58)
[2020-03-22] MEDS ORDERED: NAPROXEN 250 MG TAB PO PRN (14:58)
[2020-03-22] MEDS: IPRATROPIUM BROMIDE NEB SOLN 0.02% 2.5 ML VIAL INH SCH ×2 (15:34→19:04)
[2020-03-22] MEDS: LEVALBUTEROL 1.25MG/0.5ML NEB INH SCH ×2 (15:34→19:04)
--- NOTE | 2020-03-22 15:43 | Pharmacy Report ---
Pharmacy Abx Initial Consult - Date of Service March 22, 2020 - Pharmacy Dosing Scope Date of Consult: 03/22/20 Consultation requested by: Dr. Ramirez Pharmacy is consulted to initiate Vancomycin and Zosyn IV dosing therapy, order appropriate labs and adjust drug dose/frequency. - Subjective The patient is a 24 year old M admitted on 03/22/20 13:37. - Objective Height: 5 ft 11 in Weight: 62.2 kg Vital Signs (Past 12hrs): Vital Signs Temp Pulse Pulse Resp BP BP Pulse Ox 03/22/20 14:59 36.4 C L 88 20 117/78 96 03/22/20 14:45 81 32 H 97 03/22/20 14:00 87 18 119/75 97 03/22/20 13:50 85 22 97 03/22/20 13:30 86 23 114/79 91 03/22/20 13:00 85 24 134/75 91 03/22/20 12:30 84 24 115/75 93 03/22/20 12:10 83 20 122/67 91 03/22/20 12:00 86 22 90 03/22/20 11:30 86 24 92 03/22/20 11:16 84 20 123/72 95 03/22/20 11:12 37.1 C 84 24 117/71 93 03/22/20 11:00 84 20 90 03/22/20 10:53 85 18 92 03/22/20 10:51 95 H 22 117/71 92 Lab Results (24hrs): Laboratory Tests (24 Hours) 03/22/20 03/22/20 03/22/20 11:05 11:05 11:05 WBC 6.52 Neut # (Auto) 3.94 Creatinine 0.83 Est Cr Clr Drug Dosing 118.7 Procalcitonin < 0.05 Micro Results: 03/22/20 11:44 Aerobic Blood Culture - Pending Blood Anaerobic Blood Culture - Pending 03/22/20 11:45 Aerobic Blood Culture - Pending Blood Anaerobic Blood Culture - Pending - Risk Factors for Resistance * Resident in a correctional facility * Hospitalization for 48 hours or more within the past 90 days * History of infection with a multidrug-resistant organism: Pseudomonas colonization, hx of MAC, Positive MRSA nasal swab in 01/2020 * Antimicrobial use within the last 90 days : Vanc, Cefepime and levaquin in Jan 2020 - Assessment & Plan Assessment 24 year old M with cystic fibrosis admitted with right lower lobe pneumonia * Possible aspiration pneumonia (recent vomiting) * Prior positive [facility] swab (01/2020[facility] * Procalcitonin pending this time. * Pt afebrile, no leukocytosis * Blood cultures pending * Vancomycin dosing based on data from admission in Jan 2020. Plan Vancomycin, Zosyn and Levaquin for treatment of pneumonia. Vancomycin IV * Loading dose: 1250 mg (20 mg/kg) * Maintenance dose: 1000 mg IV (16 mg/kg) every 8 hours * Goal trough level for pneumonia : 15 to 20 mcg/mL * Trough level ordered for 03/24/20 @1130 prior to sixth maintenance dose. Piperacillin/tazobactam * 4.5 g bolus administered over 30 minutes, then 4.5 g IV extended infusion every 8 hours for CrCl greater than 20 mL/min * Aggressive dosing selected due to history of cystic fibrosis. Pt is also on Levaquin 750mg IV q24h. Pharmacy will continue to follow and will adjust dose/frequency as necessary. Thank you.
[2020-03-22] MEDS: LACTATED RINGER'S 1,000 ML IV SCH (15:51)
--- NOTE | 2020-03-22 16:13 | XRay Report ---
XR KUB/Abdomen 1 view CLINICAL HISTORY: Vomiting COMPARISON STUDY: No previous studies for comparison. FINDINGS: There is no pathologic bowel dilatation. There is moderate fecal retention. IMPRESSION: 1. Nonobstructive bowel gas pattern 2. Moderate fecal retention ACT 112: Negative or not required by law. Electronically signed by: Nick Douglas M.D. 03/22/2020 4:12 PM
[2020-03-22] MEDS ORDERED: GLUCAGON FOR INJ 1 MG VIAL SQ PRN (16:58)
[2020-03-22] MEDS ORDERED: GLUCOSE 40% GEL 15 GM TUBE PO PRN (16:58)
[2020-03-22] MEDS ORDERED: CARBOHYDRATES FOR HYPOGLYCEMIA PO PRN (16:58)
[2020-03-22] MEDS ORDERED: GLUCOSE 10 TABS/TUBE PO PRN (16:58)
[2020-03-22] MEDS ORDERED: DEXTROSE 50% 50 ML SYRINGE IV PRN (16:58)
[2020-03-22] MEDS ORDERED: ALBUT/IPRATROP 3MG/0.5MG NEB 3 ML VIAL INH SCH (17:00)
[2020-03-22] MEDS ORDERED: PANCREAZE (LIPASE 10,500U) CAP PO PRN (17:09)
[2020-03-22] MEDS ORDERED: TOBRAMYCIN CONSULT ACTIVE PRN (17:30)
[2020-03-22] MEDS ORDERED: PIPERACILLIN/TAZOBACTAM 4.5 GM in DEXTROSE 5% 100 ML IV SCH (18:00)
[2020-03-22] MEDS ORDERED: TOBRAMYCIN SULFATE IV SCH (18:00)
[2020-03-22] MEDS ORDERED: DEXTROSE 5% IV SCH (18:00)
--- NOTE | 2020-03-22 18:03 | Pulmonary Consultation ---
Date of Consultation March 22, 2020 Assessment & Plan (1) Cystic fibrosis with pulmonary exacerbation: Patient follows with cystic fibrosis clinic at [facility] in [place] Has colonized pseudomonas or [place] Most recent cystic fibrosis panel revealed intermediate sensitivity to cefepime. Patient also had oxacillin resistant staph aureus We will continue patient on vancomycin per pharmacokinetics Continue Zosyn 4.5 g every 6 hours per cystic fibrosis guidelines We will add tobramycin IV at 10 mg/kg single dose every 24 hours Discontinue inhaled tobramycin while on systemic treatment We will order pneumatic vest as well as flutter valve for pulmonary clearance - hold and contact pulmonology in the event that the patient develops hemoptysis Continue dornase twice daily and duo nebs The patient will benefit from IV fluids. This will help to thin secretions. Patient is currently on lactated Ringer's at 125 mL/h. Discontinue BiPAP for concern for aspiration pneumonia, start high flow oxygen per protocol Nutrition consult placed. Discussed with dietitian. Double portions of meals. Encourage calorie intake The patient also reports some history of nausea and vomiting Check a KUB Continue with Creon and check a lipase No abdominal pain or tenderness or distention The patient does have diabetes mellitus type 2 Most recent hemoglobin A1c was 6.8 on 02/07/2020 Would treat with NovoLog sliding scale Avoid steroids We will continue pantoprazole for his esophageal reflux It would not be inappropriate to transfer patient to [facility] where he receives his care for cystic fibrosis. If the patient should develop hemoptysis, would definitely recommend transfer for interventional radiology embolization if needed. Thank you for including us in the care of this patient. Please refer to Dr. Holbrook's addendum for further recommendations. (2) Acute respiratory failure with hypoxia: (3) Asthma: (4) DM II (diabetes mellitus, type II), controlled: (5) Nausea and vomiting: (6) Malnutrition: (7) Gastric reflux: (8) Pseudomonas aeruginosa colonization: (9) History of MRSA infection: Supervising Physician Co-Signing Physician Notes Patient seen and examined with Evans curran PA-C. I agree with his assessment and plan aside for any additions/exceptions noted: Patient well-known to the pulmonary service. He follows with [facility] cystic fibrosis team in [place]. We evaluated his most recent notes from [facility]. He has very advanced cystic fibrosis and is colonized with DAVID. Lung transplantation discussion was had with the patient. His release date from correction at the earliest would be 2022. Patient refuses oxygen in the correction as he would be stuck in the [facility]. Patient is agreeable to using BiPAP at night and his chronic hypercapnia. Continue Pulmozyme daily, vest therapy. Continue Zosyn and tobramycin. Continue vancomycin, Zosyn 4.5 g every 6 hours and tobramycin 10 mg/kg q 24 hours. Obtain peak and trough levels before and after the fourth dose. Unfortunately, we do not have cystic fibrosis sputum cultures available in the hospital. Will obtain regular sputum cultures. Previous cultures were intermediate resistance with mucoid Pseudomonas in terms of cefepime. He also has nonmucoid strains of Pseudomonas. He did have MRSA in the past. Continue pancrelipase. Continue double portions of diet. No evidence of pneumothorax. He does have increased infiltrates in the right lower lobe. COVID-19 testing was negative. Patient would benefit from transfer to [facility] as they are very familiar with this patient and have the cystic fibrosis team. Would recommend transfer to an urgent basis. Continue full contact precautions. Pulmonary will continue to follow patient. Please call with questions. Thank you for the consult. History of Present Illness Attending Physician: Dwight Ramirez MD History of Present Illness Attending: Dr. Holbrook There is a 24-year-old male with a history of cystic fibrosis, anemia, malnutrition, GERD, Pseudomonas aeruginosa colonization, history of cavitary pneumonia, DAVID/MAC, history of pneumomediastinum, diabetes mellitus type 2, asthma, history of tobacco abuse. The patient is currently incarcerated at [facility]. Release date is 2022. Patient is well-known to our service from previous admissions. He is followed at [facility] and there is cystic fibrosis program. He most recently was seen in [facility] in January 2020. The patient presents today with shortness of breath. He reports a cough with some clear sputum production. He has no hemoptysis. Occasionally sputum is dinh. He was COVID tested prior to admission and this was negative. The patient also reports 2 episodes of nausea and vomiting. He states he has mild abdominal pain. He has no specific chest pain or tightness. He states that his shortness of breath has been progressive over the last 2 days. He denies fever, chills, sweats, rigors. The patient states that he has a history of drug use and snorting medications in the past. He denies any ethanol abuse. Allergies Allergy/AdvReac Type Severity Reaction Status Date / Time No Known Allergies Allergy Unverified 03/22/20 11:37 Home Medications Home Medications Medication Instructions Recorded Confirmed Type ipratropium-albuterol 3 ml INHALATION QID 06/25/18 03/22/20 History levalbuterol tartrate [Xopenex HFA] 2 puff INHALATION QID PRN 06/25/18 03/22/20 History tobramycin 300 mg INHALATION BID 06/25/18 02/06/20 History ergocalciferol (vitamin D2) 1,250 mcg PO MO@0700 08/18/19 03/22/20 History [Vitamin D2] acetaminophen [Acetaminophen Extra 1,000 mg PO TID PRN 11/21/19 03/22/20 History Strength] cetirizine 10 mg PO DAILY 11/21/19 03/22/20 History dornase montez 2.5 mg INHALATION DAILY 11/21/19 03/22/20 History diphenhydramine HCl [Benadryl] 25 mg PO HS 02/06/20 03/22/20 History fluticasone propion-salmeterol 1 inh INHALATION BID 02/06/20 03/22/20 History [Wixela Inhub] insulin NPH isoph U-100 human 5 unit SUBCUT DAILY 02/06/20 03/22/20 History [Novolin N Flexpen] naproxen 250 mg PO BID PRN 02/06/20 03/22/20 History pantoprazole 40 mg PO DAILY #30 tab 02/09/20 Rx lactase [Lactaid Fast Act] 9,000 unit PO AC 03/22/20 03/22/20 History levofloxacin [Levaquin] 750 mg PO HS 03/22/20 03/22/20 History Patient History Medical History Acute respiratory failure with hypoxia s/p intubation/mech ventilation -- 2014 -- [facility] Cystic fibrosis Diabetes DM II (diabetes mellitus, type II), controlled Gastric reflux History of MRSA infection Multifocal pneumonia Pancreatic insufficiency due to cystic fibrosis Pneumomediastinum history of Pseudomonas aeruginosa colonization Respiratory acidosis Surgical History No significant past surgical history Family History Mother Quadriplegia, post-traumatic 2nd MVA Social History Smoking Status: Former smoker Tobacco Type: Cigarettes packs per day: 1; Second Hand Exposure: No; Do You Dip or Chew Tobacco: No; Tobacco Cessation Education Requested by Patient: No Hx Alcohol Use: No Hx Substance Use: Yes Last Used Substance: Unknown Last Used Substance Other:: years ago Preferred Language: Togolese Communication Ability: Effective Customer Engagement Analyst Required: No Beliefs That Will Affect Care: None marital status: Unknown Current Living Situation: Other Current Living Situation Comment: Incarceration at [facility] How many Children do You have: 0 Other Information That Helps Us Care for You: No Feels Safe at Home: Yes Safety Concerns: Feels Safe At This Time Assistive Devices: Glasses Assistive Devices Comment: glasses not with patient Review of Systems Review of Systems: All systems reviewed & are unremarkable except as noted in HPI & below Physical Exam Physical Exam: GENERAL : No acute distress EYES: No icterus, gaze conjugate NOSE: No evidence of epistaxis MOUTH: No lesions or candidiasis NECK: Supple LUNGS: Rhonchorous in the upper chong. Patient has decreased breath sounds in the bases. There is evidence of coarse rales throughout. No evidence of bronchospasm. HEART: Regular, rate controlled ABDOMEN: Soft, NT, ND, BS Present. No guarding to deep palpation EXTREMITIES: No LE edema, pedal pulses intact NEURO: A&OX3 Results & Data Results & Data ([facility]) Vital Signs (Past 12 Hours) Vital Signs Temp Pulse Pulse Resp BP BP Pulse Ox 03/22/20 17:20 78 03/22/20 16:15 86 20 99 03/22/20 15:36 86 22 99 03/22/20 15:34 86 22 99 03/22/20 15:30 36.4 C L 88 16 117/78 97 03/22/20 14:59 36.4 C L 88 20 117/78 96 03/22/20 14:45 81 32 H 97 03/22/20 14:00 87 18 119/75 97 03/22/20 13:50 85 22 97 03/22/20 13:30 86 23 114/79 91 03/22/20 13:00 85 24 134/75 91 03/22/20 12:30 84 24 115/75 93 03/22/20 12:10 83 20 122/67 91 03/22/20 12:00 86 22 90 03/22/20 11:30 86 24 92 03/22/20 11:16 84 20 123/72 95 03/22/20 11:12 37.1 C 84 24 117/71 93 03/22/20 11:00 84 20 90 03/22/20 10:53 85 18 92 03/22/20 10:51 95 H 22 117/71 92 Laboratory Results Laboratory Tests 02/07/20 04:07 Hemoglobin A1c 6.8 H 03/22/20 11:05 03/22/20 11:05 Diagnostic Findings SINGLE VIEW CHEST CLINICAL HISTORY: Dyspnea. FINDINGS: An AP, portable, upright chest radiograph is compared to study dated dyspnea.. The cardiomediastinal silhouette is unremarkable. Chronic interstitial thickening and bronchiectasis are somewhat a previous and consistent with a history of cystic fibrosis. Fibrosis of the left upper lobe and foci of parenchymal scarring are unchanged from previous. Question superimposed airspace consolidation in the right lower lobe. Suspect trace pleural effusions. Cavitation is seen at the left apex. No definite pneumothorax is identified. The bony thorax is grossly intact. IMPRESSION: 1. Chronic parenchymal changes and findings of cystic fibrosis are similar to previous. 2. Question superimposed airspace consolidation in the right lower lobe. Correlate clinically for evidence of an infectious/inflammatory pneumonitis. 3. Trace pleural effusions. ACT 112: Negative or not required by law. Electronically signed by: Evans Donahue M.D. 03/22/2020 11:38 AM PG Care Time/CCT Total # of Minutes Spent Total Time Spent with Patient: Total time spent is greater than 50% in coordination of care (as documented) at patient's floor/unit and/or counseling patient: 60 minutes including discussion with other providers Coding Level of Care Code 72132 Inpt Consult Level 5 Diagnoses Cystic fibrosis with pulmonary exacerbation E84.0 Acute respiratory failure with hypoxia J96.01 Asthma J45.909 DM II (diabetes mellitus, type II), controlled E11.9 Nausea and vomiting R11.2 Malnutrition E46 Gastric reflux K21.9 Pseudomonas aeruginosa colonization Z22.39 History of MRSA infection Z86.14
[2020-03-22] MEDS: LACTASE 3000 UNIT TAB PO SCH (18:08)
[2020-03-22] MEDS: PIPERACILLIN/TAZOBACTAM 4.5 GM in DEXTROSE 5% 100 ML IV SCH (18:12)
[2020-03-22] MEDS: PANCREAZE (LIPASE 10,500U) CAP PO SCH (18:44)
[2020-03-22] MEDS ORDERED: TOBRAMYCIN SULFATE 300 MG in SYRINGE 0 ML INH SCH (19:00)
[2020-03-22] MEDS: DORNASE ALFA 2.5 ML AMP INH SCH (19:23)
[2020-03-22] MEDS ORDERED: TOBRAMYCIN 300 MG INH SCH (21:00)
[2020-03-22] MEDS: INSULIN ASPART 100 UNITS/ML 3 ML PEN SC SCH (21:00)
[2020-03-22] MEDS: VANCOMYCIN HCL 1,000 MG in SODIUM CHLORIDE 0.9% 250 ML IV SCH (21:15)
[2020-03-23] MEDS: PIPERACILLIN/TAZOBACTAM 4.5 GM in DEXTROSE 5% 100 ML IV SCH ×2 (00:54→11:27)
[2020-03-23] MEDS: LACTATED RINGER'S 1,000 ML IV SCH ×2 (00:54→07:55)
[2020-03-23] MEDS: VANCOMYCIN HCL 1,000 MG in SODIUM CHLORIDE 0.9% 250 ML IV SCH ×2 (04:57→13:47)
--- NOTE | 2020-03-23 06:06 | Electrocardiogram Report ---
Test Reason : Blood Pressure : / mmHG Vent. Rate : 085 BPM Atrial Rate : 085 BPM P-R Int : 120 ms QRS Dur : 068 ms QT Int : 346 ms P-R-T Axes : 030 080 062 degrees QTc Int : 411 ms Poor data quality, interpretation may be adversely affected Normal sinus rhythm ST elevation, consider early repolarization, pericarditis, or injury Abnormal ECG When compared with ECG of 07-FEB-2020 06:11, ST elevation now present in Inferior leads Confirmed by Sean Weaver ([id number]) on 03/23/2020 6:06:36 AM Referred By: REFERRED SELF Confirmed By:Sean Weaver
[2020-03-23 06:52] LABS: Basophils # (auto) 0.03 K/uL (0-0.2); Basophils % (auto) 0.5 %; Eosinophils # (auto) 0.43 K/uL (0-0.5); Eosinophils % (auto) 7.2 %; Hematocrit (blood only) 43.1 % (42-52); Hemoglobin 12.8 g/dL (14.0-18.0); Lymphocytes # (auto) 1.76 K/uL (1.2-3.4); Lymphocytes % (auto) 29.5 %; Mean Corpuscular Hemoglobin 25.3 pg (25-34); Mean Corpuscular Hgb Conc 29.7 g/dL (32-36); Mean Corpuscular Volume 85.2 fL (80-100); Mean Platelet Volume 9.4 fL (7.4-10.4); Monocytes # (auto) 0.55 K/uL (0.11-0.59); Monocytes % (auto) 9.2 %; Neutrophils % (auto) 53.6 %; Platelet Count 171 K/uL (130-400); RDW Coefficient of Variation 14.6 % (11.5-14.5); Red Blood Count 5.06 M/uL (4.7-6.1); White Blood Count 5.97 K/uL (4.8-10.8)
[2020-03-23] MEDS: DORNASE ALFA 2.5 ML AMP INH SCH (07:09)
[2020-03-23] MEDS: LEVALBUTEROL 1.25MG/0.5ML NEB INH SCH ×3 (07:09→15:17)
[2020-03-23] MEDS: IPRATROPIUM BROMIDE NEB SOLN 0.02% 2.5 ML VIAL INH SCH ×3 (07:09→15:17)
[2020-03-23 07:29] LABS: BUN Creatinine Ratio 11.5 (10-20); Blood Urea Nitrogen 9 mg/dl (7-18); Carbon Dioxide 32 mmol/L (21-32); Chloride 103 mmol/L (98-107); Creatinine Clr Calc Pharmacy 128.8 ml/min; Est GFR (African American) 146.7; Est GFR (Non-African American) 126.6; Glucose 78 mg/dl (70-99); Potassium 4.2 mmol/L (3.5-5.1); Sodium 139 mmol/L (136-145)
[2020-03-23 07:34] LABS: Troponin I < 0.015 ng/ml (0-0.045)
[2020-03-23] MEDS: LACTASE 3000 UNIT TAB PO SCH ×2 (07:52→11:35)
[2020-03-23] MEDS: PANCREAZE (LIPASE 10,500U) CAP PO SCH ×2 (07:52→11:28)
[2020-03-23] MEDS: INSULIN ASPART 100 UNITS/ML 3 ML PEN SC SCH ×2 (07:55→12:46)
[2020-03-23] MEDS ORDERED: DORNASE ALFA 2.5 ML AMP INH SCH (08:00)
[2020-03-23] MEDS ORDERED: FLUTICASONE/VILANTEROL 200/25MCG 14 PUFFS/INHALER INH SCH (09:00)
[2020-03-23] MEDS ORDERED: PANTOprazole 40 MG TAB PO SCH (09:00)
[2020-03-23] MEDS ORDERED: CETIRIZINE HCL 10 MG TABLET PO SCH (09:00)
--- NOTE | 2020-03-23 09:00 | Pulmonology Progress Note ---
Date of Service March 23, 2020 Assessment & Plan (1) Cystic fibrosis with pulmonary exacerbation: Chest x-ray 03/22/2020 personally reviewed: Hyperinflated film, chronic left upper lobe and right upper lobe cystic changes appreciated, slightly increased haziness in right lower lobe. Bilateral costophrenic and cardiophrenic angles are clean. --Acute on chronic hypercapnic hypoxic respiratory failure Likely secondary to cystic fibrosis exacerbation Continue with dual antipseudomonal coverage Zosyn and tobramycin. Pharmacy to check the level of tobramycin toxicity. Inhaled tobramycin on hold for the time being Continue with dornase alpha inhaled twice daily Continue with nebulizer Continue with O2 supplementation to keep saturation 90-92%. Continue with vancomycin given the nasal MRSA was positive. Continue with IV hydration. Continue with Creon for his pancreatic insufficiency. Add senna-Colace for constipation If there is any deterioration in the mental status I would have him on BiPAP instead to have goal tidal volume of 700 mL. - Sputum culture from 08/21/2019 was positive for Pseudomonas fluoresc/putida which was pansensitive. Sputum culture has been reordered this admission - Patient also grew DAVID from sputum culture 08/20/2019. Given the cystic fibrosis he will likely be needing to be treated with for his DAVID. - Patient did have gold QuantiFERON test on his previous admission back in August which was negative. Plan: Continue with antibiotics as above Monitor tobramycin level Continue with inhaled bronchodilators High flow to keep O2 saturation 90-92. Not to over oxygenate as patient is chronically hypercapnic If there is any clinical deterioration with the patient on BiPAP with goal tidal volume of 700. Patient has been following up with [facility] CF clinic. Giving a call to them to see if they have any other recommendation would be beneficial. Please note the above document was generated using voice recognition software. It may contain grammatical, syntax or spelling errors. (2) Acute respiratory failure with hypoxia: (3) Pseudomonas aeruginosa colonization: (4) History of MRSA infection: (5) Cystic fibrosis with pulmonary exacerbation: Admission and Anticipated Discharge Date Admission Date: March 22, 2020 Subjective Patient seen and examined at bedside. No acute distress, no adverse events overnight. At the time of examination patient was on high flow. He states that he is feeling better than he presented to the hospital. Denies any significant chest pain. Shortness of breath is improved. Does complain of occasional cough. Not bringing up any phlegm. No dizziness, positive flatulence, no bowel movement. No dysuria. Review of Systems Review of Systems: All systems reviewed & are unremarkable except as noted in Subjective Physical Exam Physical Exam: Constitutional: No acute distress HEENT: EOMI, PERRLA Respiratory system: Decreased air entry bilaterally, more decreased on the left, positive crackles bilateral anterior and posterior, no wheeze, no rhonchi CVS: S1-S2 positive, no murmurs or gallops Abdomen: Soft, nontender, nondistended, positive bowel sounds x4 Extremities: +2 pulses bilaterally radialis, no cyanosis, no edema, positive clubbing, tattoos all over the body Neuro: Awake alert oriented x3 Psych: Normal mood and affect G/U: No Cao Skin: no rashes, warm and dry Lymphatic: no cervical or axillary lymphadenopathy Results & Data Results & Data ([facility]) Vital Signs (Past 12 Hours) Vital Signs Temp Pulse Pulse Pulse Resp BP Pulse Ox 03/23/20 07:09 84 18 91 03/23/20 07:07 36.6 C 87 24 111/69 90 03/23/20 03:51 36.5 C 74 20 103/79 93 03/23/20 03:32 75 26 H 90 03/22/20 23:17 72 03/22/20 22:57 36.6 C 74 22 106/69 92 03/22/20 22:00 77 20 91 03/23/20 06:40 03/23/20 06:40 PG Care Time/CCT Total # of Minutes Spent Total Time Spent with Patient: Total time spent is greater than 50% in coordination of care (as documented) at patient's floor/unit and/or counseling patient: Coding Level of Care Code 36889 Subseq Hosp Care Lvl 3 Diagnoses Cystic fibrosis with pulmonary exacerbation E84.0 Acute respiratory failure with hypoxia J96.01 Pseudomonas aeruginosa colonization Z22.39 History of MRSA infection Z86.14 Cystic fibrosis with pulmonary exacerbation E84.0
--- NOTE | 2020-03-23 09:11 | Hospitalist Progress Note ---
Date of Service March 23, 2020 Assessment & Plan (1) Cystic fibrosis with pulmonary exacerbation: Patient follows with cystic fibrosis clinic at [facility] in [place] Has colonized pseudomonas aeruginosa Most recent cystic fibrosis panel revealed intermediate sensitivity to cefepime. Patient also had oxacillin resistant staph aureus We will continue patient on vancomycin per pharmacokinetics - MRSA swab not checked as patient has already started on Vancomycin Continue Zosyn 4.5 g every 6 hours per cystic fibrosis guidelines Continue tobramycin IV at 10 mg/kg single dose every 24 hours Discontinue inhaled tobramycin while on systemic treatment Continue pneumatic vest as well as flutter valve for pulmonary clearance Continue dornase twice daily and duo nebs Continue IV fluids. This will help to thin secretions. Electrolytes are balanced. Change to Normosol at 125ml/hr Serum Carbon Dioxide is 32 - continue high flow oxygen per protocol Nutrition consult placed. Discussed with dietitian. Double portions of meals. Encourage calorie intake The patient also reports some history of nausea and vomiting KUB with non-obstructive bowel pattern. Patient tolerating diet Lipase was WNL at 13 Continue with Creon No abdominal pain or tenderness or distention The patient does have diabetes mellitus type 2 Most recent hemoglobin A1c was 6.8 on 02/07/2020 Continue with NovoLog sliding scale Avoid steroids at this time Continue pantoprazole for his esophageal reflux Transfer process started to transfer patient to [facility] to be evaluated by their cystic fibrosis team. Thank you for including us in the care of this patient. Please refer to Dr. Holbrook's addendum for further recommendations. (2) Acute respiratory failure with hypoxia: Secondary to above Continue high flow oxygen supplementation Day #2 of antibiotics No indication for steroids at this time (3) Asthma: Continue above treatment for cystic fibrosis exacerbation Continue fluticasone/Vilanterol Continue scheduled DuoNeb treatments No evidence of exacerbation (4) DM II (diabetes mellitus, type II), controlled: Hemoglobin A1c was 6.8 on 02/07/2020 Fairly well controlled without insulin as an outpatient Continue sliding scale insulin with NovoLog with BSG's ACHS (5) Nausea and vomiting: This is now resolved KUB with nonobstructive pattern No abdominal tenderness this morning on exam (6) Malnutrition: Dietitian consulted Double portions of meals Continue Creon Lipase within normal limits (7) Gastric reflux: Continue pantoprazole (8) Pseudomonas aeruginosa colonization: Continue contact isolation for Pseudomonas based on cystic fibrosis protocol Tobramycin IV 10 mg/kg daily Continue Zosyn (9) History of MRSA infection: MRSA swab had not been completed as patient was already started on vancomycin Continue with vancomycin at this time awaiting cultures Continue contact isolation protocol (10) DVT prophylaxis: No hemoptysis this admission Will start heparin 5000 units subcutaneously every 12 hours Admission and Anticipated Discharge Date Admission Date: March 22, 2020 Subjective Attending: Dr. Calixto This is a 24-year-old -English male that was admitted yesterday for acute shortness of breath secondary to cystic fibrosis. The patient hypoxia and required CPAP and high flow oxygen on admission. He currently is on high flow with a flow rate of 35 L/min and an FiO2 of 55%. He states that he feels as though he is close to baseline with the supplemental oxygen. A pneumo vest was used last night x2. He feels like his sputum is looser but he still has no expectorated sputum. He denies fever or chills. He has no nausea or vomiting today. He has no abdominal pain. Aside from shortness of breath without supplemental oxygen, he has no acute complaints. Review of Systems Review of Systems: All systems reviewed & are unremarkable except as noted in Subjective Physical Exam Physical Exam: GENERAL : No acute distress EYES: No icterus, gaze conjugate NOSE: No evidence of epistaxis. High flow oxygen cannula is in place and secure MOUTH: No lesions or candidiasis NECK: Supple LUNGS: Patient has scattered bronchospasm. He also has coarse crackles at the bases. No appreciation of rhonchi on today's exam. There is no paradoxical chest wall movement. There is no use of accessory muscles with respiration. HEART: Regular, tachycardic in the low 100s. No appreciation of ectopy ABDOMEN: Soft, NT, ND, BS Present. No rebound tenderness or guarding to deep palpation EXTREMITIES: No LE edema, pedal pulses intact and equal bilaterally NEURO: A&OX3. Cranial nerves II through XII appear to be grossly intact without focal deficit. Results & Data Results & Data ([facility]) Vital Signs (Past 12 Hours) Vital Signs Temp Pulse Pulse Pulse Resp BP Pulse Ox 03/23/20 07:09 84 18 91 03/23/20 07:07 36.6 C 87 24 111/69 90 09/29/20 03:51 36.5 C 74 20 103/79 93 03/23/20 03:32 75 26 H 90 03/22/20 23:17 72 03/22/20 22:57 36.6 C 74 22 106/69 92 03/22/20 22:00 77 20 91 Laboratory Results 03/23/20 06:40 03/23/20 06:40 INR 1.2 (0.9-1.1) H 03/22/20 11:05 Diagnostic Findings Portable CXR is pending this morning PG Care Time/CCT Total # of Minutes Spent Total Time Spent with Patient: Total time spent is greater than 50% in coordination of care (as documented) at patient's floor/unit and/or counseling patient: 40 minutes including call to transfer center and discussion with correction staff Coding Diagnoses Cystic fibrosis with pulmonary exacerbation E84.0 Acute respiratory failure with hypoxia J96.01 Asthma J45.909 DM II (diabetes mellitus, type II), controlled E11.9 Nausea and vomiting R11.2 Malnutrition E46 Gastric reflux K21.9 Pseudomonas aeruginosa colonization Z22.39 History of MRSA infection Z86.14 DVT prophylaxis Z29.9
[2020-03-23] MEDS ORDERED: NORMOSOL-R 1,000 ML IV SCH (09:45)
--- NOTE | 2020-03-23 10:16 | XRay Report ---
XR chest 1V portable CLINICAL HISTORY: Hypoxia, cystic fibrosis COMPARISON STUDY: 03/22/2020 FINDINGS: The cardiac and mediastinal contours remain stable. Upper lobe fibrotic-type changes are alaniz spected with chronic biapical cystic spaces left greater than right and areas of peripheral consolida tion with bronchiectasis involving the left upper lobe. The findings are consistent with the patient' s known cystic fibrosis.[ IMPRESSION: Radiographic findings consistent with the clinical diagnosis of cystic fibrosis. No signi ficant change when compared the preceding examination. ACT 112: Negative or not required by law. Electronically signed by: Nick Douglas M.D. 03/23/2020 10:14 AM
[2020-03-23] MEDS ORDERED: DOCUSATE SODIUM/SENNA 50/8.6MG TAB PO SCH (10:30)
[2020-03-23] MEDS ORDERED: LEVOFLOXACIN/D5W 750 MG/150 ML BAG IV SCH (14:00)
--- NOTE | 2020-03-23 14:41 | Pharmacy Report ---
Pharmacy Abx Dose Short Note - Date of Service March 23, 2020 - Assessment & Plan Assessment * 24 year old M with pulmonary exacerbation of cystic fibrosis receiving Zosyn, tobramycin, and vancomycin * For patients with CF, aminoglycoside volume of distribution is increased and renal clearance is more rapid, thus the usual dosing and extended-interval aminoglycoside schedule is contraindicated. Instead, 10 mg/kg IBW (or adjusted body weight if obese) is initially utilized. For this patient - actual body weight used instead as this is less than his IBW * Extended interval CF targets * Target *calculated* peak for CF patients - 20-30 mcg/mL * Target measured or calculated 18 hour level for CF patients - less than 0.5 mcg/mL. Toxicity is associated with 18 hour levels >= 1.0 mcg/mL * Patient specific-PK * Initial distribution phase is 2 hours therefore should not draw a level prior to 2 hours. 1st level was drawn at 2 hr 40 min therefore this is appropriate. 2nd level drawn at ~6 hr post-infusion and calculated t1/2 was 6.5 hours. * Using t1/2 of 6.5 hours and level of 7.4 mcg/mL at 0024, the 18 hour level at 1217 today would have been significantly elevated to 2.1 mcg/mL thus will change the dosing regime to conventional dosing. * Conventional dosing targets * Peak: 8-10 mcg/mL * Trough less than 1-2 mcg/mL * Regimen * Dose = 2.7 mg/kg actual body weight q8h for now - higher dose in mg/kg selected due to CF Plan * Tobramycin 165 mg IV q8h * Peak/trough will need to be ordered if the patient is not transferred, as planned Pharmacy will continue to follow and will adjust dose/frequency as necessary. Thank you.
--- NOTE | 2020-03-23 14:58 | Discharge Summary ---
Date of Service March 23, 2020 Admission HPI Per Admitting Provider Marv Sevilla is a 18-year-old male with cystic fibrosis from [facility] who presents to the ER with shortness of breath and hypoxia. He reports mild hypoxia when he had his influenza vaccination 6 days ago. The day following this he felt generally unwell with a low-grade fever. Started having loss of appetite with associated nausea, vomiting. No significant abdominal pain, diarrhea, hematemesis or coffee-ground vomiting. Due to worsening shortness of breath he was started on Levaquin 4 days ago. Despite this he continued to have vomiting episodes with increased brown mucus production, hypoxia with associated shortness of breath. No hemoptysis. He was discharged with oxygen back in January but reports he is normally on room air. Currently requiring 6 L O2 to maintain saturations 93%. He denies any significant shortness of breath at rest but is very symptomatic on exertion. Admission Exam Per Admitting Provider Constitutional: well developed; + not well nourished and no acute distress Eyes: + anicteric sclerae; normal pupil size ENMT: external ear and nose normal, oropharynx normal Neck: trachea midline, no thyromegaly Respiratory: normal respiratory effort and able to speak in complete sentences; no respiratory distress, no labored breathing, no retractions, does not use accessory muscles, no cough and no stridor Auscultation: + crackles (Fine throughout) and + rhonchi (Bilateral, anterior > posterior); breath sounds present, no diminished lung sounds and no wheezes Cardiovascular: RRR, no murmur, no edema Gastrointestinal (Abdomen): Inspection/Auscultation: abdomen normal to inspection and normal bowel sounds; abdomen not distended Percussion/Palpation: abdomen soft; abdomen nontender, no guarding and abdomen not rigid Musculoskeletal: no cyanosis or clubbing, extremities motor strength 5/5 Skin: no rashes, warm and dry Neurologic: moves all extremities and awake; not confused Psychiatric: A+Ox3, euthymic affect Genitourinary: no CVA tenderness Lymphatic: no cervical or axillary lymphadenopathy Principal Diagnosis Cystic fibrosis exacerbation, multifocal pneumonia, hypoxia Discharge Exam Physical Exam: GENERAL : No acute distress EYES: No icterus, gaze conjugate NOSE: No evidence of epistaxis. High flow oxygen cannula is in place and secure MOUTH: No lesions or candidiasis NECK: Supple LUNGS: Patient has scattered bronchospasm. He also has coarse crackles at the bases. No appreciation of rhonchi on today's exam. There is no paradoxical chest wall movement. There is no use of accessory muscles with respiration. HEART: Regular, tachycardic in the low 100s. No appreciation of ectopy ABDOMEN: Soft, NT, ND, BS Present. No rebound tenderness or guarding to deep palpation EXTREMITIES: No LE edema, pedal pulses intact and equal bilaterally NEURO: A&OX3. Cranial nerves II through XII appear to be grossly intact without focal deficit. Discharge Data Allergies Allergy/AdvReac Type Severity Reaction Status Date / Time No Known Allergies Allergy Unverified 03/22/20 11:37 Consultations 03/22/20 12:29 ED Decision to Admit Stat 03/22/20 14:58 Consult Pulmonology Routine 03/23/20 14:29 Burn CD for patient Stat Procedures Performed Administration of IV Fluids Administration of IV antibiotics High Mg O2 BiPAP NIV Ordered Studies XR chest 1V portable CLINICAL HISTORY: Hypoxia, cystic fibrosis COMPARISON STUDY: 03/22/2020 FINDINGS: The cardiac and mediastinal contours remain stable. Upper lobe fibrotic-type changes are suspected with chronic biapical cystic spaces left greater than right and areas of peripheral consolidation with bronchiectasis involving the left upper lobe. The findings are consistent with the patient's known cystic fibrosis.[ IMPRESSION: Radiographic findings consistent with the clinical diagnosis of cystic fibrosis. No significant change when compared the preceding examination. Electronically signed by: Nick Douglas M.D. 03/23/2020 10:14 AM XR KUB/Abdomen 1 view CLINICAL HISTORY: Vomiting COMPARISON STUDY: No previous studies for comparison. FINDINGS: There is no pathologic bowel dilatation. There is moderate fecal retention. IMPRESSION: 1. Nonobstructive bowel gas pattern 2. Moderate fecal retention Electronically signed by: Nick Douglas M.D. 03/22/2020 4:12 PM SINGLE VIEW CHEST CLINICAL HISTORY: Dyspnea. FINDINGS: An AP, portable, upright chest radiograph is compared to study dated dyspnea.. The cardiomediastinal silhouette is unremarkable. Chronic interstitial thickening and bronchiectasis are somewhat a previous and consistent with a history of cystic fibrosis. Fibrosis of the left upper lobe and foci of parenchymal scarring are unchanged from previous. Question superimposed airspace consolidation in the right lower lobe. Suspect trace pleural effusions. Cavitation is seen at the left apex. No definite pneumothorax is identified. The bony thorax is grossly intact. IMPRESSION: 1. Chronic parenchymal changes and findings of cystic fibrosis are similar to previous. 2. Question superimposed airspace consolidation in the right lower lobe. Correlate clinically for evidence of an infectious/inflammatory pneumonitis. 3. Trace pleural effusions. Electronically signed by: Evans Donahue M.D. 03/22/2020 11:38 AM Hospital Course (1) Cystic fibrosis with pulmonary exacerbation: Consult pulmonology. (2) Acute respiratory failure with hypoxia: Secondary to above Continue high flow oxygen supplementation Day #2 of antibiotics No indication for steroids at this time (3) Asthma: Continue above treatment for cystic fibrosis exacerbation Continue fluticasone/Vilanterol Continue scheduled DuoNeb treatments No evidence of exacerbation (4) DM II (diabetes mellitus, type II), controlled: HbA1C 6.8 [8/15] NovoLog sliding scale as per prior hospitalization aim 120-160, correction 40 mg/dL/unit, carb ratio 1 unit per 25 g (5) Nausea and vomiting: s/p influenza vaccination. No abdominal pain on exam to suggest SBO. No current nausea. No BM for 2 days. ?Ileus. (6) Malnutrition: Dietitian consulted Double portions of meals Continue Creon Lipase within normal limits (7) Gastric reflux: Continue pantoprazole 40 mg p.o. daily (8) Pseudomonas aeruginosa colonization: Notable history of this hence double pseudomonas coverage as above. (9) History of MRSA infection: MRSA swab had not been completed as patient was already started on vancomycin Continue with vancomycin at this time awaiting cultures Continue contact isolation protocol (10) Right lower lobe pneumonia: Concern for possible aspiration given multiple vomiting episodes - coverage for this with Zosyn. Aspiration precautions. [facility] therefore will cover MRSA with vancomycin. Levaquin for double Pseudomonas coverage due to previous colonization with this. Procalcitonin pending this time. Consult pulmonology. (11) Hypoxia: Aim O2 sats > 94% with BiPAP PRN to avoid CO2 retention. (12) Abnormal EKG: Widespread ST elevations vs. early repolarization. Appears to be consistent with prior EKGs, no significant acute change. No current chest pain to suggest pericarditis. Initial troponin negative, trend troponin overnight. Total Time Total Time Spent Total Time Spent (In Minutes): 40 Total Time Includes: Examination of the Patient, Discharge Planning, Medication Reconciliation, Communication With Other Providers and Other Discharge Plan Discharge Items Patient Disposition: Transfer Acute Care Hospital Reason For Visit: ACUTE ON CHRONIC HYPOXIC RESPIRATORY FAILURE, RLL Discharge Diagnosis: Exacerbation of cystic fibrosis Activity: Resume your previous activity Non-emergency contact: Primary Care Provider Call non-emergency contact if: you have any medication questions Follow-up/Referrals: Yvette MARTIN [Primary Care Provider] - Diet: Regular Addtl Attending Provider Instructions: Continue with dual antipseudomonal coverage IV Zosyn and IV tobramycin. Pharmacy to check the level of tobramycin toxicity. Inhaled tobramycin on hold for the time being Continue with dornase alpha inhaled twice daily Continue with nebulizer Continue with O2 supplementation to keep saturation 90-92%. Continue with vancomycin given the nasal MRSA was positive. Continue with IV hydration. Continue with Creon for his pancreatic insufficiency. Add senna-Colace for constipation Pending Studies at Discharge: No Stand-Alone Forms: My [facility] Skilled Items Patient informed of condition?: No DNR: No Discharge Level of Care: Skilled Communicable Disease: No Discharge Prognosis: Stable Lines: Peripheral IV Urinary Catheter: No Medications and DC Order Prescriptions: New Creon 36,000-114,000- 180,000 unit Capsule,Delayed Release(Dr/Ec) 6 cap PO PRN PRNQty: 90 RF: 0 Creon 36,000-114,000- 180,000 unit Capsule,Delayed Release(Dr/Ec) 10 cap PO TIDM Qty: 90 RF: 0 Continued ipratropium-albuterol 0.5 mg-3 mg(2.5 mg base)/3 mL Solution For Nebulization 3 ml INHALATION QID RF: 0 levalbuterol tartrate [Xopenex HFA] 45 mcg/actuation Hfa Aerosol Inhaler 2 puff INHALATION QID PRN (Reason: Shortness Of Breath) RF: 0 ergocalciferol (vitamin D2) [Vitamin D2] 1,250 mcg (50,000 unit) Capsule 1,250 mcg PO MO@0700 RF: 0 cetirizine 10 mg Tablet 10 mg PO DAILY RF: 0 acetaminophen [Acetaminophen Extra Strength] 500 mg Tablet 1,000 mg PO TID PRN (Reason: Pain) RF: 0 dornase montez 1 mg/mL Solution 2.5 mg INHALATION DAILY RF: 0 fluticasone propion-salmeterol [Wixela Inhub] 250-50 mcg/dose Blister With Device 1 inh INHALATION BID RF: 0 naproxen 250 mg Tablet 250 mg PO BID PRN (Reason: Pain) RF: 0 diphenhydramine HCl [Benadryl] 25 mg Capsule 25 mg PO HS RF: 0 Novolin N Flexpen 100 unit/mL (3 mL) Insulin Pen 5 unit SUBCUT DAILY RF: 0 pantoprazole 40 mg Tablet,Delayed Release (Dr/Ec) 40 mg PO DAILY Qty: 30 RF: 0 Lactaid Fast Act 9,000 unit Tablet,Chewable 9,000 unit PO AC RF: 0 Discontinued tobramycin 300 mg/4 mL Solution For Nebulization 300 mg INHALATION BID RF: 0 levofloxacin [Levaquin] 750 mg Tablet 750 mg PO HS RF: 0 Discharge Orders: Discharge Order (Routine); Ordered 03/23/20 Ordered By: Azael Calixto Admission Data Admit Date/Time: 03/22/20 13:37 Attending Provider: Azael Calixto Admit Provider: Dwight Ramirez Primary Care Provider: Yvette MARTIN Other Providers: Dwight Ramirez ; Beulah Lang Other Interventions: Discharge Summary Assessment (RN) Last Done: 03/23/20 16:32 Supervising Physician Co-Signing Physician Notes During my face to face encounter with patient, I performed a history and obtained a physical exam. I discussed discharge plan. Patient will be discharged to tertiary center. will continue current antibiotics for acute exacerbation of cystic fibrosis. I reveiwed above note and agree with it Coding Level of Care Code D/C Day Management >30 mins Diagnoses Cystic fibrosis with pulmonary exacerbation E84.0 Acute respiratory failure with hypoxia J96.01 Asthma J45.909 DM II (diabetes mellitus, type II), controlled E11.9 Nausea and vomiting R11.2 Malnutrition E46 Gastric reflux K21.9 Pseudomonas aeruginosa colonization Z22.39 History of MRSA infection Z86.14 Right lower lobe pneumonia J18.9 Hypoxia R09.02 Abnormal EKG R94.31 Time Spent (min) 40
[2020-03-23] MEDS ORDERED: DEXTROSE 5% IV SCH (18:00)
[2020-03-23] MEDS ORDERED: TOBRAMYCIN SULFATE IV SCH (18:00)
[2020-03-23] MEDS ORDERED: VANCOMYCIN TROUGH ONE (19:30)
[2020-03-23] MEDS ORDERED: HEPARIN SOD 5,000 UNIT/0.5 ML VIAL SQ SCH (21:00)
[2020-03-25] MEDS ORDERED: VANCOMYCIN TROUGH ONE (11:30)
[2020-03-29] MEDS ORDERED: ERGOCALCIFEROL 50,000 UNITS CAP PO SCH (07:00)
== END 2020-03-23 17:10 | disposition short-term general hospital (02) | DRG 177 ==
LOC: ED 10:41 → 2S 13:37 → SUATTDRO 13:37 → 2S 14:05

== ENCOUNTER 2022-08-04 08:47 | Inpatient (IN) ==
[2022-08-04] MEDS ORDERED: ALBUT/IPRATROP 3MG/0.5MG NEB 3 ML VIAL NEB ONE (08:53)
--- NOTE | 2022-08-04 09:01 | Emergency Department Note ---
Impression & Plan Hypoxia, Cystic fibrosis with pulmonary exacerbation, Pneumonia ED Provider Note NAME: NAYLA [id number] FAREED AGE: 27 SEX: M : 1995 ARRIVES VIA: Ambulance INFORMANT: Patient ED PROVIDER(S): Vish Palmer DO CHIEF COMPLAINT: shortness of breath HPI: Patient is a 27-year-old male with a past medical history of cystic fibrosis and diabetes who presents to the ER for shortness of breath. He notes cough, congestion, shortness of breath, has been getting worse over the past week. He he is bringing up some mucus. He did not tell anyone as he did not want to be quarantined at the detention. He has not been able to get to his breathing treatments. He was found to be hypoxic this morning at 76% on room air. He was placed on oxygen and brought in by EMS. He denies any chest pain, belly pain, nausea, vomiting, or diarrhea. No dysuria, urgency, or frequency. No other exacerbating or remitting factors. PAST MEDICAL HISTORY:See Below PAST SURGICAL HISTORY:See Below FAMILY HISTORY:See Below SOCIAL HISTORY:See Below HOME MEDICATIONS:See Below ALLERGIES:See Below VITALS:See Below PHYSICAL EXAMINATION: GENERAL: Sitting up in bed, alert, mildly dyspneic with conversation, on nasal cannula, persistent cough EYE EXAM: normal conjunctiva. PERRL and EOM's grossly intact. OROPHARYNX: no exudate, no erythema, lips, buccal mucosa, and tongue normal and mucous membranes are moist NECK: supple, no nuchal rigidity, no adenopathy, non-tender LUNGS:wheezing bilaterally. Normal chest wall mechanics HEART: no murmurs, S1 normal and S2 normal ABDOMEN: abdomen soft, non-tender, normo-active bowel sounds, no masses, no rebound or guarding. UPPER EXTREMITIES: upper extremities are grossly normal. LOWER EXTREMITIES: No pitting edema. NEURO EXAM: Normal sensorium, cranial nerves II-XII grossly intact, normal speech, no gross weakness of arms, no gross weakness of legs. No drift. Finger to nose intact. Gross sensation intact. MEDICAL DECISION MAKING: Patient is a 27-year-old male who presents to the ER for cough congestion shortness of breath with upper respiratory symptoms that have been present for the past week. They have been getting gradually worse. [facility] is [facility] the detention and was found to be hypoxic at 76%. IV was established blood was obtained. Labs s how mild leukocytosis 11. Hemoglobin 11. BMP with a glucose slightly up at 260. LFTs bilirubin was unremarkable. Lipase was normal. Patient is flu positive. Chest x-ray was some worsening chronic infiltrates. He was given IV vancomycin and cefepime. He was given neb treatments as well as steroids. Discussed with pulmonology at [facility] who agreed with treatment and transfer if the hospitalist were not comfortable here. Discussed with Dwight Ramirez who discussed with pulmonology here and they recommended transfer. Consulted [facility] and discussed with Dr. Robbins from the transfer center. [facility] is currently at capacity and patient will not be accepted today. He notes unless patient changes status and deteriorates likely will not make it down due to their volume. Dr. Ramirez was updated in regards to these findings and presentation. Patient was updated at bedside. External records were reviewed. He was admitted to [facility]. Patient remained on 2 to 3 L throughout the stay in the ER due to the hypoxia of 86% on room air Triage Nursing notes reviewed. Limited review of prior medical records performed Vital Signs: reviewed and remarkable for hypoxia Differential diagnosis: Differential diagnoses includes but is not limited to pneumonia, bronchitis, COPD/Asthma exacerbation, pneumothorax, pulmonary embolism, congestive heart failure, acute coronary syndrome ER treatment provided: See below Diagnostics interpreted by me include EKG and cardiac monitoring as listed below: -Cardiac Monitoring: An order was placed for continuous cardiac monitoring. The monitor shows a rate of 90 with sinus rhythm. -ECG: Sinus rhythm rate of 94 Normal axis No PVCs Slight J-point elevation/early repole in the inferior as well as anterior lateral leads -Laboratory studies:Interpreted by me as stated above in MDM and shown below. Imaging studies: Xrays: As interpreted by me: Portable AP upright 1 view of the chest shows worsening infiltrates in the left upper and right lower lung field CTs show: none Consultation(s): Discussed with [facility]'s pulmonology as well as Dr. Robbins from the transfer center at [facility] as well as Dr. Ramirez from [facility]. Procedures:none Critical Care: I have personally spent 32 minutes of critical care time in the direct management of this patient. This includes bedside care, interpretation of diagnostic studies, and testing, discussion with consultants, patient, and family members, and other required patient management activities. This 32 minutes is in excess of all separately billable procedures. Past Med/Surg History Medical History (Updated 08/04/22 @ 13:45 by Vish Palmer DO) Acute respiratory failure with hypoxia s/p intubation/mech ventilation -- 2015 -- [facility] Cystic fibrosis Diabetes DM II (diabetes mellitus, type II), controlled Gastric reflux History of MRSA infection Multifocal pneumonia Pancreatic insufficiency due to cystic fibrosis Pneumomediastinum history of Pseudomonas aeruginosa colonization Respiratory acidosis Surgical History No significant past surgical history Family History Mother Quadriplegia, post-traumatic 2nd MVA Social History Smoking Status: Never smoker Tobacco Type: Cigarettes packs per day: 1; Second Hand Exposure: No; Hx Alcohol Use: No Hx Substance Use: Yes Last Used Substance: Unknown Last Used Substance Other:: years ago Preferred Language: Belizean Communication Ability: Effective Material Assembler Required: No Beliefs That Will Affect Care: None marital status: Unknown Current Living Situation: Other Current Living Situation Comment: Incarceration at [facility] How many Children do You have: 0 Feels Safe at Home: Yes Assistive Devices: Oxygen - Continuous Allergies Allergies Allergy/AdvReac Type Severity Reaction Status Date / Time No Known Allergies Allergy Unverified 03/22/20 11:37 Home Meds Home Medications Medication Instructions Recorded Confirmed ipratropium 0.5 mg-albuterol 3 mg 3 ml inhalation QID 06/25/18 08/04/22 (2.5 mg base)/3 mL nebulization soln levalbuterol tartrate 45 2 puff inhalation QID PRN 06/25/18 08/04/22 mcg/actuation aerosol inhaler Shortness Of Breath (Xopenex HFA) ergocalciferol (vitamin D2) 1,250 1,250 mcg PO MO@0700 08/18/19 08/04/22 mcg (50,000 unit) capsule (Vitamin D2) acetaminophen 500 mg tablet 1,000 mg PO TID PRN Pain 11/21/19 08/04/22 (Acetaminophen Extra Strength) cetirizine 10 mg tablet 10 mg PO DAILY 11/21/19 08/04/22 dornase montez 1 mg/mL solution for 2.5 mg inhalation DAILY 11/21/19 08/04/22 inhalation diphenhydramine HCl 25 mg capsule 25 mg PO HS 02/06/20 08/04/22 (Benadryl) fluticasone 250 mcg-salmeterol 50 1 inh inhalation BID 02/06/20 08/04/22 mcg/dose blistr powdr for inhalation (Wixela Inhub) insulin NPH isoph U-100 human 100 5 unit subcut DAILY 02/06/20 08/04/22 unit/mL (3 mL) subcutaneous pen (Novolin N FlexPen) naproxen 250 mg tablet 250 mg PO BID PRN Pain 02/06/20 08/04/22 lactase 9,000 unit chewable tablet 9,000 unit PO AC 03/22/20 08/04/22 (Lactaid Fast Act) elexacaftor 100 mg-tezacaf See Rx Instructions .Route .COMPLEX 08/04/22 08/04/22 50mg-ivacaf 75mg(d)/ivacaf 150mg(n) tablets (Trikafta) Previous Rx's Medication Instructions Recorded pantoprazole 40 mg tablet,delayed 40 mg PO DAILY #30 tabs 02/09/20 release ldwrfq-wzfisoun-xwkpjbu 6 cap PO PRN PRN #90 caps 03/23/20 36,000-114,000-180,000 unit capsule,delay rel (Creon) xniibi-[id number] 10 cap PO TIDM #90 caps 03/23/20 36,000-114,000-180,000 unit capsule,delay rel (Creon) Results & Data (ED) Vital Signs Vital Signs - 24 hr 08/04/22 09:18 08/04/22 09:19 08/04/22 08:54 Temperature 37.3 C Temperature Source Oral Pulse Rate 112 H Pulse Rate [Apical] 104 H Pulse Rate from SpO2 Sensor Respiratory Rate 32 H 25 H Respiratory Effort / Characteristics Spontaneous Non-Labored Spontaneous Short of Breath Spontaneous SOB on Exertion Respiratory Depth Normal Normal Respiratory Pattern Tachypnea Tachypnea Blood Pressure 119/68 Blood Pressure Mean 85 Blood Pressure Position Lying Pulse Oximetry 93 88 L Oxygen Delivery Method Nasal Cannula Room Air Room Air Oxygen Flow Rate 2 Sepsis Recent Fever Within 48 Hours Yes Sepsis New/Unexplained Change in Mental Status N/A Sepsis Action Taken by Nursing Physician Notified Oxygen Flow Rate - Titration Pulse Oximetry Post Tiitration 08/04/22 08:54 08/04/22 09:00 08/04/22 08:56 Temperature Temperature Source Pulse Rate Pulse Rate [Apical] Pulse Rate from SpO2 Sensor Respiratory Rate Respiratory Effort / Characteristics Respiratory Depth Respiratory Pattern Blood Pressure 119/68 Blood Pressure Mean 85 Blood Pressure Position Pulse Oximetry 88 L 92 Oxygen Delivery Method Room Air Nasal Cannula Nasal Cannula Oxygen Flow Rate 0 2 Sepsis Recent Fever Within 48 Hours Sepsis New/Unexplained Change in Mental Status Sepsis Action Taken by Nursing Oxygen Flow Rate - Titration 2 Pulse Oximetry Post Tiitration 92 08/04/22 08:56 08/04/22 09:02 08/04/22 09:30 Temperature Temperature Source Pulse Rate 113 H 112 H Pulse Rate [Apical] Pulse Rate from SpO2 Sensor 114 H 111 H 109 H Respiratory Rate 33 H 28 H Respiratory Effort / Characteristics Respiratory Depth Respiratory Pattern Blood Pressure Blood Pressure Mean Blood Pressure Position Pulse Oximetry 91 89 L 96 Oxygen Delivery Method Nasal Cannula Nasal Cannula Nebulizer Oxygen Flow Rate 2 2 Sepsis Recent Fever Within 48 Hours Sepsis New/Unexplained Change in Mental Status Sepsis Action Taken by Nursing Oxygen Flow Rate - Titration Pulse Oximetry Post Tiitration 08/04/22 10:00 08/04/22 10:39 08/04/22 10:30 Temperature Temperature Source Pulse Rate 122 H Pulse Rate [Apical] Pulse Rate from SpO2 Sensor 121 H Respiratory Rate 25 H Respiratory Effort / Characteristics Respiratory Depth Respiratory Pattern Blood Pressure 116/64 110/68 Blood Pressure Mean 81 82 Blood Pressure Position Pulse Oximetry 97 87 L Oxygen Delivery Method Nebulizer Nasal Cannula Oxygen Flow Rate 2 Sepsis Recent Fever Within 48 Hours Sepsis New/Unexplained Change in Mental Status Sepsis Action Taken by Nursing Oxygen Flow Rate - Titration 4 Pulse Oximetry Post Tiitration 92 08/04/22 10:30 08/04/22 11:00 08/04/22 11:00 Temperature Temperature Source Pulse Rate 124 H 117 H Pulse Rate [Apical] Pulse Rate from SpO2 Sensor 125 H 117 H Respiratory Rate 31 H 33 H Respiratory Effort / Characteristics Respiratory Depth Respiratory Pattern Blood Pressure 114/67 Blood Pressure Mean 82 Blood Pressure Position Pulse Oximetry 90 91 Oxygen Delivery Method Nasal Cannula Nasal Cannula Oxygen Flow Rate 4 4 Sepsis Recent Fever Within 48 Hours Sepsis New/Unexplained Change in Mental Status Sepsis Action Taken by Nursing Oxygen Flow Rate - Titration Pulse Oximetry Post Tiitration 08/04/22 11:30 08/04/22 11:30 08/04/22 12:00 Temperature Temperature Source Pulse Rate 104 H Pulse Rate [Apical] Pulse Rate from SpO2 Sensor 104 H Respiratory Rate 35 H Respiratory Effort / Characteristics Respiratory Depth Respiratory Pattern Blood Pressure 116/70 130/67 Blood Pressure Mean 85 88 Blood Pressure Position Pulse Oximetry 92 Oxygen Delivery Method Nasal Cannula Oxygen Flow Rate 4 Sepsis Recent Fever Within 48 Hours Sepsis New/Unexplained Change in Mental Status Sepsis Action Taken by Nursing Oxygen Flow Rate - Titration Pulse Oximetry Post Tiitration 08/04/22 12:00 08/04/22 12:30 08/04/22 12:30 Temperature Temperature Source Pulse Rate 107 H 95 H Pulse Rate [Apical] Pulse Rate from SpO2 Sensor 106 H 92 H Respiratory Rate 34 H 30 H Respiratory Effort / Characteristics Respiratory Depth Respiratory Pattern Blood Pressure 110/64 Blood Pressure Mean 79 Blood Pressure Position Pulse Oximetry 94 95 Oxygen Delivery Method Nasal Cannula Nasal Cannula Oxygen Flow Rate 4 4 Sepsis Recent Fever Within 48 Hours Sepsis New/Unexplained Change in Mental Status Sepsis Action Taken by Nursing Oxygen Flow Rate - Titration Pulse Oximetry Post Tiitration 08/04/22 13:00 08/04/22 13:00 08/04/22 13:30 Temperature Temperature Source Pulse Rate 95 H Pulse Rate [Apical] Pulse Rate from SpO2 Sensor 95 H Respiratory Rate 30 H Respiratory Effort / Characteristics Respiratory Depth Respiratory Pattern Blood Pressure 111/65 110/65 Blood Pressure Mean 80 80 Blood Pressure Position Pulse Oximetry 95 Oxygen Delivery Method Nasal Cannula Oxygen Flow Rate 4 Sepsis Recent Fever Within 48 Hours Sepsis New/Unexplained Change in Mental Status Sepsis Action Taken by Nursing Oxygen Flow Rate - Titration Pulse Oximetry Post Tiitration 08/04/22 13:30 Temperature Temperature Source Pulse Rate 92 H Pulse Rate [Apical] Pulse Rate from SpO2 Sensor 92 H Respiratory Rate 31 H Respiratory Effort / Characteristics Respiratory Depth Respiratory Pattern Blood Pressure Blood Pressure Mean Blood Pressure Position Pulse Oximetry 94 Oxygen Delivery Method Nasal Cannula Oxygen Flow Rate 4 Sepsis Recent Fever Within 48 Hours Sepsis New/Unexplained Change in Mental Status Sepsis Action Taken by Nursing Oxygen Flow Rate - Titration Pulse Oximetry Post Tiitration Laboratory Data 08/04/22 09:05 08/04/22 09:05 Lab Results 08/04/22 08/04/22 08/04/22 Range/Units 09:05 09:05 09:05 WBC 11.91 H (4.8-10.8) K/ul RBC 4.15 L (4.70-6.10) M/uL Hgb 11.1 L (14.0-18.0) g/dl Hct 34.6 L (42.0-52.0) % MCV 83.4 (80.0-100.0) fL MCH 26.7 (25.0-34.0) pg MCHC 32.1 (32.0-36.0) g/dL RDW Std Deviation 35.7 L (36.4-46.3) fL RDW Coeff of Jerry 11.8 (11.5-14.5) % Plt Count 322 (130-400) K/uL MPV 10.0 (9.4-12.4) fL Immature Gran % (Auto) 0.5 % Neut % (Auto) 88.4 % Lymph % (Auto) 4.6 % Wayne % (Auto) 4.9 % Eos % (Auto) 1.3 % Baso % (Auto) 0.3 % Neut # (Auto) 10.54 H (1.40-6.50) K/uL Lymph # (Auto) 0.55 L (1.2-3.4) K/uL Wayne # (Auto) 0.58 (0.11-0.59) K/uL Eos # (Auto) 0.15 (0-0.50) K/uL Baso # (Auto) 0.03 (0-0.2) K/uL Immature Gran # (Auto) 0.06 (0.01-0.20) K/uL ESR 126 H (0-15) mm/hr Sodium 131 L (136-145) mmol/L Potassium 4.5 (3.5-5.1) mmol/L Chloride 97 L (98-107) mmol/L Carbon Dioxide 30 (21-32) mmol/L Anion Gap 4 (3-11) BUN 11 (6-23) mg/dl Creatinine 0.72 (0.6-1.4) mg/dl Est Cr Clr Drug Dosing 135.1 ml/min Est GFR ( Amer) 146.1 ml/min Est GFR (Non-Af Amer) 126.1 ml/min BUN/Creatinine Ratio 15.3 (10-20) Glucose 260 H (70-99(Fasting)) mg/dl Calcium 8.2 L (8.5-10.1) mg/dl Total Bilirubin 0.4 (0.2-1.0) mg/dl AST 10 L (13-39) U/L ALT 13 (7-52) U/L Alkaline Phosphatase 75 (34-104) U/L Troponin I High Sens 12.3 (0-20) pg/ml C-Reactive Protein Total Protein 8.8 H (6.0-8.3) gm/dl Albumin 3.1 L (3.4-5.0) gm/dl Globulin 5.7 H (2.5-4.0) gm/dl Albumin/Globulin Ratio 0.5 L (0.9-2) Lipase < 3 L (11-82) U/L Nasal Influ A H1 2008 PCR (NotDetected) Adenovirus (PCR) (NotDetected) B. pertussis DNA (PCR) (NotDetected) B.parapertussis DNA PCR (NotDetected) C. pneumoniae DNA (PCR) (NotDetected) Coronavirus OC43 (PCR) (NotDetected) Coronavirus HKU1 (PCR) (NotDetected) Coronavirus 229E (PCR) (NotDetected) SARS-CoV-2 (PCR) (NotDetected) Coronavirus NL63 (PCR) (NotDetected) Human Metapneumovir PCR (NotDetected) Influenza Type B (PCR) (NotDetected) M. pneumoniae (PCR) (NotDetected) Parainfluenza 1 (PCR) (NotDetected) Parainfluenza 2 (PCR) (NotDetected) Parainfluenza 3 (PCR) (NotDetected) Parainfluenza 4 (PCR) (NotDetected) RSV (PCR) (NotDetected) Entero/Rhino (PCR) (NotDetected) 08/04/22 08/04/22 Range/Units 09:05 09:10 WBC (4.8-10.8) K/ul RBC (4.70-6.10) M/uL Hgb (14.0-18.0) g/dl Hct (42.0-52.0) % MCV (80.0-100.0) fL MCH (25.0-34.0) pg MCHC (32.0-36.0) g/dL RDW Std Deviation (36.4-46.3) fL RDW Coeff of Jerry (11.5-14.5) % Plt Count (130-400) K/uL MPV (9.4-12.4) fL Immature Gran % (Auto) % Neut % (Auto) % Lymph % (Auto) % Wayne % (Auto) % Eos % (Auto) % Baso % (Auto) % Neut # (Auto) (1.40-6.50) K/uL Lymph # (Auto) (1.2-3.4) K/uL Wayne # (Auto) (0.11-0.59) K/uL Eos # (Auto) (0-0.50) K/uL Baso # (Auto) (0-0.2) K/uL Immature Gran # (Auto) (0.01-0.20) K/uL ESR (0-15) mm/hr Sodium (136-145) mmol/L Potassium (3.5-5.1) mmol/L Chloride (98-107) mmol/L Carbon Dioxide (21-32) mmol/L Anion Gap (3-11) BUN (6-23) mg/dl Creatinine (0.6-1.4) mg/dl Est Cr Clr Drug Dosing ml/min Est GFR ( Amer) ml/min Est GFR (Non-Af Amer) ml/min BUN/Creatinine Ratio (10-20) Glucose (70-99(Fasting)) mg/dl Calcium (8.5-10.1) mg/dl Total Bilirubin (0.2-1.0) mg/dl AST (13-39) U/L ALT (7-52) U/L Alkaline Phosphatase (34-104) U/L Troponin I High Sens (0-20) pg/ml C-Reactive Protein Cancelled Total Protein (6.0-8.3) gm/dl Albumin (3.4-5.0) gm/dl Globulin (2.5-4.0) gm/dl Albumin/Globulin Ratio (0.9-2) Lipase (11-82) U/L Nasal Influ A H1 2008 PCR DETECTED A* (NotDetected) Adenovirus (PCR) Not Detected (NotDetected) B. pertussis DNA (PCR) Not Detected (NotDetected) B.parapertussis DNA PCR Not Detected (NotDetected) C. pneumoniae DNA (PCR) Not Detected (NotDetected) Coronavirus OC43 (PCR) Not Detected (NotDetected) Coronavirus HKU1 (PCR) Not Detected (NotDetected) Coronavirus 229E (PCR) Not Detected (NotDetected) SARS-CoV-2 (PCR) Not Detected (NotDetected) Coronavirus NL63 (PCR) Not Detected (NotDetected) Human Metapneumovir PCR Not Detected (NotDetected) Influenza Type B (PCR) Not Detected (NotDetected) M. pneumoniae (PCR) Not Detected (NotDetected) Parainfluenza 1 (PCR) Not Detected (NotDetected) Parainfluenza 2 (PCR) Not Detected (NotDetected) Parainfluenza 3 (PCR) Not Detected (NotDetected) Parainfluenza 4 (PCR) Not Detected (NotDetected) RSV (PCR) Not Detected (NotDetected) Entero/Rhino (PCR) Not Detected (NotDetected) Administered Medications Discontinued Medications Albuterol (Albut/Ipratrop 3mg/0.5mg Neb 3 Ml Vial) 12 ml NEB ONE ONE; Protocol Stop: 08/04/22 08:54 Last Admin: 08/04/22 09:18 Dose: 12 ml Documented By: ANKIT Cefepime HCl (Maxipime) 2,000 mg in 20 mls @ 5 mls/min IV NOW STA; Protocol Stop: 08/04/22 09:05 Last Admin: 08/04/22 10:00 Dose: 5 mls/min Documented By: NMS Vancomycin HCl 1,250 mg/ (Sodium Chloride) 525 mls @ 200 mls/hr IV NOW ONE Stop: 08/04/22 12:51 Last Admin: 08/04/22 11:50 Dose: 200 mls/hr Documented By: EDISON Methylprednisolone (Methylprednisolone 40 Mg/Ml Vial) 40 mg IV NOW STA Stop: 08/04/22 08:54 Last Admin: 08/04/22 10:00 Dose: 40 mg Documented By: NMS Imaging Data Radiologist's Impression: Chest X-Ray 08/04/22 08:54 SINGLE VIEW CHEST CLINICAL HISTORY: Cystic fibrosis. Atypical chest pain. FINDINGS: An AP, portable, upright chest radiograph is compared to study dated 03/23/2020. Correlation is made with chest CT dated 11/21/2019 The cardiomediastinal silhouette is unremarkable. Multifocal bronchiectasis is again seen throughout both lungs. Fibrotic change at the left apex is similar to prior studies. Apical bullae are noted. Additional patchy airspace opacities are seen in the right upper lobe and in the lower lobes. No pneumothorax is seen. The bony thorax is grossly intact. IMPRESSION: 1. Multifocal bronchiectasis and left apical fibrosis is similar to prior studies and consistent with the known history of cysticercosis. 2. Mild airspace opacities in the right upper lobe and in both lower lungs may represent a superimposed infectious/inflammatory pneumonitis. This may be acute or chronic. Clinical correlation will be required. Follow-up radiographically as needed. ACT 112: Negative or not required by law. Electronically signed by: Evans Donahue M.D. 08/04/2022 9:21 AM Discharge Plan Visit Data Chief Complaint: Shortness of Breath/Dyspnea Stated Complaint: shortness of breath, fever ED Provider: Vish Palmer Discharge Problem: Hypoxia, Cystic fibrosis with pulmonary exacerbation, Pneumonia Forms Stand Alone Forms: [facility] Prescriptions Prescriptions: No Action ipratropium-albuterol 0.5 mg-3 mg(2.5 mg base)/3 mL Solution For Nebulization 3 ml INHALATION QID levalbuterol tartrate [Xopenex HFA] 45 mcg/actuation Hfa Aerosol Inhaler 2 puff INHALATION QID PRN (Reason: Shortness Of Breath) ergocalciferol (vitamin D2) [Vitamin D2] 1,250 mcg (50,000 unit) Capsule 1,250 mcg PO MO@0700 cetirizine 10 mg Tablet 10 mg PO DAILY acetaminophen [Acetaminophen Extra Strength] 500 mg Tablet 1,000 mg PO TID PRN (Reason: Pain) dornase montez 1 mg/mL Solution 2.5 mg INHALATION DAILY fluticasone propion-salmeterol [Wixela Inhub] 250-50 mcg/dose Blister With Device 1 inh INHALATION BID naproxen 250 mg Tablet 250 mg PO BID PRN (Reason: Pain) diphenhydramine HCl [Benadryl] 25 mg Capsule 25 mg PO HS Novolin N FlexPen 100 unit/mL (3 mL) Insulin Pen 5 unit SUBCUT DAILY pantoprazole 40 mg Tablet,Delayed Release (Dr/Ec) 40 mg PO DAILY Qty: 30 0RF Lactaid Fast Act 9,000 unit Tablet,Chewable 9,000 unit PO AC Creon 36,000-114,000- 180,000 unit Capsule,Delayed Release(Dr/Ec) 6 cap PO PRN PRNQty: 90 0RF Creon 36,000-114,000- 180,000 unit Capsule,Delayed Release(Dr/Ec) 10 cap PO TIDM Qty: 90 0RF Trikafta 100-50-75 mg(d) /150 mg (n) Tablets, Sequential See Rx Instructions .ROUTE .COMPLEX Rx Instructions: Take 2 orange pills in the am and one blue pill in the evening Referrals Referrals: Yvette MARTIN [Primary Care Provider] -
[2022-08-04] MEDS ORDERED: CEFEPIME 2,000 MG/20 ML VIAL IV STA (09:02)
--- NOTE | 2022-08-04 09:23 | XRay Report ---
SINGLE VIEW CHEST CLINICAL HISTORY: Cystic fibrosis. Atypical chest pain. FINDINGS: An AP, portable, upright chest radiograph is compared to study dated 03/23/2020. Correlation is made with chest CT dated 11/21/2019 The cardiomediastinal silhouette is unremarkable. Multifocal b ronchiectasis is again seen throughout both lungs. Fibrotic change at the left apex is similar to jorge or studies. Apical bullae are noted. Additional patchy airspace opacities are seen in the right upper lobe and in the lower lobes. No pneumothorax is seen. The bony thorax is grossly intact. IMPRESSION: 1. Multifocal bronchiectasis and left apical fibrosis is similar to prior studies and consistent with the known history of cysticercosis. 2. Mild airspace opacities in the right upper lobe and in both lower lungs may represent a superimpos ed infectious/inflammatory pneumonitis. This may be acute or chronic. Clinical correlation will be re quired. Follow-up radiographically as needed. ACT 112: Negative or not required by law. Electronically signed by: Evans Donahue M.D. 08/04/2022 9:21 AM
[2022-08-04 09:39] LABS: Basophils # (auto) 0.03 K/uL (0-0.2); Basophils % (auto) 0.3 %; Eosinophils # (auto) 0.15 K/uL (0-0.50); Eosinophils % (auto) 1.3 %; Hematocrit (blood only) 34.6 % (42.0-52.0); Hemoglobin 11.1 g/dl (14.0-18.0); Immature Granulocytes # (auto) 0.06 K/uL (0.01-0.20); Immature Granulocytes % (auto) 0.5 %; Lymphocytes # (auto) 0.55 K/uL (1.2-3.4); Lymphocytes % (auto) 4.6 %; Mean Corpuscular Hemoglobin 26.7 pg (25.0-34.0); Mean Corpuscular Hgb Conc 32.1 g/dL (32.0-36.0); Mean Corpuscular Volume 83.4 fL (80.0-100.0); Monocytes # (auto) 0.58 K/uL (0.11-0.59); Monocytes % (auto) 4.9 %; Neutrophils # (auto) 10.54 K/uL (1.40-6.50); Neutrophils % (auto) 88.4 %; Platelet Count 322 K/uL (130-400); RDW Coefficient of Variation 11.8 % (11.5-14.5); RDW Standard Deviation 35.7 fL (36.4-46.3); Red Blood Count 4.15 M/uL (4.70-6.10); White Blood Count 11.91 K/ul (4.8-10.8)
[2022-08-04 09:47] LABS: Anion Gap 4 (3-11); BUN Creatinine Ratio 15.3 (10-20); Blood Urea Nitrogen 11 mg/dl (6-23); Calcium 8.2 mg/dl (8.5-10.1); Carbon Dioxide 30 mmol/L (21-32); Chloride 97 mmol/L (98-107); Creatinine Clr Calc Pharmacy 135.1 ml/min; Est GFR (African American) 146.1 ml/min; Est GFR (Non-African American) 126.1 ml/min; Glucose 260 mg/dl (70-99(Fasting)); Potassium 4.5 mmol/L (3.5-5.1); Sodium 131 mmol/L (136-145)
[2022-08-04 09:53] LABS: Troponin I High Sensitivity 12.3 pg/ml (0-20)
[2022-08-04 10:01] LABS: Alanine Aminotransferase 13 U/L (7-52); Albumin Globulin Ratio 0.5 (0.9-2); Albumin Level 3.1 gm/dl (3.4-5.0); Alkaline Phosphatase 75 U/L (34-104); Aspartate Aminotransferase 10 U/L (13-39); Bilirubin,Total 0.4 mg/dl (0.2-1.0); Globulin 5.7 gm/dl (2.5-4.0); Lipase < 3 U/L (11-82); Total Protein 8.8 gm/dl (6.0-8.3)
[2022-08-04 10:12] LABS: Adenovirus PCR Not Detected (NotDetected); Bordetella parapertussis PCR Not Detected (NotDetected); Bordetella pertussis PCR Not Detected (NotDetected); Chlamydia pneumoniae PCR Not Detected (NotDetected); Coronavirus 229E PCR Not Detected (NotDetected); Coronavirus CoV-2 (COVID19)PCR Not Detected (NotDetected); Coronavirus HKU1 PCR Not Detected (NotDetected); Coronavirus NL63 PCR Not Detected (NotDetected); Coronavirus OC43PCR Not Detected (NotDetected); Human Metapneumovirus PCR Not Detected (NotDetected); Influenza B PCR Not Detected (NotDetected); Mycoplasma pneumoniae PCR Not Detected (NotDetected); Parainfluenza Virus 1 PCR Not Detected (NotDetected); Parainfluenza Virus 2 PCR Not Detected (NotDetected); Parainfluenza Virus 3 PCR Not Detected (NotDetected); Parainfluenza Virus 4 PCR Not Detected (NotDetected); Respiratory Syncytial VirusPCR Not Detected (NotDetected); Rhinovirus/Enterovirus PCR Not Detected (NotDetected)
[2022-08-04] MEDS ORDERED: VANCOMYCIN HCL 1,250 MG in SODIUM CHLORIDE 0.9% 500 ML IV ONE (10:14)
[2022-08-04] MEDS ORDERED: VANCOMYCIN CONSULT ACTIVE PRN ×2 (10:14→14:55)
[2022-08-04 10:20] LABS: Influenza A (H1 2009) PCR DETECTED (NotDetected)
--- NOTE | 2022-08-04 11:09 | Electrocardiogram Report ---
Test Reason : Blood Pressure : / mmHG Vent. Rate : 113 BPM Atrial Rate : 113 BPM P-R Int : 132 ms QRS Dur : 074 ms QT Int : 308 ms P-R-T Axes : 086 081 063 degrees QTc Int : 422 ms Poor data quality, interpretation may be adversely affected Sinus tachycardia Right atrial enlargement Minor Anterior ST elevation, most consistent with repolarization variant Borderline ECG When compared with ECG of 22-MAR-2020 10:52, ST no longer elevated in Inferior leads Confirmed by Daniele Alicia ([id number]) on 08/04/2022 11:09:42 AM Referred By: Yvette MARTIN Confirmed By:Daniele Alicia
--- NOTE | 2022-08-04 11:56 | History & Physical Report ---
Date of Service August 04, 2022 Assessment & Plan (1) Cystic fibrosis with pulmonary exacerbation: Plan: -Admit to the PCU on tele -The patient is currently afebrile, hemodynamically stable, and stable on 4L NC -Patient has had a week of URI symptoms and was found to be hypoxic today in the 70's -Found to be influenza A positive today -S/P one dose of cefepime and vancomycin, also received 40 mg IV methylprednisolone -Pulmonology consulted and following, the plan will be to get the patient transferred to [facility] to receive care from their CF team but there are currently no beds available -Continue patient's home Dornase, DuoNebs, BID hypertonic saline Nebs, will start chest physiotherapy with chest vest, incentive spirometry -Will call the [place] [facility] to see if they can bring in his Trikafta -Will continue With Vancomycin and cefepime for now, MRSA swab has been ordered, if negative will DC Vanc -Prn O2 for goal rang of 90-92%, HS CPAP/Bipap ordered by pulm -Procal, ESR, CRP, and ABG ordered, will follow up -AM CBC, CMP, and Mag (2) Pneumonia and influenza: Plan: -Tested positive today -Will start the patient on TamiFlu due to his severe chronic lung disease (3) Pancreatic insufficiency due to cystic fibrosis: Plan: -Continue Creon with meals and with snacks (4) Gastric reflux: Plan: -Continue pantoprazole (5) DM (diabetes mellitus): Plan: -Will monitor BSG ACHS, goal BSg is 110-140 -Start with lantus 5 units BID -Correction factor of 50 with carb ratio of 15 -DMI diet -Adjust regimen as needed Plan The patient was discussed with Dr. Ramirez at the time of the admission History of Present Illness Chief Complaint: SOB Primary Care Provider: MARIO Fair is a 27 year old male inmate of [facility] with a PMH significant for severe cystic fibrosis, pancreatic insufficiency, DM, GERD, anemia, and malnutrition who presented to the [facility] ED on 08/04/22 with a chief complaint of SOB. In the ED the patient was found to be afebrile, hemodynamically stable, hypoxic at 88% on RA, and tachycardic at 112. Labs were significant for a leukocytosis of 11.9 with left shift of 10.54, stable Hgb at 11, stable platelets, stable cr at 0.72, glucose of 260, corrected sodium of 134, chloride of 97, calcium of 8.2, initial high sensitivity trop of 12.3, AST of 10 otherwise LFTs WNL, and was found to be influenza A positive. Chest xray was read as 1. Multifocal bronchiectasis and left apical fibrosis is similar to prior studies and consistent with the known history of cysticercosis. 2. Mild airspace opacities in the right upper lobe and in both lower lungs may represent a superimposed infectious/inflammatory pneumonitis. This may be acute or chronic. Clinical correlation will be required. Follow-up radiographically as needed. Prior to admission the patient was given one dose of cefepime, one dose of Vancomycin, 40 mg IV methylprednisolone, and a DuoNeb treatment. At the time of the exam the patient was resting in bed in no acute distress, currently saturating at 97% on 4L NC. He states that he has been experiencing fever, chills, increased SOB, increased sputum production, and chest tightness for approximately one week. He did not tell the [place] [facility] staff about his symptoms as he did not want to be quarantined. This morning he felt more SOB and was found to be hypoxic in the 70% on RA and was sent in from the [place] [facility]. He states that he currently feels unwell and has been having a poor appetite. He denies abdominal pain, nausea, vomiting, dysuria, hematuria, and recent trauma. The only medication he had today prior to coming to the ED was his am dose of Trikafta. I explained that our goal is to get him transferred to [facility] and their CF team but they currently have no available beds. We discussed code status, he is a Full Code. Per chart review, the patient has grown Pseudomonas, MAC,and Serratia marcescens in previous sputum cultures. His previous Pseudomonas and Serratia infections were sensitive to Cefepime per his sputum cultures and sensitivities. Please refer to Dr. Ramirez's attestation for any changes to the treatment plan Allergies Allergy/AdvReac Type Severity Reaction Status Date / Time No Known Allergies Allergy Unverified 03/22/20 11:37 Home Medications Medication Instructions Recorded Confirmed Type ipratropium 0.5 mg-albuterol 3 mg 3 ml inhalation QID 06/25/18 08/04/22 History (2.5 mg base)/3 mL nebulization soln levalbuterol tartrate 45 2 puff inhalation QID PRN 06/25/18 08/04/22 History mcg/actuation aerosol inhaler Shortness Of Breath (Xopenex HFA) ergocalciferol (vitamin D2) 1,250 1,250 mcg PO MO@0700 08/18/19 08/04/22 History mcg (50,000 unit) capsule (Vitamin D2) acetaminophen 500 mg tablet 1,000 mg PO TID PRN Pain 11/21/19 08/04/22 History (Acetaminophen Extra Strength) cetirizine 10 mg tablet 10 mg PO DAILY 11/21/19 08/04/22 History dornase montez 1 mg/mL solution for 2.5 mg inhalation DAILY 11/21/19 08/04/22 History inhalation diphenhydramine HCl 25 mg capsule 25 mg PO HS 02/06/20 08/04/22 History (Benadryl) fluticasone 250 mcg-salmeterol 50 1 inh inhalation BID 02/06/20 08/04/22 History mcg/dose blistr powdr for inhalation (Wixela Inhub) insulin NPH isoph U-100 human 100 5 unit subcut DAILY 02/06/20 08/04/22 History unit/mL (3 mL) subcutaneous pen (Novolin N FlexPen) naproxen 250 mg tablet 250 mg PO BID PRN Pain 02/06/20 08/04/22 History pantoprazole 40 mg tablet,delayed 40 mg PO DAILY #30 tabs 02/09/20 08/04/22 Rx release lactase 9,000 unit chewable tablet 9,000 unit PO AC 03/22/20 08/04/22 History (Lactaid Fast Act) cfdvnt-twundyzb-ulcqiyd 6 cap PO PRN PRN #90 caps 03/23/20 08/04/22 Rx 36,000-114,000-180,000 unit capsule,delay rel (Creon) emuctn-dkpbogsc-akxmtho 10 cap PO TIDM #90 caps 03/23/20 08/04/22 Rx 36,000-114,000-180,000 unit capsule,delay rel (Creon) elexacaftor 100 mg-tezacaf See Rx Instructions .Route .COMPLEX 08/04/22 08/04/22 History 50mg-ivacaf 75mg(d)/ivacaf 150mg(n) tablets (Trikafta) Past Med/Surg History Medical History (Updated 08/04/22 @ 12:41 by Giovanni Golden PA-C) Acute respiratory failure with hypoxia s/p intubation/mech ventilation -- 2014 -- [place] Asthma Cystic fibrosis Diabetes DM II (diabetes mellitus, type II), controlled Gastric reflux History of MRSA infection Multifocal pneumonia Pancreatic insufficiency due to cystic fibrosis Pneumomediastinum history of Pseudomonas aeruginosa colonization Respiratory acidosis Surgical History No significant past surgical history Family History Mother Quadriplegia, post-traumatic 2nd MVA Social History Smoking Status: Never smoker Tobacco Type: Cigarettes packs per day: 1; Second Hand Exposure: No; Hx Alcohol Use: No Hx Substance Use: Yes Last Used Substance: Unknown Last Used Substance Other:: years ago Preferred Language: Upper Sorbian Communication Ability: Effective Crusher Operator Required: No Beliefs That Will Affect Care: None marital status: Unknown Current Living Situation: Other Current Living Situation Comment: Incarceration at [facility] How many Children do You have: 0 Feels Safe at Home: Yes Assistive Devices: Oxygen - Continuous Review of Systems Review of Systems: Denies current headache, changes in vision, hearing, taste, and smell, chest pain, abdominal pain, nausea, vomiting, diarrhea, hematemesis, melena, dysuria, hematuria, and recent falls. All systems have been reviewed and are otherwise negative. Physical Exam Physical Exam: Physical Exam: General: In no acute distress, stated age, chronically ill appearing, malnourished HEENT: Normocephalic, atraumatic, no scleral icterus, pupils around round, symmetrical, and reactive to light, currently with NC in place, moist mucus membranes, trachea midline, no thyromegaly Chest/Pulm: No respiratory distress, symmetrical chest expansion, scattered rhonchi and expiratory wheezing throughout Cardiac: Tachycardic rate, regular rhythm, no murmurs noted Abdomen: Negative for ascites and bruising, normoactive bowel sounds, soft, non-tender to palpation throughout Musculoskeletal: Symmetrical and without signs of acute trauma, upper and lower extremities with full ROM, no atrophy, spasticity, or flaccidity Extremities: Radial, dorsalis pedis, and posterior tibial pulses are intact a nd symmetrical, no edema noted in the BL LE's Skin: Warm, dry, no rashes , lesions, or scars noted Neuro: Alert and oriented to person, place, month, year, and president, no focal defects, CN II-XII tested and intact, no tremors noted Psych: No acute distress, calm and cooperative during the exam Results & Data Results & Data ([facility]) Vital Signs (Past 12 Hours) Vital Signs Temp Pulse Pulse Resp BP Pulse Ox O2 Del Method 08/04/22 10:39 87 L Nasal Cannula 08/04/22 10:00 122 H 25 H 116/64 97 Nebulizer 08/04/22 09:30 112 H 28 H 96 Nebulizer 08/04/22 09:02 89 L Nasal Cannula 08/04/22 08:56 113 H 33 H 91 Nasal Cannula 08/04/22 08:56 119/68 08/04/22 09:00 92 Nasal Cannula 08/04/22 08:54 88 L Room Air, Nasal Cannula 08/04/22 08:54 Room Air 08/04/22 09:19 37.3 C 112 H 25 H 119/68 88 L Room Air 08/04/22 09:18 104 H 32 H 93 Nasal Cannula O2 Flow Rate 08/04/22 10:39 2 08/04/22 10:00 08/04/22 09:30 08/04/22 09:02 2 08/04/22 08:56 2 08/04/22 08:56 08/04/22 09:00 2 08/04/22 08:54 0 08/04/22 08:54 08/04/22 09:19 08/04/22 09:18 2 Laboratory Results Abnormal lab results 08/04/22 08/04/22 08/04/22 Range/Units 09:05 09:05 09:10 WBC 11.91 H (4.8-10.8) K/ul RBC 4.15 L (4.70-6.10) M/uL Hgb 11.1 L (14.0-18.0) g/dl Hct 34.6 L (42.0-52.0) % RDW Std Deviation 35.7 L (36.4-46.3) fL Neut # (Auto) 10.54 H (1.40-6.50) K/uL Lymph # (Auto) 0.55 L (1.2-3.4) K/uL Sodium 131 L (136-145) mmol/L Chloride 97 L (98-107) mmol/L Glucose 260 H (70-99(Fasting)) mg/dl Calcium 8.2 L (8.5-10.1) mg/dl AST 10 L (13-39) U/L Total Protein 8.8 H (6.0-8.3) gm/dl Albumin 3.1 L (3.4-5.0) gm/dl Globulin 5.7 H (2.5-4.0) gm/dl Albumin/Globulin Ratio 0.5 L (0.9-2) Lipase < 3 L (11-82) U/L Nasal Influ A H1 2008 PCR DETECTED A* (NotDetected) Diagnostic Findings Chest X-Ray 08/04/22 08:54 SINGLE VIEW CHEST CLINICAL HISTORY: Cystic fibrosis. Atypical chest pain. FINDINGS: An AP, portable, upright chest radiograph is compared to study dated 03/23/2020. Correlation is made with chest CT dated 11/21/2019 The cardiomediastinal silhouette is unremarkable. Multifocal bronchiectasis is again seen throughout both lungs. Fibrotic change at the left apex is similar to prior studies. Apical bullae are noted. Additional patchy airspace opacities are seen in the right upper lobe and in the lower lobes. No pneumothorax is seen. The bony thorax is grossly intact. IMPRESSION: 1. Multifocal bronchiectasis and left apical fibrosis is similar to prior studies and consistent with the known history of cysticercosis. 2. Mild airspace opacities in the right upper lobe and in both lower lungs may represent a superimposed infectious/inflammatory pneumonitis. This may be acute or chronic. Clinical correlation will be required. Follow-up radiographically as needed. ACT 112: Negative or not required by law. Electronically signed by: Evans Donahue M.D. 08/04/2022 9:21 AM ECG Additional Comments: Poor data quality, interpretation may be adversely affected Sinus tachycardia Right atrial enlargement Borderline ECG When compared with ECG of 22-MAR-2020 10:52, ST no longer elevated in Inferior leads Nonspecific T wave abnormality now evident in Inferior leads T wave amplitude has decreased in Lateral leads Code Status & VTE Plan Code Status Full code VTE Prophylaxis Plan VTE Prophylaxis will be ordered: Yes PG Care Time/CCT Total # of Minutes Spent Total Time Spent with Patient: Total time spent is greater than 50% in coordination of care (as documented) at patient's floor/unit and/or counseling patient: Coding [place] [address] INT INP/OBS CARE 3/75MIN Patient Type Established History Comprehensive Exam Comprehensive Medical Decision Making High Complexity Diagnoses Cystic fibrosis with pulmonary exacerbation E84.0 Pneumonia and influenza J11.00 Pancreatic insufficiency due to cystic fibrosis E84.8; K86.89 Gastric reflux K21.9 DM (diabetes mellitus) E11.9
[2022-08-04] MEDS ORDERED: OSELTAMIVIR PHOSPHATE 75 MG CAP PO STA (12:22)
--- NOTE | 2022-08-04 12:23 | Pulmonary Consultation ---
Date of Consultation August 04, 2022 Assessment & Plan (1) Acute on chronic respiratory failure with hypoxia and hypercapnia: (2) Cystic fibrosis with pulmonary exacerbation: (3) Pancreatic insufficiency due to cystic fibrosis: (4) Pseudomonas aeruginosa colonization: (5) Cystic fibrosis: (6) Pneumonia and influenza: (7) Bronchiectasis: Plan Chest x-ray 08/04/2022 personally reviewed: Portable film, worsening of failure appreciated bilateral upper lobes especially in the left upper lobe, haziness appreciated in the right lower lobe. Bilateral costophrenic and cardiophrenic angles likely ABG 08/04/2022: 7.40/47/76 on 2 L nasal cannula --Acute on chronic hypercapnic hypoxic respiratory failure Likely secondary to cystic fibrosis exacerbation Respiratory bio fire negative for everything except influenza A Continue with cefepime Continue with dornase alpha inhaled twice daily Continue with Trikafta Continue with nebulizer Continue with O2 supplementation to keep saturation 90-92%. Continue with IV hydration. Continue with Creon for his pancreatic insufficiency along with senna-Colace for constipation -Sputum culture from 08/21/2019 was positive for Pseudomonas fluoresc/putida which was pansensitive.Sputum culture has been reordered this admission - Patient also grew DAVID from sputum culture 08/20/2019. Given the cystic fibrosis he will likely be needing to be treated with for his DAVID. - Patient did have gold QuantiFERON test on his previous admission back in August which was negative. --Influenza A+ Continue with oseltamivir Plan: Follow-up ABG Follow-up nasal MRSA if negative can discontinue vancomycin. Continue with dornase montez, hypertonic saline nebulized, flutter valve BiPAP nightly and as needed shortness of breath. Continue with IV hydration Case discussed with primary team, RT Please note the above document was generated using voice recognition software. It may contain grammatical, syntax or spelling errors.Any formal questions or concerns about the content, text or information contained within the body of this dictation should be directly addressed to the provider for clarification. History of Present Illness History of Present Illness 27-year-old male presented to the hospital with worsening shortness of breath Past medical history: Cystic fibrosis with Pseudomonas colonization, type 2 diab etes, history of tobacco abuse Patient was last time admitted to the hospital in February 2020. [facility] guards were also in the room at the time of examination Patient was not in any respiratory distress. He was getting nebulized treatment. Saturation was 99%. Respiration rate was in the high teens to low 20s Heart rate in the low 90s. Blood pressure was 110/80 Patient said he has been feeling not well since approximately a week. He has not been taking his cystic fibrosis medication he was not able to go to the medical office. He has been having night sweats generalized lethargy. He has been coughing bringing up clear phlegm. Denies any hemoptysis No headache No nausea vomiting He says he is feeling better since coming to the hospital Social history: Ex-smoker. Used to do heroin in the past as well Allergies Allergy/AdvReac Type Severity Reaction Status Date / Time No Known Allergies Allergy Unverified 03/22/20 11:37 Home Medications Medication Instructions Recorded Confirmed Type ipratropium 0.5 mg-albuterol 3 mg 3 ml inhalation QID 06/25/18 08/04/22 History (2.5 mg base)/3 mL nebulization soln levalbuterol tartrate 45 2 puff inhalation QID PRN 06/25/18 08/04/22 History mcg/actuation aerosol inhaler Shortness Of Breath (Xopenex HFA) ergocalciferol (vitamin D2) 1,250 1,250 mcg PO MO@0700 08/18/19 08/04/22 History mcg (50,000 unit) capsule (Vitamin D2) acetaminophen 500 mg tablet 1,000 mg PO TID PRN Pain 11/21/19 08/04/22 History (Acetaminophen Extra Strength) cetirizine 10 mg tablet 10 mg PO DAILY 11/21/19 08/04/22 History dornase montez 1 mg/mL solution for 2.5 mg inhalation DAILY 11/21/19 08/04/22 History inhalation diphenhydramine HCl 25 mg capsule 25 mg PO HS 02/06/20 08/04/22 History (Benadryl) fluticasone 250 mcg-salmeterol 50 1 inh inhalation BID 02/06/20 08/04/22 History mcg/dose blistr powdr for inhalation (Wixela Inhub) insulin NPH isoph U-100 human 100 5 unit subcut DAILY 02/06/20 08/04/22 History unit/mL (3 mL) subcutaneous pen (Novolin N FlexPen) naproxen 250 mg tablet 250 mg PO BID PRN Pain 02/06/20 08/04/22 History pantoprazole 40 mg tablet,delayed 40 mg PO DAILY #30 tabs 02/09/20 08/04/22 Rx release lactase 9,000 unit chewable tablet 9,000 unit PO AC 03/22/20 08/04/22 History (Lactaid Fast Act) hcxhyj-xfzhcrab-acczurz 6 cap PO PRN PRN #90 caps 03/23/20 08/04/22 Rx 36,000-114,000-180,000 unit capsule,delay rel (Creon) xxdpgg-vbdtjjeb-uhnkjms 10 cap PO TIDM #90 caps 03/23/20 08/04/22 Rx 36,000-114,000-180,000 unit capsule,delay rel (Creon) elexacaftor 100 mg-tezacaf See Rx Instructions .Route .COMPLEX 08/04/22 08/04/22 History 50mg-ivacaf 75mg(d)/ivacaf 150mg(n) tablets (Trikafta) Patient History Medical History (Updated 08/04/22 @ 13:58 by Beulah Lang MD, [facility]) Acute respiratory failure with hypoxia s/p intubation/mech ventilation -- 2014 -- [place] Asthma Cystic fibrosis Diabetes DM II (diabetes mellitus, type II), controlled Gastric reflux History of MRSA infection Multifocal pneumonia Pancreatic insufficiency due to cystic fibrosis Pneumomediastinum history of Pseudomonas aeruginosa colonization Respiratory acidosis Surgical History No significant past surgical history Family History Mother Quadriplegia, post-traumatic 2nd MVA Social History Smoking Status: Never smoker Tobacco Type: Cigarettes packs per day: 1; Second Hand Exposure: No; Hx Alcohol Use: No Hx Substance Use: Yes Last Used Substance: Unknown Last Used Substance Other:: years ago Preferred Language: Greenlandic Communication Ability: Effective Glue Line Operator Required: No Beliefs That Will Affect Care: None marital status: Unknown Current Living Situation: Other Current Living Situation Comment: Incarceration at [facility] How many Children do You have: 0 Feels Safe at Home: Yes Assistive Devices: Oxygen - Continuous Review of Systems Review of Systems: All systems reviewed & are unremarkable except as noted in HPI & below Physical Exam Physical Exam: Constitutional: No acute distress HEENT: EOMI, PERRLA, poor dentition Respiratory system: Decreased air entry bilaterally, no wheeze, no rhonchi, positive crackles appreciated bilaterally anteriorly and posteriorly CVS: S1-S2 positive, no murmurs or gallops Abdomen: Soft, nontender, nondistended, positive bowel sounds x4 Extremities: +2 pulses bilaterally radialis/ dorsalis pedis, no cyanosis, no edema Neuro: Awake alert oriented x3 Psych: Normal mood and affect G/U: No Cao Skin: no rashes, warm and dry Lymphatic: no cervical or axillary lymphadenopathy Results & Data Results & Data ([facility]) Vital Signs (Past 12 Hours) Vital Signs Temp Pulse Pulse Resp BP Pulse Ox O2 Del Method 08/04/22 10:39 87 L Nasal Cannula 08/04/22 10:00 122 H 25 H 116/64 97 Nebulizer 08/04/22 09:30 112 H 28 H 96 Nebulizer 08/04/22 09:02 89 L Nasal Cannula 08/04/22 08:56 113 H 33 H 91 Nasal Cannula 08/04/22 08:56 119/68 08/04/22 09:00 92 Nasal Cannula 08/04/22 08:54 88 L Room Air, Nasal Cannula 08/04/22 08:54 Room Air 08/04/22 09:19 37.3 C 112 H 25 H 119/68 88 L Room Air 08/04/22 09:18 104 H 32 H 93 Nasal Cannula O2 Flow Rate 08/04/22 10:39 2 08/04/22 10:00 08/04/22 09:30 08/04/22 09:02 2 08/04/22 08:56 2 08/04/22 08:56 08/04/22 09:00 2 08/04/22 08:54 0 08/04/22 08:54 08/04/22 09:19 08/04/22 09:18 2 Laboratory Results 08/04/22 09:05 08/04/22 09:05 PG Care Time/CCT Total # of Minutes Spent Total Time Spent with Patient: Total time spent is greater than 50% in coordination of care (as documented) at patient's floor/unit and/or counseling patient: Coding Level of Care Code INP/OBS CONSULT LVL 5, 80 MIN Diagnoses Acute on chronic respiratory failure with hypoxia and hypercapnia J96.21; J96.22 Cystic fibrosis with pulmonary exacerbation E84.0 Pancreatic insufficiency due to cystic fibrosis E84.8; K86.89 Pseudomonas aeruginosa colonization Z22.39 Cystic fibrosis E84.9 Pneumonia and influenza J11.00 Bronchiectasis J47.9
[2022-08-04] MEDS ORDERED: ALBUTEROL 0.5% NEB SOLN 2.5 MG/0.5 ML VIAL NEB PRN (12:27)
[2022-08-04] MEDS ORDERED: GLUCOSE 40% GEL 15 GM TUBE PO PRN (12:32)
[2022-08-04] MEDS ORDERED: GLUCOSE 10 TAB/TUBE PO PRN (12:32)
[2022-08-04] MEDS ORDERED: DEXTROSE 50% 50 ML SYRINGE IV PRN (12:32)
[2022-08-04] MEDS ORDERED: CARBOHYDRATES FOR HYPOGLYCEMIA PO PRN (12:32)
[2022-08-04] MEDS ORDERED: GLUCAGON FOR INJ 1 MG VIAL SQ PRN (12:32)
[2022-08-04] MEDS ORDERED: PHARMACY GLYCEMIC MGMT CONSULT PRN (13:25)
[2022-08-04 13:39] LABS: C Reactive Protein 15.36 mg/dl (0-0.5)
[2022-08-04] MEDS: DORNASE ALFA 2.5 ML AMP INH SCH (13:44)
[2022-08-04] MEDS: ALBUT/IPRATROP 3MG/0.5MG NEB 3 ML VIAL NEB SCH ×2 (13:44→20:06)
[2022-08-04 13:52] LABS: Base Excess ABG 3.5 mEq/L (-9-1.8); HCO3 ABG 29 mmol/L (19-24); Oxygen Saturation ABG 96.6 % (90-95); PCO2 ABG 47 mmHg (35-46); PO2 ABG 76 mmHg (80-95)
[2022-08-04 13:53] LABS: Allen Test Pos (Pos)
[2022-08-04] MEDS: LACTATED RINGER'S 1,000 ML IV SCH (14:48)
[2022-08-04] MEDS ORDERED: PANCREAZE (LIPASE 10,500U) CAP PO PRN (14:55)
[2022-08-04] MEDS ORDERED: ACETAMINOPHEN 325 MG TAB PO PRN (14:55)
--- NOTE | 2022-08-04 15:08 | Pharmacy Report ---
Pharmacy Vanc AUC Short Note - Date of Service August 04, 2022 - Assessment & Plan Assessment 27 year old M receiving Vancomycin for treatment of pneumonia. Patient is a cystic fibrosis patient and has a history of MRSA infection. Day #1 of therapy: 08/04/22 Plan Vancomycin * Load: Vancomycin 1,250 mg IV once on 08/04/22 at 1150. * Maintenance: Vancomycin 1,000 mg IV q8h starting 08/04/22 at 1800. * AUC/MARYBEL is the preferred PK/PD target for vancomycin * AUC guided dosing is effective and associated with decreased risk of nephrotoxicity compared to traditional trough targets * Trough level of 18.9 mcg/mL is predicted to achieve target AUC/MARYBEL of 400-600 mg/L.hr and may be associated with a 15 % risk of nephrotoxicity * Trough ordered for: 08/06/22 at 0700 Pharmacy will continue to follow and will adjust dose/frequency as necessary. Thank you.
[2022-08-04] MEDS ORDERED: INSULIN ASPART PER UNIT SC ONE (15:15)
[2022-08-04] MEDS ORDERED: LANTUS PER UNIT CHARGE SQ ONE (15:30)
--- NOTE | 2022-08-04 15:33 | Pharmacy Report ---
Pharmacy Glycemic Short Note 2 - Date of Service August 04, 2022 - Glycemic Short BSG Results (Last 24 hours): 08/04/22 08/04/22 09:05 14:57 Glucose 260 H POC Glucose 163 H OUTPATIENT ANTIDIABETIC REGIMEN: * NPH 5 units daily ASSESSMENT: * Marv Sevilla is a 27 year old patient who presents with the flu and pneumonia. Patient's past medical history is significant for type 2 diabetes and cystic fibrosis. In previous admissions, patient had not required insulin and was receiving IV steroids. Patient's BSG decreased from 260 mg/dL at breakfast to 160 mg/dL at lunch with no insulin administration. Patient is currently ordered Solumedrol 40 mg IV daily. Outpatient diabetes regimen includes: NPH 5 units daily. Patient is currently ordered a carb consistent diet. PLAN FOR INPATIENT GLYCEMIC CONTROL: * Hold outpatient oral diabetes medications * Basal insulin * Lantus 10 units once on 08/04/22 at 1530 * Bolus insulin * NovoLog per scale ACHS or Q6hrs while NPO * Goal Range: Low 110 mg/dL - High 140 mg/dL * Correction Factor: 25 mg/dL/unit * Nutritional / Prandial insulin per carb ratio of 1 unit per 8 grams CHO consumed
[2022-08-04] MEDS: PANCREAZE (LIPASE 10,500U) CAP PO SCH (17:09)
[2022-08-04] MEDS: LACTASE 3000 UNIT TAB PO SCH (17:09)
[2022-08-04] MEDS: CEFEPIME 2,000 MG in SYRINGE 0 ML IV SCH (17:09)
[2022-08-04] MEDS: ENOXAPARIN INJ 40 MG/0.4 ML SYR SQ SCH (17:10)
[2022-08-04] MEDS: INSULIN ASPART PER UNIT SC SCH ×2 (17:19→21:11)
--- NOTE | 2022-08-04 17:26 | Electrocardiogram Report ---
Test Reason : Blood Pressure : / mmHG Vent. Rate : 094 BPM Atrial Rate : 094 BPM P-R Int : 138 ms QRS Dur : 080 ms QT Int : 356 ms P-R-T Axes : 083 079 067 degrees QTc Int : 445 ms Normal sinus rhythm Minor Anterior ST elevation, most consistent with repolarization variant Normal ECG When compared with ECG of 04-AUG-2022 08:56, No significant change was found Confirmed by Daniele Alicia ([id number]) on 08/04/2022 5:25:39 PM Referred By: Yvette SCI Confirmed By:Daniele Alicia
[2022-08-04] MEDS: VANCOMYCIN HCL 1,000 MG in SODIUM CHLORIDE 0.9% 250 ML IV SCH (17:42)
[2022-08-04] MEDS: SODIUM CHLOR 7% 4 ML NEB NEB SCH (20:06)
[2022-08-04 20:39] LABS: Hematocrit (blood only) 32.3 % (42.0-52.0); Hemoglobin 10.3 g/dl (14.0-18.0); Mean Corpuscular Hemoglobin 26.8 pg (25.0-34.0); Mean Corpuscular Hgb Conc 31.9 g/dL (32.0-36.0); Mean Corpuscular Volume 84.1 fL (80.0-100.0); Mean Platelet Volume 9.9 fL (9.4-12.4); Platelet Count 321 K/uL (130-400); RDW Coefficient of Variation 11.8 % (11.5-14.5); RDW Standard Deviation 35.9 fL (36.4-46.3); Red Blood Count 3.84 M/uL (4.70-6.10); White Blood Count 7.05 K/ul (4.8-10.8)
[2022-08-04] MEDS ORDERED: VANCOMYCIN HCL 1,000 MG in SODIUM CHLORIDE 0.9% 500 ML IV SCH (21:00)
[2022-08-04] MEDS ORDERED: LANTUS PER UNIT CHARGE SQ SCH (21:00)
[2022-08-04] MEDS: TRIKAFTA PO SCH (21:16)
[2022-08-04] MEDS: OSELTAMIVIR PHOSPHATE 75 MG CAP PO SCH (21:17)
[2022-08-05] MEDS: LACTATED RINGER'S 1,000 ML IV SCH (00:59)
[2022-08-05] MEDS: VANCOMYCIN HCL 1,000 MG in SODIUM CHLORIDE 0.9% 250 ML IV SCH (01:04)
[2022-08-05] MEDS: CEFEPIME 2,000 MG in SYRINGE 0 ML IV SCH ×3 (01:15→17:31)
[2022-08-05 02:58] LABS: Hematocrit (blood only) 32.4 % (42.0-52.0); Hemoglobin 10.4 g/dl (14.0-18.0); Mean Corpuscular Hemoglobin 26.7 pg (25.0-34.0); Mean Corpuscular Hgb Conc 32.1 g/dL (32.0-36.0); Mean Corpuscular Volume 83.1 fL (80.0-100.0); Platelet Count 332 K/uL (130-400); RDW Coefficient of Variation 11.8 % (11.5-14.5); RDW Standard Deviation 35.7 fL (36.4-46.3); White Blood Count 8.33 K/ul (4.8-10.8)
[2022-08-05 06:18] LABS: Hematocrit (blood only) 32.9 % (42.0-52.0); Hemoglobin 10.6 g/dl (14.0-18.0); Mean Corpuscular Hemoglobin 26.6 pg (25.0-34.0); Mean Corpuscular Hgb Conc 32.2 g/dL (32.0-36.0); Mean Corpuscular Volume 82.7 fL (80.0-100.0); Mean Platelet Volume 9.9 fL (9.4-12.4); Platelet Count 344 K/uL (130-400); RDW Coefficient of Variation 11.6 % (11.5-14.5); RDW Standard Deviation 35.1 fL (36.4-46.3); Red Blood Count 3.98 M/uL (4.70-6.10)
[2022-08-05 06:32] LABS: Albumin Globulin Ratio 0.5 (0.9-2); Albumin Level 2.9 gm/dl (3.4-5.0); Bilirubin,Total 0.3 mg/dl (0.2-1.0); Calcium 8.6 mg/dl (8.5-10.1); Creatinine Clr Calc Pharmacy 120.1 ml/min; Est GFR (African American) 139.2 ml/min; Est GFR (Non-African American) 120.1 ml/min; Globulin 5.4 gm/dl (2.5-4.0); Magnesium 2.4 mg/dl (1.7-2.4); Total Protein 8.3 gm/dl (6.0-8.3)
[2022-08-05] MEDS: ALBUT/IPRATROP 3MG/0.5MG NEB 3 ML VIAL NEB SCH ×4 (07:23→19:37)
[2022-08-05] MEDS: SODIUM CHLOR 7% 4 ML NEB NEB SCH ×2 (07:23→19:38)
[2022-08-05 07:50] LABS: Estimated Average Glucose 154 mg/dl
[2022-08-05] MEDS: LACTASE 3000 UNIT TAB PO SCH ×3 (08:33→17:25)
[2022-08-05] MEDS: INSULIN ASPART PER UNIT SC SCH ×4 (08:34→21:17)
[2022-08-05] MEDS: OSELTAMIVIR PHOSPHATE 75 MG CAP PO SCH ×2 (08:35→20:32)
[2022-08-05] MEDS: PANCREAZE (LIPASE 10,500U) CAP PO SCH ×3 (08:36→17:25)
[2022-08-05] MEDS: PANTOprazole 40 MG TAB PO SCH (08:37)
[2022-08-05] MEDS: CETIRIZINE HCL 10 MG TABLET PO SCH (08:37)
[2022-08-05 08:38] LABS: Hematocrit (blood only) 32.5 % (42.0-52.0); Hemoglobin 10.5 g/dl (14.0-18.0); Mean Corpuscular Hemoglobin 26.9 pg (25.0-34.0); Mean Corpuscular Hgb Conc 32.3 g/dL (32.0-36.0); Mean Corpuscular Volume 83.1 fL (80.0-100.0); Mean Platelet Volume 9.7 fL (9.4-12.4); Platelet Count 331 K/uL (130-400); RDW Coefficient of Variation 11.4 % (11.5-14.5); RDW Standard Deviation 34.4 fL (36.4-46.3); Red Blood Count 3.91 M/uL (4.70-6.10)
[2022-08-05] MEDS: TRIKAFTA PO SCH ×2 (08:39→20:32)
[2022-08-05] MEDS: DORNASE ALFA 2.5 ML AMP INH SCH ×2 (08:57→19:38)
[2022-08-05] MEDS ORDERED: FLUTICASONE/VILANTEROL 200/25MCG 14 PUFFS/INHALER INH SCH ×2 (09:00)
[2022-08-05] MEDS ORDERED: methylPREDNISolone 40 MG in SYRINGE 0 ML IV SCH (09:00)
[2022-08-05] MEDS ORDERED: LANTUS PER UNIT CHARGE SQ SCH (09:00)
[2022-08-05] MEDS ORDERED: DORNASE ALFA 2.5 ML AMP INH SCH (09:00)
--- NOTE | 2022-08-05 13:35 | Pulmonology Progress Note ---
Date of Service August 05, 2022 Assessment & Plan (1) Acute on chronic respiratory failure with hypoxia and hypercapnia: (2) Cystic fibrosis with pulmonary exacerbation: (3) Pancreatic insufficiency due to cystic fibrosis: (4) Pseudomonas aeruginosa colonization: (5) Cystic fibrosis: (6) Pneumonia and influenza: (7) Bronchiectasis: Plan Chest x-ray 08/04/2022 personally reviewed: Portable film, worsening of failure appreciated bilateral upper lobes especially in the left upper lobe, haziness appreciated in the right lower lobe. Bilateral costophrenic and cardiophrenic angles likely ABG 08/04/2022: 7.40/47/76 on 2 L nasal cannula --Acute on chronic hypercapnic hypoxic respiratory failure Likely secondary to cystic fibrosis exacerbation Respiratory bio fire negative for everything except influenza A Continue with cefepime Continue with dornase alpha inhaled twice daily Continue with Trikafta Continue with nebulizer Continue with O2 supplementation to keep saturation 90-92%. Nasal MRSA positive, continue with vancomycin Continue with IV hydration. Continue with Creon for his pancreatic insufficiency along with senna-Colace for constipation -Sputum culture from 08/21/2019 was positive for Pseudomonas fluoresc/putida which was pansensitive.Sputum culture has been reordered this admission - Patient also grew DAVID from sputum culture 08/20/2019. Given the cystic fibrosis he will likely be needing to be treated with for his DAVID. - Patient did have gold QuantiFERON test on his previous admission back in August which was negative. --Influenza A+ Continue with oseltamivir Plan: Continue with vancomycin given nasal MRSA positivity Complete the course of oseltamivir for 5 days Recommend tapering to prednisone over 3 days Repeat chest x-ray in the morning Continue with dornase montez, hypertonic saline nebulized, flutter valve BiPAP nightly and as needed shortness of breath. Continue with IV hydration Please note the above document was generated using voice recognition software. It may contain grammatical, syntax or spelling errors.Any formal questions or concerns about the content, text or information contained within the body of this dictation should be directly addressed to the provider for clarification. Admission and Anticipated Discharge Date Admission Date: August 04, 2022 Subjective Patient seen and examined at bedside. No acute distress, no adverse events overnight He states that he still feeling the same when it comes to his breathing. He was saturating 88% on 2 L nasal cannula at rest. Has been using chest vest, flutter valve as well as hypertonic nebulized Bringing up phlegm but no hemoptysis Denies any chest pain Review of Systems Review of Systems: All systems reviewed & are unremarkable except as noted in Subjective Physical Exam Physical Exam: Constitutional: No acute distress HEENT: EOMI, PERRLA, poor dentition Respiratory system: Decreased air entry bilaterally, no wheeze, no rhonchi, positive crackles appreciated bilaterally anteriorly and posteriorly CVS: S1-S2 positive, no murmurs or gallops Abdomen: Soft, nontender, nondistended, positive bowel sounds x4 Extremities: +2 pulses bilaterally radialis/ dorsalis pedis, no cyanosis, no edema, positive clubbing Neuro: Awake alert oriented x3 Psych: Normal mood and affect G/U: No Cao Skin: no rashes, warm and dry Lymphatic: no cervical or axillary lymphadenopathy Results & Data Results & Data ([facility]) Vital Signs (Past 12 Hours) Vital Signs Temp Pulse Resp BP Pulse Ox O2 Del Method O2 Flow Rate 08/05/22 11:42 36.6 C 90 20 112/66 93 Nasal Cannula 2 08/05/22 11:01 16 95 Nasal Cannula 2 08/05/22 08:00 Nasal Cannula 2.5 08/05/22 08:57 94 H 16 Nasal Cannula 2 08/05/22 08:23 36.6 C 100 H 20 110/71 93 Nasal Cannula 2.5 08/05/22 07:24 92 H 18 96 Nasal Cannula 2.5 08/05/22 04:50 36.7 C 64 20 119/77 95 Nasal Cannula 2.5 FiO2 08/05/22 11:42 08/05/22 11:01 08/05/22 08:00 08/05/22 08:57 95 08/05/22 08:23 08/05/22 07:24 08/05/22 04:50 Laboratory Results 08/05/22 08:07 08/05/22 05:42 PG Care Time/CCT Total # of Minutes Spent Total Time Spent with Patient: Total time spent is greater than 50% in coordination of care (as documented) at patient's floor/unit and/or counseling patient: Coding Level of Care Code 93363 SUB INP/OBS CARE 3/50MIN Diagnoses Acute on chronic respiratory failure with hypoxia and hypercapnia J96.21; J96.22 Cystic fibrosis with pulmonary exacerbation E84.0 Pancreatic insufficiency due to cystic fibrosis E84.8; K86.89 Pseudomonas aeruginosa colonization Z22.39 Cystic fibrosis E84.9 Pneumonia and influenza J11.00 Bronchiectasis J47.9
[2022-08-05] MEDS: VANCOMYCIN HCL 1,250 MG in SODIUM CHLORIDE 0.9% 250 ML IV SCH (14:23)
[2022-08-05 14:41] LABS: Allen Test Pos (Pos); Base Excess ABG 2.6 mEq/L (-9-1.8); HCO3 ABG 27 mmol/L (19-24); Oxygen Saturation ABG 85.3 % (90-95); PCO2 ABG 41 mmHg (35-46); PO2 ABG 49 mmHg (80-95); pH ABG 7.43 (7.35-7.45)
[2022-08-05 15:53] LABS: Hematocrit (blood only) 30.9 % (42.0-52.0); Hemoglobin 9.9 g/dl (14.0-18.0); Mean Corpuscular Hemoglobin 26.8 pg (25.0-34.0); Mean Corpuscular Volume 83.5 fL (80.0-100.0); Mean Platelet Volume 9.8 fL (9.4-12.4); Platelet Count 364 K/uL (130-400); RDW Coefficient of Variation 11.8 % (11.5-14.5); RDW Standard Deviation 35.6 fL (36.4-46.3)
[2022-08-05] MEDS: NORMOSOL-R 1,000 ML IV SCH (16:14)
[2022-08-05] MEDS: ENOXAPARIN INJ 40 MG/0.4 ML SYR SQ SCH (16:14)
[2022-08-05] MEDS: FORMOTEROL 20 MCG/2 ML VIAL NEB SCH (19:37)
[2022-08-05] MEDS: BUDESONIDE 0.25 MG/2 ML VIAL (PULMICORT) NEB SCH (19:49)
[2022-08-05 20:32] LABS: Hematocrit (blood only) 31.7 % (42.0-52.0); Hemoglobin 10.2 g/dl (14.0-18.0); Mean Corpuscular Hemoglobin 26.9 pg (25.0-34.0); Mean Corpuscular Hgb Conc 32.2 g/dL (32.0-36.0); Mean Corpuscular Volume 83.6 fL (80.0-100.0); Mean Platelet Volume 9.6 fL (9.4-12.4); Platelet Count 353 K/uL (130-400); RDW Coefficient of Variation 11.9 % (11.5-14.5); RDW Standard Deviation 35.7 fL (36.4-46.3); Red Blood Count 3.79 M/uL (4.70-6.10); White Blood Count 8.87 K/ul (4.8-10.8)
--- NOTE | 2022-08-05 22:44 | Hospitalist Progress Note ---
Date of Service August 05, 2022 Assessment & Plan (1) Cystic fibrosis with pulmonary exacerbation: Plan: -Admit to the PCU on tele -The patient is currently afebrile, hemodynamically stable, and stable on 4L NC -Patient has had a week of URI symptoms and was found to be hypoxic today in the 70's -Found to be influenza A positive today -S/P one dose of cefepime and vancomycin, also received 40 mg IV methylprednisolone -Pulmonology consulted and following, the plan will be to get the patient [place] [facility] [place] from [place] team but there are currently no beds available -Continue patient's home Dornase, DuoNebs, BID hypertonic saline Nebs, will start chest physiotherapy with chest vest, incentive spirometry -Continue with Trikafta -Will continue With Vancomycin and cefepime, MRSA swab positive -Prn O2 for goal rang of 90-92%, HS CPAP/Bipap ordered by pulm -Procal, ESR, CRP, and ABG ordered, will follow up -AM CBC, CMP, and Mag (2) Pneumonia and influenza: Plan: -Tested positive today -Will start the patient on TamiFlu due to his severe chronic lung disease (3) Pancreatic insufficiency due to cystic fibrosis: Plan: -Continue Creon with meals and with snacks (4) Gastric reflux: Plan: -Continue pantoprazole (5) DM (diabetes mellitus): Plan: -Will monitor BSG ACHS, goal BSg is 110-140 -Start with lantus 5 units BID -Correction factor of 50 with carb ratio of 15 -DMI diet -Adjust regimen as needed Admission and Anticipated Discharge Date Admission Date: August 04, 2022 Subjective Patient reports feeling "crappy" Not much improvement from the previous day Review of Systems Review of Systems: All systems reviewed & are unremarkable except as noted in HPI & below Physical Exam Physical Exam: General: In no acute distress, stated age, chronically ill appearing, malnourished HEENT: Normocephalic, atraumatic, no scleral icterus, pupils around round, symmetrical, and reactive to light, currently with NC in place, moist mucus membranes, trachea midline, no thyromegaly Chest/Pulm: No respiratory distress, symmetrical chest expansion, scattered rhonchi and expiratory wheezing throughout Cardiac: regular rate, regular rhythm, no murmurs noted Abdomen: Negative for ascites and bruising, normoactive bowel sounds, soft, non-tender to palpation throughout Musculoskeletal: Symmetrical and without signs of acute trauma, upper and lower extremities with full ROM, no atrophy, spasticity, or flaccidity Extremities: Radial, dorsalis pedis, and posterior tibial pulses are intact and symmetrical, no edema noted in the BL LE's Skin: Warm, dry, no rashes , lesions, or scars noted Neuro: Alert and oriented to person, place, month, year, and president, no focal defects, CN II-XII tested and intact, no tremors noted Psych: No acute distress, calm and cooperative during the exam Results & Data Results & Data ([facility]) Vital Signs (Past 12 Hours) Vital Signs Temp Pulse Pulse Resp BP Pulse Ox O2 Del Method 08/05/22 19:38 68 18 97 Oxymask 08/05/22 19:31 37.0 C 77 20 118/62 95 Oxymask 08/05/22 15:00 82 08/05/22 15:43 36.5 C 87 19 119/65 95 Oxymask 08/05/22 14:42 90 16 95 Oxymask 08/05/22 11:42 36.6 C 90 20 112/66 93 Nasal Cannula 08/05/22 11:01 16 95 Nasal Cannula O2 Flow Rate 08/05/22 19:38 3 08/05/22 19:31 2.5 08/05/22 15:00 08/05/22 15:43 3 08/05/22 14:42 3 08/05/22 11:42 2 08/05/22 11:01 2 PG Care Time/CCT Total # of Minutes Spent Total Time Spent with Patient: Total time spent is greater than 50% in coordination of care (as documented) at patient's floor/unit and/or counseling patient: Coding Level of Care Code 64860 SUB INP/OBS CARE 2/35MIN Diagnoses Cystic fibrosis with pulmonary exacerbation E84.0 Pneumonia and influenza J11.00 Pancreatic insufficiency due to cystic fibrosis E84.8; K86.89 Gastric reflux K21.9 DM (diabetes mellitus) E11.9
[2022-08-06] MEDS: VANCOMYCIN HCL 1,250 MG in SODIUM CHLORIDE 0.9% 250 ML IV SCH (00:26)
[2022-08-06] MEDS ORDERED: MELATONIN 3 MG TAB PO PRN (00:41)
[2022-08-06] MEDS: NORMOSOL-R 1,000 ML IV SCH (00:43)
[2022-08-06] MEDS: CEFEPIME 2,000 MG in SYRINGE 0 ML IV SCH ×3 (02:24→18:08)
[2022-08-06] MEDS ORDERED: VANCOMYCIN LEVEL ONE (06:30)
--- NOTE | 2022-08-06 07:06 | XRay Report ---
XR chest 1V portable CLINICAL HISTORY: f/u. Cystic fibrosis. COMPARISON STUDY: Chest CT November 21, 2019. Chest radiograph August 04, 2022. FINDINGS: Left apical lucency is unchanged. This is likely chronic rather than representing a pneumot horax. There is no pleural effusion. No evidence for pulmonary edema. Cardiac size is normal. Mediast inal contours are normal. Upper lobe predominant airspace opacities, including fibrotic change within the left upper lobe are again noted. Right lower lung airspace opacities have slightly improved. Bro nchiectasis again noted. IMPRESSION: 1. Bilateral upper lobe predominant bronchiectasis and irregular airspace opacities consistent with t he known diagnosis of cystic fibrosis. 2. Slight improvement in right lower lung airspace opacities. These may reflect a superimposed infect ious process. ACT 112: Negative or not required by law. Electronically signed by: Romario Estrada M.D. 08/06/2022 7:05 AM
[2022-08-06 07:09] LABS: Hematocrit (blood only) 30.1 % (42.0-52.0); Hemoglobin 9.6 g/dl (14.0-18.0); Mean Corpuscular Hemoglobin 26.7 pg (25.0-34.0); Mean Corpuscular Hgb Conc 31.9 g/dL (32.0-36.0); Mean Corpuscular Volume 83.8 fL (80.0-100.0); Mean Platelet Volume 9.8 fL (9.4-12.4); Platelet Count 358 K/uL (130-400); RDW Coefficient of Variation 11.8 % (11.5-14.5); RDW Standard Deviation 35.8 fL (36.4-46.3); Red Blood Count 3.59 M/uL (4.70-6.10)
[2022-08-06] MEDS: FORMOTEROL 20 MCG/2 ML VIAL NEB SCH (07:13)
[2022-08-06] MEDS: BUDESONIDE 0.25 MG/2 ML VIAL (PULMICORT) NEB SCH (07:13)
[2022-08-06] MEDS: SODIUM CHLOR 7% 4 ML NEB NEB SCH (07:13)
[2022-08-06 07:33] LABS: Albumin Globulin Ratio 0.6 (0.9-2); Albumin Level 2.8 gm/dl (3.4-5.0); BUN Creatinine Ratio 22.4 (10-20); Bilirubin,Total 0.3 mg/dl (0.2-1.0); C Reactive Protein 6.89 mg/dl (0-0.5); Calcium 8.4 mg/dl (8.5-10.1); Creatinine Clr Calc Pharmacy 120.1 ml/min; Est GFR (African American) 142.9 ml/min; Est GFR (Non-African American) 123.3 ml/min; Globulin 4.8 gm/dl (2.5-4.0); Magnesium 2.2 mg/dl (1.7-2.4); Potassium 4.4 mmol/L (3.5-5.1); Total Protein 7.6 gm/dl (6.0-8.3)
[2022-08-06] MEDS: DORNASE ALFA 2.5 ML AMP INH SCH (07:38)
[2022-08-06] MEDS: ALBUT/IPRATROP 3MG/0.5MG NEB 3 ML VIAL NEB SCH ×3 (07:38→14:57)
[2022-08-06] MEDS: PANCREAZE (LIPASE 10,500U) CAP PO SCH ×3 (07:54→17:37)
[2022-08-06] MEDS: LACTASE 3000 UNIT TAB PO SCH ×3 (07:54→17:38)
[2022-08-06] MEDS ORDERED: LANTUS PER UNIT CHARGE SQ SCH (09:00)
[2022-08-06] MEDS: INSULIN ASPART PER UNIT SC SCH ×3 (09:13→18:08)
[2022-08-06] MEDS: TRIKAFTA PO SCH (09:15)
[2022-08-06] MEDS: CETIRIZINE HCL 10 MG TABLET PO SCH (09:16)
[2022-08-06] MEDS: OSELTAMIVIR PHOSPHATE 75 MG CAP PO SCH (09:16)
[2022-08-06] MEDS: PANTOprazole 40 MG TAB PO SCH (09:17)
--- NOTE | 2022-08-06 10:25 | Pharmacy Report ---
Pharmacy PK ABX Note - Date of Service August 06, 2022 - Assessment and Plan Assessment 27 year old M receiving vancomycin and cefepime for treatment of pneumonia. Patient is a cystic fibrosis patient and has a history of MRSA infection. MRSA nasal (+). Prelim sputum culture (+) moderate normal rossy. Renal function stable. Day #3 of therapy: 08/04/22 Plan Vancomycin * Random vancomycin level (~5.5 hr level) this AM, 16.4mcg/mL. Predicted to achieve steady state AUC, 434 mg/L.hr and trough 10.5mcg/mL. * Will optimize regimen and increase to 1500mg IV q12h given history and source (predicted steady state AUC 520mg/L.hr). * Regimen is predicted to achieve target AUC/MARYBEL of 400-600 mg/L.hr * Repeat level around steady state of new regimen Pharmacy will continue to follow and will adjust dose/frequency as necessary. Thank you. Pharmacy has transitioned to AUC monitoring for vancomycin. AUC/MARYBEL is the preferred PK/PD target and is associated with decreased risk of nephrotoxicity compared to traditional trough targets.
--- NOTE | 2022-08-06 11:25 | Pulmonology Progress Note ---
Date of Service August 06, 2022 Assessment & Plan (1) Acute on chronic respiratory failure with hypoxia and hypercapnia: (2) Cystic fibrosis with pulmonary exacerbation: (3) Pancreatic insufficiency due to cystic fibrosis: (4) Pseudomonas aeruginosa colonization: (5) Cystic fibrosis: (6) Pneumonia and influenza: (7) Bronchiectasis: Plan Chest x-ray 08/04/2022 personally reviewed: Portable film, worsening of failure appreciated bilateral upper lobes especially in the left upper lobe, haziness appreciated in the right lower lobe. Bilateral costophrenic and cardiophrenic angles likely ABG 08/04/2022: 7.40/47/76 on 2 L nasal cannula --Acute on chronic hypercapnic hypoxic respiratory failure Likely secondary to cystic fibrosis exacerbation Respiratory bio fire negative for everything except influenza A Continue with cefepime Continue with dornase alpha inhaled twice daily Continue with Trikafta Continue with nebulizer Continue with O2 supplementation to keep saturation 90-92%. Nasal MRSA positive, continue with vancomycin Continue with IV hydration. Continue with Creon for his pancreatic insufficiency along with senna-Colace for constipation -Sputum culture from 08/21/2019 was positive for Pseudomonas fluoresc/putida which was pansensitive.Sputum culture has been reordered this admission - Patient also grew DAVID from sputum culture 08/20/2019. Given the cystic fibrosis he will likely be needing to be treated with for his DAVID. - Patient did have gold QuantiFERON test on his previous admission back in August which was negative. --Influenza A+ Continue with oseltamivir Plan: Chest x-ray from today shows improvement compared to the time of presentation Continue with vancomycin given nasal MRSA positivity Complete the course of oseltamivir for 5 days Recommend double portion diet for the patient along with IV hydration Continue with dornase montez, hypertonic saline nebulized, flutter valve BiPAP nightly and as needed shortness of breath. Please note the above document was generated using voice recognition software. It may contain grammatical, syntax or spelling errors.Any formal questions or concerns about the content, text or information contained within the body of this dictation should be directly addressed to the provider for clarification. Admission and Anticipated Discharge Date Admission Date: August 04, 2022 Subjective Patient seen and examined at bedside. No acute distress, no adverse events overnight. Patient is still complaining of chest tightness. He is bringing up phlegm with the help of flutter valve and chest vest therapy. He was saturating 90-91% on 2 L nasal cannula. He is not that enthusiastic about incentive spirometry, importance of which which was explained to the patient He has been asking for double portion food which is important for him Review of Systems Review of Systems: All systems reviewed & are unremarkable except as noted in Subjective Physical Exam Physical Exam: Constitutional: No acute distress HEENT: EOMI, PERRLA, poor dentition Respiratory system: Decreased air entry bilaterally, no wheeze, no rhonchi, positive crackles appreciated bilaterally anteriorly and posteriorly CVS: S1-S2 positive, no murmurs or gallops Abdomen: Soft, nontender, nondistended, positive bowel sounds x4 Extremities: +2 pulses bilaterally radialis/ dorsalis pedis, no cyanosis, no edema, positive clubbing Neuro: Awake alert oriented x3 Psych: Normal mood and affect G/U: No Cao Skin: no rashes, warm and dry Lymphatic: no cervical or axillary lymphadenopathy Results & Data Results & Data ([facility]) Vital Signs (Past 12 Hours) Vital Signs Temp Pulse Resp BP Pulse Ox O2 Del Method O2 Flow Rate 08/06/22 11:21 79 16 94 Nasal Cannula 2 08/06/22 11:18 36.8 C 84 16 105/62 94 Nasal Cannula 2 08/06/22 08:09 36.8 C 65 16 103/59 L 96 Nasal Cannula 2 08/06/22 07:38 80 18 96 Nasal Cannula 2.5 08/06/22 07:18 Nasal Cannula 3 08/06/22 04:43 37.0 C 60 16 118/70 99 Nasal Cannula 3.0 08/06/22 00:40 36.9 C 66 18 114/55 L 98 Nasal Cannula 3.0 Laboratory Results 08/06/22 05:57 08/06/22 05:57 PG Care Time/CCT Total # of Minutes Spent Total Time Spent with Patient: Total time spent is greater than 50% in coordination of care (as documented) at patient's floor/unit and/or counseling patient: Coding Level of Care Code 85343 SUB INP/OBS CARE 2/35MIN Diagnoses Acute on chronic respiratory failure with hypoxia and hypercapnia J96.21; J96.22 Cystic fibrosis with pulmonary exacerbation E84.0 Pancreatic insufficiency due to cystic fibrosis E84.8; K86.89 Pseudomonas aeruginosa colonization Z22.39 Cystic fibrosis E84.9 Pneumonia and influenza J11.00 Bronchiectasis J47.9
[2022-08-06] MEDS ORDERED: VANCOMYCIN HCL 1,500 MG in SODIUM CHLORIDE 0.9% 500 ML IV SCH (12:00)
--- NOTE | 2022-08-06 12:00 | Hospitalist Progress Note ---
Date of Service August 06, 2022 Assessment & Plan (1) Cystic fibrosis with pulmonary exacerbation: Plan: Currently stable. He still requires oxygen. Appreciate pulmonary medicine consultation and recommendations. We will transfer to [facility] when arrangements are finalized. He remains on intravenous vancomycin and cefepime along with oral Tamiflu. (2) Pneumonia and influenza: Plan: Influenza A detected. He is now on Tamiflu. He is also on intravenous vancomycin and cefepime. (3) Pancreatic insufficiency due to cystic fibrosis: Plan: Continue Creon with meals and with snacks (4) Gastric reflux: Plan: Continue pantoprazole (5) DM (diabetes mellitus): Plan: ADA diet. Basal insulin therapy. Sliding scale coverage as needed. Plan Transfer to [facility] tertiary [facility] when arrangements are finalized Admission and Anticipated Discharge Date Admission Date: August 04, 2022 Subjective Alert and oriented. No distress. We will transfer to [facility] where his usual care is rendered when arrangements are finalized. He remains on oxygen at 2 L with 96% saturation. He is also on intravenous vancomycin and cefepime along with Tamiflu for the acute influenza A Review of Systems Review of Systems: Constitutional-no fever or chills ENT-no blurred vision, no double vision, no epistaxis, no sore throat Respiratory-nonproductive cough. Shortness of breath with exertion. No hemop tysis Cardiac-no palpitations, no chest pain, no syncope GI-no nausea, vomiting, diarrhea, melena, hematochezia -no urinary retention, no urinary incontinence, no dysuria, no hematuria Musculoskeletal-no joint pain, no muscle tenderness Skin-no bruising, no rashes, no pruritus Neuro-no isolated weakness, no paresthesia, no weakness Psych-no depression, no anxiety Physical Exam Physical Exam: General-alert and oriented x3, no fevers, no chills HEENT-head atraumatic and normocephalic, pupils equal and reactive to light, extraocular muscles intact Neck-no lymphadenopathy or thyromegaly, trachea midline Chest-bilateral rhonchi. No audible wheezing. No dullness to percussion Cardiac-regular rate and rhythm, normal S1 and S2, no murmurs Abdomen-normal bowel sounds, nontender, no hepatosplenomegaly Extremities-no cyanosis, clubbing, or edema Neuro-cranial nerves II through XII intact, motor and sensory function within normal limits, strength symmetrical , no focal deficits Psych-depressed affect Results & Data Results & Data ([facility]) Vital Signs (Past 12 Hours) Vital Signs Temp Pulse Resp BP Pulse Ox O2 Del Method O2 Flow Rate 08/06/22 11:21 79 16 94 Nasal Cannula 2 08/06/22 11:18 36.8 C 84 16 105/62 94 Nasal Cannula 2 08/06/22 08:09 36.8 C 65 16 103/59 L 96 Nasal Cannula 2 08/06/22 07:38 80 18 96 Nasal Cannula 2.5 08/06/22 07:18 Nasal Cannula 3 08/06/22 04:43 37.0 C 60 16 118/70 99 Nasal Cannula 3.0 08/06/22 00:40 36.9 C 66 18 114/55 L 98 Nasal Cannula 3.0 Laboratory Results 08/06/22 05:57 08/06/22 05:57 PG Care Time/CCT Total # of Minutes Spent Total Time Spent with Patient: Total time spent is greater than 50% in coordination of care (as documented) at patient's floor/unit and/or counseling patient: Coding Level of Care Code 51724 SUB INP/OBS CARE 3/50MIN Diagnoses Cystic fibrosis with pulmonary exacerbation E84.0 Pneumonia and influenza J11.00 Pancreatic insufficiency due to cystic fibrosis E84.8; K86.89 Gastric reflux K21.9 DM (diabetes mellitus) E11.9
--- NOTE | 2022-08-06 12:02 | Discharge Summary ---
Date of Service August 06, 2022 Admission HPI Per Admitting Provider Marv is a 27 year old male inmate of [facility] with a PMH significant for severe cystic fibrosis, pancreatic insufficiency, DM, GERD, anemia, and malnutrition who presented to the [facility] ED on 08/04/22 with a chief complaint of SOB. In the ED the patient was found to be afebrile, hemodynamically stable, hypoxic at 88% on RA, and tachycardic at 112. Labs were significant for a leukocytosis of 11.9 with left shift of 10.54, stable Hgb at 11, stable platelets, stable cr at 0.72, glucose of 260, corrected sodium of 134, chloride of 97, calcium of 8.2, initial high sensitivity trop of 12.3, AST of 10 otherwise LFTs WNL, and was found to be influenza A positive. Chest xray was read as 1. Multifocal bronchiectasis and left apical fibrosis is similar to prior studies and consistent with the known history of cysticercosis. 2. Mild airspace opacities in the right upper lobe and in both lower lungs may represent a superimposed infectious/inflammatory pneumonitis. This may be acute or chronic. Clinical correlation will be required. Follow-up radiographically as needed. Prior to admission the patient was given one dose of cefepime, one dose of Vancomycin, 40 mg IV methylprednisolone, and a DuoNeb treatment. At the time of the exam the patient was resting in bed in no acute distress, currently saturating at 97% on 4L NC. He states that he has been experiencing fever, chills, increased SOB, increased sputum production, and chest tightness for approximately one week. He did not tell the correction staff about his symptoms as he did not want to be quarantined. This morning he felt more SOB and was found to be hypoxic in the 70% on RA and was sent in from the correction. He states that he currently feels unwell and has been having a poor appetite. He denies abdominal pain, nausea, vomiting, dysuria, hematuria, and recent trauma. The only medication he had today prior to coming to the ED was his am dose of Trikafta. I explained that our goal is to get him transferred to [facility] and their CF team but they currently have no available beds. We discussed code status, he is a Full Code. Per chart review, the patient has grown Pseudomonas, MAC,and Serratia marcescens in previous sputum cultures. His previous Pseudomonas and Serratia infections were sensitive to Cefepime per his sputum cultures and sensitivities. Please refer to Dr. Ramirez's attestation for any changes to the treatment plan Principal Diagnosis Influenza a, acute exacerbation COPD, acute hypoxic respiratory failure, known cystic fibrosis, suspected bacterial pneumonia Discharge Exam General-alert and oriented x3, no fevers, no chills HEENT-head atraumatic and normocephalic, pupils equal and reactive to light, extraocular muscles intact Neck-no lymphadenopathy or thyromegaly, trachea midline Chest-bilateral rhonchi. No audible wheezing. No dullness to percussion Cardiac-regular rate and rhythm, normal S1 and S2, no murmurs Abdomen-normal bowel sounds, nontender, no hepatosplenomegaly Extremities-no cyanosis, clubbing, or edema Neuro-cranial nerves II through XII intact, motor and sensory function within normal limits, strength symmetrical , no focal deficits Psych-depressed affect Discharge Data Allergies Allergy/AdvReac Type Severity Reaction Status Date / Time No Known Allergies Allergy Unverified 03/22/20 11:37 Consultations 08/04/22 11:57 Consult Pulmonology Routine Hospital Course (1) Cystic fibrosis with pulmonary exacerbation: Currently stable. He still requires oxygen. Appreciate pulmonary medicine consultation and recommendations. We will transfer to [facility] when arrangements are finalized. He remains on intravenous vancomycin and cefepime along with oral Tamiflu. (2) Pneumonia and influenza: Influenza A detected. He is now on Tamiflu. He is also on intravenous vancomycin and cefepime. (3) Pancreatic insufficiency due to cystic fibrosis: Continue Creon with meals and with snacks (4) Gastric reflux: Continue pantoprazole (5) DM (diabetes mellitus): ADA diet. Basal insulin therapy. Sliding scale coverage as needed. Plan Transfer to [facility] when arrangements are finalized Total Time Total Time Spent Total Time Spent (In Minutes): 35 minutes Discharge Plan Discharge Items Patient Disposition: Transfer Acute Care Hospital Reason For Visit: shortness of breath, fever Discharge Diagnosis: Influenza A, suspected bacterial pneumonia, acute exacerbation COPD and bronchiectasis, known cystic fibrosis, acute hypoxic respiratory failure Activity: As commented below Activity Comment: Bedrest while hospitalized Non-emergency contact: Primary Care Provider and Access Services Assistant Call non-emergency contact if: you have any medication questions and your symptoms worsen Follow-up/Referrals: Yvette MARTIN [Primary Care Provider] - Diet: Carb Consistent or DM2 Addtl Attending Provider Instructions: Pulmonary medicine will assume care at [facility] Pending Studies at Discharge: No Stand-Alone Forms: My [facility] Skilled Items Patient informed of condition?: Yes DNR: No Discharge Level of Care: Other Communicable Disease: Yes Discharge Prognosis: Stable Lines: Peripheral IV Urinary Catheter: No Medications and DC Order Prescriptions: New enoxaparin [Lovenox] 40 mg/0.4 mL Syringe 40 mg subcut Q24H Qty: 0 0RF acetaminophen 325 mg Tablet 650 mg PO Q4H PRNQty: 0 0RF ipratropium-albuterol 0.5 mg-3 mg(2.5 mg base)/3 mL Solution For Nebulization 3 ml NEB QIDR Qty: 0 0RF oseltamivir [Tamiflu] 75 mg Capsule 75 mg PO BID Qty: 0 0RF sodium chloride 7 % Solution For Nebulization 4 ml NEB BIDR Qty: 0 0RF Pulmozyme 1 mg/mL Solution 2.5 ml inhalation BID Qty: 0 0RF albuterol sulfate 2.5 mg/0.5 mL Solution For Nebulization 2.5 mg NEB Q4H PRNQty: 0 0RF budesonide 0.25 mg/2 mL Suspension For Nebulization 0.25 mg NEB BIDR Qty: 0 0RF formoterol fumarate [Perforomist] 20 mcg/2 mL Solution For Nebulization 20 mcg NEB BIDR Qty: 0 0RF melatonin 3 mg Tablet 3 mg PO HS PRNQty: 0 0RF Continued ipratropium-albuterol 0.5 mg-3 mg(2.5 mg base)/3 mL Solution For Nebulization 3 ml INHALATION QID levalbuterol tartrate [Xopenex HFA] 45 mcg/actuation Hfa Aerosol Inhaler 2 puff INHALATION QID PRN (Reason: Shortness Of Breath) ergocalciferol (vitamin D2) [Vitamin D2] 1,250 mcg (50,000 unit) Capsule 1,250 mcg PO MO@0700 cetirizine 10 mg Tablet 10 mg PO DAILY acetaminophen [Acetaminophen Extra Strength] 500 mg Tablet 1,000 mg PO TID PRN (Reason: Pain) dornase montez 1 mg/mL Solution 2.5 mg INHALATION DAILY fluticasone propion-salmeterol [Wixela Inhub] 250-50 mcg/dose Blister With Device 1 inh INHALATION BID naproxen 250 mg Tablet 250 mg PO BID PRN (Reason: Pain) diphenhydramine HCl [Benadryl] 25 mg Capsule 25 mg PO HS Novolin N FlexPen 100 unit/mL (3 mL) Insulin Pen 5 unit SUBCUT DAILY pantoprazole 40 mg Tablet,Delayed Release (Dr/Ec) 40 mg PO DAILY Qty: 30 0RF Lactaid Fast Act 9,000 unit Tablet,Chewable 9,000 unit PO AC Creon 36,000-114,000- 180,000 unit Capsule,Delayed Release(Dr/Ec) 6 cap PO PRN PRNQty: 90 0RF Creon 36,000-114,000- 180,000 unit Capsule,Delayed Release(Dr/Ec) 10 cap PO TIDM Qty: 90 0RF Trikafta 100-50-75 mg(d) /150 mg (n) Tablets, Sequential See Rx Instructions .ROUTE .COMPLEX Rx Instructions: Take 2 orange pills in the am and one blue pill in the evening Discharge Orders: Discharge Order (Routine); Ordered 08/06/22 Ordered By: Yves Hudson/Other Patient Handouts: A1C Admission Data Admit Date/Time: 08/04/22 12:22 Attending Provider: Yves Gamino Admit Provider: Dwight Ramirez Primary Care Provider: Yvette MARTIN Other Providers: Beulah Lang Coding Level of Care Code HOSP INP/OBS DISCH >30 MIN Diagnoses Cystic fibrosis with pulmonary exacerbation E84.0 Pneumonia and influenza J11.00 Pancreatic insufficiency due to cystic fibrosis E84.8; K86.89 Gastric reflux K21.9 DM (diabetes mellitus) E11.9
[2022-08-06] MEDS: ENOXAPARIN INJ 40 MG/0.4 ML SYR SQ SCH (17:06)
[2022-08-07] MEDS ORDERED: ERGOCALCIFEROL 50,000 UNITS 1250 MCG CAP PO SCH (07:00)
== END 2022-08-06 20:00 | disposition short-term general hospital (02) | DRG 177 ==
LOC: ED 08:47 → SUATTDRO 12:22 → 4W 12:22